=== PATIENT | female | born 1990 | race Hispanic/Latino ===

== ENCOUNTER 2017-10-03 17:21 | Observation (INO) | payer SELFPAY ==
[2017-10-03] MEDS ORDERED: NA CHLORIDE 0.9% 1,000 ML ONE (19:04)
[2017-10-03 19:10] LABS: Absolute Lymphocytes (CBC) 1.2 K/uL (0.7-4.9); Absolute Monocytes 0.8 K/uL (0.1-1.3); Absolute Neutrophil 17.7 K/uL (1.8-8.0); Basophils % 0.2 % (0-1.3); Eosinophils % 0.8 % (0-4.4); Hematocrit 37.4 % (36.0-45.0); Lymphocytes % 6.1 % (15.3-44.8); MCH 28.3 pg (27.0-35.0); MCV 84.9 fL (80-100); RBC Red Blood Cell Count 4.41 M/uL (3.86-4.86)
[2017-10-03 19:16] LABS: Protime INR 1.17
[2017-10-03 19:24] LABS: Bicarbonate 26 mEq/L (21-31); Glucose Level 109 mg/dL (65-120); Potassium 3.7 mEq/L (3.6-5.0); Sodium Level 136 mEq/L (135-145)
[2017-10-03 19:30] LABS: ALT/SGPT 25 IU/L (10-60); AST/SGOT 20 IU/L (10-42); Albumin 4.1 g/dL (3.2-5.5); Alkaline Phosphatase 72 IU/L (42-121); BUN Blood Urea Nitrogen 9 mg/dL (6-20); Bilirubin Direct 0.2 mg/dL (0-0.2); Bilirubin Total 1.5 mg/dL (0.3-1.2); Creatine Phosphokinase 94 IU/L (22-269); Magnesium 1.6 mg/dL (1.8-2.5); Protein, Total 7.5 g/dL (6.0-8.3)
[2017-10-03 19:32] LABS: CKMB Creatine Kinase MB 1.1 ng/ml (0.3-4.0)
[2017-10-03 20:16] LABS: Urine Blood 2+ (NEG); Urine Glucose NEGATIVE (NEG); Urine Protein NEGATIVE (NEG); Urine Specific Gravity 1.025 (1.005-1.030); Urine pH 5.5 (5.0-7.0)
--- NOTE | 2017-10-03 20:41 | RAD REPORT ---
EXAM DESCRIPTION: CT - Chest For Pe Angio - 10/03/2017 8:14 pm CLINICAL HISTORY: Chest pain, left-sided rib pain COMPARISON: None. TECHNIQUE: Dynamically enhanced 3 mm thick images of the chest were obtained during administration o f approximately 150mL Isovue 370 IV contrast. Coronal and oblique reconstruction images were generate d and reviewed. Exam utilizes a protocol to evaluate the pulmonary arterial tree. All CT scans are performed using dose optimization technique as appropriate and may include automated exposure control or mA/KV adjustment according to patient size. FINDINGS: No pulmonary emboli are identified. The aorta as imaged shows no acute or suspicious finding. No pericardial thickening or effusion. No infiltrate or mass in the lung parenchyma. In the No mediastinal or hilar suspicious masses. No chest wall masses or abnormal axillary lymphadenopathy. No fracture or acute bone process identified. Skeletal musculature is unremarkable. IMPRESSION: No pulmonary emboli identified. No other significant or suspicious findings.
[2017-10-03] MEDS ORDERED: KETOROLAC 30 MG/ML INJ ONE (20:57)
[2017-10-03] MEDS ORDERED: Magnesium Sulfate 2gm IVPB 2 G/50 ML BAG IV ONE (20:58)
[2017-10-03] MEDS ORDERED: ONDANSETRON 4 MG/2 ML VIAL ONE (20:58)
[2017-10-03] MEDS ORDERED: MORPHINE 4 MG/ML SYR ONE (21:44)
[2017-10-03] MEDS ORDERED: NA CHLORIDE 0.9% 2,000 ML ONE (21:44)
--- NOTE | 2017-10-03 22:00 | EDPHYS ---
Physician Documentation [facility] Name: Nita Fox Age: 27 yrs Sex: Female : 1990 Arrival Date: 10/03/2017 Time: 17:24 Bed 27 Private MD: ED Physician Elias Tyler HPI: 10/03 18:00 This 27 yrs old Female presents to ER via Ambulatory with complaints of cp Vomiting, Chest Pressure, Back Pain. 18:00 The patient or guardian reports chest pain that is located primarily in the left lower cp left chest. 18:00 The pain radiates to left back. Associated signs and symptoms: Pertinent positives: cp nausea, shortness of breath, episode of hemoptysis, Pertinent negatives: headache, lower extremity pain, lower extremity swelling, palpitations, syncope, vomiting. 18:00 The chest pain is described as a pressure. cp 18:00 Duration: The patient or guardian reports a single episode, that is still ongoing. cp Modifying factors: the symptoms are aggravated by deep breath. TOOL AND DIE REPAIR: 18:15 Currently on rk2 Historical: - Allergies: 17:28 Macrobid; la1 17:28 Sulfa (Sulfonamide Antibiotics); la1 17:28 PENICILLINS; la1 - Home Meds: 22:12 None [Active]; rk2 - PMHx: 17:28 gestational diabetes; la1 - Immunization history:: Adult Immunizations up to date. - Social history:: Smoking status: Patient/guardian denies using tobacco. ROS: 18:15 Constitutional: Negative for body aches, chills, fever, poor PO intake. cp 18:15 Eyes: Negative for injury, pain, redness, and discharge. cp 18:15 ENT: Negative for drainage from ear(s), ear pain, sore throat, difficulty swallowing, difficulty handling secretions. 18:15 Neck: Negative for pain with movement, pain at rest, stiffness, tenderness, bony tenderness. 18:15 Cardiovascular: Positive for chest pain, of the left lower chest, Negative for edema, palpitations. 18:15 Respiratory: Positive for shortness of breath, 1 episode of hemoptysis, Negative for wheezing. 18:15 Abdomen/GI: Positive for nausea, Negative for vomiting, diarrhea, constipation. 18:15 Back: Positive for radiated pain, Negative for injury or acute deformity, decreased range of motion. 18:15 : Negative for urinary symptoms, flank pain. 18:15 MS/extremity: Negative for abrasion, decreased range of motion, paresthesias. 18:15 Skin: Negative for cellulitis, rash. 18:15 Neuro: Negative for altered mental status, headache, syncope, weakness. 18:15 All other systems are negative. Exam: 18:20 Constitutional: The patient appears in no acute distress, alert, awake, cp non-diaphoretic, non-toxic, well developed, well nourished, obese. 18:20 Head/Face: Normocephalic, atraumatic. Eyes: Pupils equal round and reactive to light, cp extra-ocular motions intact. Lids and lashes normal. Conjunctiva and sclera are non-icteric and not injected. Cornea within normal limits. Periorbital areas with no swelling, redness, or edema. ENT: Nares patent. No nasal discharge, no septal abnormalities noted. Tympanic membranes are normal and external auditory canals are clear. Oropharynx with no redness, swelling, or masses, exudates, or evidence of obstruction, uvula midline. Mucous membranes moist. Neck: Trachea midline, no thyromegaly or masses palpated, and no cervical lymphadenopathy. Supple, full range of motion without nuchal rigidity, or vertebral point tenderness. No Meningismus. Chest/axilla: Normal chest wall appearance and motion. Nontender with no deformity. No lesions are appreciated. 18:20 Cardiovascular: Rate: tachycardic, Rhythm: regular, Pulses: Pulses are 2+ in right radial artery and left radial artery. Heart sounds: murmur, not appreciated, rub, not appreciated, gallop, not appreciated, Edema: is not appreciated, JVD: is not appreciated. 18:20 Respiratory: the patient does not display signs of respiratory distress, Respirations: normal, no use of accessory muscles, no retractions, no splinting, no tachypnea, labored breathing, is not present, Breath sounds: decreased breath sounds, are not appreciated, rhonchi, are not appreciated, stridor, is not appreciated, wheezing: is not appreciated. 18:20 Abdomen/GI: Inspection: obese Bowel sounds: active, all quadrants, Palpation: abdomen is soft and non-tender, in all quadrants, rebound tenderness, is not appreciated, voluntary guarding, is not appreciated, involuntary guarding, is not appreciated. 18:20 Back: pain, that is moderate, of the left subscapular area, CVA tenderness, is absent. 18:20 Skin: cellulitis, is not appreciated, no rash present. 18:20 Neuro: Orientation: to person, place \T\ time. Mentation: lucid, able to follow commands, Cerebellar function: is grossly normal, Motor: moves all fours, strength is normal, Sensation: no obvious gross deficits. 18:28 ECG was reviewed by the Attending Physician. Vital Signs: 17:28 BP 132 / 85; Pulse 109; Resp 22; Temp 98.6(TE); Pulse Ox 100% on R/A; Weight 104.33 kg; la1 Height 5 ft. 7 in. (170.18 cm); 18:30 BP 122 / 78; Pulse 96; Resp 18; Pulse Ox 98% on R/A; rk2 19:30 BP 114 / 68; Pulse 92; Resp 18; Pulse Ox 98% on R/A; rk2 20:46 BP 130 / 80; Pulse 93; Resp 17; Pulse Ox 98% on R/A; rk2 21:30 BP 121 / 84; Pulse 102; Resp 17; Pulse Ox 97% on R/A; rk2 22:00 BP 115 / 66; Pulse 95; Resp 17; Pulse Ox 98% on R/A; rk2 17:28 Body Mass Index 36.02 (104.33 kg, 170.18 cm) la1 MDM: 17:34 Patient medically screened. 21:55 Data reviewed: vital signs, nurses notes, lab test result(s), EKG, radiologic studies, cp CT scan, I have discussed the patient's presentation/case with the attending Emergency Department Physician; and as a result, I will admit patient. 21:55 Test interpretation: by ED physician or midlevel provider: ECG. 21:57 Physician consultation: Waqar Choudhury MD was called at 21:55, was contacted at 21:55, regarding admission, to the medical/surgical unit. patient's condition, and will see patient in ED, shortly. 10/03 17:57 Order name: Urine Dipstick--Ancillary (enter results) 10/03 17:57 Order name: Urine --Ancillary (enter results) 10/03 18:17 Order name: Basic Metabolic Panel cp 05/12 18:17 Order name: BNP; Complete Time: 20:48 cp 05/12 18:17 Order name: CBC with Diff; Complete Time: 20:48 cp 05/12 20:48 Interpretation: Normal except: WBC 19.9; JESSICA% 88.9; LYM% 6.1; NEUT A 17.7. cp 05/12 18:17 Order name: Ckmb cp 05/12 18:17 Order name: CPK cp 05/12 18:17 Order name: LFT's; Complete Time: 20:48 cp 05/12 20:48 Interpretation: Normal except: BILIT 1.5. cp 05/12 18:17 Order name: Magnesium; Complete Time: 20:48 cp 05/12 20:49 Interpretation: Abnormal: MG 1.6. cp 05/12 18:17 Order name: PT-INR; Complete Time: 20:48 cp 05/12 20:49 Interpretation: Abnormal: PT 13.8. cp 05/12 18:17 Order name: Ptt, Activated; Complete Time: 20:48 cp 05/12 18:17 Order name: Troponin (emerg Dept Use Only); Complete Time: 20:48 cp 05/12 18:17 Order name: D-Dimer; Complete Time: 20:48 cp 05/12 20:49 Interpretation: Abnormal: D-DIMER 906. cp 05/12 18:17 Order name: Basic Metabolic Panel; Complete Time: 20:48 EDMS 05/12 18:17 Order name: Urine Test (obtain specimen); Complete Time: 18:48 cp 05/12 18:17 Order name: EKG; Complete Time: 18:18 cp 05/12 18:17 Order name: Cardiac monitoring; Complete Time: 18:49 cp 05/12 18:17 Order name: EKG - Nurse/Tech; Complete Time: 18:49 cp 05/12 18:17 Order name: CKMB Creatine Kinase MB; Complete Time: 20:48 EDMS 05/12 18:17 Order name: Creatine Phosphokinase; Complete Time: 20:48 EDMS 05/12 19:31 Order name: CT Chest For PE Angio; Complete Time: 20:48 cp 05/12 21:31 Order name: Urine Microscopic Only cp 05/12 22:27 Order name: Blood Culture Adult (2) cp 05/12 18:17 Order name: IV Saline Lock; Complete Time: 18:49 cp 05/12 18:17 Order name: Labs collected and sent; Complete Time: 18:58 cp 12 18:17 Order name: O2 Per Protocol; Complete Time: 18:49 cp 05/12 18:17 Order name: O2 Sat Monitoring; Complete Time: 18:49 cp 05/12 18:17 Order name: Urine Dipstick-Ancillary (obtain specimen); Complete Time: 18:49 cp EC:28 Rate is 97 beats/min. Rhythm is regular. GA interval is normal. QRS interval is normal. cp QT interval is normal. T waves are Inverted in lead V3. Interpreted by me. Reviewed by me. Administered Medications: 19:06 Drug: NS 0.9% 1000 ml Route: IV; Rate: 1 bolus; Site: left forearm; rk2 21:00 Follow up: Response: No adverse reaction; IV Status: Completed infusion rk2 21:03 Drug: Magnesium Sulfate 2 grams Route: IVPB; Infused Over: 2 hrs; Site: left forearm; rk2 23:09 Follow up: IV Status: Completed infusion rk2 21:03 Drug: TORadol 30 mg Route: IVP; Site: left forearm; rk2 22:15 Follow up: Response: No adverse reaction rk2 21:03 Drug: Zofran 4 mg Route: IVP; Site: left forearm; rk2 22:14 Follow up: Response: No adverse reaction rk2 21:46 Drug: NS 0.9% 1000 ml Route: IV; Rate: 1 bolus; Site: left forearm; rk2 22:20 Follow up: Response: No adverse reaction; IV Status: Completed infusion rk2 21:46 Drug: NS 0.9% 1000 ml Route: IV; Rate: 125 ml/hr; Site: left forearm; rk2 23:08 Follow up: Response: No adverse reaction; IV Status: Infusion continued upon admission rk2 21:53 Drug: morphine 4 mg Route: IVP; Site: left forearm; rk2 22:14 Follow up: Response: No adverse reaction rk2 Disposition: 10/03/17 21:59 Hospitalization ordered by Waqar Choudhury for Observation. Preliminary diagnosis are Chest pain, unspecified, Leukocytosis. - Bed requested for Telemetry/MedSurg (observation). - Status is Observation. rk2 - Condition is Stable. - Problem is new. - Symptoms are unchanged. UTI on Admission? No Addendum: 10/05/2017 09:04 Co-signature as Attending Physician, Elias Tyler MD I agree with the assessment and c shafer plan of care. Signatures: Dispatcher [employer] EDElias Osuna MD MD cha Attema, Lee RN RN la1 Elias Brito PA PA Aislinn Keating, RN RN cg Shelly Colin RN RN rk2 Corrections: (The following items were deleted from the chart) 10/03 22:14 21:59 Hospitalization Ordered by Waqar Choudhury MD for Observation. Preliminary cg diagnosis is Chest pain, unspecified; Leukocytosis. Bed requested for Telemetry/MedSurg (observation). Status is Observation. Condition is Stable. Problem is new. Symptoms are unchanged. UTI on Admission? No. cp 23:14 22:14 10/03/2017 21:59 Hospitalization Ordered by Waqar Choudhury MD for Observation. rk2 Preliminary diagnosis is Chest pain, unspecified; Leukocytosis. Bed requested for Telemetry/MedSurg (observation). Status is Observation. Condition is Stable. Problem is new. Symptoms are unchanged. UTI on Admission? No. cg 10/04 21:55 10/03 18:00 The patient presents to the emergency department with nausea, cp cp
--- NOTE | 2017-10-03 22:00 | ER ---
Nurse's Notes [facility] Name: Nita Fox Age: 27 yrs Sex: Female : 1990 Arrival Date: 10/03/2017 Time: 17:24 Bed 27 Private MD: Diagnosis: Chest pain, unspecified;Leukocytosis Presentation: 10/03 17:27 Presenting complaint: Patient states: I have been having pain under my ribs on the left la1 side since last night, chest pressure since this morning and then I began coughing up blood and I feel SOB. Transition of care: patient was not received from another setting of care. Onset of symptoms was October 03, 2017. Initial Sepsis Screen: Does the patient meet any 2 criteria? No. Patient's initial sepsis screen is negative. Does the patient have a suspected source of infection? No. Patient's initial sepsis screen is negative. Care prior to arrival: None. 17:27 Method Of Arrival: Ambulatory la1 17:27 Acuity: SOREN 3 la1 Triage Assessment: 18:15 General: Appears in no apparent distress. well groomed, well developed, well nourished, rk2 Behavior is calm, cooperative. 18:15 Pain: Complains of pain in Left chest, wraps around to mid back. Neuro: No deficits rk2 noted. Level of Consciousness is alert, obeys commands, Oriented to person, place, time, situation. Cardiovascular: No deficits noted. Rhythm is sinus rhythm. GI: Reports. Derm: Skin is pink, warm \T\ dry. WELD FITTER: 18:15 Currently on rk2 Historical: - Allergies: 17:28 Macrobid; la1 17:28 Sulfa (Sulfonamide Antibiotics); la1 17:28 PENICILLINS; la1 - Home Meds: 22:12 None [Active]; rk2 - PMHx: 17:28 gestational diabetes; la1 - Immunization history:: Adult Immunizations up to date. - Social history:: Smoking status: Patient/guardian denies using tobacco. Screenin:15 Abuse screen: Denies threats or abuse. rk2 18:15 Nutritional screening: No deficits noted. Tuberculosis screening: No symptoms or risk rk2 factors identified. Fall Risk None identified. Assessment: 18:15 GI: Abd is soft. rk2 20:10 Reassessment: Pt. returned from CT. rk2 20:49 Reassessment: Pt. c/o ROSARIO... provider notified. rk2 21:30 Reassessment: Pt. resting in room, appears to be in no obvious distress... iv rk2 meds/fluids infusing. Pt. voiced no needs \T\ this time. Vital Signs: 17:28 BP 132 / 85; Pulse 109; Resp 22; Temp 98.6(TE); Pulse Ox 100% on R/A; Weight 104.33 kg; la1 Height 5 ft. 7 in. (170.18 cm); 18:30 BP 122 / 78; Pulse 96; Resp 18; Pulse Ox 98% on R/A; rk2 19:30 BP 114 / 68; Pulse 92; Resp 18; Pulse Ox 98% on R/A; rk2 20:46 BP 130 / 80; Pulse 93; Resp 17; Pulse Ox 98% on R/A; rk2 21:30 BP 121 / 84; Pulse 102; Resp 17; Pulse Ox 97% on R/A; rk2 22:00 BP 115 / 66; Pulse 95; Resp 17; Pulse Ox 98% on R/A; rk2 17:28 Body Mass Index 36.02 (104.33 kg, 170.18 cm) la1 ED Course: 17:24 Patient arrived in ED. mr 17:28 Triage completed. la1 17:29 Arm band placed on left wrist. la1 17:30 Shelly Colin, JANE is Primary Nurse. rk2 17:34 Elias Brito PA is PHCP. cp 17:34 Elias Tyler MD is Attending Physician. cp 18:15 Patient has correct armband on for positive identification. Placed in gown. Bed in low rk2 position. Side rails up X2. monitoring analyst on. Pulse ox on. 18:59 Basic Metabolic Panel Sent. rk2 19:50 CT Chest For PE Angio Sent. rk2 19:[address] via wheelchair. cw1 20:14 CT completed. Patient moved back from CT. cw1 20:14 CT Chest For PE Angio In Process Unspecified. EDMS 21:58 Waqar Choudhury MD is Hospitalizing Provider. cp 23:09 No provider procedures requiring assistance completed. Patient admitted, IV remains in rk2 place. Administered Medications: 19:06 Drug: NS 0.9% 1000 ml Route: IV; Rate: 1 bolus; Site: left forearm; rk2 21:00 Follow up: Response: No adverse reaction; IV Status: Completed infusion rk2 21:03 Drug: Magnesium Sulfate 2 grams Route: IVPB; Infused Over: 2 hrs; Site: left forearm; rk2 23:09 Follow up: IV Status: Completed infusion rk2 21:03 Drug: TORadol 30 mg Route: IVP; Site: left forearm; rk2 22:15 Follow up: Response: No adverse reaction rk2 21:03 Drug: Zofran 4 mg Route: IVP; Site: left forearm; rk2 22:14 Follow up: Response: No adverse reaction rk2 21:46 Drug: NS 0.9% 1000 ml Route: IV; Rate: 1 bolus; Site: left forearm; rk2 22:20 Follow up: Response: No adverse reaction; IV Status: Completed infusion rk2 21:46 Drug: NS 0.9% 1000 ml Route: IV; Rate: 125 ml/hr; Site: left forearm; rk2 23:08 Follow up: Response: No adverse reaction; IV Status: Infusion continued upon admission rk2 21:53 Drug: morphine 4 mg Route: IVP; Site: left forearm; rk2 22:14 Follow up: Response: No adverse reaction rk2 Outcome: 21:59 Decision to Hospitalize by Provider. cp 23:09 Admitted to Tele rk2 23:09 Condition: good 23:09 Instructed on the need for admit. 23:14 Patient left the ED. rk2 Signatures: Dispatcher [employer] Nita Conner DamiánSangita cw1 Vazquez Hatch RN RN la1 Elias Brito PA PA cp Kidder, Rhonda, RN RN rk2
[2017-10-03 23:18] VITALS: BMI 36.8
[2017-10-03 23:37] LABS: Urine Bacteria <20 /HPF (<20); Urine Culture Reflex Order NOT NEEDED; Urine RBC 20-50 /HPF (NONE SEEN)
[2017-10-04] MEDS: ACETAMINOPHEN 325 MG TABLET PO PRN ×2 (05:17→13:38)
[2017-10-04] MEDS ORDERED: HYDROCORTISONE SUC 100 MG INJ IV ONE (07:16)
[2017-10-04] MEDS ORDERED: CEFTRIAXONE 1 GM/NS 50 ML 1 GM/50 ML BAG IV ONE (07:22)
--- NOTE | 2017-10-04 07:22 | P.HP ---
Certification for Inpatient Patient admitted to: Observation With expected LOS: <2 Midnights Patient will require the following post-hospital care: None Practitioner: I am a practitioner with admitting privileges, knowledge of patient current condition, hospital course, and medical plan of care. Services: Services provided to patient in accordance with Admission requirements found in Title 42 Section 412.3 of the Code of Federal Regulations Patient History Date of Service: 10/03/17 Reason for admission: Pleuritic chest pain History of Present Illness: Patient is a 27-year-old female presents to the hospital having pleuritic chest pain. She has pain on deep inspiration. She has been having shakes and chills for the last couple of days. In the emergency room she was worked up in the ER provider did not feel comfortable with discharging her. Her troponins have been negative so I do not believe with her minimal risk factor that she has cardiac disease at such a young age. With her fevers shakes and chills in her pain on deep inspiration she most likely has a bronchial pneumonia with some pleurisy. Will treat her with IV antibiotics and hydration and reassess by hospitalist provider tomorrow. Possible discharge home in the next 24-48 hr. Allergies nitrofurantoin [From Macrobid] Allergy (Unverified 07/04/16 18:24) Unknown Penicillins Allergy (Unverified 10/03/17 23:17) Unknown Sulfa (Sulfonamide Antibiotics) Allergy (Unverified 02/24/15 11:05) Unknown Unknown IV pain med Allergy (Uncoded 02/24/15 11:05) Unknown Home Medications: NK [No Home Meds] 10/03/17 - Past Medical/Surgical History Diabetic: No -: gestational diabetes -: appy -: x 2 - Family History Mother Medical History: Hypertension, Stroke Father Medical History: Hypertension, Diabetes, Stroke - Social History Smoking Status: Never smoker Alcohol use: Yes CD- Drugs: No Caffeine use: Yes Place of Residence: Home Review of Systems 10-point ROS is otherwise unremarkable Physical Examination - Vital Signs Temperature: 100.8 F Blood Pressure: 115/62 Pulse: 93 Respirations: 18 Pulse Ox (%): 94 - Physical Exam General: Alert, In no apparent distress, Oriented x3 HEENT: Atraumatic, PERRLA, Mucous membr. moist/pink, EOMI, Sclerae nonicteric Neck: Supple, 2+ carotid pulse no bruit, No LAD, Without JVD or thyroid abnormality Respiratory: Diminished, Other (Pain on deep inspiration) Cardiovascular: Regular rate/rhythm, Normal S1 S2 Gastrointestinal: Normal bowel sounds, Soft and benign, Non-distended, No tenderness Musculoskeletal: No clubbing, No swelling, No tenderness Integumentary: No rashes Neurological: Normal gait, Normal speech, Normal strength at 5/5 x4 extr, Normal tone, Sensation intact, Cranial nerves 3-12 intact, Normal affect Lymphatics: No axilla or inguinal lymphadenopathy - Studies Laboratory Data (last 24 hrs) 10/03/17 18:55: PT 13.8 H, INR 1.17, APTT 30.1 10/03/17 18:55: WBC 19.9 H, Hgb 12.5, Hct 37.4, Plt Count 216 10/03/17 18:55: B-Natriuretic Peptide 22 10/03/17 18:55: Sodium 136, Potassium 3.7, BUN 9, Creatinine 0.75, Glucose 109, Magnesium 1.6 L, Total Bilirubin 1.5 H, AST 20, ALT 25, Alkaline Phosphatase 72 Assessment & Plan - Problems (Diagnosis) (1) Pleuritic chest pain Current Visit: Yes Status: Acute (2) Pneumonia Current Visit: Yes Status: Acute (3) Leukocytosis Current Visit: Yes Status: Acute - Plan 1. Continue with IV antibiotics 2. Awaiting sputum and blood culture 3. Repeat chest x-ray 4. CT of the chest did not reveal a pneumonia. Will reassess in 24 hr 5. Continue with IV steroids 6. Continue with nebs as needed 7. O2 per protocol 8. Continue with gentle hydration 9. Repeat labs including CBC and renal function in a.m. 10. GI and DVT prophylaxis Discharge Plan: Home Plan to discharge in: 48 Hours - Advance Directives Does patient have a Living Will: No Does patient have a Durable POA for Healthcare: No - Code Status/Comfort Care Code Status Assessed: Yes Code Status: Full Code Critical Care: No Time Spent Managing PTS Care (In Minutes): 50
[2017-10-04] MEDS ORDERED: CEFTRIAXONE/SWI 1gm 1 GM/10 ML SYR IV SCH (08:00)
[2017-10-04] MEDS: NA CHLORIDE 0.9% 1,000 ML IV SCH ×2 (09:41→17:16)
[2017-10-04] MEDS: ASPIRIN EC 81 MG TAB PO SCH (09:42)
[2017-10-04] MEDS: ENOXAPARIN 40 MG/0.4 ML SQ SCH (09:42)
[2017-10-04] MEDS: METOPROLOL TAR 50 MG TAB PO SCH ×2 (09:42→20:52)
[2017-10-04 13:41] VITALS: O2SAT 96
--- NOTE | 2017-10-04 13:45 | P.PN ---
Subjective Date of Service: 10/04/17 Chief Complaint: Pleuritic chest pain Patient seen and examined at bedside with RN. Chart reviewed. Currently patient has no complaints to offer. Patient did have a fever earlier this morning of 101.2. Patient states that she however feels much better than before. Review of Systems General: As per HPI Physical Examination - Vital Signs Temperature: 98.4 F Blood Pressure: 110/60 Pulse: 75 Respirations: 20 Pulse Ox (%): 96 - Physical Exam General: Alert, In no apparent distress, Oriented x3 HEENT: Atraumatic, PERRLA, EOMI Neck: Supple, JVD not distended Respiratory: Clear to auscultation bilaterally, Normal air movement Cardiovascular: Regular rate/rhythm, Normal S1 S2 Gastrointestinal: Normal bowel sounds, No tenderness Musculoskeletal: No tenderness Integumentary: No rashes Neurological: Normal speech, Normal tone, Normal affect Lymphatics: No axilla or inguinal lymphadenopathy - Studies Laboratory Data (last 24 hrs) 10/03/17 18:55: PT 13.8 H, INR 1.17, APTT 30.1 10/03/17 18:55: WBC 19.9 H, Hgb 12.5, Hct 37.4, Plt Count 216 10/03/17 18:55: B-Natriuretic Peptide 22 10/03/17 18:55: Sodium 136, Potassium 3.7, BUN 9, Creatinine 0.75, Glucose 109, Magnesium 1.6 L, Total Bilirubin 1.5 H, AST 20, ALT 25, Alkaline Phosphatase 72 Medications List Reviewed: Yes Assessment & Plan - Problems (Diagnosis) (1) Fever due to infection Current Visit: Yes Status: Acute Plan: Fever and Leukocytosis. Most likely 2.2 viral infection -IV fluids for now -If needed will add ABX (2) Pleuritic chest pain Current Visit: Yes Status: Acute Plan: Pleuritic chest pain -May get an ECHO if pain not subsided after IV fluids Discharge Plan: Home Plan to discharge in: 48 Hours - Code Status/Comfort Care Code Status Assessed: Yes Critical Care: No
--- NOTE | 2017-10-04 15:24 | EKG ---
Test Date: 2017-10-03 Test Time: 18:20:40 Traffic Controller Cable: DORIS MEASUREMENT RESULTS: Intervals: Rate: 97 ND: 140 QRSD: 90 QT: 344 QTc: 436 Arbuckle: P: 41 ND: 140 QRS: 22 T: 13 INTERPRETIVE STATEMENTS: Normal sinus rhythm Nonspecific T wave abnormality Abnormal ECG Compared to ECG 01/07/2017 20:27:05 T-wave abnormality now present Electronically Signed On 10-04-17 15:23:26 CDT by Zia Kellogg
--- NOTE | 2017-10-04 16:44 | RAD REPORT ---
EXAM DESCRIPTION: US - Liver Only - 10/04/2017 4:38 pm CLINICAL HISTORY: Fever, elevated bilirubin. COMPARISON: None. FINDINGS: The liver demonstrates diffuse fatty infiltration.No focal liver lesion or intrahepatic bi liary dilatation.Common bile duct measures 4 mm.No evidence of portal vein thrombosis. Gallbladder is contracted. IMPRESSION: Fatty liver.
[2017-10-05] MEDS: NA CHLORIDE 0.9% 1,000 ML IV SCH ×2 (04:00→08:39)
--- NOTE | 2017-10-05 07:44 | EKG ---
Test Date: 2017-10-04 Test Time: 12:47:03 Squad Boss: SEKOU MEASUREMENT RESULTS: Intervals: Rate: 68 OH: 144 QRSD: 94 QT: 400 QTc: 425 Walton: P: 32 OH: 144 QRS: 6 T: -3 INTERPRETIVE STATEMENTS: Normal sinus rhythm with sinus arrhythmia Normal ECG Compared to ECG 10/03/2017 18:20:40 T-wave abnormality no longer present Electronically Signed On 10-05-17 07:43:09 CDT by Fahad Reynaga
[2017-10-05] MEDS: ENOXAPARIN 40 MG/0.4 ML SQ SCH (08:36)
[2017-10-05] MEDS: METOPROLOL TAR 50 MG TAB PO SCH (08:37)
[2017-10-05] MEDS: ASPIRIN EC 81 MG TAB PO SCH (08:38)
[2017-10-05 08:40] VITALS: BP 109/65
[2017-10-05 09:05] VITALS: TEMP 98
--- NOTE | 2017-10-05 14:43 | P.SSS ---
Patient History Date of Service: 10/05/17 Primary Care Provider: NOne Reason for admission: Pleuritic chest pain History of Present Illness: See HPI Allergies nitrofurantoin [From Macrobid] Allergy (Verified 10/04/17 09:51) Unknown Penicillins Allergy (Verified 10/04/17 09:51) Unknown Sulfa (Sulfonamide Antibiotics) Allergy (Verified 10/04/17 09:51) Unknown Unknown IV pain med Allergy (Uncoded 02/24/15 11:05) Unknown Home Medications: NK [No Home Meds] 10/03/17 - Past Medical/Surgical History Diabetic: No -: gestational diabetes -: appy -: x 2 - Family History Mother -: Hypertension, Stroke Father -: Hypertension, Diabetes, Stroke - Social History Smoking Status: Never smoker Alcohol use: Yes CD- Drugs: No Caffeine use: Yes Place of Residence: Home Review of Systems General: As per HPI Physical Examination - Vital Signs Temperature: 98.0 F Blood Pressure: 109/65 Pulse: 60 Respirations: 16 Pulse Ox (%): 95 - Physical Exam General: Alert, In no apparent distress, Oriented x3 HEENT: Atraumatic, PERRLA, Mucous membr. moist/pink, EOMI, Sclerae nonicteric Neck: Supple, 2+ carotid pulse no bruit, No LAD, Without JVD or thyroid abnormality Respiratory: Clear to auscultation bilaterally, Normal air movement Cardiovascular: Regular rate/rhythm, Normal S1 S2 Gastrointestinal: Normal bowel sounds, No tenderness Musculoskeletal: No tenderness Integumentary: No rashes Neurological: Normal gait, Normal speech, Normal strength at 5/5 x4 extr, Normal tone, Normal affect Lymphatics: No axilla or inguinal lymphadenopathy - Diagnosis (Problem(s)) (1) Fever due to infection Onset Date: 10/05/17 Status: Resolved (2) Pleuritic chest pain Onset Date: 10/05/17 Status: Resolved Treatment Summary: Overall during the hospital stay patient remained stable Patient was initially admitted to the hospital for fever and chest pressure. Most likely secondary to viral upper respiratory tract infection. Patient was kept on IV antibiotics and IV fluids here in metal. Antibiotics were discontinued with improvement in white count. Patient's culture was negative. Patient most likely had upper respiratory infection secondary to viral illness. Patient day 2 was doing well did not have any fever for 848 hr and thus was discharged home under stable condition. Patient was asked to follow up with a primary care provider and a pharmacy messenger for further care. Patient was also asked to return to the ER if she starts having any shortness of breath or any other associated symptoms. - Disposition Disposition: ROUTINE DISCHARGE Condition: GOOD Diet: Regular Activity: Ad lilo
== END 2017-10-05 12:00 | disposition home or self-care (01) ==
LOC: ER 17:21 → ERHOLD 22:40 → 4TH 22:59
PROVIDERS: ADMIT Hospitalist; ATTEND Hospitalist
DX: R50.9 Fever, unspecified (principal); R07.9 Chest pain, unspecified; Z88.0 Allergy status to penicillin; Z88.2 Allergy status to sulfonamides
CPT/HCPCS: 36415; 71275; 76705; 80048; 80061; 80076; 81003; 81015; 81025; 82550; 82553; 83735; 83880; 84484; 85025; 85379; 85610; 85730; 87040; 93005; 96361; 96365; 96366; 96375; 99285; G0378; J0696; J1650; J1720; J2405; J3475; J7030; Q9967

== ENCOUNTER 2020-04-03 17:34 | Emergency (ER) | payer SELFPAY ==
[2020-04-03 19:28] LABS: Urine Bacteria >50 /HPF (<20); Urine Culture Reflex Order REFLEXED; Urine RBC <5 /HPF (NONE SEEN)
--- NOTE | 2020-04-03 19:58 | RAD REPORT ---
EXAM DESCRIPTION: US - Abdomen Exam Limited - 04/03/2020 7:43 pm CLINICAL HISTORY: Abdominal pain. COMPARISON: None. FINDINGS: Gallbladder is contracted which limits evaluation for gallstones. A gallstone is not seen. Gallbladder wall appears thickened. This could be secondary to pathology or simply be due to the gall bladder being contracted The biliary tree is normal caliber. IMPRESSION: Contracted gallbladder. This would be a normal finding if the patient was not NPO. Chron ic cholecystitis can also result in this appearance.
[2020-04-03 19:59] LABS: Urine Blood 2+ (NEG); Urine Glucose NEGATIVE (NEG); Urine Protein 2+ (NEG); Urine Specific Gravity 1.025 (1.005-1.030)
[2020-04-03 20:01] LABS: Absolute Lymphocytes (CBC) 1.8 K/uL (0.7-4.9); Basophils % 0.5 % (0-1.3); Hematocrit 38.1 % (36.0-45.0); Lymphocytes % 12.7 % (15.3-44.8); MPV 9.5 fL (7.6-11.3); RBC Red Blood Cell Count 4.49 M/uL (3.86-4.86)
[2020-04-03] MEDS ORDERED: NA CHLORIDE 0.9% 1,000 ML ONE (20:10)
[2020-04-03] MEDS ORDERED: HYDROCODONE/APAP 5/325 MG TAB ONE (20:10)
[2020-04-03] MEDS ORDERED: CEFTRIAXONE/SWI 1gm 1 GM/10 ML SYR ONE (20:17)
[2020-04-03] MEDS ORDERED: PROMETHAZINE INJ 25 MG/ML AMP ONE (20:17)
--- NOTE | 2020-04-03 20:44 | EDPHYS ---
Physician Documentation [facility] Name: Nita Fox Age: 29 yrs Sex: Female : 1990 Arrival Date: 04/03/2020 Time: 17:38 Bed 20 Private MD: ED Physician Dexter Pandey HPI: 04/03 19:33 This 29 yrs old Female presents to ER via Ambulatory with complaints of snw Abdominal Pain, Back Pain. 19:33 The patient presents with abdominal pain in the right upper quadrant. Onset: The snw symptoms/episode began/occurred suddenly, 1 day(s) ago. The symptoms radiate to right back. Associated signs and symptoms: Pertinent positives: nausea, anorexia. The symptoms are described as constant, crampy. Severity of pain: At its worst the pain was moderate. The patient has experienced similar episodes in the past. It is unknown whether or not the patient has recently seen a physician. 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 - Social history:: Smoking status: Patient denies any tobacco usage or history of. ROS: 19:31 Constitutional: Negative for fever, chills, and weight loss, Eyes: Negative for injury, snw pain, redness, and discharge, ENT: Negative for injury, pain, and discharge, Neck: Negative for injury, pain, and swelling, Cardiovascular: Negative for chest pain, palpitations, and edema, Respiratory: Negative for shortness of breath, cough, wheezing, and pleuritic chest pain, Abdomen/GI: Positive for abdominal pain, right upper quad and around right back, + nausea, negative for vomiting, diarrhea, and constipation, Back: Negative for injury and pain, : Negative for injury, bleeding, discharge, and swelling, MS/Extremity: Negative for injury and deformity, Skin: Negative for injury, rash, and discoloration, Neuro: Negative for headache, weakness, numbness, tingling, and seizure, Psych: Negative for depression, anxiety, suicide ideation, homicidal ideation, and hallucinations. Exam: 19:31 Constitutional: This is a well developed, well nourished patient who is awake, alert, snw and in no acute distress. Head/Face: Normocephalic, atraumatic. Eyes: Pupils equal round and reactive to light, extra-ocular motions intact. Lids and lashes normal. Conjunctiva and sclera are non-icteric and not injected. Cornea within normal limits. Periorbital areas with no swelling, redness, or edema. ENT: Nares patent. No nasal discharge, no septal abnormalities noted. Tympanic membranes are normal and external auditory canals are clear. Oropharynx with no redness, swelling, or masses, exudates, or evidence of obstruction, uvula midline. Mucous membranes moist. Neck: Trachea midline, no thyromegaly or masses palpated, and no cervical lymphadenopathy. Supple, full range of motion without nuchal rigidity, or vertebral point tenderness. No Meningismus. Chest/axilla: Normal chest wall appearance and motion. Nontender with no deformity. No lesions are appreciated. Cardiovascular: Regular rate and rhythm with a normal S1 and S2. No gallops, murmurs, or rubs. Normal PMI, no JVD. No pulse deficits. Respiratory: Lungs have equal breath sounds bilaterally, clear to auscultation and percussion. No rales, rhonchi or wheezes noted. No increased work of breathing, no retractions or nasal flaring. Back: No spinal tenderness. No costovertebral tenderness. Full range of motion. Skin: Warm, dry with normal turgor. Normal color with no rashes, no lesions, and no evidence of cellulitis. MS/ Extremity: Pulses equal, no cyanosis. Neurovascular intact. Full, normal range of motion. Neuro: Awake and alert, GCS 15, oriented to person, place, time, and situation. Cranial nerves II-XII grossly intact. Motor strength 5/5 in all extremities. Sensory grossly intact. Cerebellar exam normal. Normal gait. Psych: Awake, alert, with orientation to person, place and time. Behavior, mood, and affect are within normal limits. 19:31 Abdomen/GI: Inspection: abdomen appears normal, Bowel sounds: normal, Palpation: mild abdominal tenderness, in the umbilical area, posterior aspect of right lateral abdomen and right upper quadrant. Vital Signs: 17:56 BP 142 / 92; Pulse 89; Resp 16 S; Temp 97.5(TE); Pulse Ox 99% on R/A; Weight 115.21 kg ca1 (R); Height 5 ft. 7 in. (170.18 cm) (R); Pain 9/10; 18:00 Temp 97.5(TE); jp3 19:23 BP 131 / 76; Pulse 83; Resp 18; Pulse Ox 100% on R/A; Pain 9/10; jp3 20:50 BP 135 / 86; Pulse 77; Resp 18; Pulse Ox 100% on R/A; aj1 17:56 Body Mass Index 39.78 (115.21 kg, 170.18 cm) ca1 MDM: 19:22 Patient medically screened. snw 20:49 Data reviewed: vital signs, nurses notes. Data interpreted: Pulse oximetry: on room air snw is 100 %. Interpretation: normal. Counseling: I had a detailed discussion with the patient and/or guardian regarding: the historical points, exam findings, and any diagnostic results supporting the discharge/admit diagnosis, lab results, the need for outpatient follow up, to return to the emergency department if symptoms worsen or persist or if there are any questions or concerns that arise at home. Special discussion: Based on the history and exam findings, there is no indication for further emergent testing or inpatient evaluation. I discussed with the patient/guardian the need to see the general surgeon for further evaluation of the symptoms. I discussed with the patient/guardian the need to see the primary care provider for further evaluation of the symptoms. 04/03 18:10 Order name: Urine Culture snw 04/03 18: Order name: Urine Microscopic Only; Complete Time: 19:30 snw 04/03 19:00 Order name: Urine --Ancillary (enter results); Complete Time: 20:00 tt3 04/03 19:00 Order name: Urine Dipstick--Ancillary (enter results); Complete Time: 20:00 tt3 04/03 19:23 Order name: CBC with Diff; Complete Time: 20:02 snw 04/03 19:23 Order name: Chem 7; Complete Time: 20:59 snw 04/03 18:10 Order name: Urine Test (obtain specimen); Complete Time: 19:00 snw 04/03 18:10 Order name: Urine Dipstick-Ancillary (obtain specimen); Complete Time: 19:00 snw 04/03 18:38 Order name: US Abdomen Limited; Complete Time: 19:59 snw 04/03 18:38 Order name: NPO; Complete Time: 19:18 snw Administered Medications: 20:29 Drug: NS 0.9% 1000 ml Route: IV; Rate: 1 bolus; Site: right antecubital; aj1 20:29 Drug: [place] 5 mg-325 mg 1 tabs Route: PO; aj1 20:29 Drug: Rocephin 1 grams Route: IV; Rate: calculated rate; Site: right antecubital; aj1 20:30 Drug: Phenergan 12.5 mg Route: IVP; Site: right antecubital; aj1 Point of Care Testing: Urine : 19:00 hCG Reading: Negative; Control Reading: Positive; jp3 Disposition: 23:13 Co-signature as Attending Physician, Dexter Pandey MD. rn Disposition: 04/03/20 20:43 Discharged to Home. Impression: Urinary tract infection, site not specified, Colic. - Condition is Stable. - Discharge Instructions: Biliary Colic, Adult, Fat and Cholesterol Restricted Diet, Urinary Tract Infection, Adult, Rehydration, Adult. - Prescriptions for cefpodoxime 200 mg Oral Tablet - take 1 tablet by ORAL route every 12 hours with food; 14 tablet. promethazine 25 mg Oral Tablet - take 1 tablet by ORAL route every 6 hours As needed; 20 tablet. - Work release form, Medication Reconciliation Form, Thank You Letter, Antibiotic Education, Prescription Opioid Use form. - Follow up: Emergency Department; When: As needed; Reason: Worsening of condition. Follow up: Private Physician; When: 2 - 3 days; Reason: Recheck today's complaints, Continuance of care, Re-evaluation by your physician. Follow up: Willi Krueger MD; When: 1 week; Reason: Recheck today's complaints, Continuance of care. Signatures: Dispatcher [employer] EDBell Abraham RN RN aj1 Rocío Giron, SENIOR APPLICATION PROGRAMMER-C SENIOR APPLICATION PROGRAMMER-Csnw Dexter Pandey MD MD rn Acob, JANE Walden RN ca1 Corrections: (The following items were deleted from the chart) 21:06 20:43 04/03/2020 20:43 Discharged to Home. Impression: Urinary tract infection, site ca1 not specified; Colic. Condition is Stable. Forms are Medication Reconciliation Form, Thank You Letter, Antibiotic Education, Prescription Opioid Use. Follow up: Emergency Department; When: As needed; Reason: Worsening of condition. Follow up: Private Physician; When: 2 - 3 days; Reason: Recheck today's complaints, Continuance of care, Re-evaluation by your physician. Follow up: Willi Krueger; When: 1 week; Reason: Recheck today's complaints, Continuance of care. snw
--- NOTE | 2020-04-03 20:44 | ER ---
Nurse's Notes [facility] Name: Nita Fox Age: 29 yrs Sex: Female : 1990 Arrival Date: 04/03/2020 Time: 17:38 Bed 20 Private MD: Diagnosis: Urinary tract infection, site not specified;Colic Presentation: 04/03 17:56 Chief complaint: Patient states: Abdominal pain started today at 1100. Starts in the ca1 middle goes to the R and to the back. Pain with getting up, bending over, walking and moving. Reports nausea. Denies V/D/fever. Coronavirus screen: Client denies travel out of the [place] in the last 14 days. nausea, Client presents with at least one sign or symptom that may indicate coronavirus-19. Standard/surgical mask placed on the client. Provider contacted for isolation considerations. The client reports previous COVID testing was negative. Date of collection: February 2020. Ebola Screen: Patient negative for fever greater than or equal to 101.5 degrees Fahrenheit, and additional compatible Ebola Virus Disease symptoms Patient denies exposure to infectious person. Patient denies travel to an Ebola-affected area in the 21 days before illness onset. No symptoms or risks identified at this time. Initial Sepsis Screen: Does the patient meet any 2 criteria? No. Patient's initial sepsis screen is negative. Does the patient have a suspected source of infection? No. Patient's initial sepsis screen is negative. Risk Assessment: Do you want to hurt yourself or someone else? Patient reports no desire to harm self or others. Onset of symptoms was April 03, 2020 at 11:30. 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 - Social history:: Smoking status: Patient denies any tobacco usage or history of. Screenin:45 Abuse screen: Denies threats or abuse. Denies injuries from another. Nutritional aj1 screening: No deficits noted. Tuberculosis screening: No symptoms or risk factors identified. 21:06 Fall Risk None identified. ca1 Assessment: 19:45 General: Appears in no apparent distress. uncomfortable, Behavior is calm, cooperative, aj1 appropriate for age. Pain: Complains of pain in right upper quadrant Pain radiates to back Pain currently is 9 out of 10 on a pain scale. Quality of pain is described as aching, pressure, Pain began 1 day ago. Neuro: Level of Consciousness is awake, alert, obeys commands, Oriented to person, place, time, situation. Cardiovascular: Patient's skin is warm and dry. Respiratory: Airway is patent Respiratory effort is even, unlabored, Respiratory pattern is regular, symmetrical. GI: Abdomen is non-distended, Bowel sounds present X 4 quads. Abd is soft X 4 quads Abdomen is tender to palpation in right upper quadrant Reports nausea, Patient currently denies constipation, diarrhea, vomiting. : No signs and/or symptoms were reported regarding the genitourinary system. EENT: No signs and/or symptoms were reported regarding the EENT system. Derm: No signs and/or symptoms reported regarding the dermatologic system. Skin is pink, warm \T\ dry. normal. Musculoskeletal: No signs and/or symptoms reported regarding the musculoskeletal system. Circulation, motion, and sensation intact. 20:49 Reassessment: Patient appears in no apparent distress at this time. No changes from aj1 previously documented assessment. Patient and/or family updated on plan of care and expected duration. Pain level reassessed. Patient is alert, oriented x 3, equal unlabored respirations, skin warm/dry/pink. 20:50 Reassessment: Discharge pending completion of IV fluids. aj1 21:05 Reassessment: Patient appears in no apparent distress at this time. Patient is alert, ca1 oriented x 3, equal unlabored respirations, skin warm/dry/pink. Vital Signs: 17:56 BP 142 / 92; Pulse 89; Resp 16 S; Temp 97.5(TE); Pulse Ox 99% on R/A; Weight 115.21 kg ca1 (R); Height 5 ft. 7 in. (170.18 cm) (R); Pain 9/10; 18:00 Temp 97.5(TE); jp3 19:23 BP 131 / 76; Pulse 83; Resp 18; Pulse Ox 100% on R/A; Pain 9/10; jp3 20:50 BP 135 / 86; Pulse 77; Resp 18; Pulse Ox 100% on R/A; aj1 17:56 Body Mass Index 39.78 (115.21 kg, 170.18 cm) ca1 ED Course: 17:38 Patient arrived in ED. mr 17:58 Triage completed. ca1 17:59 Arm band placed on right wrist. ca1 18:15 Urine collected: clean catch specimen, clear, jairo colored. jp3 18:58 Rocío Giron FNP-C [facility]. snw 18:59 Dexter Pandey MD is Attending Physician. snw 19:00 Urine Culture Sent. jp3 19:00 Urine Microscopic Only Sent. jp3 19:19 Bell Loera, RN is Primary Nurse. aj1 19:23 Call light in reach. Side rails up X 1. Warm blanket given. Verbal reassurance given. jp3 Pulse ox on. NIBP on. 19:34 Initial lab(s) drawn, by me, sent to lab. Inserted saline lock: 20 gauge in left jp3 antecubital area, using aseptic technique. Blood collected. 19:34 Patient maintains SpO2 saturation greater than 95% on room air. jp3 19:43 US Abdomen Limited In Process Unspecified. EDMS 19:45 No provider procedures requiring assistance completed. aj1 20:43 Willi Krueger MD is Referral Physician. snw 21:05 IV discontinued, intact, bleeding controlled, No redness/swelling at site. Pressure ca1 dressing applied. Administered Medications: 20:29 Drug: NS 0.9% 1000 ml Route: IV; Rate: 1 bolus; Site: right antecubital; aj1 20:29 Drug: [place] 5 mg-325 mg 1 tabs Route: PO; aj1 20:29 Drug: Rocephin 1 grams Route: IV; Rate: calculated rate; Site: right antecubital; aj1 20:30 Drug: Phenergan 12.5 mg Route: IVP; Site: right antecubital; aj1 Point of Care Testing: Urine : 19:00 hCG Reading: Negative; Control Reading: Positive; jp3 Outcome: 20:43 Discharge ordered by . leena 21:05 Discharged to home ambulatory, with family. ca1 21:05 Condition: stable 21:05 Discharge instructions given to patient, Instructed on discharge instructions, follow up and referral plans. medication usage, Demonstrated understanding of instructions, follow-up care, medications, Prescriptions given X 2. 21:06 Patient left the ED. ca1 Addendum: 04/06/2020 07:26 Addendum: Culture Results: Positive urine culture. No further action required. Bacteria e b sensitive to prescribed antibiotic. Signatures: Dispatcher [employer] EDBell Abraham, RN RN aj1 Rocío Giron, CYTOTECHNOLOGIST/HISTOTECHNOLOGIST-C CYTOTECHNOLOGIST/HISTOTECHNOLOGIST-Csnw Annie Valentin Elizabeth eb Pisarski, Jacob jp3 Iram Villarreal, RN RN ca1
[2020-04-03 20:56] LABS: BUN Blood Urea Nitrogen 11 mg/dL (7-18); Bicarbonate 28 mmol/L (21-32); Glucose Level 116 mg/dL (74-106); Potassium 4.2 mmol/L (3.5-5.1); Sodium Level 141 mmol/L (136-145)
[2020-04-04 02:35] VITALS: TEMP 97.5
[2020-04-04 02:38] VITALS: O2SAT 100
[2020-04-04 02:39] VITALS: BP 135/86
== END 2020-04-03 21:06 | disposition home or self-care (01) ==
LOC: ER 17:34
DX: N39.0 Urinary tract infection, site not specified (principal); E11.9 Type 2 diabetes mellitus without complications; Z88.0 Allergy status to penicillin; Z88.1 Allergy status to other antibiotic agents; Z88.2 Allergy status to sulfonamides
CPT/HCPCS: 36415; 76705; 80048; 81003; 81015; 81025; 85025; 87077; 87086; 87088; 87186; 96374; 96375; 99284; J0696; J2550; J7030

== ENCOUNTER 2020-09-11 19:29 | Emergency (ER) | payer SELFPAY ==
--- OUTSIDE RECORDS SUMMARY | 2020-09-11 19:31 | XMS REPORT | Continuity of Care Document ---
:1990 Author Organization [facility] t Address [address] [place] [address] Care Team Providers Name Role Phone Jose Rafael Sen Attending Clinician Samira LAWRENCE S Attending Clinician Problems This patient has no known problems. Allergies, Adverse Reactions, Alerts This patient has no known allergies or adverse reactions. Medications This patient has no known medications. Procedures This patient has no known procedures. Encounters Start End Encounter Admission Attending Care Care Encounter Source Date/Time Date/Time Type Type Clinicians Facility Department ID 2020-06-05 2020-06-[address] [facility] [id number] 16:50:00 19:31:00 Sanjeev Hightower [id number] [place] [id number] [place] [address] [id number] 2019-12-19 2019-12-[address] [facility] [id number] 21:39:31 03:45:00 Glendy Hightower [id number] [place] [id number] [place] [address] [id number] Results This patient has no known results.
[2020-09-11 23:34] LABS: SARS-COV-2 RT PCR NEGATIVE (NEGATIVE)
--- NOTE | 2020-09-11 23:51 | EDPHYS ---
Physician Documentation [facility] Name: Nita Fox Age: 29 yrs Sex: Female : 1990 Arrival Date: 09/11/2020 Time: 19:31 Bed 2 Private MD: ED Physician Elias Tyler HPI: 09/11 23:48 This 29 yrs old Female presents to ER via Ambulatory with complaints of kb Shortness Of Breath, Congestion. 23:48 The patient has not experienced similar symptoms in the past. The patient has not kb recently seen a physician. 23:49 The patient or guardian reports cough, that is intermittent, described as moderate, kb difficulty breathing, flu symptoms, low-grade fever, myalgias, no appetite. Associated signs and symptoms: Pertinent positives: fever. 23:49 Onset: The symptoms/episode began/occurred 3 day(s) ago. Severity of symptoms: At their kb worst the symptoms were moderate, in the emergency department the symptoms are unchanged. Modifying factors: The symptoms are alleviated by nothing, the symptoms are aggravated by nothing. 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 - Social history:: Smoking status: Patient denies any tobacco usage or history of. ROS: 23:47 Cardiovascular: Negative for chest pain, palpitations, and edema, Abdomen/GI: Negative kb for abdominal pain, nausea, vomiting, diarrhea, and constipation, MS/Extremity: Negative for injury and deformity, Skin: Negative for injury, rash, and discoloration, Neuro: Negative for headache, weakness, numbness, tingling, and seizure. 23:47 Constitutional: Positive for body aches, chills, fatigue, fever, malaise. 23:47 Respiratory: Positive for cough, dyspnea on exertion, shortness of breath. Exam: 23:48 Constitutional: This is a well developed, well nourished patient who is awake, alert, kb and in no acute distress. Head/Face: Normocephalic, atraumatic. Cardiovascular: Regular rate and rhythm with a normal S1 and S2. No gallops, murmurs, or rubs. No pulse deficits. Respiratory: Respirations even and unlabored. No increased work of breathing, no retractions or nasal flaring. Abdomen/GI: Soft, non-tender. No distention Skin: Warm, dry with normal turgor. Normal color. MS/ Extremity: Pulses equal, no cyanosis. Neurovascular intact. Full, normal range of motion. Neuro: Awake and alert, GCS 15, oriented to person, place, time, and situation. Moves all extremities. Normal gait. Vital Signs: 20:17 BP 134 / 88; Pulse 101; Resp 18 S; Temp 98.3(O); Pulse Ox 98% on R/A; Weight 113.4 kg bb (R); Height 5 ft. 7 in. (170.18 cm) (R); Pain 7/10; 09/12 00:11 BP 133 / 94; Pulse 88; Resp 16; Pulse Ox 97% ; jm8 09/11 20:17 Body Mass Index 39.16 (113.40 kg, 170.18 cm) bb MDM: 09/11 21:49 Patient medically screened. [facility] 23:47 Data reviewed: vital signs, nurses notes. Data interpreted: Pulse oximetry: on room air kb is 98 %. Interpretation: normal. Counseling: I had a detailed discussion with the patient and/or guardian regarding: the historical points, exam findings, and any diagnostic results supporting the discharge/admit diagnosis, lab results, radiology results, the need for outpatient follow up, a family practitioner, to return to the emergency department if symptoms worsen or persist or if there are any questions or concerns that arise at home. 09/11 22:24 Order name: Strep mg2 09/11 22:25 Order name: Group A Streptococcus Rapid Sc; Complete Time: 23:44 EDMS 09/11 23:34 Order name: COVID-19/FLU A+B; Complete Time: 23:44 EDMS 09/11 23:40 Order name: Throat Culture EDTN 09/11 21:29 Order name: Chest Single View XRAY kb Administered Medications: 09/12 00:00 Drug: predniSONE 40 mg Route: PO; jm8 00:00 Follow up: Response: No adverse reaction; Medication administered at discharge. jm8 00:00 Drug: AZITHromycin 500 mg Route: PO; jm8 00:00 Follow up: Response: No adverse reaction; Medication administered at discharge. jm8 Disposition: 10:01 Co-signature as Attending Physician, Elias Tyler MD I agree with the assessment and glynn plan of care. Disposition: 09/11/20 23:50 Discharged to Home. Impression: Bronchitis, not specified as acute or chronic. - Condition is Stable. - Discharge Instructions: Acute Bronchitis, [id number], Viral Respiratory Infection, [id number]-[id number]. - Prescriptions for Prednisone 20 mg Oral Tablet - take 1 tablet by ORAL route once daily for 5 days; 5 tablet. Zithromax Z- Catracho 250 mg Oral Tablet - take 1 tablet by ORAL route as directed for 5 days Day 1 - take two (2) tablets one time. Day 2, 3, 4 , 5 take one (1) tablet once daily.; 6 tablet. Albuterol Sulfate 90 mcg/actuation - inhale 1-2 puff by INHALATION route every 4-6 hours; 1 Inhaler. - Medication Reconciliation Form, Thank You Letter, Antibiotic Education, Prescription Opioid Use form. - Follow up: Private Physician; When: 2 - 3 days; Reason: Recheck today's complaints, Continuance of care, Re-evaluation by your physician. Follow up: Emergency Department; When: As needed; Reason: Worsening of condition. Signatures: Dispatcher [employer] [facility] Whit Alex, GUM MAKER-C EMILY-Elias Vergara MD MD cha Ballard, Brenda, RN RN Jaydon Salcido RN RN jm8 Corrections: (The following items were deleted from the chart) 09/11 22:51 22:06 CORONAVIRUS+MR.LAB.BRZ ordered. [facility] EDTN 22:52 22:06 Influenza Screen (A \T\ B)+BA.LAB.BRZ ordered. [facility] 23:50 23:50 09/11/2020 23:50 Discharged to Home. Impression: Acute upper respiratory kb infection, unspecified. Condition is Stable. Forms are Medication Reconciliation Form, Thank You Letter, Antibiotic Education, Prescription Opioid Use. Follow up: Private Physician; When: 2 - 3 days; Reason: Recheck today's complaints, Continuance of care, Re-evaluation by your physician. Follow up: Emergency Department; When: As needed; Reason: Worsening of condition. kb 09/12 00:12 09/11 23:50 09/11/2020 23:50 Discharged to Home. Impression: Bronchitis, not specified jm8 as acute or chronic. Condition is Stable. Forms are Medication Reconciliation Form, Thank You Letter, Antibiotic Education, Prescription Opioid Use. Follow up: Private Physician; When: 2 - 3 days; Reason: Recheck today's complaints, Continuance of care, Re-evaluation by your physician. Follow up: Emergency Department; When: As needed; Reason: Worsening of condition. kb
--- NOTE | 2020-09-11 23:51 | ER ---
Nurse's Notes [facility] Name: Nita Fox Age: 29 yrs Sex: Female : 1990 Arrival Date: 09/11/2020 Time: 19:31 Bed 2 Private MD: Diagnosis: Bronchitis, not specified as acute or chronic Presentation: 09/11 20:17 Chief complaint: Patient states: she has congestion, chest pressure, pain in her back bb and chest with respirations or she talks as well as throat pain and left ear pain. Coronavirus screen: congestion, sore throat, Client presents with at least one sign or symptom that may indicate coronavirus-19. Standard/surgical mask placed on the client. Ebola Screen: No symptoms or risks identified at this time. Initial Sepsis Screen: Does the patient meet any 2 criteria? No. Patient's initial sepsis screen is negative. Does the patient have a suspected source of infection? No. Patient's initial sepsis screen is negative. Risk Assessment: Do you want to hurt yourself or someone else? Patient reports no desire to harm self or others. Onset of symptoms was September 08, 2020. 20:17 Method Of Arrival: Ambulatory bb 20:17 Acuity: SOREN 3 bb Triage Assessment: 20:20 General: Appears in no apparent distress. Behavior is calm, cooperative. Pain: bb Complains of pain in back and chest Pain currently is 7 out of 10 on a pain scale. Neuro: Level of Consciousness is awake, alert, obeys commands, Oriented to person, place, time, situation. Respiratory: Reports shortness of breath cough that is pain with respiration Onset: The symptoms/episode began/occurred 09/08/2020, the patient has mild shortness of breath. 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 - Social history:: Smoking status: Patient denies any tobacco usage or history of. Screenin/21 00:09 Abuse screen: Denies threats or abuse. Denies injuries from another. Nutritional jm8 screening: No deficits noted. Tuberculosis screening: No symptoms or risk factors identified. Fall Risk None identified. Assessment: 00:06 General: Appears in no apparent distress. Behavior is calm, cooperative, appropriate jm8 for age, Reports fever for last Thursday. body aches for 3 days. Pain: Denies pain. Neuro: No deficits noted. Cardiovascular: No deficits noted. Respiratory: Airway is patent Trachea midline Respiratory effort is even, unlabored, Respiratory pattern is regular, Breath sounds are clear Parent/caregiver reports the patient having shortness of breath cough that is dry. GI: No deficits noted. : No deficits noted. EENT: No deficits noted. Derm: No deficits noted. Musculoskeletal: No deficits noted. 00:09 Cardiovascular: Rhythm is regular. jm8 Vital Signs: 09/11 20:17 BP 134 / 88; Pulse 101; Resp 18 S; Temp 98.3(O); Pulse Ox 98% on R/A; Weight 113.4 kg bb (R); Height 5 ft. 7 in. (170.18 cm) (R); Pain 7/10; 09/12 00:11 BP 133 / 94; Pulse 88; Resp 16; Pulse Ox 97% ; jm8 09/11 20:17 Body Mass Index 39.16 (113.40 kg, 170.18 cm) bb ED Course: 09/11 19:31 Patient arrived in ED. cl3 20:19 Triage completed. bb 20:20 Arm band placed on Patient placed in waiting room, Patient notified of wait time. bb 21:29 Whit [facility]-C [facility]. kb 21:29 Elias Tyler MD is Attending Physician. kb 22:00 Patient has correct armband on for positive identification. Bed in low position. jm8 tie bucker on. Pulse ox on. NIBP on. Door closed. Warm blanket given. 22:02 Chest Single View XRAY In Process Unspecified. EDMS 22:09 Candida Church, RN is Primary Nurse. 22:28 No provider procedures requiring assistance completed. COVID swab sent to lab. Flu mg2 and/or RSV swab sent to lab. Strep swab sent to lab. Patient did not have IV access during this emergency room visit. Administered Medications: 09/12 00:00 Drug: predniSONE 40 mg Route: PO; jm8 00:00 Follow up: Response: No adverse reaction; Medication administered at discharge. jm8 00:00 Drug: AZITHromycin 500 mg Route: PO; jm8 00:00 Follow up: Response: No adverse reaction; Medication administered at discharge. jm8 Outcome: 09/11 23:50 Discharge ordered by MD. gibbons 09/12 00:10 Discharged to home ambulatory. jm8 Condition: improved Discharge instructions given to patient. 00:12 Patient left the ED. jm8 Signatures: Dispatcher [employer] EDMS Whit Alex, POLYGRAPH OPERATOR-C POLYGRAPH OPERATOR-CkMel oCllins, RN RN bb Candida Church RN RN Ralf Jean RN RN [facility] Edgar Salcedo 3 Jaydon Rose RN RN jm8
[2020-09-12] MEDS ORDERED: predniSONE 20 MG TAB ONE (00:16)
[2020-09-12 00:17] VITALS: TEMP 98.3
[2020-09-12] MEDS ORDERED: AZITHROMYCIN 250 MG TAB ONE (00:17)
[2020-09-12 00:18] VITALS: BP 133/94; O2SAT 97
--- NOTE | 2020-09-12 08:34 | RAD REPORT ---
EXAM DESCRIPTION: RAD - Chest Single View - 09/11/2020 10:02 pm CLINICAL HISTORY: CHEST PAIN Chest pain. COMPARISON: Chest Single View dated 01/07/2017; Chest Single View dated 04/06/2016 FINDINGS: Portable technique limits examination quality. The lungs are grossly clear. The heart is normal in size. No displaced fractures. IMPRESSION: No acute intrathoracic process suspected.
== END 2020-09-12 00:12 | disposition home or self-care (01) ==
LOC: ER 19:29
DX: J40 Bronchitis, not specified as acute or chronic (principal); Z20.822 Contact with and (suspected) exposure to COVID-19; E11.9 Type 2 diabetes mellitus without complications; Z88.0 Allergy status to penicillin; Z88.1 Allergy status to other antibiotic agents; Z88.2 Allergy status to sulfonamides
CPT/HCPCS: 0240U; 71045; 87070; 87081; 99284; J7512

== ENCOUNTER 2021-04-06 11:38 | Emergency (ER) | payer SELFPAY ==
[2021-04-06 12:15] LABS: Basophils % 0.6 % (0-1.3); Hematocrit 37.4 % (36.0-45.0); Lymphocytes % 25.5 % (15.3-44.8); MPV 8.4 fL (7.6-11.3); RBC Red Blood Cell Count 4.33 M/uL (3.86-4.86)
[2021-04-06 12:44] LABS: BUN Blood Urea Nitrogen 6 mg/dL (7-18); Bicarbonate 23 mmol/L (21-32); Glucose Level 127 mg/dL (74-106); HCG, Quantitative 1696 mIU/mL (1-3); Potassium 3.5 mmol/L (3.5-5.1); Sodium Level 139 mmol/L (136-145)
[2021-04-06 12:49] LABS: Urine Blood 1+ (Negative); Urine Glucose Negative (Negative)
[2021-04-06 12:50] LABS: Urine Protein Negative (Negative); Urine pH 5.5 (5.0-7.0)
--- NOTE | 2021-04-06 14:23 | RAD REPORT ---
EXAM DESCRIPTION: US - Transvaginal OB - 04/06/2021 1:52 pm CLINICAL HISTORY: VAGINAL BLEEDING COMPARISON: None FINDINGS: Normal size uterus is present with no myometrial mass. No blood or fluid in the cul de sac . A small slightly irregular intrauterine gestational sac is identified. There is a faintly visible y olk sac. There is no pole identified. No ovarian or adnexal abnormality. Gestational sac and faint yolk sac measurements correspond to a 5 week 0 day age. No endometrial mass , hematoma. IMPRESSION: Small 5 week intrauterine gestational sac with yolk sac but no pole. No adnexal abnormality.
--- NOTE | 2021-04-06 14:29 | ER ---
Nurse's Notes [facility] Name: Nita Fox Age: 30 yrs Sex: Female : 1990 Arrival Date: 04/06/2021 Time: 11:41 Bed 19 Private MD: Diagnosis: Threatened ;Less than 8 weeks gestation of Presentation: 04/06 11:54 Chief complaint: Patient states: was seen at [facility] last Thursday , was told she was iw , approx 5.5 weeks, LMP was 9-20-21, , today started having pink spotting when she wiped amd has low back pain and abd pain , was diagnosed with UTI last week, put on cephalexin. Coronavirus screen: At this time, the client does not indicate any symptoms associated with coronavirus-19. Ebola Screen: Patient negative for fever greater than or equal to 101.5 degrees Fahrenheit, and additional compatible Ebola Virus Disease symptoms Patient denies exposure to infectious person. Patient denies travel to an Ebola-affected area in the 21 days before illness onset. No symptoms or risks identified at this time. Initial Sepsis Screen: Does the patient meet any 2 criteria? No. Patient's initial sepsis screen is negative. Does the patient have a suspected source of infection? No. Patient's initial sepsis screen is negative. Risk Assessment: Do you want to hurt yourself or someone else? Patient reports no desire to harm self or others. Onset of symptoms was April 06, 2021. 11:54 Method Of Arrival: Ambulatory iw 11:54 Acuity: SOREN 3 iw Triage Assessment: 12:11 General: Appears in no apparent distress. Behavior is calm, cooperative, appropriate ll1 for age. General: Approximately 5 weeks . . Pain: Denies pain. Neuro: No deficits noted. Cardiovascular: No deficits noted. Respiratory: No deficits noted. : Reports cramping, discharge, pain vaginal bleeding that is light flow, spotty. 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 - Social history:: Smoking status: Patient denies any tobacco usage or history of. Screenin:12 Abuse screen: Denies threats or abuse. Nutritional screening: No deficits noted. ll1 Tuberculosis screening: No symptoms or risk factors identified. Fall Risk IV access (20 points). Total Azevedo Fall Scale indicates No Risk (0-24 pts). Assessment: 12:42 Obstetrical Assessment: General assessment: awake and alert, skin warm and dry, ll1 respirations even and unlabored, Patient reports abdominal cramping, back pain. 13:40 Reassessment: No changes from previously documented assessment. Patient and/or family ll1 updated on plan of care and expected duration. Pain level reassessed. Patient is alert, oriented x 3, equal unlabored respirations, skin warm/dry/pink. 14:40 Reassessment: No changes from previously documented assessment. Patient and/or family ll1 updated on plan of care and expected duration. Pain level reassessed. Patient is alert, oriented x 3, equal unlabored respirations, skin warm/dry/pink. 14:54 Reassessment: No changes from previously documented assessment. Patient and/or family ll1 updated on plan of care and expected duration. Pain level reassessed. Patient is alert, oriented x 3, equal unlabored respirations, skin warm/dry/pink. Vital Signs: 11:54 Pulse 85; Resp 16; Temp 98.5(TE); Pulse Ox 99% on R/A; Weight 117.93 kg; Height 5 ft. 7 iw in. (170.18 cm); 12:10 BP 121 / 72; ll1 12:41 BP 133 / 75; Pulse 76; Resp 17; Pulse Ox 100% on R/A; ll1 14:53 BP 127 / 71; Pulse 78; Resp 16; Pulse Ox 100% ; Pain 8/10; ll1 11:54 Body Mass Index 40.72 (117.93 kg, 170.18 cm) iw Vitals: 12:42 Heart Tones n/a 5 weeks . ll1 ED Course: 11:41 Patient arrived in ED. as 11:41 Whit Alex FNP-C is PHCP. kb 11:41 Elias Tyler MD is Attending Physician. kb 11:48 Yulissa Salcedo, RN is Primary Nurse. ll1 11:48 Arm band placed on Patient placed in an exam room, on a stretcher. ll1 11:55 Triage completed. iw 12:10 Inserted saline lock: 22 gauge in left forearm, using aseptic technique. Blood ll1 collected. 12:12 Patient has correct armband on for positive identification. Bed in low position. Call ll1 light in reach. Side rails up X 1. Pulse ox on. NIBP on. 12:42 No provider procedures requiring assistance completed. ll1 13:52 US Transvaginal Ob In Process Unspecified. EDMS 14:54 IV discontinued, intact, bleeding controlled, No redness/swelling at site. Pressure ll1 dressing applied. Administered Medications: No medications were administered Point of Care Testing: Urine : 14:55 hCG Reading: Positive; Control Reading: Positive; ll1 Outcome: 14:29 Discharge ordered by MD. kb 14:55 Discharged to home ambulatory. ll1 14:55 Condition: stable 14:55 Discharge instructions given to patient, Instructed on discharge instructions, follow up and referral plans. Demonstrated understanding of instructions, follow-up care. 14:56 Patient left the ED. ll1 Signatures: Dispatcher [employer] EDPR Whit lAex FNP-C FNP-Carolann Mcrae as Yuliya Reyes, JANE RN iw Yulissa Salcedo, RN RN ll1 Corrections: (The following items were deleted from the chart) 11:56 11:54 Chief complaint: Patient states: was seen at [facility] last Thursday , was told iw she was , approx 5.5 weeks, LMP was 9-20-21, , today started having pink spotting when she wiped amd has low back pain and abd pain iw 11:57 11:54 117.93 kg; Height 5 ft. 7 in.; BMI: 40.7; iw iw 11:59 11:54 Temp 98.5F Temporal; 117.93 kg; Height 5 ft. 7 in.; BMI: 40.7; iw iw
--- NOTE | 2021-04-06 14:29 | EDPHYS ---
Physician Documentation [facility] Name: Nita Fox Age: 30 yrs Sex: Female : 1990 Arrival Date: 04/06/2021 Time: 11:41 Bed 19 Private MD: ED Physician Elias Tyler HPI: 04/06 13:24 This 30 yrs old Female presents to ER via Ambulatory with complaints of kb Vaginal Bleeding, + Preg <12wks, Low Back Pain. 13:24 The patient presents to the emergency department with vaginal bleeding, described as kb spotting. course: care: none, Leakage of Fluid: none appreciated, Ultrasound: the patient has not had an ultrasound. Previous pregnancies: in previous pregnancies patient has had. Associated signs and symptoms: Pertinent positives: vaginal bleeding. The patient has not experienced similar symptoms in the past. The patient has not recently seen a physician. Pt reports she noticed some blood in her panties and some when she wiped today. States she found out she was last week. 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 - Social history:: Smoking status: Patient denies any tobacco usage or history of. ROS: 13:22 Constitutional: Negative for fever, chills, and weight loss. kb 13:22 : Positive for vaginal bleeding. 13:22 All other systems are negative. Exam: 13:23 Constitutional: This is a well developed, well nourished patient who is awake, alert, kb and in no acute distress. Head/Face: Normocephalic, atraumatic. ENT: Moist Mucous membranes Respiratory: Respirations even and unlabored. No increased work of breathing, no retractions or nasal flaring. Abdomen/GI: Soft, non-tender. No distention Skin: Warm, dry with normal turgor. Normal color. MS/ Extremity: Pulses equal, no cyanosis. Neurovascular intact. Full, normal range of motion. Neuro: Awake and alert, GCS 15, oriented to person, place, time, and situation. Moves all extremities. Normal gait. Psych: Awake, alert, with orientation to person, place and time. Behavior, mood, and affect are within normal limits. Vital Signs: 11:54 Pulse 85; Resp 16; Temp 98.5(TE); Pulse Ox 99% on R/A; Weight 117.93 kg; Height 5 ft. 7 iw in. (170.18 cm); 12:10 BP 121 / 72; ll1 12:41 BP 133 / 75; Pulse 76; Resp 17; Pulse Ox 100% on R/A; ll1 14:53 BP 127 / 71; Pulse 78; Resp 16; Pulse Ox 100% ; Pain 8/10; ll1 11:54 Body Mass Index 40.72 (117.93 kg, 170.18 cm) iw MDM: 11:47 Patient medically screened. [facility] 13:15 Data reviewed: vital signs, nurses notes. Data interpreted: Pulse oximetry: on room air kb is 100 %. Interpretation: normal. 14:28 Counseling: I had a detailed discussion with the patient and/or guardian regarding: the kb historical points, exam findings, and any diagnostic results supporting the discharge/admit diagnosis, lab results, radiology results, the need for outpatient follow up, an OB/Gyne specialist, to return to the emergency department if symptoms worsen or persist or if there are any questions or concerns that arise at home. 04/06 11:42 Order name: Abo/rh Typing; Complete Time: 12:19 kb 04/06 11:42 Order name: Basic Metabolic Panel; Complete Time: 12:47 kb 04/06 11:42 Order name: CBC with Diff; Complete Time: 12:17 kb 04/06 11:42 Order name: Quantitative Hcg; Complete Time: 12:47 kb 04/06 12:49 Order name: Urine Dipstick-Ancillary EDMS 04/06 12:51 Order name: Urine --Ancillary (enter results); Complete Time: 13:15 eb 04/06 11:42 Order name: IV Saline Lock; Complete Time: 11:53 kb 04/06 11:42 Order name: Labs collected and sent; Complete Time: 11:53 kb 04/06 11:42 Order name: NPO; Complete Time: 11:53 kb 04/06 11:42 Order name: Urine Dipstick-Ancillary (obtain specimen); Complete Time: 12:41 kb 04/06 11:42 Order name: Urine Test (obtain specimen); Complete Time: 12:41 kb 04/06 12:48 Order name: US Transvaginal Ob; Complete Time: 14:28 kb Administered Medications: No medications were administered Point of Care Testing: Urine : 14:55 hCG Reading: Positive; Control Reading: Positive; ll1 Disposition: 04/07 03:43 Co-signature as Attending Physician, Elias Tyler MD I agree with the assessment and glynn plan of care. Disposition Summary: 04/06/21 14:29 Discharge Ordered Location: Home kb Condition: Stable kb Diagnosis - Threatened kb - Less than 8 weeks gestation of kb Followup: kb - With: Emergency Department - When: As needed - Reason: Worsening of condition Followup: kb - With: Private Physician - When: 2 - 3 days - Reason: Recheck today's complaints, Continuance of care, Re-evaluation by your physician Discharge Instructions: - Discharge Summary Sheet kb - Threatened Miscarriage, [id number] kb - Vaginal Bleeding During , First Trimester, [id number] kb Forms: - Medication Reconciliation Form kb - Thank You Letter kb - Antibiotic Education kb - Prescription Opioid Use kb Signatures: Dispatcher [employer] Whit Trejo, EMILY-Jia DIAZ-Elias Vergara MD MD cha Williams, Irene, Yulissa Long RN, RN RN ll1
[2021-04-06 15:21] VITALS: TEMP 98.5
[2021-04-06 15:23] VITALS: O2SAT 100
[2021-04-06 15:25] VITALS: BP 127/71
--- OUTSIDE RECORDS SUMMARY | 2021-04-06 23:35 | XMS REPORT | Continuity of Care Document ---
:1990 Author Organization [facility] t Address [address] [place] [address] Care Team Providers Name Role Phone Oracio Smith Primary Care Physician Tomy LARA E Attending Clinician MARYELLEN Attending Clinician Unavailable Apollo RICARDO Attending Clinician Maryellen RICARDO Attending Clinician Doctor Unassigned, Name Attending Clinician Unavailable Jose Rafael Sen Attending Clinician Samira LAWRENCE S Attending Clinician MARYELLEN Admitting Clinician Unavailable Maryellen RICARDO Admitting Clinician Payers Payer Name Policy Type Policy Number Effective Date Expiration Date S ource Problems Condition Condition Condition Status Onset Resolution Last Treating Co mments Source Name Details Category Date Date Treatment Clinician Date Dehydratio Dehydratio Disease Active 2020-05 U nivers n n 1-06 ity of 00:00: [place] 00 Medical Branch Morbid Morbid Disease Active 2020-05 Univers obesity obesity -06 [place] of with body with [place] mass index mass index 00 Me dical of of Branch 40.0-49.9 40.0-49.9 Disease Active 2016-0 U nivers care and care and 9-18 ity of examinatio examinatio 00:00: [place] n of Medical lactating lactating Bran ch mother mother Acute Acute Disease Active Univers headache headache 8-24 ity of 00:00: [place] [facility] Elevated Elevated Disease Active Unive rs blood blood 8-24 ity of pressure pressure 00:00: Medical Branch Diet Diet Disease Active Univers controlled controlled 12-23 it y of gestationa gestationa [place] diabetes l diabetes 00 Me dical mellitus mellitus Branch (GDM), (GDM), antepartum antepartum Obesity in Obesity in Disease Active U nivers 5-30 ity of 00:00: [place] [facility] Allergies, Adverse Reactions, Alerts Allergy Allergy Status Severity Reaction(s) Onset Inactive Treating Comm ents Source Name Type Date Date Clinician AMPICILL DRUG Active ITCHING Univers IN INGREDI 6-15 ity of 00:00: [place] [facility] Ampicill Propensi Active Itching Unive rs in ty to 6-15 ity of adverse 00:00: [place] reaction 00 Medical s Branch NITROFUR DRUG Active ITCHING Univers ANTOIN 8-21 ity of MONOHYD/ 00:00: [place] M-CRYST 00 Medical Branch Nitrofur Propensi Active Itching Unive rs antoin ty to 8-21 ity of Monohyd/ adverse 00:00: [place] M-Cryst reaction 00 Medical s Branch SULFA Drug Active ITCHING Univers (SULFONA Class 4-24 ity of MIDE 00:00: [place] ANTIBIOT 00 Medical ICS) Branch Sulfa Propensi Active Itching Pt Univers (Sulfona ty to 4-24 reports ity of mide adverse 00:00: severe [place] Antibiot reaction 00 itching Medic al ics) s and Branch redness to palms with Bactrim Social History Social Habit Start Date Stop Date Quantity Comments Source Exposure to Not sure [facility] SARS-CoV-2 (event) Medica l Branch Alcohol intake 2021-03-30 2021-03-30 0 /d [facility] 00:00:00 00:00:00 Medical Branch Tobacco use and 2012-07-20 2012-07-20 Never used [facility] [place] exposure 00:00:00 00:00:00 Medical Branch Sex [birth year] At [birth year] [facility] [place] 00:00:00 00:00:00 Medical Branch Smoking Status Start Date Stop Date Source Never smoker [facility] Medical Branch Medications Ordered Filled Start Stop Current Ordering Indication Dosage Frequency Signature Comments Components Source Medication Medication Date Date Medication? Clinician (SIG) Name Name 2020-05- Yes [id number] 1{tbl} Take 1 Univers vitamin 06-02 12-10 tablet by ity of w/FA tablet 00:00: [place]:59 [place] 00 :[place] daily for Medical 30 days. Branch 2020-05- Yes [id number] 1{tbl} Take 1 Univers vitamin 06-02 12-10 tablet by ity of w/FA tablet 00:00: 05:59 [place] 00 :00 daily for Medical 30 days. Branch SITagliptin 2020-05- No 50mg 50 mg, Uni vers (JANUVIA) 06-01 Oral, ity of tablet 50 19:15: 21:07 ONCE, 1 [place] mg 00 :00 dose, On Medical Mon Branch 04/01/21 at 1315, Routine metFORMIN 2020-05 Yes 500mg Take 500 Uni vers 500 mg 1-08 mg by ity of tablet 16:44: mouth 2 [place] [address] (two) Medical times Branch daily with meals. metFORMIN 2020-05 Yes 500mg Take 500 Uni vers 500 mg 1-08 mg by ity of tablet 16:44: mouth 2 [place] 41 (two) Medical times Branch daily with meals. Blood-Gluco 2020-05 Yes [id number] Use as Univers se Meter 08 directed ity of (RELION 00:00: [place] ALL-IN-ONE 00 Medical METER) Kit [place] Blood-Gluco 2020-05 Yes [id number] Use as Univers se Meter 08 directed ity of (RELION 00:00: [place] ALL-IN-ONE 00 Medical METER) Kit [place] SITagliptin 2020-05- Yes [id number] 50mg Take 1 Univers 50 mg 06-01 tablet by ity of tablet 00:00: 05:59 mouth [place] 00 :00 daily for Medical 30 doses. Branch SITagliptin 2020-05- Yes [id number] 50mg Take 1 Univers 50 mg 06-01 tablet by ity of tablet 00:00: 05:59 mouth [place] 00 :00 daily for Medical 30 doses. Branch cephALEXin 2020-05- Yes [id number] 500mg Take 1 Univers 500 mg 06-01 capsule by ity of capsule 00:00: 05:59 mouth 4 [place] 00 :00 (four) Medical times [place] daily for 4 days. cephALEXin 2020-05- Yes [id number] 500mg Take 1 Univers 500 mg 06-01 capsule by ity of capsule 00:00: 05:59 mouth 4 [place] 00 :00 (four) Medical times [place] daily for 4 days. cefTRIAXone 2020-05 Yes 1000mg 1,000 mg, Univers (ROCEPHIN) 05-31 IV ity of 1,000 mg in 15:00: [facility], [place] NaCl 0.9% 00 DAILY, Medical (NS) 50 mL First dose [facility] MINI-BAG (after last reorder) on [place] 03/31/21 at 0900, Until Discontinu ed, Administer over 30 Minutes, 50 mL
Reas on for Anti-Infec tive: Documented Infection< br>Documen chris Infection Site: Urine
D uration of Therapy: Other (see Comments) glipiZIDE 2020-05- No 2.5mg 2.5 mg, Uni vers (GLUCOTROL) 05-31 Oral, ity of tablet 2.5 13:30: 18:01 BIDAC, [place] mg 00 :58 First dose Medical on [place] Branch 03/31/21 at 0730, Until Discontinu ed, Routine NaCl 0.9% 2020-05- No 500mL at 999 Univ ers (NS) bolus 05-31 mL/hr, 500 it y of infusion 09:00: 09:42 mL, IV [place] 500 mL 00 :00 Piggyback, Medical ONCE, 1 Branch dose, On 03/31/21 at 0300, STAT magnesium 2020-05 Yes 400mg 400 mg, Univ ers oxide 05-31 Oral, BID, ity of (MAG-OX 07:52: [place] dose [place] 400) tablet 59 on [place] Medica l 400 mg 03/31/21 at Branch 0800, Until Discontinu ed, Routine ferrous 2020-05 Yes 325mg 325 mg, Univer s sulfate 05-31 Oral, BID, ity of tablet 325 01:00: First dose [place] mg 00 on [facility] Medical 03/30/21 at Branch 2000, Until Discontinu ed, Routine Sliding 2020-05 Yes Subcutaneo Univ ers Scale -06 us, TID ity of Insulin - 22:00: MEALS, [place] Lispro 00 First dose Medical (HumaLOG) + on [facility] Branch Fsbg 03/30/21 at Testing 1700, Until Discontinu ed, Routine dextrose 50 2020-05 Yes 25mL 25 mL, Univ ers % in water 05-30 Slow IV ity of (D50W) 20:49: Push, PRN, [place] injection 22 Starting Medica l 25 mL on [facility] Branch 03/30/21 at 1549, Until Discontinu ed, JEWEL, Blood Glucose < or = 70 mg/dL and patient is unable to swallow or has mental status changes. NaCl 0.9% 2020-05 Yes 1000mL at 125 Univ ers (NS) IV 106 mL/hr, IV ity of infusion 18:45: Infusion, [place] 1,000 mL 00 CONTINUOUS Medic al , Starting Branch on 03/30/21 at 1345, Until Discontinu ed, Routine magnesium 2020-05- No 2g 2 g, IV Univ ers sulfate in 05-30 Piggyback, it y of water 2 18:45: 18:29 ONCE NOW, [place] gram/50 mL 00 :00 1 dose, On Med ical (4 %) [facility] Branch infusion 2 03/30/21 at g 1345, Routine acetaminoph 2020-05 Yes 650mg 650 mg, Un efra en 05-30 Oral, ity of (TYLENOL) 17:43: Q6HPRN, [place] tablet 650 11 Starting Medic al mg on [facility] Branch 03/30/21 at 1243, Until Discontinu ed, Routine, Pain (scale 1-3) glucagon 2020-05 Yes 1mg 1 mg, Univers (GLUCAGEN 05-30 Intramuscu ity of DIAGNOSTIC 17:42: [place], PRN, [place] KIT) 20 Starting Medical injection 1 on [facility] Branch mg 03/30/21 at 1242, Until Discontinu ed, JEWEL, Blood Glucose < or = 70 mg/dL and patient is unable to swallow or has mental changes. dextrose 50 2020-05 Yes 25mL 25 mL, Univ ers % in water 05-30 Slow IV ity of (D50W) 17:42: Push, PRN, [place] injection 20 Starting Medica l 25 mL on [facility] Branch 03/30/21 at 1242, Until Discontinu ed, JEWEL, Blood Glucose < or = 70 mg/dL and patient is unable to swallow or has mental status changes. cefTRIAXone 2020-05- No 1000mg 1,000 mg, Univers (ROCEPHIN) 05-30 IV ity of 1,000 mg in 17:15: 16:42 Piggyback, [place] NaCl 0.9% 00 :00 ONCE, 1 Medical (NS) 50 mL dose, On [facility] h MINI-BAG [facility] 03/30/21 at 1215, Administer over 30 Minutes, 50 mL
Reas on for Anti-Infec tive: Documented Infection< br>Documen chris Infection Site: Urine<br&g t;Duration of Therapy: Other (see Comments) acetaminoph 2020-05 No 975mg 975 mg, U nivers en 05-30 Oral, ity of (TYLENOL) 16:30: 15:25 ONCE, 1 [place] tablet 975 00 :00 dose, On Medic al mg [facility] Branch 03/30/21 at 1130, JEWEL diphenhydrA 2020- No 25mg 25 mg, Uni vers MINE 06-06 Slow IV ity of (BENADRYL) 01:00: 00:04 Push, [place] injection 00 :00 ONCE, 1 Medical 25 mg dose, [facility] Branch 06/05/20 at 1900, STAT metoclopram 2020- No 10mg 10 mg, Uni vers win HCl 06-06 Slow IV ity of (REGLAN) 01:00: 00:04 [place], [place] injection 00 :00 ONCE, 1 Medical 10 mg dose, [facility] Branch 06/05/20 at 1900, JEWEL NaCl 0.9% 2020- No 1000mL at 999 Uni vers (NS) bolus 06-06 mL/hr, ity of infusion 00:00: 01:28 1,000 mL, [place] 1,000 mL 00 :00 IV Medical Infusion, Branch ONCE, 1 dose, 06/05/20 at 1800, JEWEL NaCl 0.9% 2019-0 2020- No 1000mL at 999 Uni vers (NS) bolus 12-19 mL/hr, ity of infusion 06:15: 06:00 1,000 mL, [place] 1,000 mL 00 :00 IV Medical Infusion, Branch ONCE, 1 dose, 12/20/19 at 0115, STAT iohexol 2020-0 2020- No 120mL 120 mL, Unive rs (OMNIPAQUE 12-19 Intravenou it y of 350 06:00: 06:00 s, ONCE, 1 [place] BULK-150 00 :00 dose, Tue Medica l mL) 12/20/19 at Branch injection 0100, 120 mL Routine ondansetron 2019-0 2020- No 4mg 4 mg, Slow Univers (ZOFRAN 12-19 IV Push, ity of (PF)) 04:30: 03:46 ONCE, 1 [place] injection 4 00 :00 dose, Mon Med ical mg 12/19/19 at Branch 2330, JEWEL morpHINE 2019-0 2020- No 4mg 4 mg, Slow Un efra injection 4 12-19 IV Push, ity of mg 04:30: 03:46 ONCE, 1 [place] 00 :00 dose, Mon Medical 12/19/19 at Branch 2330, STAT ondansetron 2020-0 Yes [id number] 4mg Take 1 Univers (ZOFRAN) 4 - tablet by ity of mg tablet 00:00: mouth [place] 00 every 8 Medical (eight) Branch hours as needed for Nausea and Vomiting (N/V). esomeprazol 2020-0 Yes [id number] 20mg Take 20 mg Univers e (NEXIUM) 7-28 by mouth ity o f 20 mg 00:00: daily [place] capsule 00 before a Medical meal. Branch traMADol 50 2020-0 Yes [id number] 50mg Take 1 Univ ers mg tablet -28 tablet by ity o f 00:00: mouth [place] 00 every 6 Medical (six) Branch hours as needed for Pain (scale 4-6). Indication s: acute pain ondansetron 2020-0 Yes [id number] 4mg Take 1 Univers (ZOFRAN) 4 7-28 tablet by ity of mg tablet 00:00: mouth [place] 00 every 8 Medical (eight) Branch hours as needed for Nausea and Vomiting (N/V). ondansetron 2020-0 Yes [id number] 4mg Take 1 Univers (ZOFRAN) 4 7-28 tablet by ity of mg tablet 00:00: mouth [place] 00 every 8 Medical (eight) Branch hours as needed for Nausea and Vomiting (N/V). ondansetron 2020-0 Yes [id number] 4mg Take 1 Univers (ZOFRAN) 4 7-28 tablet by ity of mg tablet 00:00: mouth [place] 00 every 8 Medical (eight) Branch hours as needed for Nausea and Vomiting (N/V). esomeprazol 2020-0 Yes [id number] 20mg Take 20 mg Univers e (NEXIUM) 7-28 by mouth ity o f 20 mg 00:00: daily [place] capsule 00 before a Medical meal. Branch traMADol 50 2019-0 Yes [id number] 50mg Take 1 Univ ers mg tablet 7-28 tablet by ity o f 00:00: mouth [place] 00 every 6 Medical (six) Branch hours as needed for Pain (scale 4-6). Indication s: acute pain ondansetron 2020-0 Yes [id number] 4mg Take 1 Univers (ZOFRAN) 4 7-28 tablet by ity of mg tablet 00:00: mouth [place] 00 every 8 Medical (eight) Branch hours as needed for Nausea and Vomiting (N/V). esomeprazol 2020-0 Yes [id number] 20mg Take 20 mg Univers e (NEXIUM) 7-28 by mouth ity o f 20 mg 00:00: daily [place] capsule 00 before a Medical meal. Branch traMADol 50 2020-0 Yes [id number] 50mg Take 1 Univ ers mg tablet 7-28 tablet by ity o f 00:00: mouth [place] 00 every 6 Medical (six) Branch hours as needed for Pain (scale 4-6). Indication s: acute pain esomeprazol 2020-0 2020- No [id number] 20mg Take 20 mg Univers e (NEXIUM) 7-28 -08 by mouth ity of 20 mg 00:00: 00:00 daily [place] capsule 00 :00 before a Medical meal. Branch traMADol 50 2020- No [id number] 50mg Take 1 Uni vers mg tablet 7-28 11-08 tablet by ity of 00:00: 00:00 mouth [place] 00 :00 every 6 Medical (six) Branch hours as needed for Pain (scale 4-6). Indication s: acute pain metoclopram 2017- Yes 10mg Take 1 Univ ers win HCl 10 9-18 tablet by ity of mg tablet 00:00: mouth [place] 00 every 6 Medical (six) Branch hours as needed (headache) . metoclopram 2017-0 Yes 10mg Take 1 Univ ers win HCl 10 9-18 tablet by ity of mg tablet 00:00: mouth [place] 00 every 6 Medical (six) Branch hours as needed (headache) . metoclopram 2016-0 Yes 10mg Take 1 Univ ers win HCl 10 9-18 tablet by ity of mg tablet 00:00: mouth [place] 00 every 6 Medical (six) Branch hours as needed (headache) . metoclopram 10mg Take 1 Uni vers win HCl 10 9-18 11-08 tablet by ity of mg tablet 00:00: 00:00 mouth [place] 00 :00 every 6 Medical (six) Branch hours as needed (headache) . HYDROcodone Yes 1{tbl} Take 1-2 Univers -acetaminop 8-28 tablets by it y of hen 5-325 00:00: mouth [place] mg tablet 00 every 6 Medical (six) Branch hours as needed for Pain (scale 7-10). Do not exceed 3 grams of acetaminop hen in 24 hours. HYDROcodone Yes 1{tbl} Take 1-2 Univers -acetaminop 8-28 tablets by it y of hen 5-325 00:00: mouth [place] mg tablet 00 every 6 Medical (six) Branch hours as needed for Pain (scale 7-10). Do not exceed 3 grams of acetaminop hen in 24 hours. HYDROcodone Yes 1{tbl} Take 1-2 Univers -acetaminop 8-28 tablets by it y of hen 5-325 00:00: mouth [place] mg tablet 00 every 6 Medical (six) Branch hours as needed for Pain (scale 7-10). Do not exceed 3 grams of acetaminop hen in 24 hours. HYDROcodone 2020- No 1{tbl} Take 1-2 Univers -acetaminop 8-28 11-08 tablets by i ty of hen 5-325 00:00: 00:00 mouth [place] mg tablet 00 :00 every 6 Medical (six) Branch hours as needed for Pain (scale 7-10). Do not exceed 3 grams of acetaminop hen in 24 hours. 2017-0 Yes 1{tbl} Take 1 Unive rs vitamin 8-27 tablet by ity of w/FA tablet 00:00: mouth [place] 00 daily. Medical Branch docusate 0 Yes 240mg Take 1 Univer s calcium 240 8-27 capsule by it y of mg capsule 00:00: mouth [place] 00 daily as Medical needed for Branch Constipati on. ferrous 0 Yes 325mg Take 1 Univers sulfate 325 8-27 tablet by ity of mg (65 mg 00:00: mouth 2 [place] iron) 00 (two) Medical tablet times Branch daily. ibuprofen Yes 600mg Take 1 Unive rs 600 mg 8-27 tablet by ity of tablet 00:00: mouth [place] 00 every 6 Medical (six) Branch hours as needed for Pain (scale 1-3) or Pain (scale 4-6) (Pain). Take with food or milk. docusate Yes 240mg Take 1 Univer s calcium 240 8-27 capsule by it y of mg capsule 00:00: mouth once [place] 00 daily as Medical needed for Branch Constipati on. ferrous 0 Yes 325mg Take 1 Univers sulfate 325 8-27 tablet by ity of mg (65 mg 00:00: mouth 2 [place] iron) 00 (two) Medical tablet times Branch daily. [id number] Yes 1{tbl} Take 1 Unive rs vitamin 8-27 tablet by ity of w/FA tablet 00:00: mouth [place] 00 daily. Medical Branch docusate 0 Yes 240mg Take 1 Univer s calcium 240 8-27 capsule by it y of mg capsule 00:00: mouth once [place] 00 daily as Medical needed for Branch Constipati on. ferrous 2017-0 Yes 325mg Take 1 Univers sulfate 325 8-27 tablet by ity of mg (65 mg 00:00: mouth 2 [place] iron) 00 (two) Medical tablet times Branch daily. ibuprofen 2016-0 Yes 600mg Take 1 Unive rs 600 mg 8-27 tablet by ity of tablet 00:00: mouth [place] 00 every 6 Medical (six) Branch hours as needed for Pain (scale 1-3) or Pain (scale 4-6) (Pain). Take with food or milk. docusate Yes 240mg Take 1 Univer s calcium 240 8-27 capsule by it y of mg capsule 00:00: mouth once [place] 00 daily as Medical needed for Branch Constipati on. ferrous Yes 325mg Take 1 Univers sulfate 325 8-27 tablet by ity of mg (65 mg 00:00: mouth 2 [place] iron) 00 (two) Medical tablet times Branch daily. Yes 1{tbl} Take 1 Unive rs vitamin 8-27 tablet by ity of w/FA tablet 00:00: mouth [place] 00 daily. Medical Branch docusate Yes 240mg Take 1 Univer s calcium 240 8-27 capsule by it y of mg capsule 00:00: mouth once [place] 00 daily as Medical needed for Branch Constipati on. ferrous Yes 325mg Take 1 Univers sulfate 325 8-27 tablet by ity of mg (65 mg 00:00: mouth 2 [place] iron) 00 (two) Medical tablet times Branch daily. ibuprofen Yes 600mg Take 1 Unive rs 600 mg 8-27 tablet by ity of tablet 00:00: mouth [place] 00 every 6 Medical (six) Branch hours as needed for Pain (scale 1-3) or Pain (scale 4-6) (Pain). Take with food or milk. 2020- No 1{tbl} Take 1 Univ ers vitamin 8-27 11-08 tablet by ity of w/FA tablet 00:00: 00:00 mouth [place] 00 :00 daily. Medical Branch ibuprofen 2020- No 600mg Take 1 Univ ers 600 mg 8-27 11-08 tablet by ity of tablet 00:00: 00:00 mouth [place] 00 :00 every 6 Medical (six) Branch hours as needed for Pain (scale 1-3) or Pain (scale 4-6) (Pain). Take with food or milk. Blood-Gluco Yes [id number] Use as Univers se Meter 811 directed ity of (FREESTYLE 00:00: [place] SYSTEM KIT) 00 Medical Kit Branch blood sugar 2017-0 Yes [id number] Use as Univers diagnostic 8-11 directed ity o f (FREESTYLE 00:00: [place] TEST) strip 00 Medical Branch lancets 28 2016-0 Yes [id number] Use as U nivers gauge Misc 8-11 directed ity o f 00:00: [place] 00 Medical Branch Blood-Gluco 2017-0 Yes [id number] Use as Univers se Meter 8-11 directed ity of (FREESTYLE 00:00: [place] SYSTEM KIT) 00 Medical Kit Branch blood sugar 2017-0 Yes [id number] Use as Univers diagnostic 8-11 directed ity o f (FREESTYLE 00:00: [place] TEST) strip 00 Medical Branch lancets 28 2016-0 Yes [id number] Use as U nivers gauge Misc 8-11 directed ity o f 00:00: [place] 00 Medical Branch Blood-Gluco 2017-0 Yes [id number] Use as Univers se Meter 8-11 directed ity of (FREESTYLE 00:00: [place] SYSTEM KIT) 00 Medical Kit Branch blood sugar 2017-0 Yes [id number] Use as Univers diagnostic 8-11 directed ity o f (FREESTYLE 00:00: [place] TEST) strip 00 Medical Branch lancets 28 0 Yes [id number] Use as U nivers gauge Misc 8-11 directed ity o f 00:00: [place] 00 Medical Branch Blood-Gluco 2017-0 Yes [id number] Use as Univers se Meter 8-11 directed ity of (FREESTYLE 00:00: [place] SYSTEM KIT) 00 Medical Kit Branch blood sugar 2017-0 Yes [id number] Use as Univers diagnostic 8-11 directed ity o f (FREESTYLE 00:00: [place] TEST) strip 00 Medical Branch lancets 28 2016-0 Yes [id number] Use as U nivers gauge Misc 8-11 directed ity o f 00:00: [place] 00 Medical Branch Blood-Gluco 2017-0 Yes [id number] Use as Univers se Meter 8-11 directed ity of (FREESTYLE 00:00: [place] SYSTEM KIT) 00 Medical Kit Branch blood sugar 2017-0 Yes [id number] Use as Univers diagnostic 8-11 directed ity o f (FREESTYLE 00:00: [place] TEST) strip 00 Medical Branch lancets 28 2016-0 Yes [id number] Use as U nivers gauge Misc 8-11 directed ity o f 00:00: [place] 00 Medical Branch 2017-0 Yes [id number] 1{packe Take 1 Univers vit 6-27 t} Packet by ity of 33-iron-fol 00:00: mouth [place] ic-dha 00 daily. Medical (SELECT-OB Branch + DHA) 29 mg iron-1 mg -250 mg combo pack Yes [id number] 1{packe Take 1 Univers vit 6-27 t} Packet by ity of 33-iron-fol 00:00: mouth [place] ic-dha 00 daily. Medical (SELECT-OB Branch + DHA) 29 mg iron-1 mg -250 mg combo pack Yes [id number] 1{packe Take 1 Univers vit 6-27 t} Packet by ity of 33-iron-fol 00:00: mouth [place] ic-dha 00 daily. Medical (SELECT-OB Branch + DHA) 29 mg iron-1 mg -250 mg combo pack 2020- No [id number] 1{packe Take 1 Univers vit 6-27 11-08 t} Packet by ity of 33-iron-fol 00:00: 00:00 mouth [place] ic-dha 00 :00 daily. Medical (SELECT-OB Branch + DHA) 29 mg iron-1 mg -250 mg combo pack Immunizations Ordered Filled Immunization Date Status Comments Sourc e Immunization Name Name TD 2016-12-22 Completed University of 00:00:00 [facility] TDAP 2016-12-22 Completed University of 00:00:00 [facility] TDAP 2016-12-22 Completed University of 00:00:00 [facility] TDAP 2016-12-22 Completed University of 00:00:00 [facility] TDAP 2016-12-22 Completed University of 00:00:00 [facility] TDAP 2012-08-26 Completed University of 00:00:00 [facility] TDAP 2012-08-26 Completed University of 00:00:00 [facility] TDAP 2012-08-26 Completed University of 00:00:00 [facility] TDAP 2012-08-26 Completed University of 00:00:00 [facility] TDAP 2012-08-26 Completed University of 00:00:00 [facility] Vital Signs Vital Name Observation Time Observation Value Comments Source Systolic blood 2021-04-01 21:39:00 134 mm[Hg] Univer sity of pressure [place] [facility] Diastolic blood 2021-04-01 21:39:00 76 mm[Hg] Unive rsity of pressure [place] [facility] Heart rate 2021-04-01 21:39:00 95 /min [facility] [place] [facility] Body temperature 2021-04-01 21:39:00 37.17 [place] Univ ersity of [place] [facility] Respiratory rate 2021-04-01 21:39:00 18 /min Univ ersity of [place] [facility] Oxygen saturation in 2021-04-01 21:39:00 98 /min University of Arterial blood by [place] Medi thaddeus Pulse oximetry Branch Body weight 2021-03-31 11:47:00 122.471 kg [facility] [place] [facility] BMI 2021-03-31 11:47:00 41.05 kg/m2 [facility] [place] [facility] Body height 2021-03-30 20:53:00 172.7 cm [facility] [place] [facility] Oxygen saturation in 2020-06-06 01:23:00 99 /min University of Arterial blood by [facility] Pulse oximetry Branch Systolic blood 2020-06-06 01:23:00 121 mm[Hg] Univer sity of pressure [place] [facility] Diastolic blood 2020-06-06 01:23:00 81 mm[Hg] Unive rsity of pressure [place] [facility] Heart rate 2020-06-06 01:23:00 75 /min [facility] [place] [facility] Respiratory rate 2020-06-06 01:23:00 13 /min Univ ersity of [place] [facility] Body temperature 2020-06-05 22:49:00 37.17 [place] [facility] [place] [facility] Body height 2020-06-05 22:49:00 170.2 cm [facility] [place] [facility] Body weight 2020-06-05 22:49:00 113.399 kg [facility] [place] [facility] BMI 2020-06-05 22:49:00 39.16 kg/m2 [facility] [place] [facility] Oxygen saturation in 2020-06-06 01:23:00 99 /min University of Arterial blood by [facility] Pulse oximetry Branch Systolic blood 2020-06-06 01:23:00 121 mm[Hg] Univer sity of pressure [place] [facility] Diastolic blood 2020-06-06 01:23:00 81 mm[Hg] Unive rsity of pressure [place] [facility] Heart rate 2020-06-06 01:23:00 75 /min [facility] [place] [facility] Respiratory rate 2020-06-06 01:23:00 13 /min Univ ersity of [place] [facility] Body temperature 2020-06-05 22:49:00 37.17 [place] [facility] [place] [facility] Body height 2020-06-05 22:49:00 170.2 cm [facility] [place] [facility] Body weight 2020-06-05 22:49:00 113.399 kg [facility] [place] [facility] BMI 2020-06-05 22:49:00 39.16 kg/m2 [facility] [place] [facility] Respiratory rate 2019-12-20 08:00:00 18 /min Univ ersity [facility] [place] [facility] Oxygen saturation in 2019-12-20 08:00:00 100 /min University of Arterial blood by [place] Medi thaddeus Pulse oximetry Branch Systolic blood 2019-12-20 07:36:00 157 mm[Hg] Univer sity of pressure [place] [facility] Diastolic blood 2019-12-20 07:36:00 86 mm[Hg] Unive rsity of pressure [place] [facility] Heart rate 2019-12-20 07:36:00 97 /min [facility] Body temperature 2019-12-20 02:48:00 38.11 [place] [facility] Body weight 2019-12-20 02:48:00 121.11 kg [facility] BMI 2019-12-20 02:48:00 41.82 kg/m2 [facility] Respiratory rate 2019-12-20 08:00:00 18 /min [facility] Oxygen saturation in 2019-12-20 08:00:00 100 /min [facility] P[facility] oxim[facility] Systolic blood 2019-12-20 07:36:00 157 mm[Hg] [facility] Diastolic blood 2019-12-20 07:36:00 86 mm[Hg] [facility] Heart rate 2019-12-20 07:36:00 97 /min [facility] Body temperature 2019-12-20 02:48:00 38.11 [place] [facility] Body weight 2019-12-20 02:48:00 121.11 kg [facility] BMI 2019-12-20 02:48:00 41.82 kg/m2 [facility] Procedures Procedure Date / Time Performing Clinician Source Performed POCT GLUCOSE (AUTOMATED) 2021-04-01 17:52:00 Juni Adnerson [facility] POCT GLUCOSE (AUTOMATED) 2021-04-01 13:42:00 Juni [facility] POCT GLUCOSE (AUTOMATED) 2021-03-31 23:16:00 Juni [facility] POCT GLUCOSE (AUTOMATED) 2021-03-31 22:18:00 Juni Anderson [facility] POCT GLUCOSE (AUTOMATED) 2021-03-31 17:48:00 Juni [facility] POCT GLUCOSE (AUTOMATED) 2021-03-31 13:43:00 Juni [facility] PHOSPHORUS 2021-03-31 11:45:00 Maryellen Juni [facility] MAGNESIUM 2021-03-31 11:45:00 Maryellen [facility] BASIC METABOLIC PANEL 2021-03-31 11:45:00 Juni Anderson [facility] (NA, K, CL, CO2, GLUCOSE, Medica l Branch BUN, CREATININE, CA) LIPID PANEL ([id number])(TOTAL 2021-03-31 11:45:00 Celio Montoya [facility] CHOLESTEROL, [facility] TRIGLYCERIDES, HDL) CBC WITH DIFF 2021-03-31 11:45:00 Juni Anderson [facility] POCT GLUCOSE (AUTOMATED) 2021-03-31 02:21:00 Juni Anderson [facility] POCT GLUCOSE (AUTOMATED) 2021-03-30 22:20:00 Juni Anderson [facility] URINE CULTURE 2021-03-30 16:12:00 Jesus Bustillos [facility] CT HEAD WO CONTRAST 2021-03-30 15:39:00 Jesus Bustillos [facility] POCT TEST 2021-03-30 15:11:00 Jesus Bustillos [facility] URINALYSIS 2021-03-30 15:07:00 Jesus Bustillos [facility] MAGNESIUM 2021-03-30 15:05:00 Jesus Bustillos [facility] TROPONIN I 2021-03-30 15:05:00 Jesus Bustillos [facility] COMP. METABOLIC PANEL 2021-03-30 15:05:00 Jesus Bustillos [facility] ([id number]) [facility] TOTAL BETA HCG ASSAY 2021-03-30 15:05:00 Jesus Bustillos [facility] CBC WITH DIFF 2021-03-30 15:05:00 Jesus Bustillos [facility] GLYCOSYLATED HEMOGLOBIN 2021-03-30 15:05:00 Jesus Bustillos [facility] (A1C) [facility] PROTHROMBIN TIME / INR 2021-03-30 15:05:00 Jesus Bustillos [facility] ACTIVATED PARTIAL 2021-03-30 15:05:00 Jesus Bustillos [facility] THRMPLAS [facility] N-TERMINAL PRO-BNP 2021-03-30 15:05:00 Jesus Bustillos [facility] COVID-19 (ID NOW RAPID 2021-03-30 15:05:00 Jesus Bustillos [facility] TESTING) [facility] LAB ONLY COVID 2021-03-30 15:05:00 Jesus Bustillos [facility] INTERPRETATION [facility] HB ECG ROUTINE & RHYTHM 2021-03-30 15:01:14 Jesus Bustillos [facility] STRIP [facility] NOTICE OF PRIVACY 2021-03-30 14:52:58 Doctor Teja, [facility] PRACTICES [place] [facility] [place] CONSENT/REFUSAL FOR 2021-03-30 14:52:37 Doctor Teja, [facility] DIAGNOSIS AND TREATMENT [place] [facility] CT HEAD WO CONTRAST 2020-06-06 00:27:52 Sanjeev Cifuentes [facility] POCT TEST 2020-06-06 00:00:00 Sanjeev Cifuentes [facility] COVID-19 (ID NOW RAPID 2020-06-06 00:00:00 Sanjeev Cifuentes [facility] TESTING) [facility] [place] COMP. METABOLIC PANEL 2020-06-05 23:59:00 Sanjeev Cifuentes [facility] ([id number]) [facility] [place] CBC WITH DIFF 2020-06-05 23:59:00 Sanjeev Cifuentes [facility] URINALYSIS 2020-06-05 23:59:00 Sanjeev Cifuentes [facility] POCT GLUCOSE (AUTOMATED) 2020-06-05 22:53:00 Doctor Teja [facility] [place] [facility] CONSENT/REFUSAL FOR 2020-06-05 22:37:42 Doctor Teja [facility] DIAGNOSIS AND TREATMENT [place] [facility] EKG-12 LEAD 2019-12-20 07:36:16 Glendy Hogan [facility] URINALYSIS 2019-12-20 06:25:00 Reagan Sheikh [facility] TEST, SERUM 2019-12-20 03:47:00 Reagan Sheikh [facility] COVID-19 (ID NOW RAPID 2019-12-20 03:46:00 Glendy Hogan [facility] TESTING) Medical Branch LIPASE 2019-12-20 03:00:00 Reagan Sheikh [facility] COMP. METABOLIC PANEL 2019-12-20 03:00:00 Reagan Sheikh [facility] ([id number]) [facility] [place] CBC WITH DIFF 2019-12-20 03:00:00 Reagan Sheikh [facility] NOTICE OF PRIVACY 2019-12-20 02:35:01 Doctor Teja [facility] PRACTICES [place] [facility] [place] CONSENT/REFUSAL FOR 2019-12-20 02:34:45 Doctor Teja [facility] DIAGNOSIS AND TREATMENT [place] [facility] [place] Encounters Start End Encounter Admission Attending Care Care Encounter Source Date/Time Date/Time Type Type Clinicians Facility Department ID 2021-03-23 Emergency [facility] [id number] Univers 16:53:27 [facility] 2021-03-22 Emergency [facility] [id number] Univers 09:09:31 ity of [facility] 2021-04-02 2021-04-02 Patient Annie Huitron [id number] Univers 00:00:00 00:00:00 Outreach E [place] 350.1.13.10 i ty [place] [id number] [facility] 403 Branch 2021-03-30 2021-04-01 Outpatient X MARYELLEN [facility] [id number] Univers 09:55:00 16:43:00 JUNI ity of [facility] 2021-03-30 2021-04-01 Emergency Jesus Bustillos [facility] 1.2.840. [id number] Univers 09:55:00 16:43:00 Juni Anderson [id number] ity of [place] 4.2.7.2.686 [facility] [id number] [facility] [address]81 [place] 2021-03-30 2021-03-30 Orders Doctor ENRIQUE [id number] [place] [address] 00:00:00 00:00:00 Only Unassigned, NIHARIKA [id number] ity of [place] [facility] 4.2.7.2.686 Benigno [id number] [facility] 009 Branch 2020-06-05 2020-06-05 Emergency [facility] [id number] 16:50:00 19:31:00 Sanjeev B Katja [id number] [place] 4.2.7.2.686 [place] [id number] [facility] 2020-06-05 2020-06-05 Emergency [facility] [id number] Univers 16:50:00 19:31:00 Sanjeev B [place] 350.1.13.10 i ty of [place] 4.2.7.2.686 [facility] [id number] [place] 493924 Branch 2019-12-19 2019-12-20 Emergency [facility] [id number] 21:39:31 03:45:00 Glendy [place] 350.1.13.10 [place] 4.2.7.2.686 [place] [id number] 084 2019-12-19 2019-12-20 Emergency Samira [facility] [id number] Univers 21:39:31 03:45:00 Glendy Hightower 350.1.13.10 i ty of [place] 4.2.7.2.686 [facility] [id number] [facility] 084 Branch Results Test Description Test Time Test Comments Results Result Comments Source POCT GLUCOSE (AUTOMATED) 2021-04-01 17:58:14 Test Item Value Reference Range Interpretation Comme nts POCT GLU (test code = 6313377398) 175 mg/dL 70-110 H Lab Interpretation (test code = 59567-9) Abnormal [facility] GLUCOSE (AUTOMATED)2021-04-01 13:49:38 Test Item Value Reference Range Interpretation Comments POCT GLU (test code = 4690703446) 209 mg/dL 70-110 H Lab Interpretation (test code = Abnormal 78017-0) [facility] GLUCOSE (AUTOMATED)2021-03-31 23:20:21 Test Item Value Reference Range Interpretation Comments POCT GLU (test code = 4652426391) 233 mg/dL 70-110 H Lab Interpretation (test code = Abnormal 45483-4) [facility] GLUCOSE (AUTOMATED)2021-03-31 22:33:33 Test Item Value Reference Range Interpretation Comments POCT GLU (test code = 6902670604) 219 mg/dL 70-110 H Lab Interpretation (test code = Abnormal 62444-9) [facility] GLUCOSE (AUTOMATED)2021-03-31 18:02:26 Test Item Value Reference Range Interpretation Comments POCT GLU (test code = 2096021470) 185 mg/dL 70-110 H Lab Interpretation (test code = Abnormal 03124-1) [facility] GLUCOSE (AUTOMATED)2021-03-31 13:47:03 Test Item Value Reference Range Interpretation Comments POCT GLU (test code = 2551748180) 244 mg/dL 70-110 H Lab Interpretation (test code = Abnormal 03982-4) [id number] 12:43:47 Test Item Value Reference Range Interpretation Comments MAGNESIUM (test code = 5079650178) 1.7 mg/dL 1.7-2.4 Lab Interpretation (test code = Normal 50897-9) [facility] (Total Cholesterol, Triglycerides, HDL) - [id number] 12:43:47 Test Item Value Reference Range Interpretation Comments CHOL (test code = 139 mg/dL 120-200 3560978073) HDL (test code = 39 mg/dL >50 L 4223096385) HDLC RATIO (test code = See_Comment [Au tomated message] 6155917532) The system Cell[employer] generated this result transmit chris reference range : <=4.5. The refe rence range was not u sed to interpret th is result as normal/abnormal . TRIG (test code = 193 mg/dL 30-170 H 5609142673) LDL CHOL (test code = 61 mg/dL See_Comment [Auto mated message] 14936-2) The system [employer] generated this result transmit chris reference range : <=160. The refe rence range was not u sed to interpret th is result as normal/abnormal . VLDL (test code = 39 mg/dL 5-60 2303422843) Lab Interpretation (test Abnormal code = 62433-7) [facility] (NA, K, CL, CO2, GLUCOSE, BUN, CREATININE, CA)2021-03-31 12:43:26 Test Item Value Reference Range Interpretation Comments NA (test code = 132 mmol/L 135-145 L 4130944831) K (test code = 4.0 mmol/L 3.5-5.0 7322509823) CL (test code = 106 mmol/L 98-108 4039738255) CO2 TOTAL (test code = 21 mmol/L 23-31 L 4619844718) AGAP (test code = 2-16 5973972191) BUN (test code = 11 mg/dL 7-23 6062524317) GLUCOSE (test code = 240 mg/dL 70-110 H 0282889343) CREATININE (test code = 0.51 mg/dL 0.50-1.04 1434411076) CALCIUM (test code = 8.1 mg/dL 8.6-10.6 L 2313694636) eGFR (test code = mL/min/1.73m2 4779999831) LUC (test code = LUC) Association of Glomerular Filtration Rate (GFR) and Staging of Kidney Disease* + --+ --+ ------+| GFR (mL/min/1.73 m2) ?| With Kidney Damage ?| ?Without Kidney Damage+ --------+ --------+ +| ?>90 ?| ?Stage one ?| ? Normal ?+ ---+ ---+ -------+| ?60-89 ?| ?Stage two ?| ? Decreased GFR ? + --+ --+ ------+| ?30-59 ?| ?Stage three ?| ? Stage three ? + --+ --+ ------+| ?15-29 ?| ?Stage four ? | ? Stage four ?+ ---+ ---+ -------+| ?<15 (or dialysis) ? ?| ?Stage five ? | ? Stage five ?+ ---+ ---+ -------+ *Each stage assumes the associated GFR level has been in effect for at least three months. ?Stages 1 to 5, with or without kidney disease, indicate chronic kidney disease. Notes: Determination of stages one and two (with eGFR >59mL/min/1.73 m2) requires estimation of kidney damage for at least three months as defined by structural or functional abnormalities of the kidney, manifested by either:Pathological abnormalities or Markers of kidney damage (including abnormalities in the composition of the blood or urine or abnormalities in imaging tests). Lab Interpretation Abnormal (test code = 20174-5) [facility] [id number] 12:43:26 Test Item Value Reference Range Interpretation Comments PHOSPHORUS (test code = 5880126534) 2.9 mg/dL 2.5-5.0 Lab Interpretation (test code = Normal 54968-8) [facility] with Niudlcoefgtj4033-85-26 12:26:41 Test Item Value Reference Range Interpretation Comments WBC (test code = See_Comment [Automated message] 6690-2) The system Celles generated this result transmitted ref erence range: 4.30 - 1 1.10 10*3/?L. The re ference range was not u sed to interpret this result as normal/abnor mal. RBC (test code = See_Comment [Automated message] 789-8) The system Cell[employer] generated this result transmitted ref erence range: 3.93 - 5 .25 10*6/?L. The re ference range was not u sed to interpret this result as normal/abnor mal. HGB (test code = 11.9 g/dL 11.6-15.0 718-7) HCT (test code = 35.7 % 35.7-45.2 4544-3) MCV (test code = 86.0 fL 80.6-95.5 787-2) MCH (test code = 28.7 pg 25.9-32.8 785-6) MCHC (test code = 33.3 g/dL 31.6-35.1 786-4) RDW-SD (test code 40.4 fL 39.0-49.9 = 36326-1) RDW-CV (test code 13.0 % 12.0-15.5 = 788-0) PLT (test code = See_Comment [Automated message] 777-3) The system Cell[employer] generated this result transmitted ref erence range: 166 - 35 8 10*3/?L. The re ference range was not u sed to interpret this result as normal/abnor mal. MPV (test code = 11.2 fL 9.5-12.9 10285-4) NRBC/100 WBC (test See_Comment [Automat ed message] code = 7963410322) The syste m which generated this result transmitted ref erence range: 0.0 - 10 .0 /100 WBCs. The refer ence range was not u sed to interpret this result as normal/abnor mal. NRBC x10^3 (test <0.01 See_Comment [Automated message] code = 9086655681) The syste m which generated this result transmitted ref erence range: 10*3/?L. The reference range was not used to interpr et this result as normal/abnormal . GRAN MAT (NEUT) % 64.2 % (test code = 770-8) IMM GRAN % (test 0.50 % code = 2047535658) LYMPH % (test code 26.4 % = 736-9) MONO % (test code 6.3 % = 5905-5) EOS % (test code = 2.1 % 713-8) BASO % (test code 0.5 % = 706-2) GRAN MAT 4.95 10*3/uL 1.88-7.09 x10^3(ANC) (test code = 6223085921) IMM GRAN x10^3 0.04 10*3/uL 0.00-0.06 (test code = 9305631795) LYMPH x10^3 (test 2.04 10*3/uL 1.32-3.29 code = 731-0) MONO x10^3 (test 0.49 10*3/uL 0.33-0.92 code = 742-7) EOS x10^3 (test 0.16 10*3/uL 0.03-0.39 code = 711-2) BASO x10^3 (test 0.04 10*3/uL 0.01-0.07 code = 704-7) [facility] GLUCOSE (AUTOMATED)2021-03-31 04:15:32 Test Item Value Reference Range Interpretation Comments POCT GLU (test code = 0803649362) 214 mg/dL 70-110 H Lab Interpretation (test code = Abnormal 73967-3) [facility] GLUCOSE (AUTOMATED)2021-03-30 22:57:31 Test Item Value Reference Range Interpretation Comments POCT GLU (test code = 1550133090) 168 mg/dL 70-110 H Lab Interpretation (test code = Abnormal 16180-4) [facility] 16:11:19 Test Item Value Reference Range Interpretation Comments APTT Patient (test See_Comment [Automat ed code = 3173-2) message] The system which generated this result transmitted reference range : 23 - 38 Seconds . The reference range was not used to interpr et this result as normal/abnormal . LUC (test code = LUC) The [facility] patient population mean normal value for aPTT is 30 seconds. Lab Interpretation Normal (test code = 33828-3) [facility] HospitalPROT[facility] / [id number] 16:09:22 Test Item Value Reference Range Interpretation Comments PROTIME PATIENT (test See_Comment [Auto mated message] code = 5964-2) The system wh ich generated this result transmitted ref erence range: 12.0 - 1 4.7 Seconds. The re ference range was not u sed to interpret this result as normal/abnor mal. INR (test code = 6301-6) Nor mal INR <1.1; Warfarin Therap eutic range 2.0 to 3. 0 or 2.5 to 3.5, dep ending upon the indica tions. Lab Interpretation (test Normal code = 97218-2) [facility] BHCG (QUANTITATIVE)2021-03-30 15:50:40 Test Item Value Reference Range Interpretation Comments BETA HCG (test See_Comment [Automated m essage] code = The system [employer] h 5229380125) generated this result transmit chris reference range : Non- fe male and male patien ts: <5 mIU/mL. The reference range was not used to interpret this result as normal/abnormal . LUC (test code Gestational Age ? ? = LUC) ?Range (mIU/mL) 1-10 ?Weeks ?85-85128294-38 Weeks ?27191-21227732-35 Weeks ?6499-00521571-41 Weeks ?7086-664692 Biotin has been reported to cause a negative bias, interpret results relative to patient's use of biotin. [facility] (A1C)2021-03-30 15:50:34 Test Item Value Reference Range Interpretation Comments HGB A1C (test code = 9.7 % 4.0-5.7 H 4548-4) LUC (test code = LUC) Reference RangesNormal: <5.7%Prediabetes: 5.7 - 6.4%Diabetes: > 6.5% Lab Interpretation (test Abnormal code = 96204-9) [facility]OP[facility] [id number] 15:44:00 Test Item Value Reference Interpretation Comments Range TROPONIN I (test 0.006 ng/mL See_Comment [Automated code = 8354372732) message] The system which generated this result transmitted reference range : <=0.034. The reference range was not used to interpret this result as normal/abnormal . LUC (test code = Reference (Normal) LUC) Range (defined by the 99th percentile reference limit): <= 0.034 ng/mL Note: Cardiac troponin begins to rise 3-4 hours after the onset of ischemia. Repeat in 4-6 hours if the sample was drawn within 3-4 hours of the onset of the symptom and found normal. Diagnosis of myocardial injury is made with acute changes in cTn concentrations with at least one serial sample above the 99th percentile upper reference limit (URL), taken together with the patient's clinical presentation. Biotin has been reported to cause a negative bias, interpret results relative to patient's use of biotin. Lab Interpretation Normal (test code = 63484-6) [facility] HospitalN-TERMINAL [id number] 15:40:59 Test Item Value Reference Range Interpretation Comments NT-proBNP (test code 29 pg/mL See_Comment [Autom ated = 6619057296) message] The system which generated this result transmitted reference range : <=125. The reference range was not used to interpret this result as normal/abnormal . LUC (test code = LUC) Biotin has been reported to cause a negative bias, interpret results relative to patient's use of biotin. Lab Interpretation Normal (test code = 02485-5) [facility]ABOLIC PANEL (07937)2021-03-30 15:32:19 Test Item Value Reference Range Interpretation Comments NA (test code = 132 mmol/L 135-145 L 7191576627) K (test code = 3.9 mmol/L 3.5-5.0 6254801780) CL (test code = 98 mmol/L 98-108 9770581413) CO2 TOTAL (test code = 23 mmol/L 23-31 3322343552) AGAP (test code = 2-16 9676248604) BUN (test code = 12 mg/dL 7-23 4973311522) GLUCOSE (test code = 269 mg/dL 70-110 H 8137422431) CREATININE (test code = 0.54 mg/dL 0.50-1.04 2539480604) TOTAL BILI (test code = 0.7 mg/dL 0.1-1.6 4664165167) CALCIUM (test code = 9.3 mg/dL 8.6-10.6 3618632995) T PROTEIN (test code = 7.7 g/dL 6.3-8.2 2351170258) ALBUMIN (test code = 4.2 g/dL 3.5-5.0 6352645232) ALK PHOS (test code = 142 U/L 34-122 H 4886296365) ALTv (test code = 28 U/L 5-35 1742-6) AST(SGOT) (test code = 26 U/L 13-40 1222931772) eGFR (test code = mL/min/1.73m2 4985912809) LUC (test code = LUC) Association of Glomerular Filtration Rate (GFR) and Staging of Kidney Disease* + --+ --+ ------+| GFR (mL/min/1.73 m2) ?| With Kidney Damage ?| ?Without Kidney Damage+ --------+ --------+ +| ?>90 ?| ?Stage one ?| ? Normal ?+ ---+ ---+ -------+| ?60-89 ?| ?Stage two ?| ? Decreased GFR ? + --+ --+ ------+| ?30-59 ?| ?Stage three ?| ? Stage three ? + --+ --+ ------+| ?15-29 ?| ?Stage four ? | ? Stage four ?+ ---+ ---+ -------+| ?<15 (or dialysis) ? ?| ?Stage five ? | ? Stage five ?+ ---+ ---+ -------+ *Each stage assumes the associated GFR level has been in effect for at least three months. ?Stages 1 to 5, with or without kidney disease, indicate chronic kidney disease. Notes: Determination of stages one and two (with eGFR >59mL/min/1.73 m2) requires estimation of kidney damage for at least three months as defined by structural or functional abnormalities of the kidney, manifested by either:Pathological abnormalities or Markers of kidney damage (including abnormalities in the composition of the blood or urine or abnormalities in imaging tests). Lab Interpretation Abnormal (test code = 21835-6) [facility]UM2021-[facility] 15:32:19 Test Item Value Reference Range Interpretation Comments MAGNESIUM (test code = 8942338391) 1.4 mg/dL 1.7-2.4 L Lab Interpretation (test code = Abnormal 40325-6) [facility] WITH [id number] 15:18:18 Test Item Value Reference Range Interpretation Comments WBC (test code = See_Comment [Automated message] 6690-2) The system Celles generated this result transmitted ref erence range: 4.30 - 1 1.10 10*3/?L. The re ference range was not u sed to interpret this result as normal/abnor mal. RBC (test code = See_Comment [Automated message] 789-8) The system Celles generated this result transmitted ref erence range: 3.93 - 5 .25 10*6/?L. The re ference range was not u sed to interpret this result as normal/abnor mal. HGB (test code = 13.8 g/dL 11.6-15.0 718-7) HCT (test code = 41.7 % 35.7-45.2 4544-3) MCV (test code = 86.0 fL 80.6-95.5 787-2) MCH (test code = 28.5 pg 25.9-32.8 785-6) MCHC (test code = 33.1 g/dL 31.6-35.1 786-4) RDW-SD (test code 39.5 fL 39.0-49.9 = 42956-7) RDW-CV (test code 12.9 % 12.0-15.5 = 788-0) PLT (test code = See_Comment [Automated message] 777-3) The system Celles generated this result transmitted ref erence range: 166 - 35 8 10*3/?L. The re ference range was not u sed to interpret this result as normal/abnor mal. MPV (test code = 10.8 fL 9.5-12.9 17158-4) NRBC/100 WBC (test See_Comment [Automat ed message] code = 0535782199) The [employer] which generated this result transmitted ref erence range: 0.0 - 10 .0 /100 WBCs. The refer ence range was not u sed to interpret this result as normal/abnor mal. NRBC x10^3 (test <0.01 See_Comment [Automated message] code = 3802049619) The syste m which generated this result transmitted ref erence range: 10*3/?L. The reference range was not used to interpr et this result as normal/abnormal . GRAN MAT (NEUT) % 66.6 % (test code = 770-8) IMM GRAN % (test 0.50 % code = 4279184274) LYMPH % (test code 25.2 % = 736-9) MONO % (test code 5.3 % = 5905-5) EOS % (test code = 1.9 % 713-8) BASO % (test code 0.5 % = 706-2) GRAN MAT 6.21 10*3/uL 1.88-7.09 x10^3(ANC) (test code = 4058630252) IMM GRAN x10^3 0.05 10*3/uL 0.00-0.06 (test code = 4921392885) LYMPH x10^3 (test 2.36 10*3/uL 1.32-3.29 code = 731-0) MONO x10^3 (test 0.50 10*3/uL 0.33-0.92 code = 742-7) EOS x10^3 (test 0.18 10*3/uL 0.03-0.39 code = 711-2) BASO x10^3 (test 0.05 10*3/uL 0.01-0.07 code = 704-7) [facility]OD[facility] [id number] 15:11:00 Test Item Value Reference Range Interpretation Comments POCT PREG (test code = 1605) positive On board controls acceptable with present C Line (test code = 3574) POCT PREG LOT # (test code = 3575) [id number] POCT PREG TEST DATE (test 05/24/2022 code = 3576) Lab Interpretation (test code = Normal 27261-7) [facility] (ID NOW RAPID TESTING)2020-06-06 00:41:00 Test Item Value Reference Range Interpretation Comments SARS-CoV-2 Rapid ID NOW Not Detected Not Detected (test code = 88075-2) LUC (test code = LUC) ID NOW COVID-19 Assay is an isothermal nucleic acid amplification test intended for the qualitative detection of nucleic acid from SARS-CoV-2 viral RNA in nasopharyngeal (LEAFLET DISTRIBUTOR) specimens. It is used under Emergency Use Authorization (EUA) by FDA. The limit of detection (LOD) of the assay is 125 Genome Equivalents/mL. A positive result is indicative of the presence of SARS-CoV-2 RNA. ?Clinical correlation with patient history and other diagnostic information is necessary to determine patient infection status. A negative (Not Detected) result does not preclude SARS-CoV-2 infection. In patients with clinical symptoms and other tests that are consistent with SARS-CoV-2 infection, negative results should be treated as presumptive negative and a new specimen should be tested with alternative PCR molecular test. Invalid: Please collect a new specimen for repeat patient testing if clinically indicated. Lab Interpretation Normal (test code = 48972-0) [id number] 00:35:38 No acute intracranial abnormality.EXAM: CT HEAD WO CONTRAST HISTORY: Head trauma, headache TECHNIQUE: CT of the head was performed without intravenous contrast.Sagittal and coronal reformats were generated. COMPARISON: None. FINDINGS: The ventricles and sulci are normal in caliber and configuration. Nohydrocephalus, midline shift or pathological extra-axial fluid collectionis present. The basal cisterns are unremarkable. There is no acute intracranial hemorrhage or significant mass effect. Noparenchymal attenuation abnormality. The godfrey-white matter differentiationis preserved. The mastoid air cells and paranasal air sinuses are clear. The calvariumand central skull base are unremarkable. [facility], Radiant Results Inft User - 06/05/2020 6:36 PM CSTEXAM: CT HEAD WO CONTRASTHISTORY: Head trauma, headache TECHNIQUE: CT of the head was performed without intravenous contrast.Sagittal and coronal reformats were generated.COMPARISON: None.FINDINGS: The ventricles and sulci are normal in caliber and configuration. Nohydrocephalus, midline shift or pathological extra- axial fluid collectionis present. The basal cisterns are unremarkable.There is no acute intracranial hemorrhage or significant mass effect. Noparenchymal attenuation abnormality. The godfrey-white matter differentiationis preserved.The mastoid air cells and paranasal air sinuses are clear. The calvariumand central skull base are unremarkable.IMPRESSIONNo acute intracranial abnormality. [facility]. METABOLIC PANEL ([id number])2020-06-06 00:24:00 Test Item Value Reference Range Interpretation Comments NA (test code = 139 mmol/L 135-145 1506540071) K (test code = 3.9 mmol/L 3.5-5 5977583657) CL (test code = 104 mmol/L 98-108 2010404853) CO2 TOTAL (test code = 26 mmol/L 23-31 4325879446) AGAP (test code = 2-16 7818824231) BUN (test code = 12 mg/dL 7-23 5667007580) GLUCOSE (test code = 105 mg/dL 70-110 4227358445) CREATININE (test code = 0.56 mg/dL 0.5-1.04 3186380952) TOTAL BILI (test code = 0.5 mg/dL 0.1-1.8 0654506168) CALCIUM (test code = 8.6 mg/dL 8.6-10.6 3550623879) T PROTEIN (test code = 7.5 g/dL 6.3-8.2 0359358522) ALBUMIN (test code = 4.2 g/dL 3.5-5 4949841552) ALK PHOS (test code = 100 U/L 34-122 6858353497) ALTv (test code = 40 U/L 5-35 H 1742-6) AST(SGOT) (test code = 29 U/L 13-40 7589670540) eGFR Calculation mL/min/1.73m2 (Non-) (test code = 1245519486) eGFR Calculation mL/min/1.73m2 () (test code = 3602720155) LUC (test code = LUC) Association of Glomerular Filtration Rate (GFR) and Staging of Kidney Disease* + --+ --+ ------+| GFR (mL/min/1.73 m2) ?| With Kidney Damage ?| ?Without Kidney Damage+ --------+ --------+ +| ?>90 ?| ?Stage one ?| ? Normal ?+ ---+ ---+ -------+| ?60-89 ?| ?Stage two ?| ? Decreased GFR ? + --+ --+ ------+| ?30-59 ?| ?Stage three ?| ? Stage three ? + --+ --+ ------+| ?15-29 ?| ?Stage four ? | ? Stage four ?+ ---+ ---+ -------+| ?<15 (or dialysis) ? ?| ?Stage five ? | ? Stage five ?+ ---+ ---+ -------+ *Each stage assumes the associated GFR level has been in effect for at least three months. ?Stages 1 to 5, with or without kidney disease, indicate chronic kidney disease. Notes: Determination of stages one and two (with eGFR >59mL/min/1.73 m2) requires estimation of kidney damage for at least three months as defined by structural or functional abnormalities of the kidney, manifested by either:Pathological abnormalities or Markers of kidney damage (including abnormalities in the composition of the blood or urine or abnormalities in imaging tests). Lab Interpretation Abnormal (test code = 68446-1) [facility] Test Item Value Reference Range Interpretation Comments APPEARANCE (test code = Cloudy Clear A 8805549971) COLOR (test code = Yellow Yellow 0458005815) PH (test code = 4.8-8.0 9247552712) SP GRAVITY (test code = 1.003-1.030 0266760045) GLU U QUAL (test code = Normal Normal 8003258734) BLOOD (test code = 2+ Negative A 4273641778) KETONES (test code = Negative Negative 1986952061) PROTEIN (test code = Negative Negative 2887-8) UROBILIN (test code = 2.0 mg/dL Normal A 4484951942) BILIRUBIN (test code = Negative Negative 0281172160) NITRITE (test code = Negative Negative 6138215368) LEUK SHAKILA (test code = Negative Negative 3320248175) RBC/HPF (test code = See_Comment H [Autom ated message] 7686205826) The system [employer] generated this result transmit chris reference range : 0 - 3 HPF. The refe rence range was not u sed to interpret th is result as normal/abnormal . WBC/HPF (test code = See_Comment H [Autom ated message] 0790102153) The system [employer] generated this result transmit chris reference range : 0 - 5 HPF. The refe rence range was not u sed to interpret th is result as normal/abnormal . BACTERIA (test code = Few Negative A 0329504091) MUCOUS (test code = Slight Negative LPF A 5239218783) AMORPHOUS (test code = Few Rare HPF A 4884457950) SQ EPITH (test code = HPF 8306586038) Lab Interpretation (test Abnormal code = 02270-8) [facility] Edsrnlonhtea4263-79-61 00:08:00 Test Item Value Reference Range Interpretation Comments WBC (test code = See_Comment [Automated 6690-2) message] The sy stem which generated this result transmitted reference range : 4.30 - 11.10 10*3/?L. The reference range was not used to interpret this result as normal/abnormal . RBC (test code = See_Comment [Automated 789-8) message] The sy stem which generated this result transmitted reference range : 3.93 - 5.25 10*6/?L. The reference range was not used to interpret this result as normal/abnormal . HGB (test code = 13.1 g/dL 11.6-15 718-7) HCT (test code = 37.3 % 35.7-45.2 4544-3) MCV (test code = 85.0 fL 80.6-95.5 787-2) MCH (test code = 29.8 pg 25.9-32.8 785-6) MCHC (test code = 35.1 g/dL 31.6-35.1 786-4) RDW-SD (test code = 37.6 fL 39-49.9 L 71193-4) RDW-CV (test code = 12.3 % 12-15.5 788-0) PLT (test code = See_Comment [Automated 777-3) message] The sy stem which generated this result transmitted reference range : 166 - 358 10*3/ ?L. The reference r radha was not used to interpret this result as normal/abnormal . MPV (test code = 10.7 fL 9.5-12.9 85294-3) NRBC/100 WBC (test See_Comment [Automat ed code = 1795328870) message] The system which generated this result transmitted reference range : 0.0 - 10.0 /100 WBCs. The refer ence range was not u sed to interpret th is result as normal/abnormal . NRBC x10^3 (test code <0.01 See_Comment [Auto mated = 5345783765) message] The s ystem which generated this result transmitted reference range : 10*3/?L. The reference range was not used to interpret this result as normal/abnormal . GRAN MAT (NEUT) % 64.7 % (test code = 770-8) IMM GRAN % (test code 0.20 % = 4812849893) LYMPH % (test code = 27.2 % 736-9) MONO % (test code = 5.6 % 5905-5) EOS % (test code = 1.9 % 713-8) BASO % (test code = 0.4 % 706-2) GRAN MAT x10^3(ANC) 5.94 10*3/uL 1.88-7.09 (test code = 3101154498) IMM GRAN x10^3 (test <0.03 0-0.06 code = 7046158383) LYMPH x10^3 (test code 2.50 10*3/uL 1.32-3.29 = 731-0) MONO x10^3 (test code 0.51 10*3/uL 0.33-0.92 = 742-7) EOS x10^3 (test code = 0.17 10*3/uL 0.03-0.39 711-2) BASO x10^3 (test code 0.04 10*3/uL 0.01-0.07 = 704-7) Lab Interpretation Abnormal (test code = 40308-6) [facility] Nozl8713-08-11 00:00:00 Test Item Value Reference Range Interpretation Comments POCT PREG (test code = 1605) negative On board controls acceptable with present C Line (test code = 3574) POCT PREG LOT # (test code = 3575) [id number] POCT PREG TEST DATE (test 01/22/2022 code = 3576) Lab Interpretation (test code = Normal 56313-2) [facility] GLUCOSE (AUTOMATED)2020-06-05 22:57:00 Test Item Value Reference Range Interpretation Comments POCT GLU (test code = 5123785777) 105 mg/dL 70-110 Lab Interpretation (test code = Normal 49217-5) [facility] 06:39:00 Test Item Value Reference Range Interpretation Comments APPEARANCE (test code = Clear Clear 6359115753) COLOR (test code = Yellow Yellow 3880822666) PH (test code = 4.8-8.0 9275836842) SP GRAVITY (test code = 1.003-1.030 H 8251836092) GLU U QUAL (test code = Normal Normal 2285532178) BLOOD (test code = 2+ Negative A 1683689172) KETONES (test code = Negative Negative 5429127796) PROTEIN (test code = Negative Negative 2887-8) UROBILIN (test code = Normal Normal 8693766333) BILIRUBIN (test code = Negative Negative 8181310827) NITRITE (test code = Negative Negative 4883364486) LEUK SHAKILA (test code = 75/uL Negative A 5392304808) RBC/HPF (test code = See_Comment [Autom ated message] 7378903290) The system [employer] generated this result transmitted ref erence range: 0 - 3 HP F. The reference range was not used to int erpret this result as normal/abnormal . WBC/HPF (test code = See_Comment H [Autom ated message] 5907371560) The system [employer] generated this result transmitted ref erence range: 0 - 5 HP F. The reference range was not used to int erpret this result as normal/abnormal . BACTERIA (test code = Few Negative A 4920077522) SQ EPITH (test code = HPF 3984019023) Lab Interpretation (test Abnormal code = 93062-4) [facility], [id number] 04:36:00 Test Item Value Reference Range Interpretation Comments PREG SERUM (test code Negative = 1630943364) LUC (test code = LUC) Less than 10 IU/L. ?If low titer or ectopic is suspected, resubmit specimen in 48-72 hours. [facility] (ID NOW RAPID TESTING)2019-12-20 04:33:00 Test Item Value Reference Range Interpretation Comments SARS-CoV-2 Rapid ID NOW Not Detected Not Detected (test code = 80173-1) LUC (test code = LUC) ID NOW COVID-19 Assay is an isothermal nucleic acid amplification test intended for the qualitative detection of nucleic acid from SARS-CoV-2 viral RNA in nasopharyngeal ([employer]) specimens. It is used under Emergency Use Authorization (EUA) by FDA. The limit of detection (LOD) of the assay is 125 Genome Equivalents/mL. A positive result is indicative of the presence of SARS-CoV-2 RNA. ?Clinical correlation with patient history and other diagnostic information is necessary to determine patient infection status. A negative (Not Detected) result does not preclude SARS-CoV-2 infection. In patients with clinical symptoms and other tests that are consistent with SARS-CoV-2 infection, negative results should be treated as presumptive negative and a new specimen should be tested with alternative PCR molecular test. Invalid: Please collect a new specimen for repeat patient testing if clinically indicated. Lab Interpretation Normal (test code = 95853-5) [facility] Metabolic [id number] 04:17:00 Test Item Value Reference Range Interpretation Comments NA (test code = 137 mmol/L 135-145 9031250473) K (test code = 3.8 mmol/L 3.5-5 7404163612) CL (test code = 103 mmol/L 98-108 9021326671) CO2 TOTAL (test code = 25 mmol/L 23-31 5771738575) AGAP (test code = 2-16 5805004250) BUN (test code = 12 mg/dL 7-23 1422843664) GLUCOSE (test code = 175 mg/dL 70-110 H 3403052439) CREATININE (test code = 0.58 mg/dL 0.5-1.04 8818011085) TOTAL BILI (test code = 0.6 mg/dL 0.1-1.5 5581375324) CALCIUM (test code = 9.2 mg/dL 8.6-10.6 7911816857) T PROTEIN (test code = 8.1 g/dL 6.3-8.2 2877040196) ALBUMIN (test code = 4.3 g/dL 3.5-5 6711765381) ALK PHOS (test code = 93 U/L 34-122 7416937506) ALTv (test code = 29 U/L 5-35 1742-6) AST(SGOT) (test code = 29 U/L 13-40 7648916473) eGFR Calculation mL/min/1.73m2 (Non-) (test code = 2491798309) eGFR Calculation mL/min/1.73m2 () (test code = 5884229620) LUC (test code = LUC) Association of Glomerular Filtration Rate (GFR) and Staging of Kidney Disease* + --+ --+ ------+| GFR (mL/min/1.73 m2) ?| With Kidney Damage ?| ?Without Kidney Damage+ --------+ --------+ +| ?>90 ?| ?Stage one ?| ? Normal ?+ ---+ ---+ -------+| ?60-89 ?| ?Stage two ?| ? Decreased GFR ? + --+ --+ ------+| ?30-59 ?| ?Stage three ?| ? Stage three ? + --+ --+ ------+| ?15-29 ?| ?Stage four ? | ? Stage four ?+ ---+ ---+ -------+| ?<15 (or dialysis) ? ?| ?Stage five ? | ? Stage five ?+ ---+ ---+ -------+ *Each stage assumes the associated GFR level has been in effect for at least three months. ?Stages 1 to 5, with or without kidney disease, indicate chronic kidney disease. Notes: Determination of stages one and two (with eGFR >59mL/min/1.73 m2) requires estimation of kidney damage for at least three months as defined by structural or functional abnormalities of the kidney, manifested by either:Pathological abnormalities or Markers of kidney damage (including abnormalities in the composition of the blood or urine or abnormalities in imaging tests). Lab Interpretation Abnormal (test code = 51052-5) [facility]Lip[facility], Iiovf1667-01-05 04:17:00 Test Item Value Reference Range Interpretation Comments LIPASE (test code = 7419373624) 88 U/L 0-220 Lab Interpretation (test code = Normal 35434-6) [facility] with Ofpxktrfrumy7870-80-13 04:03:00 Test Item Value Reference Range Interpretation Comments WBC (test code = See_Comment H [Automated 9490-2) message] The sy stem which generated this result transmitted reference range : 4.30 - 11.10 10*3/?L. The reference range was not used to interpret this result as normal/abnormal . RBC (test code = See_Comment [Automated 789-8) message] The sy stem which generated this result transmitted reference range : 3.93 - 5.25 10*6/?L. The reference range was not used to interpret this result as normal/abnormal . HGB (test code = 12.8 g/dL 11.6-15 718-7) HCT (test code = 38.2 % 35.7-45.2 4544-3) MCV (test code = 86.4 fL 80.6-95.5 787-2) MCH (test code = 29.0 pg 25.9-32.8 785-6) MCHC (test code = 33.5 g/dL 31.6-35.1 786-4) RDW-SD (test code = 39.4 fL 39-49.9 86087-0) RDW-CV (test code = 12.4 % 12-15.5 788-0) PLT (test code = See_Comment [Automated 777-3) message] The sy stem which generated this result transmitted reference range : 166 - 358 10*3/ ?L. The reference r radha was not used to interpret this result as normal/abnormal . MPV (test code = 11.2 fL 9.5-12.9 44951-9) NRBC/100 WBC (test See_Comment [Automat ed code = 0582655709) message] The system which generated this result transmitted reference range : 0.0 - 10.0 /100 WBCs. The refer ence range was not u sed to interpret th is result as normal/abnormal . NRBC x10^3 (test code <0.01 See_Comment [Auto mated = 3111126383) message] The s ystem which generated this result transmitted reference range : 10*3/?L. The reference range was not used to interpret this result as normal/abnormal . GRAN MAT (NEUT) % 75.2 % (test code = 770-8) IMM GRAN % (test code 0.60 % = 2270499724) LYMPH % (test code = 18.2 % 736-9) MONO % (test code = 4.7 % 5905-5) EOS % (test code = 1.0 % 713-8) BASO % (test code = 0.3 % 706-2) GRAN MAT x10^3(ANC) 9.05 10*3/uL 1.88-7.09 H (test code = 6129134699) IMM GRAN x10^3 (test 0.07 10*3/uL 0-0.06 H code = 5771499662) LYMPH x10^3 (test code 2.19 10*3/uL 1.32-3.29 = 731-0) MONO x10^3 (test code 0.57 10*3/uL 0.33-0.92 = 742-7) EOS x10^3 (test code = 0.12 10*3/uL 0.03-0.39 711-2) BASO x10^3 (test code 0.04 10*3/uL 0.01-0.07 = 704-7) Lab Interpretation Abnormal (test code = 82072-4) [facility]"
== END 2021-04-06 14:56 | disposition home or self-care (01) ==
LOC: ER 11:38
DX: O20.0 Threatened abortion (principal); Z3A.01 Less than 8 weeks gestation of pregnancy; Z88.0 Allergy status to penicillin; Z88.2 Allergy status to sulfonamides
CPT/HCPCS: 36415; 76817; 80048; 81003; 81025; 84702; 85025; 86900; 86901; 99284

== ENCOUNTER 2021-04-26 16:45 | Emergency (ER) | payer SELFPAY ==
--- OUTSIDE RECORDS SUMMARY | 2021-04-26 16:50 | XMS REPORT | Continuity of Care Document ---
:1990 Author Organization [facility] t Address Formerly [facility] [address] [place] [address] Care Team Providers Name Role Phone Mando Le Primary Care Physician Doctor Unassigned, Name Attending Clinician Unavailable Attending Clinician Unavailable Singer BARCLAY Attending Clinician Tomy LARA E Attending Clinician MARYELLEN Attending Clinician Unavailable Apollo RICARDO Attending Clinician Maryellen RICARDO Attending Clinician Jose Rafael Sen Attending Clinician Samira LAWRENCE S Attending Clinician Admitting Clinician Unavailable MARYELLEN Admitting Clinician Unavailable Maryellen RICARDO Admitting Clinician Payers Payer Name Policy Type Policy Number Effective Date Expiration Date S ource Problems Condition Condition Condition Status Onset Resolution Last Treating Co mments Source Name Details Category Date Date Treatment Clinician Date Dehydratio Dehydratio Disease Active 2020-05 U mani n n 05-30 ity of 00:00: [place] 00 Medical Branch Morbid Morbid Disease Active 2020-05 Univers obesity obesity 05-30 [place] of with body with body [place] mass index mass index 00 Me dical of of Branch 40.0-49.9 40.0-49.9 Disease Active U nivers care and care and 9-18 ity of examin[place] examin[place] of n of 00 Medical lactating lactating Bran ch mother mother Acute Acute Disease Active Univers headache headache 8-24 ity of 00:00: [place] [facility] Elevated Elevated Disease Active Unive rs blood blood 8-24 ity of pressure pressure 00:00: [place] [facility] Diet Diet Disease Active Univers controlled controlled 12-23 it y of gestationa gestationa [place] diabetes l diabetes 00 Me dical mellitus mellitus Branch (GDM), (GDM), antepartum antepartum Obesity in Obesity in Disease Active U nivers 5-30 ity of 00:00: [place] [facility] Allergies, Adverse Reactions, Alerts Allergy Allergy Status Severity Reaction(s) Onset Inactive Treating Comm ents Source Name Type Date Date Clinician AMPICILL DRUG Active ITCHING Univers IN INGREDI 6-15 ity of 00:00: [place] [facility] Ampicill Propensi Active Itching Unive [...] Quantity Comments Source Exposure to Not sure [facility] SARS-CoV-2 (event) Medica l Branch Alcohol intake 2021-03-30 2021-03-30 0 /d [facility] 00:00:00 00:00:00 Medical Branch Tobacco use and 2012-07-20 2012-07-20 Never used [facility] [place] exposure 00:00:00 00:00:00 Medical Branch Sex [birth year] [facility] 00:00:00 00:00:00 Medical Branch Smoking Status Start Date Stop Date Source Never smoker [facility] Branch Medications Ordered Filled Start Stop Current Ordering Indication Dosage Frequency Signature Comments Components Source Medication Medication Date Date Medication? Clinician (SIG) Name Name metFORMIN 2020-05 Yes 500mg Take 500 Uni vers 500 mg 1-10 mg by ity of tablet 04:43: mouth 2 [place] 01 (two) Medical times Branch daily with meals. metFORMIN 2020-05 Yes 500mg Take 500 Uni vers 500 mg 1-10 mg by ity of tablet 04:43: mouth 2 [place] (two) Medical times Branch daily with meals. 2020-05- Yes [id number] 1{tbl} Take 1 Univers vitamin 1-09 12-10 tablet by ity of w/FA tablet 00:00: 05:59 [place] 00 :[place] daily for Medical 30 days. Branch 2020-05- Yes [id number] 1{tbl} Take 1 Univers vitamin 1-09 12-10 tablet by ity of w/FA tablet 00:00: 05:59 [place] 00 :00 daily for Medical 30 days. Branch 2020-05- Yes [id number] 1{tbl} Take 1 Univers vitamin 1-09 12-10 tablet by ity of w/FA tablet 00:00: 05:59 mouth [place] 00 :00 daily for Medical 30 days. Branch 2020-05- Yes [id number] 1{tbl} Take 1 Univers vitamin 1-09 12-10 tablet by ity of w/FA tablet 00:00: 05:59 mouth [place] 00 :00 daily for Medical 30 days. Branch SITagliptin 2020-05- No 50mg 50 mg, Uni vers (JANUVIA) 06-01 11-08 Oral, ity of tablet 50 19:15: 21:07 ONCE, 1 [place] mg 00 :00 dose, On Medical Mon Branch 04/01/21 at 1315, Routine metFORMIN 2020-05 Yes 500mg Take 500 Uni vers 500 mg 1-08 mg by ity of tablet 16:44: mouth 2 [place] 41 (two) Medical times Branch daily with meals. metFORMIN 2020-05 Yes 500mg Take 500 Uni vers 500 mg 1-08 mg by ity of tablet 16:44: mouth 2 [place] 41 (two) Medical times Branch daily with meals. Blood-Gluco 2020-05 Yes [id number] Use as Univers se Meter 1-08 directed ity of (RELION 00:00: [place] ALL-IN-ONE 00 Medical METER) Kit Branch Blood-Gluco 2020-05 Yes [id number] Use as Univers se Meter 1-08 directed ity of (RELION 00:00: [place] ALL-IN-ONE 00 Medical METER) Kit Branch Blood-Gluco 2020-05 Yes [id number] Use as Univers se Meter 1-08 directed ity of (RELION 00:00: [place] ALL-IN-ONE 00 Medical METER) Kit Branch Blood-Gluco 2020-05 Yes [id number] Use as Univers se Meter 1-08 directed ity of (RELION 00:00: [place] ALL-IN-ONE 00 Medical METER) Kit Branch SITagliptin 2020-05- Yes [id number] 50mg Take 1 Univers 50 mg 06-01 tablet by ity of tablet 00:00: 05:59 mouth [place] 00 :00 daily for Medical 30 doses. Branch SITagliptin 2020-05- Yes [id number] 50mg Take 1 Univers 50 mg 06-01 tablet by ity of tablet 00:00: 05:59 mouth [place] 00 :00 daily for Medical 30 doses. Branch SITagliptin 2020-05- Yes [id number] 50mg Take 1 Univers 50 mg 06-01 tablet by ity of tablet 00:00: 05:59 mouth [place] 00 :00 daily for Medical 30 doses. Branch SITagliptin 2020-05- Yes [id number] 50mg Take 1 Univers 50 mg 06-01 tablet by ity of tablet 00:00: 05:59 mouth [place] 00 :00 daily for Medical 30 doses. Branch cephALEXin 2020-05- Yes [id number] 500mg Take 1 Univers 500 mg 06-01 capsule by ity of capsule 00:00: 05:59 mouth 4 [place] 00 :00 (four) Medical times Branch daily for 4 days. cephALEXin 2020-05- Yes [id number] 500mg Take 1 Univers 500 mg 06-01 capsule by ity of capsule 00:00: 05:59 mouth 4 [place] 00 :00 (four) Medical times [place] daily for 4 days. cefTRIAXone 2020-05 Yes 1000mg 1,000 mg, Univers (ROCEPHIN) 05-31 IV ity of 1,000 mg in 15:00: Piggyback, [place] NaCl 0.9% 00 DAILY, Medical (NS) 50 mL First dose [facility] MINI-BAG (after last reorder) on [place] 03/31/21 at 0900, Until Discontinu ed, Administer over 30 Minutes, 50 mL
Reas on for Anti-Infec tive: Documented Infection< br>Documen chris Infection Site: Urine
D uration of Therapy: Other (see Comments) glipiZIDE 2020-05- No 2.5mg 2.5 mg, Uni vers (GLUCOTROL) 05-31 Oral, ity of tablet 2.5 13:30: 18:01 BIDAC, [place] mg 00 :58 First dose Medical on [facility] 03/31/21 at 0730, Until Discontinu ed, Routine NaCl 0.9% 2020-05- No 500mL at 999 [facility] ers (NS) bolus 05-31 mL/hr, 500 it y of infusion 09:00: 09:42 mL, IV [place] 500 mL 00 :00 Piggyback, Medical ONCE, 1 [place] dose, On [place] 03/31/21 at 0300, STAT magnesium 2020-05 Yes 400mg 400 mg, Univ ers oxide 05-31 Oral, BID, ity of (MAG-OX 07:52: First dose [place] 400[place] tablet 59 on [place] Medica l 400 mg 03/31/21 at Branch 0800, Until Discontinu ed, Routine ferrous 2020-05 Yes 325mg 325 mg, Univer s sulfate 05-31 Oral, BID, ity of tablet 325 01:00: First dose [place] mg 00 on [facility] 03/30/21 at Branch 2000, Until Discontinu ed, Routine Sliding 2020-05 Yes Subcutaneo Univ ers Scale 1-06 us, TID ity of Insulin - 22:00: MEALS, [place] Lispro 00 First dose Medical (HumaLOG) + on [facility] 03/30/21 at Testing 1700, Until Discontinu ed, Routine dextrose 50 2020-05 Yes 25mL 25 mL, Univ ers % in water - Slow IV ity of (D50W) 20:49: Push, PRN, [place] injection 22 Starting Medica l 25 mL on Sat Branch 03/30/21 at 1549, Until Discontinu ed, JEWEL, Blood Glucose < or = 70 mg/dL and patient is unable to swallow or has mental status changes. NaCl 0.9% 2020-05 Yes 1000mL at 125 Univ ers (NS) IV 1-06 mL/hr, IV ity of infusion 18:45: Infusion, [place] 1,000 mL 00 CONTINUOUS Medic al , Starting Branch on 03/30/21 at 1345, Until Discontinu ed, Routine magnesium 2020-05- No 2g 2 g, IV Univ ers sulfate in 05-30 Piggyback, it y of water 2 18:45: 18:29 ONCE NOW, [place] gram/50 mL 00 :00 1 dose, On Med ical (4 %) Sat Branch infusion 2 03/30/21 at g 1345, Routine acetaminoph 2020-05 Yes 650mg 650 mg, Un efra en 05-30 Oral, ity of (TYLENOL) 17:43: Q6HPRN, [place] tablet 650 11 Starting Medic al mg on Sat Branch 03/30/21 at 1243, Until Discontinu ed, Routine, Pain (scale 1-3) glucagon 2020-05 Yes 1mg 1 mg, Univers (GLUCAGEN 05-30 Intramuscu ity of DIAGNOSTIC 17:42: lar, PRN, [place] KIT) 20 Starting Medical injection 1 on Sat Branch mg 03/30/21 at 1242, Until Discontinu ed, JEWEL, Blood Glucose < or = 70 mg/dL and patient is unable to swallow or has mental changes. dextrose 50 2020-05 Yes 25mL 25 mL, Univ ers % in water 05-30 Slow IV ity of (D50W) 17:42: Push, PRN, [place] injection 20 Starting Medica l 25 mL on Sat Branch 03/30/21 at 1242, Until Discontinu ed, JEWEL, Blood Glucose < or = 70 mg/dL and patient is unable to swallow or has mental status changes. cefTRIAXone 2020-05 No 1000mg 1,000 mg, Univers (ROCEPHIN) 05-30 IV ity of 1,000 mg in 17:15: 16:42 Piggyback, [place] NaCl 0.9% 00 :00 ONCE, 1 Medical (NS) 50 mL dose, On Branc h MINI-BAG 03/30/21 at 1215, Administer over 30 Minutes, 50 mL
Reas on for Anti-Infec tive: Documented Infection< br>Documen chris Infection Site: Urine<br&g t;Duration of Therapy: Other (see Comments) acetaminoph 2020-05 No 975mg 975 mg, U nivers en 05-30 Oral, ity of (TYLENOL) 16:30: 15:25 ONCE, 1 [place] tablet 975 00 :00 dose, On Medic al mg Sat Branch 03/30/21 at 1130, JEWEL diphenhydrA No 25mg 25 mg, Uni vers MINE 06-06 Slow IV ity of (BENADRYL) 01:00: 00:04 Push, [place] injection 00 :00 ONCE, 1 Medical 25 mg dose, Tue Branch 06/05/20 at 1900, STAT metoclopram No 10mg 10 mg, Uni vers win HCl 06-06 Slow IV ity of (REGLAN) 01:00: 00:04 Push, [place] injection 00 :00 ONCE, 1 Medical 10 mg dose, Tue Branch 06/05/20 at 1900, JEWEL NaCl 0.9% 2020- No 1000mL at 999 Uni vers (NS) bolus 06-06 mL/hr, ity of infusion 00:00: 01:28 1,000 mL, [place] as 1,000 mL 00 :00 IV Medical Infusion, Branch ONCE, 1 dose, 06/05/20 at 1800, JEWEL NaCl 0.9% 2019- No 1000mL at 999 Uni vers (NS) bolus 7-28 07-28 mL/hr, ity of infusion 06:15: 06:00 1,000 [...] Branch injection 0100, 120 mL Routine ondansetron 2020-0 2020- No 4mg 4 mg, Slow Univers (ZOFRAN 12-19 IV Push, ity of (PF)) 04:30: 03:46 ONCE, 1 [place] injection 4 00 :00 dose, Mon Med ical mg 12/19/19 at Branch 2330, JEWEL morpHINE 2020-0 2020- No 4mg 4 mg, Slow Un efra injection 4 12-19 IV Push, ity of mg 04:30: 03:46 ONCE, 1 [place] 00 :00 dose, Mon Medical 12/19/19 at Branch 2330, STAT ondansetron 2020-0 Yes [id number] 4mg Take 1 Univers (ZOFRAN) 4 7-28 tablet by ity of mg tablet 00:00: mouth [place] 00 every 8 Medical (eight) Branch hours as needed for Nausea and Vomiting (N/V). esomeprazol 2020-0 Yes [id number] 20mg Take 20 mg Univers e (NEXIUM) 7-28 by mouth ity o f 20 mg 00:00: daily [place] capsule 00 before a Medical meal. [place] traMADol 50 2020-0 Yes [id number] 50mg Take 1 Univ ers mg tablet 7-28 tablet by ity o f 00:00: mouth [place] 00 every 6 Medical (six) Branch hours as needed for Pain (scale 4-6). Indication s: acute pain ondansetron 2020-0 Yes [id number] 4mg Take 1 Univers (ZOFRAN) 4 7-28 tablet by ity of mg tablet 00:00: mouth [place] 00 every 8 Medical (eight) Branch hours as needed for Nausea and Vomiting (N/V). ondansetron 2020-0 Yes [id number] 4mg Take 1 Univers (ZOFRAN) 4 7-28 tablet by ity of mg tablet 00:00: mouth [place] 00 every 8 Medical (eight) Branch hours as needed for Nausea and Vomiting (N/V). ondansetron 2020-0 Yes [id number] 4mg Take 1 Univers (ZOFRAN) 4 7-28 tablet by ity of mg tablet 00:00: mouth [place] 00 every 8 Medical (eight) Branch hours as needed for Nausea and Vomiting (N/V). esomeprazol 2020-0 Yes [id number] 20mg Take 20 mg Univers e (NEXIUM) [...] Indication s: acute pain ondansetron 2020-0 Yes [id number] 4mg Take 1 Univers (ZOFRAN) 4 7-28 tablet by ity of mg tablet 00:00: mouth [place] 00 every 8 Medical (eight) Branch hours as needed for Nausea and Vomiting (N/V). ondansetron 2020-0 Yes [id number] 4mg Take 1 Univers (ZOFRAN) 4 7-28 tablet by ity of mg tablet 00:00: mouth [place] 00 every 8 Medical (eight) Branch hours as needed for Nausea and Vomiting (N/V). ondansetron 2020-0 Yes [id number] 4mg Take 1 Univers (ZOFRAN) 4 7-28 tablet by ity of mg tablet 00:00: mouth [place] 00 every 8 Medical (eight) Branch hours as needed for Nausea and Vomiting (N/V). esomeprazol 2020-0 Yes [id number] 20mg Take 20 mg Univers e (NEXIUM) [...] s: acute pain esomeprazol 2020-0 2020- No [id number] 20mg Take 20 mg Univers e (NEXIUM) 7-28 -08 by mouth ity of 20 mg 00:00: 00:00 daily [place] capsule 00 :00 before a Medical meal. Branch traMADol 50 2019-2020- No [id number] 50mg Take 1 Uni vers [...] Branch hours as needed (headache) . metoclopram 2016- Yes 10mg Take 1 Univ ers win HCl 10 9-18 tablet by ity of mg tablet 00:00: mouth [place] 00 every 6 Medical (six) Branch hours as needed (headache) . metoclopram 2020- No 10mg Take 1 Uni vers win HCl [...] of acetaminop hen in 24 hours. HYDROcodone 2016- Yes 1{tbl} Take 1-2 Univers -acetaminop 8-28 tablets by it y of hen 5-325 00:00: mouth [place] mg tablet 00 every 6 Medical (six) Branch hours as needed for Pain (scale 7-10). Do not exceed 3 grams of acetaminop hen in 24 hours. HYDROcodone 2016- Yes 1{tbl} Take 1-2 Univers -acetaminop 8-28 tablets by it y of hen 5-325 00:00: mouth [place] mg tablet 00 every 6 Medical (six) Branch hours as needed for Pain (scale 7-10). Do not exceed 3 grams of acetaminop hen in 24 hours. HYDROcodone 2016-2020- No 1{tbl} Take 1-2 Univers -acetaminop 8-28 -08 tablets by i ty of hen 5-325 00:00: 00:00 mouth [place] mg tablet 00 :00 every 6 Medical (six) Branch hours as needed for Pain (scale 7-10). Do not exceed 3 grams of acetaminop hen in 24 hours. Yes 1{tbl} Take 1 Unive rs vitamin [...] (two) Medical tablet times Branch daily. ibuprofen 2017-0 Yes 600mg Take 1 Unive rs 600 mg 8-27 tablet by ity of tablet 00:00: mouth [place] 00 every 6 Medical (six) Branch hours as needed for Pain (scale 1-3) or Pain (scale 4-6) (Pain). Take with food or milk. docusate 2017-0 Yes 240mg Take 1 Univer s calcium 240 8-27 capsule by it y of mg capsule 00:00: mouth once [place] 00 daily as Medical needed for Branch Constipati on. ferrous 2017-0 Yes 325mg Take 1 Univers sulfate 325 8-27 tablet by ity of mg (65 mg 00:00: mouth 2 [place] iron) 00 (two) Medical tablet times Branch daily. docusate 2017-0 Yes 240mg Take 1 Univer s calcium 240 8-27 capsule by it y of mg capsule 00:00: mouth once [place] 00 daily as Medical needed for Branch Constipati on. ferrous 2017-0 Yes 325mg Take 1 Univers sulfate 325 8-27 tablet by ity of mg (65 mg 00:00: mouth 2 [place] iron) 00 (two) Medical tablet times Branch daily. docusate 2017-0 Yes 240mg Take 1 Univer s calcium 240 8-27 capsule by it y of mg capsule 00:00: mouth once [place] 00 daily as Medical needed for Branch Constipati on. ferrous 2017-0 Yes 325mg Take 1 Univers sulfate 325 8-27 tablet by ity of mg (65 mg 00:00: mouth 2 [place] iron) 00 (two) Medical tablet times Branch daily. 2017-0 Yes 1{tbl} Take 1 Unive rs vitamin 8-27 tablet by ity of w/FA tablet 00:00: mouth [place] 00 daily. Medical Branch docusate 2017-0 Yes 240mg Take 1 Univer s calcium 240 8-27 capsule by it y of mg capsule 00:00: mouth once [place] 00 daily as Medical needed for Branch Constipati on. ferrous 2017-0 Yes 325mg Take 1 Univers sulfate 325 8-27 tablet by ity of mg (65 mg 00:00: mouth 2 [place] iron) 00 (two) Medical tablet times Branch daily. ibuprofen 2017-0 Yes 600mg Take 1 Unive rs 600 mg 8-27 tablet by ity of tablet 00:00: mouth [place] 00 every 6 Medical (six) Branch hours as needed for Pain (scale 1-3) or Pain (scale 4-6) (Pain). Take with food or milk. 2020- No 1{tbl} Take 1 Univ ers vitamin 01-18 tablet by ity of w/FA tablet 00:00: 00:00 mouth [place] 00 :00 daily. Medical Branch ibuprofen 2020- No 600mg Take 1 Univ ers 600 mg 01-18 tablet by ity of tablet 00:00: 00:00 mouth [place] 00 :00 every 6 Medical (six) Branch hours as needed for Pain (scale 1-3) or Pain (scale 4-6) (Pain). Take with food or milk. Blood-Gluco Yes [id number] Use as Univers se Meter 8-11 directed ity of (FREESTYLE 00:00: [place] SYSTEM KIT) 00 Medical Kit Branch blood sugar Yes [id number] Use as Univers diagnostic 8-11 directed ity o f (FREESTYLE 00:00: [place] TEST) strip 00 Medical Branch lancets Yes [id number] Use as U nivers gauge Misc 8-11 directed ity o f 00:00: [place] 00 Medical Branch Blood-Gluco Yes [id number] Use as Univers se Meter 8-11 directed ity of (FREESTYLE 00:00: [place] SYSTEM KIT) 00 Medical [facility] Branch blood sugar Yes [id number] Use as Univers diagnostic 8-11 directed ity o f (FREESTYLE 00:00: [place] TEST) strip 00 Medical Branch lancets 28 Yes [id number] Use as U nivers gauge Misc 8-11 directed ity o f 00:00: [place] 00 Medical Branch Blood-Gluco Yes [id number] Use as Univers se Meter 8-11 directed ity of (FREESTYLE 00:00: [place] SYSTEM KIT) 00 Medical Kit Branch blood sugar Yes [id number] Use as Univers diagnostic 8-11 directed ity o f (FREESTYLE 00:00: [place] TEST) strip 00 Medical Branch lancets 28 Yes [id number] Use as U nivers gauge Misc 8-11 directed ity o f 00:00: [place] 00 Medical Branch Blood-Gluco Yes [id number] Use as Univers se Meter 8-11 directed ity of (FREESTYLE 00:00: [place] SYSTEM KIT) 00 Medical Kit Branch blood sugar 2017- Yes [id number] Use as Univers diagnostic 8-11 directed ity o f (FREESTYLE 00:00: [place] TEST) strip 00 Medical Branch lancets 28 Yes [id number] Use as U nivers gauge Misc 8-11 directed ity o f 00:00: [place] 00 Medical Branch Blood-Gluco 2016- Yes [id number] Use as Univers se Meter 8-11 directed ity of (FREESTYLE 00:00: [place] SYSTEM KIT) 00 Medical Kit Branch blood sugar Yes [id number] Use as Univers diagnostic 8-11 directed ity o f (FREESTYLE 00:00: [place] TEST) strip 00 Medical Branch lancets 28 Yes [id number] Use as U nivers gauge Misc 8-11 directed ity o f 00:00: [place] 00 Medical Branch Blood-Gluco 2016- Yes [id number] Use as Univers se Meter 8-11 directed ity of (FREESTYLE 00:00: [place] SYSTEM KIT) 00 Medical Kit Branch blood sugar Yes [id number] Use as Univers diagnostic 8-11 directed ity o f (FREESTYLE 00:00: [place] TEST) strip 00 Medical Branch lancets 28 Yes [id number] Use as U nivers gauge Misc 8-11 directed ity o f 00:00: [place] 00 Medical Branch Blood-Gluco 2016- Yes [id number] Use as Univers se Meter 8-11 directed ity of (FREESTYLE 00:00: [place] SYSTEM KIT) 00 Medical Kit Branch blood sugar Yes [id number] Use as Univers diagnostic 8-11 directed ity o f (FREESTYLE 00:00: [place] TEST) strip 00 Medical Branch lancets 28 Yes [id number] Use as U nivers gauge Misc 8-11 directed ity o f 00:00: [place] 00 Medical Branch 2016-0 Yes [id number] 1{packe Take 1 Univers vit 6-27 t} Packet by ity of 33-iron-fol 00:00: mouth [place] ic-dha 00 daily. Medical (SELECT-OB Branch + DHA) 29 mg iron-1 mg -250 mg combo pack Yes [id number] 1{packe Take 1 Univers vit 6-27 t} Packet by ity of 33-iron-fol 00:00: mouth [place] ic-dha 00 daily. Medical (SELECT-OB Branch + DHA) 29 mg iron-1 mg -250 mg combo pack Yes [id number] 1{packe Take 1 Univers vit 6-27 t} Packet by ity of 33-iron-fol 00:00: mouth [place] ic-dha 00 daily. Medical (SELECT-OB Branch + DHA) 29 mg iron-1 mg -250 mg combo pack 2020- No [id number] 1{packe Take 1 Univers vit 6-27 11-08 t} Packet by ity of 33-iron-fol 00:00: 00:00 mouth [place] ic-dha 00 :00 daily. Medical (SELECT-OB Branch + DHA) 29 mg iron-1 mg -250 mg combo pack Immunizations Ordered Filled Immunization Date Status Comments [facility] e Immunization Name Name TDAP 2016-12-22 Completed University of 00:00:00 [facility] [place] [facility] TDAP 2016-12-22 Completed University of 00:00:00 [place] [facility] [place] TDAP 2016-12-22 Completed University of 00:00:00 [place] [facility] [place] TDAP 2016-12-22 Completed University of 00:00:00 [place] [facility] TDAP 2016-12-22 Completed University of 00:00:00 [place] [facility] [place] TDAP 2016-12-22 Completed University of 00:00:00 [facility] [place] [facility] TDAP 2016-12-22 Completed University of 00:00:00 [facility] [place] [facility] TDAP 2012-08-26 Completed University of 00:00:00 [place] [facility] TDAP 2012-08-26 Completed University of 00:00:00 [place] [facility] TDAP 2012-08-26 Completed University of 00:00:00 [place] [facility] TDAP 2012-08-26 Completed University of 00:00:00 [place] [facility] TDAP 2012-08-26 Completed University of 00:00:00 [place] [facility] TDAP 2012-08-26 Completed University of 00:00:00 [facility] [place] [facility] TDAP 2012-08-26 Completed University of 00:00:00 [facility] [place] [facility] Vital Signs Vital Name Observation Time Observation Value Comments Source Systolic blood 2021-04-16 19:53:00 145 mm[Hg] Univer sity of pressure [place] [facility] Diastolic blood 2021-04-16 19:53:00 87 mm[Hg] Unive rsity of pressure [place] [facility] Heart rate 2021-04-16 19:53:00 88 /min Universi ty of [place] [facility] Body temperature 2021-04-16 19:53:00 37.17 Haydee Univ ersity of [place] [facility] Respiratory rate 2021-04-16 19:53:00 18 /min Univ ersity of [place] [facility] Body height 2021-04-16 19:53:00 170.2 cm Universi ty of [place] [facility] Body weight 2021-04-16 19:53:00 121.11 kg Universi ty [facility] [place] [facility] BMI 2021-04-16 19:53:00 41.82 kg/m2 Universi ty of [place] [facility] Oxygen saturation in 2021-04-16 19:53:00 97 /min University of Arterial blood by [place] [employer] Pulse oximetry Branch Systolic blood 2021-04-01 21:39:00 134 mm[Hg] Univer sity of pressure [place] [facility] Diastolic blood 2021-04-01 21:39:00 76 mm[Hg] Unive rsity of pressure [place] [facility] Heart rate 2021-04-01 21:39:00 95 /min Universi ty of [place] [facility] Body temperature 2021-04-01 21:39:00 37.17 [place] Univ ersity of [place] [facility] Respiratory rate 2021-04-01 21:39:00 18 /min Univ ersity of [place] [facility] Oxygen saturation in 2021-04-01 21:39:00 98 /min University of Arterial blood by [place] [employer] Pulse oximetry Branch Body weight 2021-03-31 11:47:00 122.471 kg Universi ty [facility] [place] [facility] BMI 2021-03-31 11:47:00 41.05 kg/m2 Univers[facility] [place] [facility] Body height 2021-03-30 20:53:00 172.7 cm Universi ty of [place] [facility] Oxygen saturation in 2020-06-06 01:23:00 99 /min University of Arterial blood by [place] [employer] Pulse oximetry Branch Systolic blood 2020-06-06 01:23:00 121 mm[Hg] Univer sity of pressure [place] [facility] Diastolic blood 2020-06-06 01:23:00 81 mm[Hg] Unive rsity of pressure [place] [facility] Heart rate 2020-06-06 01:23:00 75 /min Universi ty of [place] [facility] Respiratory rate 2020-06-06 01:23:00 13 /min Univ ersity of [place] [facility] Body temperature 2020-06-05 22:49:00 37.17 [place] Univ ersity of [place] [facility] Body height 2020-06-05 22:49:00 170.2 cm Universi ty of [place] [facility] Body weight 2020-06-05 22:49:00 113.399 kg [facility]i ty [facility] [place] [facility] BMI 2020-06-05 22:49:00 39.16 kg/m2 Universi ty [facility] [place] [facility] Oxygen saturation in 2020-06-06 01:23:00 99 /min University of Arterial blood by [place] [employer] Pulse oximetry Branch Systolic blood 2020-06-06 01:23:00 121 mm[Hg] Univer sity of pressure [place] [facility] Diastolic blood 2020-06-06 01:23:00 81 mm[Hg] Unive rsity of pressure [place] [facility] Heart rate 2020-06-06 01:23:00 75 /min Universi ty of [place] [facility] Respiratory rate 2020-06-06 01:23:00 13 /min Univ ersity of [place] [facility] Body temperature 2020-06-05 22:49:00 37.17 [place] Univ ersity of [place] [facility] Body height 2020-06-05 22:49:00 170.2 cm Universi ty [facility] [place] [facility] Body weight 2020-06-05 22:49:00 113.399 kg Universi ty [facility] [place] [facility] BMI 2020-06-05 22:49:00 39.16 kg/m2 Universi ty of [place] [facility] Respiratory rate 2019-12-20 08:00:00 18 /min Univ ersity of [place] [facility] Oxygen saturation in 2019-12-20 08:00:00 100 /min [facility] of Arterial blood by [facility] Pulse oximetry Branch Systolic blood 2019-12-20 07:36:00 157 mm[Hg] Univer sity of pressure [facility] Diastolic blood 2019-12-20 07:36:00 86 mm[Hg] Unive rsity of pressure [facility] Heart rate 2019-12-20 07:36:00 97 /min [facility] Body temperature 2019-12-20 02:48:00 38.11 Haydee [facility] Body weight 2019-12-20 02:48:00 121.11 kg Universi ty [facility] BMI 2019-12-20 02:48:00 41.82 kg/m2 [facility] Respiratory rate 2019-12-20 08:00:00 18 /min [facility] Oxygen saturation in 2019-12-20 08:00:00 100 /min [facility] Arterial blood by [facility] Pulse oximetry Branch Systolic blood 2019-12-20 07:36:00 157 mm[Hg] [facility] Diastolic blood 2019-12-20 07:36:00 86 mm[Hg] [facility] Districte [facility] Heart rate 2019-12-20 07:36:00 97 /min [facility] Body temperature 2019-12-20 02:48:00 38.11 Haydee [facility] Body weight 2019-12-20 02:48:00 121.11 kg [facility] BMI 2019-12-20 02:48:00 41.82 kg/m2 [facility] Procedures Procedure Date / Time Performing Clinician Source Performed AUTHORIZATION FOR RELEASE 2021-04-25 06:01:00 Doctor Unassigned, [facility] [place] [facility] HB ABO GROUPING 2021-04-16 21:17:00 Singer [facility] COMP. METABOLIC PANEL 2021-04-16 21:16:00 Momo Calixto [facility] Districttrae [facility] ([id number]) [facility] TOTAL BETA HCG ASSAY 2021-04-16 21:16:00 Momo [facility] CBC WITH DIFF 2021-04-16 21:16:00 Anderson [facility] URINALYSIS 2021-04-16 21:12:00 Calixto, [facility] US FIRST 2021-04-16 21:04:23 Momo Calixto [facility] TRIMESTER LESS THAN 14 Medical B ranch WEEKS WITH TRANSVAGINAL CONSENT/REFUSAL FOR 2021-04-16 19:43:33 Doctor Unassigned, [facility] DIAGNOSIS AND TREATMENT [place] [facility] POCT GLUCOSE (AUTOMATED) 2021-04-01 17:52:00 Juni Anderson [facility] POCT GLUCOSE (AUTOMATED) 2021-04-01 13:42:00 Juni Anderson [facility] POCT GLUCOSE (AUTOMATED) 2021-03-31 23:16:00 Juni Anderson [facility] POCT GLUCOSE (AUTOMATED) 2021-03-31 22:18:00 Juni Anderson [facility] POCT GLUCOSE (AUTOMATED) 2021-03-31 17:48:00 Juni Anderson Jacquelyn [facility] POCT GLUCOSE (AUTOMATED) 2021-03-31 13:43:00 Juni Anderson [facility] PHOSPHORUS 2021-03-31 11:45:00 Maryellen [facility] MAGNESIUM 2021-03-31 11:45:00 Maryellen [facility] BASIC METABOLIC PANEL 2021-03-31 11:45:00 Juni Anderson [facility] (NA, K, CL, CO2, GLUCOSE, Medica l Branch BUN, CREATININE, CA) LIPID PANEL (00554)(TOTAL 2021-03-31 11:45:00 Celio Montoya [facility] TRIGLYCERID[facility], HDL) CBC WITH DIFF 2021-03-31 11:45:[address] [facility] POCT GLUCOSE (AUTOMATED) 2021-03-31 02:21:00 Juni Anderson [facility] POCT GLUCOSE (AUTOMATED) 2021-03-30 22:20:00 Juni Anderson [facility] URINE CULTURE 2021-03-30 16:12:[address] [facility] CT HEAD WO CONTRAST 2021-03-30 15:39:00 Jesus Bustillos [facility] POCT TEST 2021-03-30 15:11:00 Jesus Bustillos [facility] URINALYSIS 2021-03-30 15:07:[address] [facility] MAGNESIUM 2021-03-30 15:05:[address] [facility] TROPONIN I 2021-03-30 15:05:[address] [facility] COMP. METABOLIC PANEL 2021-03-30 15:05:00 Jesus Bustillos [facility] ([id number]) [place] TOTAL BETA HCG ASSAY 2021-03-30 15:05:00 Jesus [facility] CBC WITH DIFF 2021-03-30 15:05:[address] [facility] GLYCOSYLATED HEMOGLOBIN 2021-03-30 15:05:00 Jesus Bustillos [facility] (A1C) [facility] PROTHROMBIN TIME / INR 2021-03-30 15:05:00 Jesus Bustillos [facility] ACTIVATED PARTIAL 2021-03-30 15:05:00 [facility] JUWAN [facility] N-TERMINAL PRO-BNP 2021-03-30 15:05:00 Jesus Bustillos [facility] COVID-19 (ID NOW RAPID 2021-03-30 15:05:00 Jesus Bustillos [facility] TESTING) Medical Branch LAB ONLY COVID 2021-03-30 15:05:00 Jesus Bustillos [facility] INTERPRETATION [facility] HB ECG ROUTINE & RHYTHM 2021-03-30 15:01:14 Jesus Bustillos [facility] NOTICE OF PRIVACY 2021-03-30 14:52:58 Doctor Unakimmieigned, [facility] PRACTICES [place] [facility] [place] CONSENT/REFUSAL FOR 2021-03-30 14:52:37 Doctor Unabret, [facility] DIAGNOSIS AND TREATMENT [place] [facility] CT HEAD WO CONTRAST 2020-06-06 00:27:52 Sanjeev [facility] POCT TEST 2020-06-06 00:00:00 Sanjeev [facility] COVID-19 (ID NOW RAPID 2020-06-06 00:00:00 Sanjeev Cifuentes [facility] TESTING) Medical Branch COMP. METABOLIC PANEL 2020-06-05 23:59:00 Sanjeev Cifuentes [facility] ([id number]) [place] CBC WITH DIFF 2020-06-05 23:59:00 Sanjeev Cifuentes [facility] URINALYSIS 2020-06-05 23:59:00 Sanjeev Cifuentes [facility] POCT GLUCOSE (AUTOMATED) 2020-06-05 22:53:00 Doctor Lezama [facility] [place] [facility] CONSENT/REFUSAL FOR 2020-06-05 22:37:42 Doctor Teja [facility] DIAGNOSIS AND TREATMENT [place] [facility] EKG-12 LEAD 2019-12-20 07:36:16 Glendy Hogan [place] [facility] URINALYSIS 2019-12-20 06:25:00 Reagan Sheikh [facility] TEST, SERUM 2019-12-20 03:47:00 Reagan Sheikh [facility] COVID-19 (ID NOW RAPID 2019-12-20 03:46:00 Glendy Hogan [facility] TESTING) Medical Branch LIPASE 2019-12-20 03:00:00 Reagan Sheikh [facility] COMP. METABOLIC PANEL 2019-12-20 03:00:00 Reagan Sheikh [facility] ([id number]) [facility] CBC WITH DIFF 2019-12-20 03:00:00 Reagan Sheikh [facility] NOTICE OF PRIVACY 2019-12-20 02:35:01 Doctor Teja [facility] PRACTICES [place] [facility] [place] CONSENT/REFUSAL FOR 2019-12-20 02:34:45 Doctor Lezama [facility] DIAGNOSIS AND TREATMENT [place] [facility] Encounters Start End Encounter Admission Attending Care Care Encounter Source Date/Time Date/Time Type Type Clinicians Facility Department ID 2021-03-23 Emergency [facility] [id number] Univers 16:53:27 [facility] 2021-03-22 Emergency [facility] [id number] Univers 09:09:31 [facility] 2021-04-25 2021-04-25 Orders Doctor NUNEZ [id number] Univers 00:00:00 00:00:00 Only Gloriassigned, NIHARIKA [id number] ity of [place] [facility] 4.2.7.2.686 Benigno as [phone] [facility] 009 Branch 2021-04-16 2021-04-16 Emergency X SINGER [facility] ERT [id number] Univers 13:56:00 16:58:00 MOMO isaiahjericho [facility] 2021-04-16 2021-04-16 Emergency [facility] [id number] Univers 13:56:00 16:58:00 Momo TRAMMELL [id number] i ty of [place] 4.2.7.2.686 [facility] [id number] [facility] 084 Branch 2021-04-02 2021-04-02 Patient Annie Huitron [id number] Univers 00:00:00 00:00:00 Outreach E BARAHONA [id number] [place] [phone] [facility] 403 Branch 2021-03-30 2021-04-01 Outpatient X MARYELLEN [facility] JEAN [id number] Univers 09:55:00 16:43:00 JUNI colonjericho [facility] 2021-03-30 2021-04-01 Emergency Jesus Bustillos [facility] 1.2.840. [id number] Univers 09:55:00 16:43:00 Juni Anderson [id number] ity [facility] 4.2.7.2.686 [facility] [phone] [facility] 081 Branch 2021-03-30 2021-03-30 Orders Doctor NUNEZ [id number] Univers 00:00:00 00:00:00 Only Unassigned, NIHARIKA [id number] ity of [place] [facility] 4.2.7.2.686 Benigno as [id number] [facility] 009 Branch 2020-06-05 2020-06-05 Emergency Vane [facility] [id number] 16:50:00 19:31:00 Sanjeev Trammell [id number] [place] 4.2.7.2.686 Ryan [id number] 2020-06-05 2020-06-05 Emergency [facility] [id number] [facility] 16:50:00 19:31:00 Sanjeev Trammell 350.1.13.10 i ty of [place] 4.2.7.2.686 [facility] [id number] [place] [address] Branch 2019-12-19 2019-12-20 [facility] [id number] 21:39:31 03:45:00 Glendy Trammell [id number] [place] [address] [place] [address] [phone] [facility] 2019-12-19 2019-12-20 [facility] [id number] [facility] 21:39:31 03:45:00 Glendy Trammell 350.1.13.10 i ty of [place] 4.2.7.2.686 [facility] [id number] [address] Results Test Description Test Time Test Comments Results Result Comments Source TOTAL BETA HCG ASSAY 2021-04-16 22:12:50 Test Item Value Reference Range Interpretation Comme nts BETA HCG (test code = See_Comment [Auto mated message] The 5840117280) system which ge nerated this result transmit chris reference range : Non- fe male and male patients: <5 mIU/mL. The reference r radha was not used to interpr et this result as art l/abnormal. LUC (test code = LUC) Gestational Age ?Range (mIU/mL) 1-10 ?Weeks ?48-13686450-01 Weeks ?09017-16659439-51 Weeks ?8279-03483001-62 Weeks ?6397-131445 Biotin has been reported to cause a negative bias, interpret results relative to patient's use of biotin. [facility] Screen - ONCE [id number] 21:58:37 Test Item Value Reference Range Interpretation Comments ABO & RH (test code O Positive Performe d at [facility] = 20) Laboratory [facility] [address] [place], [place] [address]Toll Free: [phone] A No. [id number] IAT (test code = Negative Performed a t [facility] 1185) Laboratory [facility] [address] [place], [place] [address]Toll Free: [phone] A No. [id number] [facility] WITH [id number] 21:41:39 Test Item Value Reference Range Interpretation Comments WBC (test code = See_Comment [Automated message] 4890-2) The system L-3 GCS generated this result transmitted ref erence range: 4.30 - 1 1.10 10*3/?L. The re ference range was not u sed to interpret this result as normal/abnor mal. RBC (test code = See_Comment [Automated message] 009-8) The system L-3 GCS generated this result transmitted ref erence range: 3.93 - 5 .25 10*6/?L. The re ference range was not u sed to interpret this result as normal/abnor mal. HGB (test code = 12.9 g/dL 11.6-15.0 718-7) HCT (test code = 39.0 % 35.7-45.2 4544-3) MCV (test code = 87.6 fL 80.6-95.5 787-2) MCH (test code = 29.0 pg 25.9-32.8 785-6) MCHC (test code = 33.1 g/dL 31.6-35.1 786-4) RDW-SD (test code 43.0 fL 39.0-49.9 = 12699-6) RDW-CV (test code 13.4 % 12.0-15.5 = 788-0) PLT (test code = See_Comment [Automated message] 047-3) The system L-3 GCS generated this result transmitted ref erence range: 166 - 35 8 10*3/?L. The re ference range was not u sed to interpret this result as normal/abnor mal. MPV (test code = 10.7 fL 9.5-12.9 31581-7) NRBC/100 WBC (test See_Comment [Automat ed message] code = 0929579974) The syste m which generated this result transmitted ref erence range: 0.0 - 10 .0 /100 WBCs. The refer ence range was not u sed to interpret this result as normal/abnor mal. NRBC x10^3 (test <0.01 See_Comment [Automated message] code = 0243625158) The syste m which generated this result transmitted ref erence range: 10*3/?L. The reference range was not used to interpr et this result as normal/abnormal . GRAN MAT (NEUT) % 66.7 % (test code = 770-8) IMM GRAN % (test 0.20 % code = 9518697110) LYMPH % (test code 24.9 % = 736-9) MONO % (test code 5.8 % = 5905-5) EOS % (test code = 2.0 % 713-8) BASO % (test code 0.4 % = 706-2) GRAN MAT 5.95 10*3/uL 1.88-7.09 x10^3(ANC) (test code = 7558432274) IMM GRAN x10^3 <0.03 0.00-0.06 (test code = 2765008843) LYMPH x10^3 (test 2.23 10*3/uL 1.32-3.29 code = 731-0) MONO x10^3 (test 0.52 10*3/uL 0.33-0.92 code = 742-7) EOS x10^3 (test 0.18 10*3/uL 0.03-0.39 code = 711-2) BASO x10^3 (test 0.04 10*3/uL 0.01-0.07 code = 704-7) [facility]. METABOLIC PANEL (97264)2021-04-16 21:38:39 Test Item Value Reference Range Interpretation Comments NA (test code = 134 mmol/L 135-145 L 7553097487) K (test code = 3.9 mmol/L 3.5-5.0 7925940310) CL (test code = 101 mmol/L 98-108 4122607532) CO2 TOTAL (test code = 27 mmol/L 23-31 5246033205) AGAP (test code = 2-16 9234910634) BUN (test code = 12 mg/dL 7-23 4144182614) GLUCOSE (test code = 95 mg/dL 70-110 2460533148) CREATININE (test code = 0.54 mg/dL 0.50-1.04 1797092634) TOTAL BILI (test code = 0.6 mg/dL 0.1-1.9 5807569006) CALCIUM (test code = 9.8 mg/dL 8.6-10.6 3355605757) T PROTEIN (test code = 7.5 g/dL 6.3-8.2 6222204410) ALBUMIN (test code = 4.2 g/dL 3.5-5.0 2032938896) ALK PHOS (test code = 98 U/L 34-122 3413373799) ALTv (test code = 46 U/L 5-35 H 1742-6) AST(SGOT) (test code = 48 U/L 13-40 H 2189815816) eGFR (test code = mL/min/1.73m2 2267622052) LUC (test code = LUC) Association of [...] tests). Lab Interpretation Abnormal (test code = 81003-2) [facility] GLUCOSE (AUTOMATED)2021-04-01 17:58:14 Test Item Value Reference Range Interpretation Comments POCT GLU (test code = 2839497327) 175 mg/dL 70-110 H Lab Interpretation (test code = Abnormal 88850-5) [facility] GLUCOSE (AUTOMATED)2021-04-01 13:49:38 Test Item Value Reference Range Interpretation Comments POCT GLU (test code = 1678905624) 209 mg/dL 70-110 H Lab Interpretation (test code = Abnormal 92839-5) [facility] GLUCOSE (AUTOMATED)2021-03-31 23:20:21 Test Item Value Reference Range Interpretation Comments POCT GLU (test code = 4345353788) 233 mg/dL 70-110 H Lab Interpretation (test code = Abnormal 35349-5) [facility] GLUCOSE (AUTOMATED)2021-03-31 22:33:33 Test Item Value Reference Range Interpretation Comments POCT GLU (test code = 0003728416) 219 mg/dL 70-110 H Lab Interpretation (test code = Abnormal 62683-8) [facility] GLUCOSE (AUTOMATED)2021-03-31 18:02:26 Test Item Value Reference Range Interpretation Comments POCT GLU (test code = 7783078967) 185 mg/dL 70-110 H Lab Interpretation (test code = Abnormal 49380-0) [facility] GLUCOSE (AUTOMATED)2021-03-31 13:47:03 Test Item Value Reference Range Interpretation Comments POCT GLU (test code = 7949818994) 244 mg/dL 70-110 H Lab Interpretation (test code = Abnormal 92862-0) [facility] Hospital[facility] [id number] 12:43:47 Test Item Value Reference Range Interpretation Comments MAGNESIUM (test code = 1968788232) 1.7 mg/dL 1.7-2.4 Lab Interpretation (test code = Normal 35804-0) [facility] Hospital[facility]id Panel (Total Cholesterol, Triglycerides, HDL) - [id number] 12:43:47 Test Item Value Reference Range Interpretation Comments CHOL (test code = 139 mg/dL 120-200 9305049890) HDL (test code = 39 mg/dL >50 L 6472972583) HDLC RATIO (test code = See_Comment [Au tomated message] 6947628301) The system L-3 GCS generated this result transmit chris reference range : <=4.5. The refe rence range was not u sed to interpret th is result as normal/abnormal . TRIG (test code = 193 mg/dL 30-170 H 2434658459) LDL CHOL (test code = 61 mg/dL See_Comment [Auto mated message] 42309-2) The system L-3 GCS generated this result transmit chris reference range : <=160. The refe rence range was not u sed to interpret th is result as normal/abnormal . VLDL (test code = 39 mg/dL 5-60 3761673188) Lab Interpretation (test Abnormal code = 28067-2) [facility] Hospital[facility] Metabolic Panel (NA, K, CL, CO2, GLUCOSE, BUN, CREATININE, CA)2021-03-31 12:43:26 Test Item Value Reference Range Interpretation Comments NA (test code = 132 mmol/L 135-145 L 3028618511) K (test code = 4.0 mmol/L 3.5-5.0 3164691499) CL (test code = 106 mmol/L 98-108 2274227772) CO2 TOTAL (test code = 21 mmol/L 23-31 L 2384126730) AGAP (test code = 2-16 5346287739) BUN (test code = 11 mg/dL 7-23 0516300470) GLUCOSE (test code = 240 mg/dL 70-110 H 8517919827) CREATININE (test code = 0.51 mg/dL 0.50-1.04 3240686016) CALCIUM (test code = 8.1 mg/dL 8.6-10.6 L 2465102609) eGFR (test code = mL/min/1.73m2 5484249569) LUC (test code = LUC) Association of [...] tests). Lab Interpretation Abnormal (test code = 45555-2) [facility] HospitalPhosphorus [id number] 12:43:26 Test Item Value Reference Range Interpretation Comments PHOSPHORUS (test code = 5161222126) 2.9 mg/dL 2.5-5.0 Lab Interpretation (test code = Normal 96108-2) [facility] with [id number] 12:26:41 Test Item Value Reference Range Interpretation Comments WBC (test code = See_Comment [Automated message] 6690-2) The system L-3 GCS generated this result transmitted ref erence range: 4.30 - 1 1.10 10*3/?L. The re ference range was not u sed to interpret this result as normal/abnor mal. RBC (test code = See_Comment [Automated message] 310-8) The system L-3 GCS generated this result transmitted ref erence range: [...] RDW-SD (test code 40.4 fL 39.0-49.9 = 71449-1) RDW-CV (test code 13.0 % 12.0-15.5 = 788-0) PLT (test code = See_Comment [Automated message] 777-3) The system L-3 GCS generated this result transmitted ref erence range: 166 - 35 8 10*3/?L. The re ference range was not u sed to interpret this result as normal/abnor mal. MPV (test code = 11.2 fL 9.5-12.9 35821-4) NRBC/100 WBC (test See_Comment [Automat ed message] code = 6398359077) The syste m which generated this result transmitted ref erence range: 0.0 - 10 .0 /100 WBCs. The refer ence range was not u sed to interpret this result as normal/abnor mal. NRBC x10^3 (test <0.01 See_Comment [Automated message] code = 8868197333) The syste m which generated this result transmitted ref erence range: 10*3/?L. The reference range was not used to interpr et this result as normal/abnormal . GRAN MAT (NEUT) % 64.2 % (test code = 770-8) IMM GRAN % (test 0.50 % code = 6004503705) LYMPH % (test code 26.4 % = 736-9) MONO % (test code 6.3 % = 5905-5) EOS % (test code = 2.1 % 713-8) BASO % (test code 0.5 % = 706-2) GRAN MAT 4.95 10*3/uL 1.88-7.09 x10^3(ANC) (test code = 0173992447) IMM GRAN x10^3 0.04 10*3/uL 0.00-0.06 (test code = 1747235229) LYMPH x10^3 (test 2.04 10*3/uL 1.32-3.29 code = 731-0) MONO x10^3 (test 0.49 10*3/uL 0.33-0.92 code = 742-7) EOS x10^3 (test 0.16 10*3/uL 0.03-0.39 code = 711-2) BASO x10^3 (test 0.04 10*3/uL 0.01-0.07 code = 704-7) [facility] GLUCOSE (AUTOMATED)2021-03-31 04:15:32 Test Item Value Reference Range Interpretation Comments POCT GLU (test code = 8574167142) 214 mg/dL 70-110 H Lab Interpretation (test code = Abnormal 03109-0) [facility] GLUCOSE (AUTOMATED)2021-03-30 22:57:31 Test Item Value Reference Range Interpretation Comments POCT GLU (test code = 0409899646) 168 mg/dL 70-110 H Lab Interpretation (test code = Abnormal 75686-9) [facility] HospitalaPTT2021-11-06 16:11:19 Test Item Value Reference Range Interpretation Comments APTT Patient (test See_Comment [Automat ed code = 3173-2) message] The system which generated this result transmitted reference range : 23 - 38 Seconds . The reference range was not used to interpr et this result as normal/abnormal . LUC (test code = LUC) The [facility] patient population mean normal value for aPTT is 30 seconds. Lab Interpretation Normal (test code = 45412-4) [facility] HospitalPROTHROMBIN TIME / [id number] 16:09:22 Test Item Value Reference Range Interpretation [...] tions. Lab Interpretation (test Normal code = 42514-3) [facility] BHCG (QUANTITATIVE)2021-03-30 15:50:40 Test Item Value Reference Range Interpretation Comments BETA HCG (test See_Comment [Automated m essage] code = The system Solartrec h 7635828014) generated this result transmit chris reference range : Non- fe male and male patien ts: <5 mIU/mL. The reference range was not used to interpret this result as normal/abnormal . LUC (test code Gestational Age ? ? = LUC) ?Range (mIU/mL) 1-10 ?Weeks ?60-51930995-93 Weeks ?18411-09556530-11 Weeks ?7715-14132812-24 Weeks ?4507-242416 Biotin has been reported to cause a negative bias, interpret results relative to patient's use of biotin. [facility] HospitalGLYCOSYLATED HEMOGLOBIN (A1C)2021-03-30 15:50:34 Test Item Value Reference Range Interpretation Comments HGB A1C (test code = 9.7 % 4.0-5.7 H 4548-4) LUC (test code = LUC) Reference RangesNormal: <5.7%Prediabetes: 5.7 - 6.4%Diabetes: > 6.5% Lab Interpretation (test Abnormal code = 94746-0) [facility] HospitalTROPONIN [id number] 15:44:00 Test Item Value Reference Interpretation Comments Range TROPONIN I (test 0.006 ng/mL See_Comment [Automated code = 1656520958) message] The system which generated this result [...] biotin. Lab Interpretation Normal (test code = 46732-8) [facility] HospitalN-TERMINAL [id number] 15:40:59 Test Item Value Reference Range Interpretation Comments NT-proBNP (test code 29 pg/mL See_Comment [Autom ated = 0699243311) message] The system which generated this result transmitted reference range : <=125. The reference range was not used to interpret this result as normal/abnormal . LUC (test code = LUC) Biotin has been reported to cause a negative bias, interpret results relative to patient's use of biotin. Lab Interpretation Normal (test code = 55566-1) [facility] Hospital[facility]. METABOLIC PANEL (87575)2021-03-30 15:32:19 Test Item Value Reference Range Interpretation Comments NA (test code = 132 mmol/L 135-145 L 9442575199) K (test code = 3.9 mmol/L 3.5-5.0 6579840931) CL (test code = 98 mmol/L 98-108 3478512464) CO2 TOTAL (test code = 23 mmol/L 23-31 9047462124) AGAP (test code = 2-16 3406007082) BUN (test code = 12 mg/dL 7-23 2793343692) GLUCOSE (test code = 269 mg/dL 70-110 H 1436127450) CREATININE (test code = 0.54 mg/dL 0.50-1.04 4173219905) TOTAL BILI (test code = 0.7 mg/dL 0.1-1.2 5472911479) CALCIUM (test code = 9.3 mg/dL 8.6-10.6 6257695598) T PROTEIN (test code = 7.7 g/dL 6.3-8.2 0098771330) ALBUMIN (test code = 4.2 g/dL 3.5-5.0 9640821576) ALK PHOS (test code = 142 U/L 34-122 H 1302850859) ALTv (test code = 28 U/L 5-35 1742-6) AST(SGOT) (test code = 26 U/L 13-40 0065149640) eGFR (test code = mL/min/1.73m2 2231310963) LUC (test code = LUC) Association of [...] tests). Lab Interpretation Abnormal (test code = 78200-1) [facility] 15:32:19 Test Item Value Reference Range Interpretation Comments MAGNESIUM (test code = 0952266343) 1.4 mg/dL 1.7-2.4 L Lab Interpretation (test code = Abnormal 98724-0) [facility] WITH [id number] 15:18:18 Test Item Value Reference Range Interpretation Comments WBC (test code = See_Comment [Automated message] 6690-2) The system [employer] generated this result transmitted ref erence range: 4.30 - 1 1.10 10*3/?L. The re ference range was not u sed to interpret this result as normal/abnor mal. RBC (test code = See_Comment [Automated message] 789-8) The system [employer] generated this result transmitted ref erence range: [...] RDW-SD (test code 39.5 fL 39.0-49.9 = 31523-1) RDW-CV (test code 12.9 % 12.0-15.5 = 788-0) PLT (test code = See_Comment [Automated message] 777-3) The system [employer] generated this result transmitted ref erence range: 166 - 35 8 10*3/?L. The re ference range was not u sed to interpret this result as normal/abnor mal. MPV (test code = 10.8 fL 9.5-12.9 64890-1) NRBC/100 WBC (test See_Comment [Automat ed message] code = 9342481534) The [employer] which generated this result transmitted ref erence range: 0.0 - 10 .0 /100 WBCs. The refer ence range was not u sed to interpret this result as normal/abnor mal. NRBC x10^3 (test <0.01 See_Comment [Automated message] code = 2112723734) The syste m which generated this result transmitted ref erence range: 10*3/?L. The reference range was not used to interpr et this result as normal/abnormal . GRAN MAT (NEUT) % 66.6 % (test code = 770-8) IMM GRAN % (test 0.50 % code = 0371033702) LYMPH % (test code 25.2 % = 736-9) MONO % (test code 5.3 % = 5905-5) EOS % (test code = 1.9 % 713-8) BASO % (test code 0.5 % = 706-2) GRAN MAT 6.21 10*3/uL 1.88-7.09 x10^3(ANC) (test code = 1987334967) IMM GRAN x10^3 0.05 10*3/uL 0.00-0.06 (test code = 9956646771) LYMPH x10^3 (test 2.36 10*3/uL 1.32-3.29 code = 731-0) MONO x10^3 (test 0.50 10*3/uL 0.33-0.92 code = 742-7) EOS x10^3 (test 0.18 10*3/uL 0.03-0.39 code = 711-2) BASO x10^3 (test 0.05 10*3/uL 0.01-0.07 code = 704-7) [facility] [id number] 15:11:00 Test Item Value Reference Range Interpretation Comments POCT PREG (test code = 1605) positive On board controls acceptable with present C Line (test code = 3574) POCT PREG LOT # (test code = 3575) [id number] POCT PREG TEST DATE (test 05/24/2022 code = 3576) Lab Interpretation (test code = Normal 07498-5) [facility]COVID[facility] (ID NOW RAPID TESTING)2020-06-06 00:41:00 Test Item Value Reference Range Interpretation Comments SARS-CoV-2 Rapid ID NOW Not Detected Not Detected (test code = 03303-4) LUC (test code = LUC) ID NOW COVID-19 Assay is an isothermal nucleic acid amplification test intended for the qualitative detection of nucleic acid from SARS-CoV-2 viral RNA in nasopharyngeal (PEARL HAND) specimens. It is used under Emergency Use [...] indicated. Lab Interpretation Normal (test code = 19344-4) [facility] HospitalCT HEAD WO [id number] 00:35:38 No acute intracranial abnormality.EXAM: CT HEAD [...] skull base are unremarkable.IMPRESSIONNo acute intracranial abnormality. [facility]. METABOLIC PANEL (19464)2020-06-06 00:24:00 Test Item Value Reference Range Interpretation Comments NA (test code = 139 mmol/L 135-145 6006855407) K (test code = 3.9 mmol/L 3.5-5 9328246352) CL (test code = 104 mmol/L 98-108 0608444300) CO2 TOTAL (test code = 26 mmol/L 23-31 1722552654) AGAP (test code = 2-16 3153175506) BUN (test code = 12 mg/dL 7-23 7310123780) GLUCOSE (test code = 105 mg/dL 70-110 7346151756) CREATININE (test code = 0.56 mg/dL 0.5-1.04 7840603143) TOTAL BILI (test code = 0.5 mg/dL 0.1-1.2 7038371982) CALCIUM (test code = 8.6 mg/dL 8.6-10.6 2031935474) T PROTEIN (test code = 7.5 g/dL 6.3-8.2 2187221496) ALBUMIN (test code = 4.2 g/dL 3.5-5 4794606596) ALK PHOS (test code = 100 U/L 34-122 6788799733) ALTv (test code = 40 U/L 5-35 H 1742-6) AST(SGOT) (test code = 29 U/L 13-40 3741578633) eGFR Calculation mL/min/1.73m2 (Non-) (test code = 3186355419) eGFR Calculation mL/min/1.73m2 () (test code = 5434106837) LUC (test code = LUC) Association of [...] tests). Lab Interpretation Abnormal (test code = 82828-2) [facility] HospitalUrinalysis2021-01-13 00:23:00 Test Item Value Reference Range Interpretation Comments APPEARANCE (test code = Cloudy Clear A 4199120120) COLOR (test code = Yellow Yellow 4732125642) PH (test code = 4.8-8.0 0626897966) SP GRAVITY (test code = 1.003-1.030 5601599218) GLU U QUAL (test code = Normal Normal 0766168697) BLOOD (test code = 2+ Negative A 4110480448) KETONES (test code = Negative Negative 3881824575) PROTEIN (test code = Negative Negative 2887-8) UROBILIN (test code = 2.0 mg/dL Normal A 3124679779) BILIRUBIN (test code = Negative Negative 0692377855) NITRITE (test code = Negative Negative 9499069379) LEUK SHAKILA (test code = Negative Negative 7983560126) RBC/HPF (test code = See_Comment H [Autom ated message] 6641189875) The system [employer] generated this result transmit chris reference range : 0 - 3 HPF. The refe rence range was not u sed to interpret th is result as normal/abnormal . WBC/HPF (test code = See_Comment H [Autom ated message] 3292177805) The system [employer] generated this result transmit chris reference range : 0 - 5 HPF. The refe rence range was not u sed to interpret th is result as normal/abnormal . BACTERIA (test code = Few Negative A 1873239611) MUCOUS (test code = Slight Negative LPF A 0527297477) AMORPHOUS (test code = Few Rare HPF A 3281563459) SQ EPITH (test code = HPF 5922804380) Lab Interpretation (test Abnormal code = 25318-5) [facility] with [id number] 00:08:00 Test Item Value Reference Range Interpretation [...] (test code = 37.6 fL 39-49.9 L 24929-7) RDW-CV (test code = 12.3 % 12-15.5 788-0) PLT (test code = See_Comment [Automated 777-3) message] The sy stem which generated this result transmitted reference range : 166 - 358 10*3/ ?L. The reference r radha was not used to interpret this result as normal/abnormal . MPV (test code = 10.7 fL 9.5-12.9 30370-2) NRBC/100 WBC (test See_Comment [Automat ed code = 6692291824) message] The system which generated this result transmitted reference range : 0.0 - 10.0 /100 WBCs. The refer ence range was not u sed to interpret th is result as normal/abnormal . NRBC x10^3 (test code <0.01 See_Comment [Auto mated = 3804024014) message] The s ystem which generated this result transmitted reference range : 10*3/?L. The reference range was not used to interpret this result as normal/abnormal . GRAN MAT (NEUT) % 64.7 % (test code = 770-8) IMM GRAN % (test code 0.20 % = 1411771048) LYMPH % (test code = 27.2 % 736-9) MONO % (test code = 5.6 % 5905-5) EOS % (test code = 1.9 % 713-8) BASO % (test code = 0.4 % 706-2) GRAN MAT x10^3(ANC) 5.94 10*3/uL 1.88-7.09 (test code = 5806341776) IMM GRAN x10^3 (test <0.03 0-0.06 code = 6293503400) LYMPH x10^3 (test code 2.50 10*3/uL 1.32-3.29 = 731-0) MONO x10^3 (test code 0.51 10*3/uL 0.33-0.92 = 742-7) EOS x10^3 (test code = 0.17 10*3/uL 0.03-0.39 711-2) BASO x10^3 (test code 0.04 10*3/uL 0.01-0.07 = 704-7) Lab Interpretation Abnormal (test code = 40851-7) [facility] [id number] 00:00:00 Test Item Value Reference Range Interpretation Comments POCT PREG (test code = 1605) negative On board controls acceptable with present C Line (test code = 3574) POCT PREG LOT # (test code = 3575) [id number] POCT PREG TEST DATE (test 01/22/2022 code = 3576) Lab Interpretation (test code = Normal 96118-3) [facility] GLUCOSE (AUTOMATED)2020-06-05 22:57:00 Test Item Value Reference Range Interpretation Comments POCT GLU (test code = 1585606864) 105 mg/dL 70-110 Lab Interpretation (test code = Normal 23127-4) [facility] HospitalUrinalysis2020-07-28 06:39:00 Test Item Value Reference Range Interpretation Comments APPEARANCE (test code = Clear Clear 9183940012) COLOR (test code = Yellow Yellow 2063085338) PH (test code = 4.8-8.0 0516924500) SP GRAVITY (test code = 1.003-1.030 H 1376654428) GLU U QUAL (test code = Normal Normal 7612145443) BLOOD (test code = 2+ Negative A 5354699375) KETONES (test code = Negative Negative 5235063293) PROTEIN (test code = Negative Negative 2887-8) UROBILIN (test code = Normal Normal 1982090268) BILIRUBIN (test code = Negative Negative 7108468707) NITRITE (test code = Negative Negative 8818202525) LEUK SHAKILA (test code = 75/uL Negative A 3623751131) RBC/HPF (test code = See_Comment [Autom ated message] 9966318276) The system [employer] generated this result transmitted ref erence range: 0 - 3 HP F. The reference range was not used to int erpret this result as normal/abnormal . WBC/HPF (test code = See_Comment H [Autom ated message] 3506866563) The system [employer] generated this result transmitted ref erence range: 0 - 5 HP F. The reference range was not used to int erpret this result as normal/abnormal . BACTERIA (test code = Few Negative A 1571710600) SQ EPITH (test code = HPF 3409000646) Lab Interpretation (test Abnormal code = 18578-0) [facility]Y TEST, [id number] 04:36:00 Test Item Value Reference Range Interpretation Comments PREG SERUM (test code Negative = 1595978877) LUC (test code = LUC) Less than 10 IU/L. ?If low titer or ectopic is suspected, resubmit specimen in 48-72 hours. [facility]COVID[facility] (ID NOW RAPID TESTING)2019-12-20 04:33:00 Test Item Value Reference Range Interpretation Comments SARS-CoV-2 Rapid ID NOW Not Detected Not Detected (test code = 44842-8) LUC (test code = LUC) ID NOW COVID-19 Assay is an isothermal nucleic acid amplification test intended for the qualitative detection of nucleic acid from SARS-CoV-2 viral RNA in nasopharyngeal (PEARL HAND) specimens. It is used under Emergency Use [...] indicated. Lab Interpretation Normal (test code = 40521-6) [facility] HospitalComcox monette Metabolic [id number] 04:17:00 Test Item Value Reference Range Interpretation Comments NA (test code = 137 mmol/L 135-145 0456573744) K (test code = 3.8 mmol/L 3.5-5 0994546283) CL (test code = 103 mmol/L 98-108 6405561871) CO2 TOTAL (test code = 25 mmol/L 23-31 0921499568) AGAP (test code = 2-16 0257906814) BUN (test code = 12 mg/dL 7-23 5157435398) GLUCOSE (test code = 175 mg/dL 70-110 H 0980865035) CREATININE (test code = 0.58 mg/dL 0.5-1.04 7998358758) TOTAL BILI (test code = 0.6 mg/dL 0.1-1.3 0267237341) CALCIUM (test code = 9.2 mg/dL 8.6-10.6 2625377204) T PROTEIN (test code = 8.1 g/dL 6.3-8.2 3655486068) ALBUMIN (test code = 4.3 g/dL 3.5-5 5951405593) ALK PHOS (test code = 93 U/L 34-122 7259676297) ALTv (test code = 29 U/L 5-35 1742-6) AST(SGOT) (test code = 29 U/L 13-40 5045932200) eGFR Calculation mL/min/1.73m2 (Non-) (test code = 2199159470) eGFR Calculation mL/min/1.73m2 () (test code = 9819491999) LUC (test code = LUC) Association of [...] tests). Lab Interpretation Abnormal (test code = 10250-0) [facility] HospitalLipase, [id number] 04:17:00 Test Item Value Reference Range Interpretation Comments LIPASE (test code = 2135311849) 88 U/L 0-220 Lab Interpretation (test code = Normal 65271-8) [facility] HospitalCB with [id number] 04:03:00 Test Item Value Reference Range Interpretation Comments WBC (test code = See_Comment H [Automated 6690-2) message] The sy stem which [...] RDW-SD (test code = 39.4 fL 39-49.9 20216-6) RDW-CV (test code = 12.4 % 12-15.5 788-0) PLT (test code = See_Comment [Automated 777-3) message] The sy stem which generated this result transmitted reference range : 166 - 358 10*3/ ?L. The reference r radha was not used to interpret this result as normal/abnormal . MPV (test code = 11.2 fL 9.5-12.9 68630-4) NRBC/100 WBC (test See_Comment [Automat ed code = 8663586028) message] The system which generated this result transmitted reference range : 0.0 - 10.0 /100 WBCs. The refer ence range was not u sed to interpret th is result as normal/abnormal . NRBC x10^3 (test code <0.01 See_Comment [Auto mated = 0398479174) message] The s ystem which generated this result transmitted reference range : 10*3/?L. The reference range was not used to interpret this result as normal/abnormal . GRAN MAT (NEUT) % 75.2 % (test code = 770-8) IMM GRAN % (test code 0.60 % = 0809081072) LYMPH % (test code = 18.2 % 736-9) MONO % (test code = 4.7 % 5905-5) EOS % (test code = 1.0 % 713-8) BASO % (test code = 0.3 % 706-2) GRAN MAT x10^3(ANC) 9.05 10*3/uL 1.88-7.09 H (test code = 5261995604) IMM GRAN x10^3 (test 0.07 10*3/uL 0-0.06 H code = 3778255148) LYMPH x10^3 (test code 2.19 10*3/uL 1.32-3.29 = 731-0) MONO x10^3 (test code 0.57 10*3/uL 0.33-0.92 = 742-7) EOS x10^3 (test code = 0.12 10*3/uL 0.03-0.39 711-2) BASO x10^3 (test code 0.04 10*3/uL 0.01-0.07 = 704-7) Lab Interpretation Abnormal (test code = 34832-2) [facility]"
[2021-04-26] MEDS ORDERED: ONDANSETRON 4 MG/2 ML VIAL ONE (17:34)
[2021-04-26] MEDS ORDERED: MORPHINE 4 MG/ML SYR ONE ×2 (17:34→18:39)
[2021-04-26] MEDS ORDERED: NA CHLORIDE 0.9% 1,000 ML ONE (17:34)
[2021-04-26 17:45] LABS: Absolute Lymphocytes (CBC) 1.8 K/uL (0.7-4.9); Basophils % 0.6 % (0-1.3); Hematocrit 36.1 % (36.0-45.0); Lymphocytes % 18.9 % (15.3-44.8); MPV 8.5 fL (7.6-11.3); RBC Red Blood Cell Count 4.21 M/uL (3.86-4.86)
[2021-04-26 18:10] LABS: BUN Blood Urea Nitrogen 12 mg/dL (7-18); Bicarbonate 22 mmol/L (21-32); Glucose Level 189 mg/dL (74-106); HCG, Quantitative 8704 mIU/mL (1-3); Potassium 3.7 mmol/L (3.5-5.1); Sodium Level 138 mmol/L (136-145)
--- NOTE | 2021-04-26 18:33 | RAD REPORT ---
EXAM DESCRIPTION: US - Transvaginal OB - 04/26/2021 6:05 pm CLINICAL HISTORY: VAGINAL BLEEDING COMPARISON: Transvaginal OB dated 04/06/2021 FINDINGS: No intrauterine gestational sac or sac remnant identifiable. Small amount of hemorrhagic m aterial is present within the endometrial cavity but no measurable hematoma. Endometrium is up to 10 mm in thickness. No myometrial mass. No blood or fluid in the cul de sac. Neither ovary was identifiable obscured by bowel. No adnexal mass is seen. IMPRESSION: No intrauterine gestational sac or sac remnant seen. Only a minimal amount of hemorrhagi c material remains in the endometrial cavity.
--- NOTE | 2021-04-26 18:36 | ER ---
Nurse's Notes [facility] Name: Nita Fox Age: 30 yrs Sex: Female : 1990 Arrival Date: 04/26/2021 Time: 16:47 Bed Treatment Private MD: Diagnosis: Incomplete spontaneous without complication;Abnormal uterine and vaginal bleeding, unspecified Presentation: 04/26 16:53 Chief complaint: Patient states: Approximately 6 weeks . Heavy vaginal bleeding ll1 for 2 days. G5, P2. Pale, weak. Coronavirus screen: Client denies travel out of the [place] in the last 14 days. At this time, the client does not indicate any symptoms associated with coronavirus-19. Ebola Screen: Patient denies travel to an Ebola-affected area in the 21 days before illness onset. Initial Sepsis Screen: Does the patient meet any 2 criteria? No. Patient's initial sepsis screen is negative. Does the patient have a suspected source of infection? Yes: Acute abdominal pain. Risk Assessment: Do you want to hurt yourself or someone else? Patient reports no desire to harm self or others. 16:53 Method Of Arrival: Ambulatory 1 16:56 Onset of symptoms was April 25, 2021. ll1 16:59 Acuity: SOREN 2 ll1 Triage Assessment: 16:54 General: Appears ill, Behavior is calm, cooperative, appropriate for age. Pain: ll1 Complains of pain in abdomen Pain currently is 10 out of 10 on a pain scale. Quality of pain is described as aching, crampy. GI: Reports lower abdominal pain. : Reports cramping, vaginal bleeding that is heavy flow approximately 6 weeks . 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 Flu vaccine is up to date. - Social history:: Smoking status: Patient denies any tobacco usage or history of. - Family history:: not pertinent. - Hospitalizations: : No recent hospitalization is reported. Screenin:30 Abuse screen: Denies threats or abuse. Nutritional screening: No deficits noted. jg9 Tuberculosis screening: No symptoms or risk factors identified. Fall Risk None identified. Assessment: 17:30 General: Appears distressed, well groomed, Behavior is calm, cooperative. Pain: jg9 Complains of pain in suprapubic area, right lower quadrant and left lower quadrant Pain currently is 10 out of 10 on a pain scale. at worst was 10 out of 10 on a pain scale. level that patient reports is acceptable is 4 out of 10 on a pain scale. Quality of pain is described as crampy, pressure, Pain began 1 day ago. Is continuous, Alleviated by nothing. Aggravated by increased activity. 17:30 : pt states vag bleeding started yesterday but worse today with increased pain. jg9 states that she has had a miscarriage before but this feels worse. 18:20 Reassessment: No changes from previously documented assessment. Patient is alert, jg9 oriented x 3, equal unlabored respirations, skin warm/dry/pink. Pain: Complains of pain in abdomen Pain currently is 9 out of 10 on a pain scale. 18:59 Pain: Complains of pain in abdomen Pain currently is 8 out of 10 on a pain scale. Is jg9 continuous. 19:00 Reassessment: Patient is alert, oriented x 3, equal unlabored respirations, skin jg9 warm/dry/pink. Patient states symptoms have not improved. Pt aware of immanent miscarriage and is aware of follow up care needed if pain continues. Pt states that the pain meds help very little and that it feels the same as before. . Vital Signs: 16:56 BP 156 / 107; Pulse 131; Resp 18; Temp 97.7; Pulse Ox 96% ; Weight 120.66 kg; Height 5 ll1 ft. 8 in. (172.72 cm); Pain 10/10; 17:41 BP 122 / 74; Pulse 82; Resp 20; Pulse Ox 100% on R/A; Pain 10/10; jg9 18:21 BP 132 / 64; Pulse 86; Resp 18; Pulse Ox 100% on R/A; jg9 16:56 Body Mass Index 40.44 (120.66 kg, 172.72 cm) ll1 ED Course: 16:47 Patient arrived in ED. kc5 16:53 Arm band placed on. ll1 16:54 Triage completed. ll1 17:08 Dexter Pandey MD is Attending Physician. rn 17:10 Patient placed in an exam room, on a stretcher. ll1 17:15 Inserted saline lock: 18 gauge in left antecubital area, using aseptic technique. jg9 17:15 Initial lab(s) drawn, by me, sent to lab. jg9 17:20 Call light in reach. Adult w/ patient. jg9 17:41 US Transvaginal Ob Sent. jg9 18:04 US Transvaginal Ob In Process Unspecified. EDMS 18:57 No provider procedures requiring assistance completed. IV discontinued, intact, jg9 bleeding controlled, No redness/swelling at site. Pressure dressing applied. Administered Medications: 17:40 Drug: morphine 4 mg Route: IVP; Site: left antecubital; jg9 18:16 Follow up: Response: Pain is unchanged, physician notified jg9 17:40 Drug: Zofran (Ondansetron) 4 mg Route: IVP; Site: left antecubital; jg9 18:16 Follow up: Response: No adverse reaction jg9 17:41 Drug: NS 0.9% 1000 ml Route: IV; Rate: 1000 ml; Site: left antecubital; jg9 18:16 Follow up: IV Status: Infusion continued jg9 18:43 Drug: morphine 4 mg Route: IVP; Site: left antecubital; jg9 18:58 Follow up: Response: Pain is decreased jg9 Outcome: 18:36 Discharge ordered by . rn 18:57 Discharged to home via wheelchair. jg9 18:57 Condition: stable 18:57 Discharge instructions given to patient, Instructed on discharge instructions, follow up and referral plans. Demonstrated understanding of instructions, follow-up care, medications, Prescriptions given X 1. 19:02 Patient left the ED. jg9 Signatures: Dispatcher [employer] EDMS Dexter Pandey MD MD rn Lewis, Lynsay, RN RN ll1 Diamond Diop kc5 Silvia Flores jg9 Corrections: (The following items were deleted from the chart) 17:00 16:53 Acuity: SOREN 3 ll1 ll1 17:11 16:53 Chief complaint: Patient states: Approximately 6 weeks . Heavy vaginal ll1 bleeding ll1
--- NOTE | 2021-04-26 18:37 | EDPHYS ---
Physician Documentation [facility] Name: Nita Fox Age: 30 yrs Sex: Female : 1990 Arrival Date: 04/26/2021 Time: 16:47 Bed Treatment Private MD: ED Physician Dexter Pandey HPI: 04/26 17:18 This 30 yrs old Female presents to ER via Ambulatory with complaints of rn Vaginal Bleeding. 17:18 The patient presents with vaginal bleeding that is moderate, with no clots. Onset: The rn symptoms/episode began/occurred 2 day(s) ago. Modifying factors: The symptoms are alleviated by nothing. Associated signs and symptoms: Pertinent positives: cramping, vaginal bleeding, Pertinent negatives: fever, vaginal discharge. Severity of symptoms: At their worst the symptoms were moderate, in the emergency department the symptoms are unchanged. The patient has experienced a previous episode. The patient has been recently seen by a physician:. Patient reports vaginal bleeding for a few days. Reports seen here a few weeks ago for possible miscarriage and told ultrasound was okay. Seen again this last Thursday at a private clinic and told hormones still elevated but ultrasound did not show a heartbeat and told likely miscarriage. Now is bleeding heavier but no clots. Reports pain that Tylenol is not helping. Denies feeling lightheaded. Denies trauma. 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 Flu vaccine is up to date. - Social history:: Smoking status: Patient denies any tobacco usage or history of. - Family history:: not pertinent. - Hospitalizations: : No recent hospitalization is reported. ROS: 17:18 Constitutional: Negative for fever, chills, and weight loss, Eyes: Negative for injury, rn pain, redness, and discharge, Neck: Negative for injury, pain, and swelling, Cardiovascular: Negative for chest pain, palpitations, and edema, Respiratory: Negative for shortness of breath, cough, wheezing, and pleuritic chest pain, Abdomen/GI: Negative for nausea, vomiting, diarrhea, and constipation Back: Negative for injury and pain, : + vaginal bleeding MS/Extremity: Negative for injury and deformity, Skin: Negative for injury, rash, and discoloration, Neuro: Negative for headache Exam: 17:18 Constitutional: This is a well developed, well nourished patient who is awake, alert, rn and in no acute distress. Head/Face: Normocephalic, atraumatic. Eyes: Periorbital areas with no swelling, redness, or edema. Cardiovascular: tachycardic, regular Respiratory: No increased work of breathing, no retractions or nasal flaring. Abdomen/GI: soft, mild suprapubic tenderness, no peritoneal signs Skin: Warm, dry MS/ Extremity: Pulses equal, no cyanosis. Neuro: Awake and alert, GCS 15 Vital Signs: 16:56 BP 156 / 107; Pulse 131; Resp 18; Temp 97.7; Pulse Ox 96% ; Weight 120.66 kg; Height 5 ll1 ft. 8 in. (172.72 cm); Pain 10/10; 17:41 BP 122 / 74; Pulse 82; Resp 20; Pulse Ox 100% on R/A; Pain 10/10; jg9 18:21 BP 132 / 64; Pulse 86; Resp 18; Pulse Ox 100% on R/A; jg9 16:56 Body Mass Index 40.44 (120.66 kg, 172.72 cm) ll1 MDM: 17:08 Patient medically screened. rn 18:30 ED course: Patient improved but still states in pain. Normal H\T\H. Improved vital signs rn with heart rate down from 120s to 86 after pain medication. Patient without signs of significant bleeding I believe most of abnormal vital signs including tachycardia was due to pain. Ultrasound shows change from previous ultrasound, no intrauterine identified or gestational sac visualized. There is a small hypoechoic area at the inferior end of the uterus and cervical area most likely in the middle of a miscarriage. Told this past Thursday that there was no cardiac activity. Patient does not recall what beta-hCG was at this last visit. Has increased compared to last visit here but was 3 weeks ago. Will DC home as likely with conservative care and given return precautions. Patient to follow-up with her OB which she already has appointment for repeat hCG and examination as well as ultrasound.. 18:30 Differential diagnosis: Data reviewed: vital signs, nurses notes, lab test result(s), rn radiologic studies, ultrasound, and as a result, I will discharge patient. Counseling: I had a detailed discussion with the patient and/or guardian regarding: the historical points, exam findings, and any diagnostic results supporting the discharge/admit diagnosis, lab results, radiology results, the need for outpatient follow up, to return to the emergency department if symptoms worsen or persist or if there are any questions or concerns that arise at home. Special discussion: I discussed with the patient/guardian in detail that at this point there is no indication for admission to the hospital. It is understood, however, that if the symptoms persist or worsen the patient needs to return immediately for re-evaluation. Based on the history and exam findings, there is no indication for further emergent testing or inpatient evaluation. I discussed with the patient/guardian the need to see the OB Gyne specialist for further evaluation of the symptoms. ED course: Rh+.. 04/26 17:08 Order name: Abo/rh Typing; Complete Time: 18:29 rn 04/26 17:08 Order name: Basic Metabolic Panel; Complete Time: 18:29 rn 04/26 17:08 Order name: CBC with Diff; Complete Time: 18:09 rn 04/26 17:08 Order name: Quantitative Hcg; Complete Time: 18:29 rn 04/26 17:08 Order name: US Transvaginal Ob; Complete Time: 18:36 rn 04/26 17:08 Order name: IV Saline Lock; Complete Time: 17:31 rn 04/26 17:08 Order name: Labs collected and sent; Complete Time: 17:31 rn 04/26 17:08 Order name: NPO rn 04/26 17:08 Order name: Urine Dipstick-Ancillary (obtain specimen) rn 04/26 17:08 Order name: Urine Test (obtain specimen) rn Administered Medications: 17:40 Drug: morphine 4 mg Route: IVP; Site: left antecubital; jg9 18:16 Follow up: Response: Pain is unchanged, physician notified jg9 17:40 Drug: Zofran (Ondansetron) 4 mg Route: IVP; Site: left antecubital; jg9 18:16 Follow up: Response: No adverse reaction jg9 17:41 Drug: NS 0.9% 1000 ml Route: IV; Rate: 1000 ml; Site: left antecubital; jg9 18:16 Follow up: IV Status: Infusion continued jg9 18:43 Drug: morphine 4 mg Route: IVP; Site: left antecubital; jg9 18:58 Follow up: Response: Pain is decreased jg9 Disposition Summary: 04/26/21 18:36 Discharge Ordered Location: Home rn Problem: new rn Symptoms: have improved rn Condition: Stable rn Diagnosis - Incomplete spontaneous without complication rn - Abnormal uterine and vaginal bleeding, unspecified rn Followup: rn - With: Private Physician - When: As needed - Reason: Recheck today's complaints, Re-evaluation by your physician Discharge Instructions: - Discharge Summary Sheet rn - Abnormal Uterine Bleeding rn - Incomplete Miscarriage rn - Miscarriage rn Forms: - Medication Reconciliation Form rn - Thank You Letter rn - Antibiotic stock turner - Prescription Opioid Use rn Prescriptions: - Tylenol-Codeine #3 300 mg-30 mg Oral - take 2 tablet by ORAL route every 6-8 hours As needed; 12 tablet; Refills: 0, rn Product Selection Permitted Signatures: Dispatcher [employer] EDDexter Cabrera MD MD rn Lewis, Lynsay, RN RN ll1 Silvia Flores jg9 Corrections: (The following items were deleted from the chart) 17:37 17:18 Constitutional: This is a well developed, well nourished patient who is awake, rn alert, and in no acute distress. rn
[2021-04-26 19:27] VITALS: TEMP 97.7
[2021-04-26 19:29] VITALS: O2SAT 100
[2021-04-26 19:30] VITALS: BP 132/64
== END 2021-04-26 19:02 | disposition home or self-care (01) ==
LOC: ER 16:45
DX: O03.4 Incomplete spontaneous abortion without complication (principal); E11.9 Type 2 diabetes mellitus without complications; Z88.0 Allergy status to penicillin; Z88.2 Allergy status to sulfonamides; Z91.040 Latex allergy status
CPT/HCPCS: 36415; 76817; 80048; 84702; 85025; 86900; 86901; 96361; 96374; 96375; 99284; J2405; J7030

== ENCOUNTER 2021-11-28 22:17 | Emergency (ER) | payer SELFPAY ==
[2021-11-28 23:12] LABS: Absolute Lymphocytes (CBC) 2.4 K/uL (0.7-4.9); Hematocrit 38.1 % (36.0-45.0); Lymphocytes % 25.2 % (15.3-44.8); MCV 82.4 fL (80-100); RBC Red Blood Cell Count 4.62 M/uL (3.86-4.86)
[2021-11-28 23:24] LABS: Potassium 3.6 mmol/L (3.5-5.1); Troponin High Sensitivity 3.4 pg/mL (<58.9)
[2021-11-29] LABS: Urine Blood Trace-intact (Negative); Urine Glucose 2+ (Negative); Urine Protein Negative (Negative); Urine Specific Gravity >=1.030 (1.005-1.030)
[2021-11-29] MEDS ORDERED: KETOROLAC 30 MG/ML INJ ONE (00:08)
[2021-11-29] MEDS ORDERED: NA CHLORIDE 0.9% 1,000 ML ONE (00:08)
[2021-11-29 00:39] LABS: Urine Bacteria 20-50 /HPF (<20); Urine Mucus 1+ /HPF (NONE SEEN)
[2021-11-29] MEDS ORDERED: FENTANYL CITR 100 MCG/2 ML ONE (01:56)
--- NOTE | 2021-11-29 02:32 | EDPHYS ---
Physician Documentation [facility] Name: Nita Fox Age: 31 yrs Sex: Female : 1990 Arrival Date: 11/28/2021 Time: 22:20 Bed 19 Private MD: ED Physician Elias Tyler HPI: 11/28 22:30 This 31 yrs old Female presents to ER via Ambulatory with complaints of Chest cp Pain, Arm Pain. 22:30 The patient or guardian reports chest pain that is located primarily in the anterior cp aspect of left upper chest. The pain does not radiate. 22:30 The chest pain is described as a pressure. Duration: The patient or guardian reports a cp single episode, that is still ongoing. Severity of pain: in the emergency department the pain is a 8 / 10. Patient reports she was shopping in store with family when she started to have pressure and pain to left upper arm that then radiated and moved to left upper chest. Patient reports pain started about 1900. 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 - Social history:: Smoking status: Patient denies any tobacco usage or history of. Patient/guardian denies using alcohol. ROS: 22:35 Constitutional: Negative for body aches, chills, fever, poor PO intake. cp 22:35 MS/extremity: Positive for pain, of the left upper arm and left shoulder, Negative for cp injury or acute deformity, decreased range of motion, paresthesias. 22:35 Eyes: Negative for injury, pain, redness, and discharge. cp 22:35 ENT: Negative for drainage from ear(s), ear pain, sore throat, difficulty swallowing, difficulty handling secretions. 22:35 Cardiovascular: Positive for chest pain, of the anterior aspect of left upper chest, Negative for edema, palpitations. 22:35 Respiratory: Negative for cough, shortness of breath, wheezing. 22:35 Abdomen/GI: Negative for abdominal pain, nausea, vomiting, and diarrhea. 22:35 Skin: Negative for cellulitis, rash. 22:35 Neuro: Negative for altered mental status, dizziness, headache, numbness, syncope, weakness. 22:35 All other systems are negative. Exam: 22:35 ECG was reviewed by the Attending Physician. cp 22:40 Constitutional: The patient appears in no acute distress, alert, awake, cp non-diaphoretic, non-toxic, well developed, well nourished, obese. 22:40 Head/Face: Normocephalic, atraumatic. cp 22:40 Eyes: Periorbital structures: appear normal, Conjunctiva: normal, no exudate, no injection, Sclera: no appreciated abnormality, Lids and lashes: appear normal, bilaterally. 22:40 ENT: External ear(s): are unremarkable, Nose: is normal, Mouth: Lips: moist, Oral mucosa: pink and intact, moist, Posterior pharynx: Airway: no evidence of obstruction, patent. 22:40 Neck: ROM/movement: is normal, is supple, without pain, no range of motions limitations. 22:40 Chest/axilla: Inspection: normal. 22:40 Cardiovascular: Rate: normal, Rhythm: regular, Heart sounds: murmur, not appreciated, Edema: is not appreciated, JVD: is not appreciated. 22:40 Respiratory: the patient does not display signs of respiratory distress, Respirations: normal, no use of accessory muscles, no retractions, labored breathing, is not present, Breath sounds: are clear throughout, no decreased breath sounds, no stridor, no wheezing. 22:40 Abdomen/GI: Inspection: obese Bowel sounds: active, all quadrants, Palpation: abdomen is soft and non-tender, in all quadrants. 22:40 Back: pain, that is mild, of the left scapular area, ROM is normal. 22:40 Skin: cellulitis, is not appreciated, no rash present. 22:40 Neuro: Orientation: to person, place \T\ time. Mentation: is normal, Motor: moves all fours, strength is normal, Sensation: is normal. Vital Signs: 22:34 BP 162 / 96; Pulse 88; Resp 18; Temp 98.2(TE); Pulse Ox 98% on R/A; Weight 120.66 kg; ld1 Height 5 ft. 7 in. (170.18 cm); Pain 8/10; 23:10 BP 129 / 82; Pulse 77; Resp 17; Pulse Ox 98% on R/A; [facility] 11/29 02:27 BP 138 / 87; Pulse 64; Resp 17; Pulse Ox 99% on R/A; [facility] 11/28 22:34 Body Mass Index 41.66 (120.66 kg, 170.18 cm) ld1 MDM: 11/28 22:29 Patient medically screened. [facility] 11/29 02:32 Data reviewed: vital signs, nurses notes, lab test result(s), EKG, radiologic studies, cp CT scan, plain films. 02:32 Differential diagnosis: acute myocardial infarction, acute pericarditis, anxiety, chest cp wall pain, pleurisy, pneumonia, pneumothorax, pulmonary embolus. Test interpretation: by ED physician or midlevel provider: ECG, plain radiologic studies. Counseling: I had a detailed discussion with the patient and/or guardian regarding: the historical points, exam findings, and any diagnostic results supporting the discharge/admit diagnosis, lab results, the need for outpatient follow up, a family practitioner, to return to the emergency department if symptoms worsen or persist or if there are any questions or concerns that arise at home. Response to treatment: the patient's symptoms have markedly improved after treatment, and as a result, I will discharge patient. Special discussion: Based on the patient's history, exam, and Dx evaluation, there is no indication for emergent intervention or inpatient Tx. It is understood by the patient/guardian that if the Sx's persist or worsen they need to return immediately for re-evaluation. 11/28 22:48 Order name: Basic Metabolic Panel; Complete Time: 23:27 [facility] 11/29 01:13 Interpretation: Normal except: NA 135; GLUC 282. 11/28 22:48 Order name: CBC with Diff; Complete Time: 23:27 [facility] 11/29 02:31 Interpretation: Normal except: MCV 82.4. 11/28 22:48 Order name: Troponin HS; Complete Time: 23:27 [facility] 11/28 23:37 Order name: Urine Microscopic Only; Complete Time: 01:12 11/29 01:12 Interpretation: Normal except: UWBC 5-10; URBC 5-10; UBACT 20-50; SQEPI 5-10. 11/28 23:38 Order name: D-Dimer; Complete Time: 01:12 11/28 23:38 Order name: LAB Add On 11/28 22:48 Order name: XRAY Chest (1 view) [facility] 11/29 00:01 Order name: Urine Dipstick-Ancillary; Complete Time: 01:12 EDMI 11/29 01:13 Interpretation: Normal except: UGLUC 2+; UKET 2+; UBLD Trace-intact. 11/29 00:08 Order name: CT Chest For PE Angio 11/29 00:42 Order name: Urine Culture [facility] 11/29 01:32 Order name: Troponin High Sensitivity; Complete Time: 02:31 11/28 22:27 Order name: EKG; Complete Time: 22:28 11/28 22:27 Order name: EKG - Nurse/Tech; Complete Time: 22:33 11/28 22:48 Order name: Cardiac monitoring; Complete Time: 22:48 [facility] 11/28 22:48 Order name: IV Saline Lock; Complete Time: 22:48 [facility] 11/28 22:48 Order name: Labs collected and sent; Complete Time: 23:08 [facility] 11/28 22:48 Order name: O2 Per Protocol; Complete Time: 22:48 [facility] 11/28 22:48 Order name: O2 Sat Monitoring; Complete Time: 22:48 [facility] 11/28 23:37 Order name: Urine Dipstick-Ancillary (obtain specimen); Complete Time: 00:05 11/28 23:37 Order name: Urine Test (obtain specimen); Complete Time: 00:05 cp EC/07 22:35 Rate is 78 beats/min. Rhythm is regular. WI interval is normal. QRS interval is normal. cp QT interval is normal. T waves are Inverted in leads III, aVR. Interpreted by me. Reviewed by me. Administered Medications: 11/29 00:05 Drug: Ketorolac 15 mg Route: IVP; Site: right antecubital; 5 02:44 Follow up: Response: No adverse reaction [facility] 00:05 Drug: NS 0.9% 1000 ml Route: IV; Rate: 1 bolus; Site: right antecubital; sm5 00:50 Follow up: IV Status: Completed infusion; IV Intake: 1000ml sm5 01:52 Drug: fentaNYL (PF) 25 mcg Route: IVP; Site: right antecubital; sm5 02:44 Follow up: Response: No adverse reaction; Pain is decreased sm5 Disposition Summary: 11/29/21 02:32 Discharge Ordered Location: Home cp Problem: new cp Symptoms: have improved cp Condition: Stable cp Diagnosis - Chest pain, unspecified cp - Pain in left upper arm cp - Diabetes mellitus due to underlying condition with hyperglycemia cp Followup: cp - With: Private Physician - When: 1 - 2 days - Reason: Recheck today's complaints Discharge Instructions: - Discharge Summary Sheet cp - Nonspecific Chest Pain, Adult cp - Musculoskeletal Pain cp - Hyperglycemia cp - Blood Glucose Monitoring, Adult cp - Diabetes Mellitus and Nutrition, Adult cp - Aspirin and Your Heart cp Forms: - Medication Reconciliation Form cp - Thank You Letter cp - Antibiotic Education cp - Prescription Opioid Use cp Prescriptions: - Cyclobenzaprine 10 mg Oral Tablet - take 1 tablet by ORAL route every 8 hours As needed; 20 tablet; Refills: 0, cp Product Selection Permitted - Diclofenac Sodium 75 mg Oral tablet,delayed release (DR/EC) - take 1 tablet by ORAL route 2 times per day; 20 tablet; Refills: 0, Product cp Selection Permitted Signatures: Dispatcher [employer] EDElias Osuna MD MD cha Page, Corey, PA PA cp Jerri Umana RN RN ld1 Yissel Montgomery RN RN sm5 Corrections: (The following items were deleted from the chart) 19:36 11/28 22:30 Patient reports she was shopping in store with family when she started to cp have pressure and pain to left upper arm that then radiated and moved to left upper chest. cp
--- NOTE | 2021-11-29 02:32 | ER ---
Nurse's Notes [facility] Name: Nita Fox Age: 31 yrs Sex: Female : 1990 Arrival Date: 11/28/2021 Time: 22:20 Bed 19 Private MD: Diagnosis: Chest pain, unspecified;Pain in left upper arm;Diabetes mellitus due to underlying condition with hyperglycemia Presentation: 11/28 22:34 Chief complaint: Patient states: I was shopping with my kids earlier and I began to ld1 feel pain in my left upper arm - radiates to my left shoulder and left upper chest. C/O chest pain and nausea. Coronavirus screen: At this time, the client does not indicate any symptoms associated with coronavirus-19. Ebola Screen: No symptoms or risks identified at this time. Initial Sepsis Screen: Does the patient meet any 2 criteria? No. Patient's initial sepsis screen is negative. Does the patient have a suspected source of infection? No. Patient's initial sepsis screen is negative. Risk Assessment: Do you want to hurt yourself or someone else? Patient reports no desire to harm self or others. Onset of symptoms was November 28, 2021. 22:34 Method Of Arrival: Ambulatory ld1 22:34 Acuity: SOREN 3 ld1 Triage Assessment: 22:36 General: Appears in no apparent distress. uncomfortable, Behavior is calm, cooperative, ld1 appropriate for age. Pain: Complains of pain in left arm Pain radiates to left clavicle, anterior aspect of left upper chest and anterior aspect of left shoulder Pain currently is 8 out of 10 on a pain scale. Quality of pain is described as pressure, Pain began 2 hours ago. EENT: No signs and/or symptoms were reported regarding the EENT system. Neuro: Level of Consciousness is awake, alert, obeys commands, Oriented to person, place, time, situation. Cardiovascular: Reports chest pain, Capillary refill < 3 seconds Patient's skin is warm and dry. Respiratory: Airway is patent Respiratory effort is even, unlabored. GI: Abdomen is round non-distended. : No signs and/or symptoms were reported regarding the genitourinary system. Derm: No signs and/or symptoms reported regarding the dermatologic system. Musculoskeletal: No signs and/or symptoms reported regarding the musculoskeletal system. 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 - Social history:: Smoking status: Patient denies any tobacco usage or history of. Patient/guardian denies using alcohol. Screenin:48 Abuse screen: Denies threats or abuse. Denies injuries from another. Nutritional sm5 screening: No deficits noted. Tuberculosis screening: No symptoms or risk factors identified. Fall Risk None identified. Assessment: 22:48 General: Appears in no apparent distress. Behavior is cooperative. Pain: Complains of sm5 pain in chest and left clavicle and left arm. Neuro: Level of Consciousness is awake, alert, obeys commands, Oriented to person, place, time, situation. Cardiovascular: Reports chest pain, Capillary refill < 3 seconds Patient's skin is warm and dry. Rhythm is sinus rhythm. Respiratory: Airway is patent Trachea midline Respiratory effort is even, unlabored. 11/29 01:00 Reassessment: No changes from previously documented assessment. Patient and/or family sm5 updated on plan of care and expected duration. Pain level reassessed. 02:47 Reassessment: Patient and/or family updated on plan of care and expected duration. Pain sm5 level reassessed. Patient states feeling better. Vital Signs: 11/28 22:34 BP 162 / 96; Pulse 88; Resp 18; Temp 98.2(TE); Pulse Ox 98% on R/A; Weight 120.66 kg; ld1 Height 5 ft. 7 in. (170.18 cm); Pain 8/10; 23:10 BP 129 / 82; Pulse 77; Resp 17; Pulse Ox 98% on R/A; sm5 11/29 02:27 BP 138 / 87; Pulse 64; Resp 17; Pulse Ox 99% on R/A; sm5 11/28 22:34 Body Mass Index 41.66 (120.66 kg, 170.18 cm) ld1 ED Course: 11/28 22:20 Patient arrived in ED. mr 22:27 Elias Brito PA is PHCP. cp 22:27 Elias Tyler MD is Attending Physician. cp 22:33 Yissel Montgomery, JANE is Primary Nurse. sm5 22:36 Triage completed. ld1 22:36 Arm band placed on right wrist. ld1 22:48 Inserted saline lock: 20 gauge in right antecubital area, using aseptic technique. sm5 Blood collected. Patient maintains SpO2 saturation greater than 95% on room air. 22:49 Patient has correct armband on for positive identification. Bed in low position. Call sm5 light in reach. Side rails up X2. Client placed on continuous cardiac and pulse oximetry monitoring. NIBP monitoring applied. 23:48 LAB Add On Sent. sm5 23:50 XRAY Chest (1 view) In Process Unspecified. EDMS 07 00:05 Urine Microscopic Only Sent. sm5 00:51 CT Chest For PE Angio In Process Unspecified. EDMS 02:47 No provider procedures requiring assistance completed. IV discontinued, intact, sm5 bleeding controlled, No redness/swelling at site. Pressure dressing applied. Administered Medications: 00:05 Drug: Ketorolac 15 mg Route: IVP; Site: right antecubital; sm5 02:44 Follow up: Response: No adverse reaction sm5 00:05 Drug: NS 0.9% 1000 ml Route: IV; Rate: 1 bolus; Site: right antecubital; sm5 00:50 Follow up: IV Status: Completed infusion; IV Intake: 1000ml sm5 01:52 Drug: fentaNYL (PF) 25 mcg Route: IVP; Site: right antecubital; sm5 02:44 Follow up: Response: No adverse reaction; Pain is decreased sm5 Medication: 11/28 22:49 VIS not applicable for this client. sm5 Intake: 11/29 00:50 IV: 1000ml; Total: 1000ml. sm5 Outcome: 02:32 Discharge ordered by . cp 02:47 Discharged to home ambulatory. sm5 02:47 Condition: stable 02:47 Discharge instructions given to patient, Instructed on discharge instructions, follow up and referral plans. medication usage, Demonstrated understanding of instructions, follow-up care, medications, Prescriptions given X 2. 02:48 Patient left the ED. sm5 Signatures: Dispatcher [employer] EDMS HomeroAnnie Corey, Jerri Guzman cp RN RN ld1 Yissel Montgomery RN RN sm5
[2021-11-29 03:28] VITALS: TEMP 98.2
[2021-11-29 03:32] VITALS: BP 138/87; O2SAT 99
--- NOTE | 2021-11-29 11:18 | RAD REPORT ---
EXAM DESCRIPTION: Chest For Pe Angio 11/29/2021 1:15 AM CDT CLINICAL HISTORY: 31 years, Female, chest pain COMPARISON: 10/03/2017 TECHNIQUE: Multiple transaxial tomograms of the chest were obtained from the lung apices through the lung bases utilizing 2 mm slice thickness at 2 mm interval reconstruction after the administration o f large bolus of IV contrast for complete opacification of the pulmonary arteries. Subsequent 3-D maximum intensity projection images were generated in the coronal and sagittal plane f or review. This exam was performed according to our departmental dose-optimization protocol, which includes auto mated exposure control, adjustment of the mA and/or kV according to patient size and/or use of iterat nay reconstruction technique. FINDINGS: The lungs parenchyma demonstrate to be clear. No masses, nodules and/or consolidations are identified. The trachea mainstem bronchus demonstrate to be normal. There is no significant pericardial or pleura l effusions. The thoracic aorta demonstrate to be within normal limits. There is no evidence for dissection/or ane urysm. The heart is normal in size. No evidence for right ventricular strain. There are no significan t coronary artery calcifications. There is no significant mediastinal and/or hilar lymphadenopathy. The axillary regions demonstrate to be clear. Pulmonary arteries demonstrate to be normal, no intraluminal defect are seen that would suggest pulmo nary embolus. The bone windows demonstrate no significant skeletal lesions. The visualized portions of the upper abdomen demonstrate decreased attenuation of the liver with incr eased size. IMPRESSION: No evidence for pulmonary embolism and/or thoracic aortic dissection. Hepatomegaly with hepatic steatosis. Electronically signed by: Nestor Reeves MD 11/29/2021 1:18 AM CDT Due to temporary technical issues with the PACS/Fluency reporting system, reports are being signed by the in house radiologists without review as a courtesy to insure prompt reporting. The interpreting radiologist is fully responsible for the content of the report.
--- NOTE | 2021-11-29 12:18 | RAD REPORT ---
EXAM DESCRIPTION: Chest Single View CLINICAL HISTORY: 31 years Female, CHEST PAIN TECHNIQUE: 1 view (Single frontal view of the chest) COMPARISON: None. FINDINGS: Patient's body habitus mildly limits this exam. LINES AND TUBES: None. CARDIOVASCULAR STRUCTURES: ormal heart size. No pulmonary venous congestion. LUNGS: No confluent areas of acute consolidation. PLEURA: No layering pleural effusions. No pneumothorax. BONES: No acute osseous abnormality of the thorax. IMPRESSION: 1. Unremarkable portable AP view of chest. Electronically signed by: Nahid Taylor MD 11/29/2021 12:18 AM CDT Due to temporary technical issues with the PACS/Fluency reporting system, reports are being signed by the in house radiologists without review as a courtesy to insure prompt reporting. The interpreting radiologist is fully responsible for the content of the report.
--- NOTE | 2021-12-02 13:58 | EKG ---
Test Date: 2021-11-28 Test Time: 22:33:05 [employer]er [employer]iter: DARYL MEASUREMENT RESULTS: Intervals: Rate: 78 SD: 128 QRSD: 90 QT: 358 QTc: 408 Natalia: P: 32 SD: 128 QRS: 13 T: 13 INTERPRETIVE STATEMENTS: Normal sinus rhythm Cannot rule out Anterior infarct, age undetermined Abnormal ECG Compared to ECG 10/04/2017 12:47:03 Myocardial infarct finding now present Sinus arrhythmia no longer present Electronically Signed On 12-02-21 13:50:53 CDT by Subhash Sandoval
== END 2021-11-29 02:48 | disposition home or self-care (01) ==
LOC: ER 22:17
DX: R07.9 Chest pain, unspecified (principal); M79.622 Pain in left upper arm; E11.65 Type 2 diabetes mellitus with hyperglycemia; Z88.0 Allergy status to penicillin; Z88.1 Allergy status to other antibiotic agents; Z88.2 Allergy status to sulfonamides; Z88.8 Allergy status to other drugs, medicaments and biological substances; Z91.040 Latex allergy status
CPT/HCPCS: 36415; 71045; 71275; 80048; 81003; 81015; 84484; 85025; 85379; 87077; 87086; 87088; 87186; 93005; J3010; J7030; Q9967

== ENCOUNTER 2022-02-03 10:54 | Emergency (ER) | payer SELFPAY ==
--- OUTSIDE RECORDS SUMMARY | 2022-02-03 11:15 | XMS REPORT | Continuity of Care Document ---
:1990 Author Organization [facility] t Address [address] [place] [address] Care Team Providers Name Role Phone CONRAD DENNIS Primary Care Physician Unavailable Doctor Unassigned, [facility] Attending Clinician Unavailable MOMO CALIXTO Attending Clinician Unavailable Momo Calixto DO Attending Clinician Annie Huitron RN Attending Clinician JUNI BOJORQUEZ Attending Clinician Unavailable Jesus Bustillos MD Attending Clinician Juni Bojorquez MD Attending Clinician Sanjeev Sen Attending Clinician Glendy Casillas Attending Clinician MOMO CALIXTO Admitting Clinician Unavailable JUNI BOJORQUEZ Admitting Clinician Unavailable Juni Bojorquez MD Admitting Clinician Payers Payer Name Policy Type Policy Number Effective Date Expiration Date S ource Problems Condition Condition Condition Status Onset Resolution Last Treating Co mments Source Name Details Category Date Date Treatment Clinician Date Dehydratio Dehydratio Disease Active 2020-05 U nivers n n 05-30 ity of 00:00: [place] 00 Medical Branch Morbid Morbid Disease Active 2020-05 Univers obesity obesity 05-30 ity of with body with body 00:00: [facility], [place] mass index mass index 00 Me dical of of Branch 40.0-49.9 40.0-49.9 Disease Active U nivers care and care and 9-18 ity of examinatio examinatio 00:00: Ashu quevedo n of n of 00 Medical lactating lactating Bran ch mother mother Acute Acute Disease Active Univers headache headache 8-24 ity of 00:00: [place] [facility] Elevated Elevated Disease Active Unive rs blood blood 8-24 ity of pressure pressure 00:00: [place] [facility] Diet Diet Disease Active Univers controlled controlled 12-23 it y of gestationa gestationa 00:00: Ashu quevedo l diabetes l diabetes 00 Me dical mellitus mellitus Branch (GDM), (GDM), antepartum antepartum Obesity in Obesity in Disease Active U nivers 5-30 ity of 00:00: [place] [facility] Allergies, Adverse Reactions, Alerts Allergy [...] Medical ICS) Branch Sulfa Propensi Active Itching 2012-0 Pt Univers (Sulfona ty to 4-24 reports ity of mide adverse 00:00: severe [place] Antibiot reaction 00 itching Medic al ics) s and Branch redness to palms with Bactrim Social History Social Habit Start Date Stop Date Quantity Comments Source Exposure to Not sure [facility] SARS-CoV-2 (event) Medica l Branch Alcohol intake 2021-03-30 2021-03-30 0 /d [facility] 00:00:00 00:00:00 Medical Branch Tobacco use and 2012-07-20 2012-07-20 Never used [facility] exposure 00:00:00 00:00:00 Medical Branch Sex [birth year] [facility] 00:00:00 00:00:00 Medical Branch Smoking Status Start Date Stop Date Source Never smoker [facility] Medical Branch Medications Ordered Filled Start Stop Current Ordering Indication Dosage Frequency Signature Comments Components Source Medication Medication Date Date Medication? Clinician (SIG) Name Name metFORMIN 2020-05 Yes 500mg Take 500 Uni vers 500 mg 1-10 mg by ity of tablet 04:43: mouth 2 [place] (two) Medical times Branch daily with meals. metFORMIN 2020-05 Yes 500mg Take 500 Uni vers 500 mg 1-10 mg by ity of tablet 04:43: mouth 2 [place] (two) Medical times Branch daily with meals. 2020-05- No [id number] 1{tbl} Take 1 Univers vitamin 1-09 12-10 tablet by ity of w/FA tablet 00:00[place] 05[place]59 [place] daily for Medical 30 days. Branch 2020-05- No [id number] 1{tbl} Take 1 Univers vitamin 1-09 12-10 tablet by ity of w/FA tablet 00:00: 05:59 [place] :[place] daily for Medical 30 days. Branch 2020-05- No [id number] 1{tbl} Take 1 Univers vitamin 1-09 12-10 tablet by ity of w/FA tablet 00:00: 05:59 [place] 00 :[place] daily for Medical 30 days. Branch 2020-05- No [id number] 1{tbl} Take 1 Univers vitamin 1-09 12-10 tablet by ity of w/FA tablet 00:00: 05:59 [place] 00 :[place] daily for Medical 30 days. Branch SITagliptin 2020-05- No 50mg 50 mg, Uni vers (JANUVIA) 06-0108 Oral, ity of tablet 50 19:15: 21:07 ONCE, 1 [place] mg 00 :00 dose, On Medical Mon Branch 04/01/21 at 1315, Routine metFORMIN 2020-05 Yes 500mg Take 500 Uni vers 500 mg 1-08 mg by ity of tablet 16:44: mouth 2 [place] 41 (two) Medical times Branch daily with meals. metFORMIN 2020-05 Yes 500mg Take 500 Uni vers 500 mg 1-08 mg by ity of tablet 16:44: mouth 2 [place] 41 (two) Medical times Branch daily with meals. Blood-Gluco 2020-05 Yes [id number] Use as Univers se Meter 1-08 directed ity of (RELION 00:00: [place] ALL-IN-ONE 00 Medical METER) Kit Branch Blood-Gluco 2020-05 Yes [id number] Use as Univers se Meter 1-08 directed ity of (RELION 00:00: [place] ALL-IN-ONE 00 Medical METER) Kit Branch Blood-Gluco 2020-05 Yes [id number] Use as Univers se Meter 1-08 directed ity of (RELION 00:00: [place] ALL-IN-ONE 00 Medical METER) Kit Branch Blood-Gluco 2020-05 Yes [id number] Use as Univers se Meter 1-08 directed ity of (RELION 00:00: [place] ALL-IN-ONE 00 Medical METER) Kit Branch SITagliptin 2020-05- No [id number] 50mg Take 1 Univers 50 mg 06-01 tablet by ity of tablet 00:00: 05:59 mouth [place] 00 :00 daily for Medical 30 doses. Branch SITagliptin 2020-05- No [id number] 50mg Take 1 Univers 50 mg 06-01 tablet by ity of tablet 00:00: 05:59 mouth [place] 00 :00 daily for Medical 30 doses. Branch SITagliptin 2020-05- No [id number] 50mg Take 1 Univers 50 mg 06-01 tablet by ity of tablet 00:00: 05:59 mouth [place] 00 :00 daily for Medical 30 doses. Branch SITagliptin 2020-05- No [id number] 50mg Take 1 Univers 50 mg 06-01 tablet by ity of tablet 00:00: 05:59 mouth [place] 00 :00 daily for Medical 30 doses. Branch cephALEXin 2020-05- No [id number] 500mg Take 1 Univers 500 mg 06-01 capsule by ity of capsule 00:00: 05:59 mouth 4 [place] 00 :00 (four) Medical times [place] daily for 4 days. cephALEXin 2020-05- No [id number] 500mg Take 1 Univers 500 mg 06-01 capsule by ity of capsule 00:00: 05:59 mouth 4 [place] 00 :00 (four) [facility] times [place] daily for 4 days. cefTRIAXone 2020-05 Yes 1000mg 1,000 mg, Univers (ROCEPHIN) 05-31 IV ity of 1,000 mg in 15:00: Piggyback, [place] NaCl 0.9% 00 DAILY, Medical (NS) 50 mL [facility] dose [facility] MINI-BAG (after last reorder) on [place] 03/31/21 at 0900, Until Discontinu ed, Administer over 30 Minutes, 50 mL
Reas on for Anti-Infec tive: Documented Infection< br>Documen chris Infection Site: Urine
D uration of Therapy: Other (see Comments) glipiZIDE 2020-05- No 2.5mg 2.5 mg, Uni vers (GLUCOTROL) 05-31 Oral, ity of tablet 2.5 13:30: 18:01 BIDAC, [place] mg 00 :58 First dose Medical on [facility] 03/31/21 at 0730, Until Discontinu ed, Routine NaCl 0.9% 2020-05- No 500mL at 999 Univ ers (NS) bolus 05-31 mL/hr, 500 it y of infusion 09:00: 09:42 mL, IV [place] 500 mL 00 :[facility] ONCE, 1 Branch dose, On [place] 03/31/21 at 0300, STAT magnesium 2020-05 Yes 400mg 400 mg, Univ ers oxide 05-31 Oral, BID, ity of (MAG-OX 07:52: First dose [place] 400[place] tablet 59 on [place] Medica l 400 mg 03/31/21 at Branch 0800, Until Discontinu ed, Routine ferrous 2020-05 Yes 325mg 325 mg, Univer s sulfate 05-31 Oral, BID, ity of tablet 325 01:00: First dose [place] mg 00 on [facility] Medical 03/30/21 at Branch 2000, Until Discontinu ed, Routine Sliding 2020-05 Yes Subcutaneo Univ ers Scale 1-06 us, TID ity of Insulin - 22:00: MEALS, [place] Lispro 00 First dose Medical (HumaLOG) + on Sat Branch Fsbg 03/30/21 at Testing 1700, Until Discontinu ed, Routine dextrose 50 2020-05 Yes 25mL 25 mL, Univ ers % in water -06 Slow IV ity of (D50W) 20:49: Push, [...] 05-30 Oral, ity of (TYLENOL) 17:43: Q6HPRN, [place] tablet 650 11 Starting Medic al mg [...] 25 mL, Univ ers % in water -06 Slow IV ity of (D50W) 17:42: Push, PRN, [place] injection 20 Starting Medica l 25 mL on Sat Branch 03/30/21 at 1242, Until Discontinu ed, JEWEL, Blood Glucose < or = 70 mg/dL and patient is unable to swallow or has mental status changes. cefTRIAXone 2020-05- No 1000mg 1,000 mg, Univers (ROCEPHIN) 05-30 IV ity of 1,000 mg in 17:15: 16:42 Piggyback, [place] NaCl 0.9% 00 :00 ONCE, 1 Medical (NS) 50 mL dose, On Bran h MINI-BAG [facility] 03/30/21 at 1215, Administer over 30 Minutes, 50 mL
Reas on for Anti-Infec tive: Documented Infection< br>Documen chris Infection Site: Urine<br&g t;Duration of Therapy: Other (see Comments) acetaminoph 2020-05- No 975mg 975 mg, U nivers en 05-30 Oral, ity of (TYLENOL) 16:30: 15:25 ONCE, 1 [place] tablet 975 00 :00 dose, On Medic al mg [facility] Branch 03/30/21 at 1130, JEWEL diphenhydrA 2020- No 25mg 25 mg, Uni vers MINE 06-06 Slow IV ity of (BENADRYL) 01:00: 00:04 Push, [place] injection 00 :00 ONCE, 1 Medical 25 mg dose, [facility] Branch 06/05/20 at 1900, STAT metoclopram 2020- No 10mg 10 mg, Uni vers win HCl 06-06 Slow IV ity of (REGLAN) 01:00: 00:04 Push, [place] injection 00 :00 ONCE, 1 Medical 10 mg dose, [facility] Branch 06/05/20 at 1900, JEWEL NaCl 0.9% 2020- No 1000mL at 999 Uni vers (NS) bolus 06-06 mL/hr, ity of infusion 00:00: 01:28 1,000 mL, [place] as 1,000 mL 00 :00 IV Medical Infusion, Branch ONCE, 1 dose, [facility] 06/05/20 at 1800, JEWEL NaCl 0.9% 2019- No 1000mL at 999 Uni vers (NS) bolus 12-19 07-28 mL/hr, ity of infusion 06:15: 06:00 1,000 mL, [place] as 1,000 mL 00 :00 IV Medical Infusion, [place] ONCE, 1 dose, 12/20/19 at 0115, STAT [...] dose, Mon Med ical mg 12/19/19 at [place] 2330, JEWEL morpHINE 2020-0 2020- No 4mg 4 mg, Slow Un efra injection 4 12-19 IV Push, ity of mg 04:30: 03:46 ONCE, 1 [place] 00 :00 dose, Mon Medical 12/19/19 at Branch 2330, STAT ondansetron 2020-0 Yes [id number] 4mg Take 1 Univers (ZOFRAN) 4 7-28 tablet by ity of mg tablet 00:00: mouth [place] 00 every 8 Medical (eight) Branch hours as needed for Nausea and Vomiting (N/V). esomeprazol 2020-0 Yes [id number] 20mg Take 20 mg Univers e (NEXIUM) 7-28 by mouth ity o f 20 mg 00:00: daily [place] capsule 00 before a Medical meal. [place] traMADol 50 2020-0 Yes [id number] 50mg Take 1 Univ ers mg tablet 7-28 tablet by ity o f 00:00: mouth [place] 00 every 6 Medical (six) Branch hours as needed for Pain (scale 4-6). Indication s: acute pain ondansetron 2020-0 Yes [id number] 4mg Take 1 Univers (ZOFRAN) 4 7-28 tablet by ity of mg tablet 00:00: mouth [place] 00 every 8 Medical (eight) Branch hours as needed for Nausea and Vomiting (N/V). ondansetron 2020-0 Yes [id number] 4mg Take 1 Univers (ZOFRAN) 4 7-28 tablet by ity of mg tablet 00:00: mouth [place] 00 every 8 Medical (eight) Branch hours as needed for Nausea and Vomiting (N/V). ondansetron 2020-0 Yes [id number] 4mg Take 1 Univers (ZOFRAN) 4 7-28 tablet by ity of mg tablet 00:00: mouth [place] 00 every 8 Medical (eight) Branch hours as needed for Nausea and Vomiting (N/V). esomeprazol 2020-0 Yes [id number] 20mg Take 20 mg Univers e (NEXIUM) [...] Indication s: acute pain ondansetron 2020-0 Yes [id number] 4mg Take 1 Univers (ZOFRAN) 4 7-28 tablet by ity of mg tablet 00:00: mouth [place] 00 every 8 Medical (eight) Branch hours as needed for Nausea and Vomiting (N/V). ondansetron 2020-0 Yes [id number] 4mg Take 1 Univers (ZOFRAN) 4 7-28 tablet by ity of mg tablet 00:00: mouth [place] 00 every 8 Medical (eight) Branch hours as needed for Nausea and Vomiting (N/V). ondansetron 2020-0 Yes [id number] 4mg Take 1 Univers (ZOFRAN) 4 7-28 tablet by ity of mg tablet 00:00: mouth [place] 00 every 8 Medical (eight) Branch hours as needed for Nausea and Vomiting (N/V). esomeprazol 2020-0 Yes [id number] 20mg Take 20 mg Univers e (NEXIUM) [...] s: acute pain esomeprazol 2020-0 2020- No [id number] 20mg Take 20 mg Univers e (NEXIUM) 12-19 by mouth ity of 20 mg 00:00: 00:00 daily [place] capsule 00 :00 before a Medical meal. Branch traMADol 50 2020- No [id number] 50mg Take 1 Uni vers mg tablet 12-19 tablet by ity of 00:00: 00:00 mouth [place] 00 :00 every 6 Medical (six) Branch hours as needed for Pain (scale 4-6). Indication s: acute pain metoclopram 2017-0 Yes 10mg Take 1 Univ [...] 1 Uni vers win HCl 10 9-18 - tablet by ity of mg tablet 00:00: 00:00 mouth [place] 00 :00 every 6 Medical (six) Branch hours as needed (headache) . HYDROcodone 2016- Yes 1{tbl} Take 1-2 Univers -acetaminop 8-28 tablets by it y of hen 5-325 00:00: mouth [place] mg tablet 00 every 6 Medical (six) Branch hours as needed for Pain (scale 7-10). Do not exceed 3 grams of acetaminop hen in 24 hours. HYDROcodone 2017- Yes 1{tbl} Take 1-2 Univers -acetaminop 8-28 [...] 600mg Take 1 Unive rs 600 mg 8- tablet by ity of tablet 00:00: mouth [place] 00 every 6 Medical (six) Branch hours as needed for Pain (scale 1-3) or Pain (scale 4-6) (Pain). Take with food or milk. No 1{tbl} Take 1 Univ ers vitamin 01-1808 tablet by ity of w/FA tablet 00:00: 00:00 mouth [place] 00 :00 daily. Medical Branch ibuprofen 2020- No 600mg Take 1 Univ ers 600 mg 01-18 tablet by ity of tablet 00:00: 00:00 mouth [place] 00 :00 every 6 Medical (six) Branch hours as needed for Pain (scale 1-3) or Pain (scale 4-6) (Pain). Take with food or milk. Blood-Gluco Yes [id number] Use as Univers se Meter 8-11 directed ity of (FREESTYLE 00:00: [place] SYSTEM KIT) 00 [facility] blood sugar Yes [id number] Use as Univers diagnostic 8-11 directed ity o f (FREESTYLE 00:00: [place] TEST) strip 00 Medical Branch lancets Yes [id number] Use as U nivers gauge Misc 8-11 directed ity o f 00:00: [place] 00 [facility] Branch Blood-Gluco Yes [id number] Use as Univers se Meter 8-11 directed ity of (FREESTYLE 00:00: [place] SYSTEM KIT) 00 [facility] blood sugar Yes [id number] Use as Univers diagnostic 8-11 directed ity o f (FREESTYLE 00:00: [place] TEST) strip 00 Medical Branch lancets Yes [id number] Use as U nivers gauge Misc 8-11 directed ity o f 00:00: [place] 00 [facility] Branch Blood-Gluco Yes [id number] Use as Univers se Meter 8-11 directed ity of (FREESTYLE 00:00: [place] SYSTEM KIT) 00 [facility] blood sugar Yes [id number] Use as Univers diagnostic 8-11 directed ity o f (FREESTYLE 00:00: [place] TEST) strip 00 Medical Branch lancets Yes [id number] Use as U nivers gauge Misc 8-11 directed ity o f 00:00: [place] 00 Medical Branch Blood-Gluco 2017- Yes [id number] Use as Univers se Meter 8-11 directed ity of (FREESTYLE 00:00: [place] SYSTEM KIT) 00 Medical Kit Branch blood sugar 2016- Yes [id number] Use as Univers diagnostic 8-11 directed ity o f (FREESTYLE 00:00: [place] TEST) strip 00 Medical Branch lancets 28 Yes [id number] Use as U nivers gauge Misc 8-11 directed ity o f 00:00: [place] 00 Medical Branch Blood-Gluco 2016- Yes [id number] Use as Univers se Meter 8-11 directed ity of (FREESTYLE 00:00: [place] SYSTEM KIT) 00 Medical Kit Branch blood sugar Yes [id number] Use as Univers diagnostic 8-11 directed ity o f (FREESTYLE 00:00: [place] TEST) strip 00 Medical Branch lancets 28 Yes [id number] Use as U nivers gauge Misc 8-11 directed ity o f 00:00: [place] 00 Medical Branch Blood-Gluco 2016- Yes [id number] Use as Univers se Meter 8-11 directed ity of (FREESTYLE 00:00: [place] SYSTEM KIT) 00 Medical Kit Branch blood sugar Yes [id number] Use as Univers diagnostic 8-11 directed ity o f (FREESTYLE 00:00: [place] TEST) strip 00 Medical Branch lancets 28 Yes [id number] Use as U nivers gauge Misc 8-11 directed ity o f 00:00: [place] 00 Medical Branch Blood-Gluco 2016- Yes [id number] Use as Univers se Meter 8-11 directed ity of (FREESTYLE 00:00: [place] SYSTEM KIT) 00 Medical Kit Branch blood sugar 2016- Yes [id number] Use as Univers diagnostic 8-11 directed ity o f (FREESTYLE 00:00: [place] TEST) strip 00 Medical Branch lancets 28 Yes [id number] Use as U nivers gauge Misc 8-11 directed ity o f 00:00: [place] 00 Medical Branch 2017-0 Yes [id number] 1{packe Take 1 Univers vit 6-27 t} Packet by ity of 33-iron-fol 00:00: mouth [place] ic-dha 00 daily. Medical (SELECT-OB Branch + DHA) 29 mg iron-1 mg -250 mg combo pack Yes [id number] 1{packe Take 1 Univers vit 6-27 t} Packet by ity of 33-iron-fol 00:00: mouth [place] ic-dha 00 daily. Medical (SELECT-OB Branch + DHA) 29 mg iron-1 mg -250 mg combo pack Yes [id number] 1{packe Take 1 Univers vit 6-27 t} Packet by ity of 33-iron-fol 00:00: mouth [place] ic-dha 00 daily. Medical (SELECT-OB Branch + DHA) 29 mg iron-1 mg -250 mg combo pack 2020- No [id number] 1{packe Take 1 Univers vit 6-27 11-08 t} Packet by ity of 33-iron-fol 00:00: 00:00 [place] ic-dha 00 :00 daily. Medical (SELECT-OB Branch + DHA) 29 mg iron-1 mg -250 mg combo pack Immunizations Ordered Filled Immunization Date Status Comments [facility] e Immunization Name Name TDAP 2016-12-22 Completed University of 00:00:00 [facility] TDAP 2016-12-22 Completed University of 00:00:00 [facility] TDAP 2016-12-22 Completed University of 00:00: [facility] TDAP 2016-12-22 Completed University of 00:00: [facility] TDAP 2016-12-22 Completed University of 00:00: [facility] TDAP 2016-12-22 Completed University of 00:00:00 [facility] TDAP 2016-12-22 Completed University of 00:00:00 [facility] TDAP 2012-08-26 Completed University of 00:00:00 [facility] TDAP 2012-08-26 Completed University of 00:00:00 [place] [facility] [place] TDAP 2012-08-26 Completed University of 00:00:00 [place] [facility] [place] TDAP 2012-08-26 Completed University of 00:00:00 [place] [facility] [place] TDAP 2012-08-26 Completed University of 00:00:00 [facility] TDAP 2012-08-26 Completed University of 00:00:00 [facility] TDAP 2012-08-26 Completed University of 00:00:00 [facility] Vital Signs Vital Name Observation Time Observation Value Comments Source Systolic blood 2021-04-16 19:53:00 145 mm[Hg] Univer sity of pressure [place] [facility] Diastolic blood 2021-04-16 19:53:00 87 mm[Hg] Unive rsity of pressure [place] [facility] Heart rate 2021-04-16 19:53:00 88 /min Universi ty of [place] [facility] Body temperature 2021-04-16 19:53:00 37.17 Haydee Univ ersity of [place] [facility] Respiratory rate 2021-04-16 19:53:00 18 /min Univ ersity of [place] [facility] Body height 2021-04-16 19:53:00 170.2 cm Universi ty of [place] [facility] Body weight 2021-04-16 19:53:00 121.11 kg Universi ty of [place] [facility] BMI 2021-04-16 19:53:00 41.82 kg/m2 Universi ty of [place] [facility] Oxygen saturation in 2021-04-16 19:53:00 97 /min University of Arterial blood by [facility] thaddeus Pulse oximetry Branch Systolic blood 2021-04-01 21:39:00 134 mm[Hg] Univer sity of pressure [place] [facility] Diastolic blood 2021-04-01 21:39:00 76 mm[Hg] Unive rsity of pressure [place] [facility] Heart rate 2021-04-01 21:39:00 95 /min Universi ty of [place] [facility] Body temperature 2021-04-01 21:39:00 37.17 Haydee Univ ersity of [place] [facility] Respiratory rate 2021-04-01 21:39:00 18 /min Univ ersity of [place] [facility] Oxygen saturation in 2021-04-01 21:39:00 98 /min University of Arterial blood by [facility] thaddeus Pulse oximetry Branch Body weight 2021-03-31 11:47:00 122.471 kg Universi ty of [place] [facility] BMI 2021-03-31 11:47:00 41.05 kg/m2 Universi ty of [place] [facility] Body height 2021-03-30 20:53:00 172.7 cm Universi ty of [place] [facility] Oxygen saturation in 2020-06-06 01:23:00 99 /min University of Arterial blood by [facility] thaddeus Pulse oximetry Branch Systolic blood 2020-06-06 01:23:00 121 mm[Hg] Univer sity of pressure [place] [facility] Diastolic blood 2020-06-06 01:23:00 81 mm[Hg] Unive rsity of pressure [place] [facility] Heart rate 2020-06-06 01:23:00 75 /min Universi ty of [place] [facility] Respiratory rate 2020-06-06 01:23:00 13 /min Univ ersity of [place] [facility] Body temperature 2020-06-05 22:49:00 37.17 Hay[place] Univ ersity of [place] [facility] Body height 2020-06-05 22:49:00 170.2 cm Universi ty of [place] [facility] Body weight 2020-06-05 22:49:00 113.399 kg Universi ty of [place] [facility] BMI 2020-06-05 22:49:00 39.16 kg/m2 Universi ty of [place] [facility] Oxygen saturation in 2020-06-06 01:23:00 99 /min University of Arterial blood by [facility] Pulse oximetry Branch Systolic blood 2020-06-06 01:23:00 121 mm[Hg] Univer sity of pressure [place] [facility] Diastolic blood 2020-06-06 01:23:00 81 mm[Hg] Unive rsity of pressure [place] [facility] Heart rate 2020-06-06 01:23:00 75 /min Universi ty of [place] [facility] Respiratory rate 2020-06-06 01:23:00 13 /min Univ ersity of [place] [facility] Body temperature 2020-06-05 22:49:00 37.17 [place] Univ ersity of [place] [facility] Body height 2020-06-05 22:49:00 170.2 cm Universi ty of [place] [facility] Body weight 2020-06-05 22:49:00 113.399 kg Universi ty of [place] [facility] BMI 2020-06-05 22:49:00 39.16 kg/m2 Universi ty of [place] [facility] Respiratory rate 2019-12-20 08:00:00 18 /min Univ ersity of [place] [facility] Oxygen saturation in 2019-12-20 08:00:00 100 /min University of Arterial blood by [place] [employer] [place] thaddeus Pulse oximetry Branch Systolic blood 2019-12-20 07:36:00 157 mm[Hg] Univer sity of pressure [place] [facility] Diastolic blood 2019-12-20 07:36:00 86 mm[Hg] Unive rsity of pressure [facility] Heart rate 2019-12-20 07:36:00 97 /min Universi ty of [facility] Body temperature 2019-12-20 02:48:00 38.11 [place] [facility] Body weight 2019-12-20 02:48:00 121.[address] [facility] BMI 2019-12-20 02:48:00 41.82 kg/m2 Universi ty [facility] Respiratory rate 2019-12-20 08:00:00 18 /min Univ [facility] [place] [facility] Oxygen saturation in 2019-12-20 08:00:00 100 /min [facility] Arterial blood by [facility] Pulse oximetry Branch Systolic blood 2019-12-20 07:36:00 157 mm[Hg] Univer sity of [facility] Diastolic blood 2019-12-20 07:36:00 86 mm[Hg] [facility] Heart rate 2019-12-20 07:36:00 97 /min Universi ty [facility] Body temperature 2019-12-20 02:48:00 38.11 Hay[place] [facility] Body weight 2019-12-20 02:48:00 121.11 kg Universi ty [facility] BMI 2019-12-20 02:48:00 41.82 kg/m2 Universi [facility] Procedures Procedure Date / Time Performing Clinician Source Performed AUTHORIZATION FOR RELEASE 2021-04-25 06:01:00 Doctor Unassigned, [facility] Branch HB ABO GROUPING 2021-04-16 21:17:00 Momo Calixto [facility] COMP. METABOLIC PANEL 2021-04-16 21:16:00 [id number] TOTAL BETA HCG ASSAY 2021-04-16 21:16:00 Momo Calixto [facility] CBC WITH DIFF 2021-04-16 21:16:00 Momo Calixto [facility] URINALYSIS 2021-04-16 21:12:00 Momo Calixto [facility] [place] US FIRST 2021-04-16 21:04:23 Momo Calixto [facility] TRIMESTER LESS THAN 14 Medical B ranch WEEKS WITH TRANSVAGINAL CONSENT/REFUSAL FOR 2021-04-16 19:43:33 Doctor Unassigned, [facility] DIAGNOSIS AND TREATMENT [facility] POCT GLUCOSE (AUTOMATED) 2021-04-01 17:52:00 Juni Bojorquez [facility] POCT GLUCOSE (AUTOMATED) 2021-04-01 13:42:00 Juni Bojorquez [facility] POCT GLUCOSE (AUTOMATED) 2021-03-31 23:16:00 Juni Bojorquez [facility] POCT GLUCOSE (AUTOMATED) 2021-03-31 22:18:00 Juni Bojorquez [facility] POCT GLUCOSE (AUTOMATED) 2021-03-31 17:48:00 Juni Bojorquez [facility] POCT GLUCOSE (AUTOMATED) 2021-03-31 13:43:00 Juni Bojorquez [facility] PHOSPHORUS 2021-03-31 11:45:00 Juni Bojorquez [facility] MAGNESIUM 2021-03-31 11:45:00 Maryellen [facility] BASIC METABOLIC PANEL 2021-03-31 11:45:00 Juni Bojorquez [facility] (NA, K, CL, CO2, GLUCOSE, Medica l Branch BUN, CREATININE, CA) LIPID PANEL ([id number])(TOTAL 2021-03-31 11:45:00 Celio Montoya [facility] CHOLESTEROL, [facility] TRIGLYCERIDES, HDL) CBC WITH DIFF 2021-03-31 11:45:00 Juni Bojorquez [facility] POCT GLUCOSE (AUTOMATED) 2021-03-31 02:21:00 Juni Bojorquez [facility] POCT GLUCOSE (AUTOMATED) 2021-03-30 22:20:00 Juni Bojorquez [facility] URINE CULTURE 2021-03-30 16:12:00 Jesus Bustillos [facility] CT HEAD WO CONTRAST 2021-03-30 15:39:00 Jesus Bustillos [facility] POCT TEST 2021-03-30 15:11:00 Jesus Bustillos [facility] URINALYSIS 2021-03-30 15:07:00 Jesus Bustillos [facility] MAGNESIUM 2021-03-30 15:05:00 Jesus Bustillos [facility] TROPONIN I 2021-03-30 15:05:00 Jesus Bustillos [facility] COMP. METABOLIC PANEL 2021-03-30 15:05:00 Jesus Bustillos [facility] ([id number]) [facility] TOTAL BETA HCG ASSAY 2021-03-30 15:05:00 Jesus Bustillos [facility] CBC WITH DIFF 2021-03-30 15:05:00 Jesus Bustillos [facility] GLYCOSYLATED HEMOGLOBIN 2021-03-30 15:05:00 Jesus Bustillos [facility] (A1C) [facility] PROTHROMBIN TIME / INR 2021-03-30 15:05:00 Jessu Bustillos [facility] ACTIVATED PARTIAL 2021-03-30 15:05:00 [facility] JUWAN [facility] N-TERMINAL PRO-BNP 2021-03-30 15:05:00 Jesus Bustillos [facility] COVID-19 (ID NOW RAPID 2021-03-30 15:05:00 Jesus Bustillos [facility] TESTING) Medical Branch LAB ONLY COVID 2021-03-30 15:05:[address] [facility] INTERPRETATION [facility] HB ECG ROUTINE & RHYTHM 2021-03-30 15:01:14 Jesus Bustillos [facility] NOTICE OF PRIVACY 2021-03-30 14:52:58 Doctor Unasssabine, [facility] PRACTICES [facility] [place] CONSENT/REFUSAL FOR 2021-03-30 14:52:37 Doctor Unassigned, [facility] DIAGNOSIS AND TREATMENT [facility] [place] CT HEAD WO CONTRAST 2020-06-06 00:27:52 Sanjeev Cifuentes [facility] POCT TEST 2020-06-06 00:00:00 Sanjeev Cifuentes [facility] COVID-19 (ID NOW RAPID 2020-06-06 00:00:00 Sanjeev Cifuentes [facility] TESTING) [facility] COMP. METABOLIC PANEL 2020-06-05 23:59:00 Sanjeev Cifuentes [facility] ([id number]) [facility] Branch CBC WITH DIFF 2020-06-05 23:59:00 Sanjeev Cifuentes [facility] URINALYSIS 2020-06-05 23:59:00 Sanjeev Cifuentes [facility] POCT GLUCOSE (AUTOMATED) 2020-06-05 22:53:00 Doctor Teja, [facility] CONSENT/REFUSAL FOR 2020-06-05 22:37:42 Doctor Teja [facility] DIAGNOSIS AND TREATMENT [facility] EKG-12 LEAD 2019-12-20 07:36:16 Glendy Hogan [facility] URINALYSIS 2019-12-20 06:25:00 Reagan Sheikh [facility] TEST, SERUM 2019-12-20 03:47:00 Reagan [facility] COVID-19 (ID NOW RAPID 2019-12-20 03:46:00 Glendy Hogan [facility] TESTING) Medical Branch LIPASE 2019-12-20 03:00:00 Reagan Sheikh [facility] COMP. METABOLIC PANEL 2019-12-20 03:00:00 Reagan Sheikh [facility] ([id number]) [facility] CBC WITH DIFF 2019-12-20 03:00:00 Reagan Sheikh [facility] NOTICE OF PRIVACY 2019-12-20 02:35:01 Doctor Teja [facility] PRACTICES [facility] CONSENT/REFUSAL FOR 2019-12-20 02:34:45 Doctor Teja [facility] DIAGNOSIS AND TREATMENT [facility] Encounters Start End Encounter Admission Attending Care Care Encounter Source Date/Time Date/Time Type Type Clinicians Facility Department ID 2021-03-23 Emergency [facility] [id number] Univers 16:53:27 [facility] 2021-03-22 Emergency [facility] [id number] Univers 09:09:31 [facility] 2021-04-25 2021-04-25 Orders Doctor NUNEZ [id number] Univers 00:00:00 00:00:00 Only Unassigned, NIHARIKA 350.1.13.10 ity of [facility] 4.2.7.2.686 Benigno as [phone] [facility] [address] [place] 2021-04-16 2021-04-16 Emergency X [facility] ERT [id number] Univers 13:56:00 16:58:00 MOMO isaiahjericho [facility] 2021-04-16 2021-04-16 Emergency [facility] [id number] Univers 13:56:00 16:58:00 Momo TRAMMELL 350.1.13.10 i ty of [facility] 4.2.7.2.686 [facility] [id number] [facility] [address] [place] 2021-04-02 2021-04-02 Patient Annie Huitron [id number] Univers 00:00:00 00:00:00 Outreach E [place] 350.1.13.10 i [place] [id number] [facility] 403 Branch 2021-03-30 2021-04-01 Outpatient X MARYELLEN [facility] JEAN [id number] Univers 09:55:00 16:43:00 JUNI kong [facility] 2021-03-30 2021-04-01 Emergency Jesus Bustillos [facility] 1.2.840. 114 [id number] Univers 09:55:00 16:43:00 Juni Bojorquez 350.1.13.10 ity of [facility] 4.2.7.2.686 [facility] [id number] [facility] [address] [place] 2021-03-30 2021-03-30 Orders Doctor NUNEZ 1.2.840.114 [id number] Univers 00:00:00 00:00:00 Only Unassigned, NIHARIKA 350.1.13.10 ity of [facility] 4.2.7.2.686 Benigno as [id number] [facility] [address] [place] 2020-06-05 2020-06-05 [facility] 1.2.840.114 [id number] 16:50:00 19:31:00 Sanjeev [place] 350.1.13.10 [place] [address] [place] [address] [id number] 2020-06-05 2020-06-05 [facility] 1.2.840.114 [id number] [facility] 16:50:00 19:31:00 Sanjeev [place] 350.1.13.10 i ty of [place] 4.2.7.2.686 [facility] [id number] [place] [address] Branch 2019-12-19 2019-12-20 [facility] [id number] 21:39:31 03:45:00 Glendy S [place] 350.1.13.10 [place] [address] [place] [address] [id number] [facility] 2019-12-19 2019-12-20 [facility] [id number] [place] [address] 21:39:31 03:45:00 Glendy [place] 350.1.13.10 i ty of [place] 4.2.7.[address] [place] [address] [id number] [place] [address] Branch Results Test Description Test Time Test Comments Results Result Comments Source TOTAL BETA HCG ASSAY 2021-04-16 22:12:50 Test Item Value Reference Range Interpretation Comme nts BETA HCG (test code = See_Comment [Auto mated message] The [id number]) system which ge nerated this result transmit chris reference range : Non- fe male and male patients: <5 mIU/mL. The reference r radha was not used to interpr et this result as art l/abnormal. LUC (test code = LUC) Gestational Age ?Range (mIU/mL) 1-10 ?Weeks ?13-68383805-20 Weeks ?19707-58618005-88 Weeks ?9155-25819156-57 Weeks ?1531-598913 Biotin has been reported to cause a negative bias, interpret results relative to patient's use of biotin. [facility] - ONCE [id number] 21:58:37 Test Item Value Reference Range Interpretation Comments ABO & RH (test code O Positive Performe d at [facility] = 20) Laboratory Serv [facility] [address] [place], [place] [address]Toll Free: [phone] A No. [id number] IAT (test code = Negative Performed a t [facility] 1185) Laboratory Serv [facility] [address] [place], [place] [address]Toll Free: [phone] A No. [id number] [facility] WITH [id number] 21:41:39 Test Item Value Reference Range Interpretation Comments WBC (test code = See_Comment [Automated message] 7625-2) The system [employer] generated this result transmitted ref erence range: 4.30 - 1 1.10 10*3/?L. The re ference range was not u sed to interpret this result as normal/abnor mal. RBC (test code = See_Comment [Automated message] 339-8) The system [employer] generated this result transmitted ref erence range: [...] RDW-SD (test code 43.0 fL 39.0-49.9 = 97408-5) RDW-CV (test code 13.4 % 12.0-15.5 = 788-0) PLT (test code = See_Comment [Automated message] 977-3) The system [employer] h generated this result transmitted ref erence range: 166 - 35 8 10*3/?L. The re ference range was not u sed to interpret this result as normal/abnor mal. MPV (test code = 10.7 fL 9.5-12.9 75358-9) NRBC/100 WBC (test See_Comment [Automat ed message] code = 2116151603) The syste m which generated this result transmitted ref erence range: 0.0 - 10 .0 /100 WBCs. The refer ence range was not u sed to interpret this result as normal/abnor mal. NRBC x10^3 (test <0.01 See_Comment [Automated message] code = 6414920012) The syste m which generated this result transmitted ref erence range: 10*3/?L. The reference range was not used to interpr et this result as normal/abnormal . GRAN MAT (NEUT) % 66.7 % (test code = 770-8) IMM GRAN % (test 0.20 % code = 6208321445) LYMPH % (test code 24.9 % = 736-9) MONO % (test code 5.8 % = 5905-5) EOS % (test code = 2.0 % 713-8) BASO % (test code 0.4 % = 706-2) GRAN MAT 5.95 10*3/uL 1.88-7.09 x10^3(ANC) (test code = 2907871542) IMM GRAN x10^3 <0.03 0.00-0.06 (test code = 0327494526) LYMPH x10^3 (test 2.23 10*3/uL 1.32-3.29 code = 731-0) MONO x10^3 (test 0.52 10*3/uL 0.33-0.92 code = 742-7) EOS x10^3 (test 0.18 10*3/uL 0.03-0.39 code = 711-2) BASO x10^3 (test 0.04 10*3/uL 0.01-0.07 code = 704-7) [facility]. METABOLIC PANEL (12414)2021-04-16 21:38:39 Test Item Value Reference Range Interpretation Comments NA (test code = 134 mmol/L 135-145 L 7944441431) K (test code = 3.9 mmol/L 3.5-5.0 0135173213) CL (test code = 101 mmol/L 98-108 6210471984) CO2 TOTAL (test code = 27 mmol/L 23-31 3768666841) AGAP (test code = 2-16 6605561871) BUN (test code = 12 mg/dL 7-23 1516762225) GLUCOSE (test code = 95 mg/dL 70-110 5690999407) CREATININE (test code = 0.54 mg/dL 0.50-1.04 1100849402) TOTAL BILI (test code = 0.6 mg/dL 0.1-1.3 0571060907) CALCIUM (test code = 9.8 mg/dL 8.6-10.6 1441442985) T PROTEIN (test code = 7.5 g/dL 6.3-8.2 1013916161) ALBUMIN (test code = 4.2 g/dL 3.5-5.0 8597369427) ALK PHOS (test code = 98 U/L 34-122 4677479017) ALTv (test code = 46 U/L 5-35 H 1742-6) AST(SGOT) (test code = 48 U/L 13-40 H 5791660214) eGFR (test code = mL/min/1.73m2 7030116972) LUC (test code = LUC) Association of [...] tests). Lab Interpretation Abnormal (test code = 80768-2) [facility] GLUCOSE (AUTOMATED)2021-04-01 17:58:14 Test Item Value Reference Range Interpretation Comments POCT GLU (test code = 7063625985) 175 mg/dL 70-110 H Lab Interpretation (test code = Abnormal 92578-5) [facility] GLUCOSE (AUTOMATED)2021-04-01 13:49:38 Test Item Value Reference Range Interpretation Comments POCT GLU (test code = 8140347664) 209 mg/dL 70-110 H Lab Interpretation (test code = Abnormal 57202-3) [facility] GLUCOSE (AUTOMATED)2021-03-31 23:20:21 Test Item Value Reference Range Interpretation Comments POCT GLU (test code = 1314564152) 233 mg/dL 70-110 H Lab Interpretation (test code = Abnormal 62939-6) [facility] GLUCOSE (AUTOMATED)2021-03-31 22:33:33 Test Item Value Reference Range Interpretation Comments POCT GLU (test code = 8344958555) 219 mg/dL 70-110 H Lab Interpretation (test code = Abnormal 94345-4) [facility] GLUCOSE (AUTOMATED)2021-03-31 18:02:26 Test Item Value Reference Range Interpretation Comments POCT GLU (test code = 1199203472) 185 mg/dL 70-110 H Lab Interpretation (test code = Abnormal 96032-7) [facility] GLUCOSE (AUTOMATED)2021-03-31 13:47:03 Test Item Value Reference Range Interpretation Comments POCT GLU (test code = 4813193408) 244 mg/dL 70-110 H Lab Interpretation (test code = Abnormal 27615-9) [facility] CenterMagnesium [id number] 12:43:47 Test Item Value Reference Range Interpretation Comments MAGNESIUM (test code = 6518274826) 1.7 mg/dL 1.7-2.4 Lab Interpretation (test code = Normal 46038-8) [facility] CenterLipid Panel (Total Cholesterol, Triglycerides, HDL) - [id number] 12:43:47 Test Item Value Reference Range Interpretation Comments CHOL (test code = 139 mg/dL 120-200 3571273216) HDL (test code = 39 mg/dL >50 L 9674976003) HDLC RATIO (test code = See_Comment [Au tomated message] 8174706132) The system [employer] generated this result transmit chris reference range : <=4.5. The refe rence range was not u sed to interpret th is result as normal/abnormal . TRIG (test code = 193 mg/dL 30-170 H 9686974466) LDL CHOL (test code = 61 mg/dL See_Comment [Auto mated message] 02677-1) The system [employer] generated this result transmit chris reference range : <=160. The refe rence range was not u sed to interpret th is result as normal/abnormal . VLDL (test code = 39 mg/dL 5-60 9223373260) Lab Interpretation (test Abnormal code = 89110-9) [place] [facility] Metabolic Panel (NA, K, CL, CO2, GLUCOSE, BUN, CREATININE, CA)2021-03-31 12:43:26 Test Item Value Reference Range Interpretation Comments NA (test code = 132 mmol/L 135-145 L 3037043873) K (test code = 4.0 mmol/L 3.5-5.0 5013186674) CL (test code = 106 mmol/L 98-108 7065006875) CO2 TOTAL (test code = 21 mmol/L 23-31 L 0747773421) AGAP (test code = 2-16 2585332248) BUN (test code = 11 mg/dL 7-23 7205122505) GLUCOSE (test code = 240 mg/dL 70-110 H 1489332133) CREATININE (test code = 0.51 mg/dL 0.50-1.04 5379071381) CALCIUM (test code = 8.1 mg/dL 8.6-10.6 L 1724058629) eGFR (test code = mL/min/1.73m2 5115760251) LUC (test code = LUC) Association of [...] tests). Lab Interpretation Abnormal (test code = 33783-0) [facility] CenterPhosphorus [id number] 12:43:26 Test Item Value Reference Range Interpretation Comments PHOSPHORUS (test code = 9499619326) 2.9 mg/dL 2.5-5.0 Lab Interpretation (test code = Normal 76975-1) [place] [facility] CenterCB with [id number] 12:26:41 Test Item Value Reference Range Interpretation Comments WBC (test code = See_Comment [Automated message] 6690-2) The system [employer] generated this result transmitted ref erence range: 4.30 - 1 1.10 10*3/?L. The re ference range was not u sed to interpret this result as normal/abnor mal. RBC (test code = See_Comment [Automated message] 789-8) The system [employer] generated this result transmitted ref erence range: [...] RDW-SD (test code 40.4 fL 39.0-49.9 = 55531-6) RDW-CV (test code 13.0 % 12.0-15.5 = 788-0) PLT (test code = See_Comment [Automated message] 777-3) The system [employer] generated this result transmitted ref erence range: 166 - 35 8 10*3/?L. The re ference range was not u sed to interpret this result as normal/abnor mal. MPV (test code = 11.2 fL 9.5-12.9 13140-2) NRBC/100 WBC (test See_Comment [Automat ed message] code = 5771845871) The [employer] which generated this result transmitted ref erence range: 0.0 - 10 .0 /100 WBCs. The refer ence range was not u sed to interpret this result as normal/abnor mal. NRBC x10^3 (test <0.01 See_Comment [Automated message] code = 2285774394) The [employer] which generated this result transmitted ref erence range: 10*3/?L. The reference range was not used to interpr et this result as normal/abnormal . GRAN MAT (NEUT) % 64.2 % (test code = 770-8) IMM GRAN % (test 0.50 % code = 0131567708) LYMPH % (test code 26.4 % = 736-9) MONO % (test code 6.3 % = 5905-5) EOS % (test code = 2.1 % 713-8) BASO % (test code 0.5 % = 706-2) GRAN MAT 4.95 10*3/uL 1.88-7.09 x10^3(ANC) (test code = 9084901347) IMM GRAN x10^3 0.04 10*3/uL 0.00-0.06 (test code = 3627540570) LYMPH x10^3 (test 2.04 10*3/uL 1.32-3.29 code = 731-0) MONO x10^3 (test 0.49 10*3/uL 0.33-0.92 code = 742-7) EOS x10^3 (test 0.16 10*3/uL 0.03-0.39 code = 711-2) BASO x10^3 (test 0.04 10*3/uL 0.01-0.07 code = 704-7) [facility] GLUCOSE (AUTOMATED)2021-03-31 04:15:32 Test Item Value Reference Range Interpretation Comments POCT GLU (test code = 5958500247) 214 mg/dL 70-110 H Lab Interpretation (test code = Abnormal 12779-5) [facility] GLUCOSE (AUTOMATED)2021-03-30 22:57:31 Test Item Value Reference Range Interpretation Comments POCT GLU (test code = 1563469458) 168 mg/dL 70-110 H Lab Interpretation (test code = Abnormal 22696-0) [place] [facility]21-[facility] 16:11:19 Test Item Value Reference Range Interpretation Comments APTT Patient (test See_Comment [Automat ed code = 3173-2) message] The system which generated this result transmitted reference range : 23 - 38 Seconds . The reference range was not used to interpr et this result as normal/abnormal . LUC (test code = LUC) The [facility] patient population mean normal value for aPTT is 30 seconds. Lab Interpretation Normal (test code = 98791-2) [place] [facility] CenterPROTHROMBIN TIME / [id number] 16:09:22 Test Item Value Reference Range Interpretation Comments PROTIME PATIENT (test See_Comment [Auto mated message] code = 5964-2) The system [facility] generated this result transmitted ref erence range: 12.0 - 1 4.7 Seconds. The re ference range was not u sed to interpret this result as normal/abnor mal. INR (test code = 6301-6) Nor mal INR <1.1; Warfarin Therap eutic range 2.0 to 3. 0 or 2.5 to 3.5, dep ending upon the indica tions. Lab Interpretation (test Normal code = 07807-9) [facility] BHCG (QUANTITATIVE)2021-03-30 15:50:40 Test Item Value Reference Range Interpretation Comments BETA HCG (test See_Comment [Automated m essage] code = The system [facility] h 0503404427) generated this result transmit chris reference range : Non- fe male and male patien ts: <5 mIU/mL. The reference range was not used to interpret this result as normal/abnormal . LUC (test code Gestational Age ? ? = LUC) ?Range (mIU/mL) 1-10 ?Weeks ?75-24870862-29 Weeks ?87553-45300750-14 Weeks ?3456-13958586-42 Weeks ?1531-468644 Biotin has been reported to cause a negative bias, interpret results relative to patient's use of biotin. [facility] CenterGLYCOSYLATED HEMOGLOBIN (A1C)2021-03-30 15:50:34 Test Item Value Reference Range Interpretation Comments HGB A1C (test code = 9.7 % 4.0-5.7 H 4548-4) LUC (test code = LUC) Reference RangesNormal: <5.7%Prediabetes: 5.7 - 6.4%Diabetes: > 6.5% Lab Interpretation (test Abnormal code = 50838-7) [place] [facility] CenterTROPONIN [id number] 15:44:00 Test Item Value Reference Interpretation Comments Range TROPONIN I (test 0.006 ng/mL See_Comment [Automated code = 6880676794) message] The system which generated this result [...] biotin. Lab Interpretation Normal (test code = 60120-3) [facility] CenterN-TERMINAL [id number] 15:40:59 Test Item Value Reference Range Interpretation Comments NT-proBNP (test code 29 pg/mL See_Comment [Autom ated = 0701253375) message] The system which generated this result transmitted reference range : <=125. The reference range was not used to interpret this result as normal/abnormal . LUC (test code = LUC) Biotin has been reported to cause a negative bias, interpret results relative to patient's use of biotin. Lab Interpretation Normal (test code = 57021-7) [facility] CenterCOMP. METABOLIC PANEL (73768)2021-03-30 15:32:19 Test Item Value Reference Range Interpretation Comments NA (test code = 132 mmol/L 135-145 L 8989851713) K (test code = 3.9 mmol/L 3.5-5.0 0757855128) CL (test code = 98 mmol/L 98-108 0678966186) CO2 TOTAL (test code = 23 mmol/L 23-31 3646952345) AGAP (test code = 2-16 1326548772) BUN (test code = 12 mg/dL 7-23 8950559356) GLUCOSE (test code = 269 mg/dL 70-110 H 6478864317) CREATININE (test code = 0.54 mg/dL 0.50-1.04 1522688133) TOTAL BILI (test code = 0.7 mg/dL 0.1-1.0 9603190063) CALCIUM (test code = 9.3 mg/dL 8.6-10.6 7738177611) T PROTEIN (test code = 7.7 g/dL 6.3-8.2 9994491087) ALBUMIN (test code = 4.2 g/dL 3.5-5.0 7809429339) ALK PHOS (test code = 142 U/L 34-122 H 5680276852) ALTv (test code = 28 U/L 5-35 1742-6) AST(SGOT) (test code = 26 U/L 13-40 5570430577) eGFR (test code = mL/min/1.73m2 3418054090) LUC (test code = LUC) Association of [...] tests). Lab Interpretation Abnormal (test code = 21503-0) [facility]19 Test Item Value Reference Range Interpretation Comments MAGNESIUM (test code = 9368181886) 1.4 mg/dL 1.7-2.4 L Lab Interpretation (test code = Abnormal 75828-3) [facility] WITH [id number] 15:18:18 Test Item Value Reference Range Interpretation Comments WBC (test code = See_Comment [Automated message] 6690-2) The system [employer] generated this result transmitted ref erence range: 4.30 - 1 1.10 10*3/?L. The re ference range was not u sed to interpret this result as normal/abnor mal. RBC (test code = See_Comment [Automated message] 509-8) The system [employer] generated this result transmitted ref erence range: [...] RDW-SD (test code 39.5 fL 39.0-49.9 = 52120-2) RDW-CV (test code 12.9 % 12.0-15.5 = 788-0) PLT (test code = See_Comment [Automated message] 777-3) The system [employer] generated this result transmitted ref erence range: 166 - 35 8 10*3/?L. The re ference range was not u sed to interpret this result as normal/abnor mal. MPV (test code = 10.8 fL 9.5-12.9 97393-0) NRBC/100 WBC (test See_Comment [Automat ed message] code = 9682101148) The [employer] which generated this result transmitted ref erence range: 0.0 - 10 .0 /100 WBCs. The refer ence range was not u sed to interpret this result as normal/abnor mal. NRBC x10^3 (test <0.01 See_Comment [Automated message] code = 2752564185) The syste m which generated this result transmitted ref erence range: 10*3/?L. The reference range was not used to interpr et this result as normal/abnormal . GRAN MAT (NEUT) % 66.6 % (test code = 770-8) IMM GRAN % (test 0.50 % code = 3464199105) LYMPH % (test code 25.2 % = 736-9) MONO % (test code 5.3 % = 5905-5) EOS % (test code = 1.9 % 713-8) BASO % (test code 0.5 % = 706-2) GRAN MAT 6.21 10*3/uL 1.88-7.09 x10^3(ANC) (test code = 1535969776) IMM GRAN x10^3 0.05 10*3/uL 0.00-0.06 (test code = 1452123181) LYMPH x10^3 (test 2.36 10*3/uL 1.32-3.29 code = 731-0) MONO x10^3 (test 0.50 10*3/uL 0.33-0.92 code = 742-7) EOS x10^3 (test 0.18 10*3/uL 0.03-0.39 code = 711-2) BASO x10^3 (test 0.05 10*3/uL 0.01-0.07 code = 704-7) [facility] CenterPO[facility] [id number] 15:11:00 Test Item Value Reference Range Interpretation Comments POCT PREG (test code = 1605) positive On board controls acceptable with present C Line (test code = 3574) POCT PREG LOT # (test code = 3575) [id number] POCT PREG TEST DATE (test 05/24/2022 code = 3576) Lab Interpretation (test code = Normal 43197-0) [facility] CenterCOVID-19 (ID NOW RAPID TESTING)2020-06-06 00:41:00 Test Item Value Reference Range Interpretation Comments SARS-CoV-2 Rapid ID NOW Not Detected Not Detected (test code = 84570-7) LUC (test code = LUC) ID NOW COVID-19 Assay is an isothermal nucleic acid amplification test intended for the qualitative detection of nucleic acid from SARS-CoV-2 viral RNA in nasopharyngeal (STONE ROUGHER) specimens. It is used under Emergency Use [...] indicated. Lab Interpretation Normal (test code = 57937-3) [facility] [id number] 00:35:38 No acute intracranial abnormality.EXAM: CT HEAD WO CONTRAST HISTORY: Head trauma, headache TECHNIQUE: CT of the head was performed without intravenous contrast.Sagittal and coronal reformats were generated. COMPARISON: None. FINDINGS: The ventricles and sulci are normal in caliber and configuration. N ohydrocephalus, midline shift or pathological extra-axial fluid collectionis [...] no acute intracranial hemorrhage or significant mass effect.Noparenchymal attenuation abnormality. The godfrey-white matter differentiationis preserved.The mastoidair cells and paranasal air sinuses are clear. The calvariumand central skull base are unremarkable.IMPRESSIONNo acute intracranial abnormality. [facility] ([id number])2020-06-06 00:24:00 Test Item Value Reference Range Interpretation Comments NA (test code = 139 mmol/L 135-145 9335091750) K (test code = 3.9 mmol/L 3.5-5 1828725366) CL (test code = 104 mmol/L 98-108 7041331931) CO2 TOTAL (test code = 26 mmol/L 23-31 6325645790) AGAP (test code = 2-16 3461301361) BUN (test code = 12 mg/dL 7-23 3528907498) GLUCOSE (test code = 105 mg/dL 70-110 0353622384) CREATININE (test code = 0.56 mg/dL 0.5-1.04 7849766775) TOTAL BILI (test code = 0.5 mg/dL 0.1-1.2 5321407684) CALCIUM (test code = 8.6 mg/dL 8.6-10.6 2121681115) T PROTEIN (test code = 7.5 g/dL 6.3-8.2 5241696126) ALBUMIN (test code = 4.2 g/dL 3.5-5 3444081042) ALK PHOS (test code = 100 U/L 34-122 2320095324) ALTv (test code = 40 U/L 5-35 H 1742-6) AST(SGOT) (test code = 29 U/L 13-40 3693881056) eGFR Calculation mL/min/1.73m2 (Non-) (test code = 1752245842) eGFR Calculation mL/min/1.73m2 () (test code = 6956143177) LUC (test code = LUC) Association of [...] tests). Lab Interpretation Abnormal (test code = 98926-6) [facility]inalysis[facility]21[facility] 00:23:00 Test Item Value Reference Range Interpretation Comments APPEARANCE (test code = Cloudy Clear A 7331170627) COLOR (test code = Yellow Yellow 9007957910) PH (test code = 4.8-8.0 5603436155) SP GRAVITY (test code = 1.003-1.030 1745662650) GLU U QUAL (test code = Normal Normal 4086870045) BLOOD (test code = 2+ Negative A 0559148774) KETONES (test code = Negative Negative 8205260786) PROTEIN (test code = Negative Negative 2887-8) UROBILIN (test code = 2.0 mg/dL Normal A 2460950640) BILIRUBIN (test code = Negative Negative 6340120545) NITRITE (test code = Negative Negative 5960497105) LEUK SHAKILA (test code = Negative Negative 5314525838) RBC/HPF (test code = See_Comment H [Autom ated message] 2904496398) The system [employer] generated this result transmit chris reference range : 0 - 3 HPF. The refe rence range was not u sed to interpret th is result as normal/abnormal . WBC/HPF (test code = See_Comment H [Autom ated message] 8230610582) The system [employer] generated this result transmit chris reference range : 0 - 5 HPF. The refe rence range was not u sed to interpret th is result as normal/abnormal . BACTERIA (test code = Few Negative A 1140683361) MUCOUS (test code = Slight Negative LPF A 1556264314) AMORPHOUS (test code = Few Rare HPF A 2576286175) SQ EPITH (test code = HPF 4210716568) Lab Interpretation (test Abnormal code = 65721-4) [facility] with [id number] 00:08:00 Test Item Value Reference Range Interpretation Comments WBC (test code = See_Comment [Automated 0490-2) message] The sy stem which generated this [...] (test code = 37.6 fL 39-49.9 L 18274-3) RDW-CV (test code = 12.3 % 12-15.5 788-0) PLT (test code = See_Comment [Automated 777-3) message] The sy stem which generated this result transmitted reference range : 166 - 358 10*3/ ?L. The reference r radha was not used to interpret this result as normal/abnormal . MPV (test code = 10.7 fL 9.5-12.9 60832-9) NRBC/100 WBC (test See_Comment [Automat ed code = 7909749236) message] The system which generated this result transmitted reference range : 0.0 - 10.0 /100 WBCs. The refer ence range was not u sed to interpret th is result as normal/abnormal . NRBC x10^3 (test code <0.01 See_Comment [Auto mated = 5240925100) message] The s ystem which generated this result transmitted reference range : 10*3/?L. The reference range was not used to interpret this result as normal/abnormal . GRAN MAT (NEUT) % 64.7 % (test code = 770-8) IMM GRAN % (test code 0.20 % = 0622134458) LYMPH % (test code = 27.2 % 736-9) MONO % (test code = 5.6 % 5905-5) EOS % (test code = 1.9 % 713-8) BASO % (test code = 0.4 % 706-2) GRAN MAT x10^3(ANC) 5.94 10*3/uL 1.88-7.09 (test code = 1292913415) IMM GRAN x10^3 (test <0.03 0-0.06 code = 6161767377) LYMPH x10^3 (test code 2.50 10*3/uL 1.32-3.29 = 731-0) MONO x10^3 (test code 0.51 10*3/uL 0.33-0.92 = 742-7) EOS x10^3 (test code = 0.17 10*3/uL 0.03-0.39 711-2) BASO x10^3 (test code 0.04 10*3/uL 0.01-0.07 = 704-7) Lab Interpretation Abnormal (test code = 25015-6) [facility] [id number] 00:00:00 Test Item Value Reference Range Interpretation Comments POCT PREG (test code = 1605) negative On board controls acceptable with present C Line (test code = 3574) POCT PREG LOT # (test code = 3575) [id number] POCT PREG TEST DATE (test 01/22/2022 code = 3576) Lab Interpretation (test code = Normal 89711-4) [facility] GLUCOSE (AUTOMATED)2020-06-05 22:57:00 Test Item Value Reference Range Interpretation Comments POCT GLU (test code = 5099063541) 105 mg/dL 70-110 Lab Interpretation (test code = Normal 47201-7) [facility]inalysis2020-[facility] 06:39:00 Test Item Value Reference Range Interpretation Comments APPEARANCE (test code = Clear Clear 4948940426) COLOR (test code = Yellow Yellow 5768431042) PH (test code = 4.8-8.0 7520520103) SP GRAVITY (test code = 1.003-1.030 H 2099652888) GLU U QUAL (test code = Normal Normal 6177115381) BLOOD (test code = 2+ Negative A 9524480157) KETONES (test code = Negative Negative 5280498399) PROTEIN (test code = Negative Negative 2887-8) UROBILIN (test code = Normal Normal 0708270603) BILIRUBIN (test code = Negative Negative 8606285768) NITRITE (test code = Negative Negative 1779835357) LEUK SHAKILA (test code = 75/uL Negative A 4015868453) RBC/HPF (test code = See_Comment [Autom ated message] 6200307318) The system [employer] generated this result transmitted ref erence range: 0 - 3 HP F. The reference range was not used to int erpret this result as normal/abnormal . WBC/HPF (test code = See_Comment H [Autom ated message] 6659896068) The system [employer] generated this result transmitted ref erence range: 0 - 5 HP F. The reference range was not used to int erpret this result as normal/abnormal . BACTERIA (test code = Few Negative A 5435514046) SQ EPITH (test code = HPF 8082832471) Lab Interpretation (test Abnormal code = 64846-0) [facility]PREG[facility] TEST, [id number] 04:36:00 Test Item Value Reference Range Interpretation Comments PREG SERUM (test code Negative = 4833236127) LUC (test code = LUC) Less than 10 IU/L. ?If low titer or ectopic is suspected, resubmit specimen in 48-72 hours. [facility] CenterCOVID-19 (ID NOW RAPID TESTING)2019-12-20 04:33:00 Test Item Value Reference Range Interpretation Comments SARS-CoV-2 Rapid ID NOW Not Detected Not Detected (test code = 23699-0) LUC (test code = LUC) ID NOW COVID-19 Assay is an isothermal nucleic acid amplification test intended for the qualitative detection of nucleic acid from SARS-CoV-2 viral RNA in nasopharyngeal (STONE ROUGHER) specimens. It is used under Emergency Use [...] indicated. Lab Interpretation Normal (test code = 89207-2) [facility] CenterComplete Metabolic [id number] 04:17:00 Test Item Value Reference Range Interpretation Comments NA (test code = 137 mmol/L 135-145 5378598351) K (test code = 3.8 mmol/L 3.5-5 0632853628) CL (test code = 103 mmol/L 98-108 8522937927) CO2 TOTAL (test code = 25 mmol/L 23-31 7717036898) AGAP (test code = 2-16 9608375404) BUN (test code = 12 mg/dL 7-23 3624083994) GLUCOSE (test code = 175 mg/dL 70-110 H 8431178315) CREATININE (test code = 0.58 mg/dL 0.5-1.04 7926223920) TOTAL BILI (test code = 0.6 mg/dL 0.1-1.4 5144320077) CALCIUM (test code = 9.2 mg/dL 8.6-10.6 3811260184) T PROTEIN (test code = 8.1 g/dL 6.3-8.2 4678268626) ALBUMIN (test code = 4.3 g/dL 3.5-5 8714630669) ALK PHOS (test code = 93 U/L 34-122 0075135239) ALTv (test code = 29 U/L 5-35 1742-6) AST(SGOT) (test code = 29 U/L 13-40 7851219516) eGFR Calculation mL/min/1.73m2 (Non-) (test code = 8749903160) eGFR Calculation mL/min/1.73m2 () (test code = 8429672361) LUC (test code = LUC) Association of [...] tests). Lab Interpretation Abnormal (test code = 97844-5) [facility] CenterLipase, [id number] 04:17:00 Test Item Value Reference Range Interpretation Comments LIPASE (test code = 2573243934) 88 U/L 0-220 Lab Interpretation (test code = Normal 67582-5) [facility] CenterCB with [id number] 04:03:00 Test Item Value Reference Range Interpretation [...] RDW-SD (test code = 39.4 fL 39-49.9 20009-8) RDW-CV (test code = 12.4 % 12-15.5 788-0) PLT (test code = See_Comment [Automated 777-3) message] The sy stem which generated this result transmitted reference range : 166 - 358 10*3/ ?L. The reference r radha was not used to interpret this result as normal/abnormal . MPV (test code = 11.2 fL 9.5-12.9 35477-4) NRBC/100 WBC (test See_Comment [Automat ed code = 5372111174) message] The system which generated this result transmitted reference range : 0.0 - 10.0 /100 WBCs. The refer ence range was not u sed to interpret th is result as normal/abnormal . NRBC x10^3 (test code <0.01 See_Comment [Auto mated = 2049682265) message] The s ystem which generated this result transmitted reference range : 10*3/?L. The reference range was not used to interpret this result as normal/abnormal . GRAN MAT (NEUT) % 75.2 % (test code = 770-8) IMM GRAN % (test code 0.60 % = 7692199399) LYMPH % (test code = 18.2 % 736-9) MONO % (test code = 4.7 % 5905-5) EOS % (test code = 1.0 % 713-8) BASO % (test code = 0.3 % 706-2) GRAN MAT x10^3(ANC) 9.05 10*3/uL 1.88-7.09 H (test code = 7770446857) IMM GRAN x10^3 (test 0.07 10*3/uL 0-0.06 H code = 7642750244) LYMPH x10^3 (test code 2.19 10*3/uL 1.32-3.29 = 731-0) MONO x10^3 (test code 0.57 10*3/uL 0.33-0.92 = 742-7) EOS x10^3 (test code = 0.12 10*3/uL 0.03-0.39 711-2) BASO x10^3 (test code 0.04 10*3/uL 0.01-0.07 = 704-7) Lab Interpretation Abnormal (test code = 23328-7) [facility]"
[2022-02-03 11:46] LABS: Absolute Lymphocytes (CBC) 1.8 K/uL (0.7-4.9); Lymphocytes % 19.2 % (15.3-44.8); MCV 82.8 fL (80-100); MPV 9.2 fL (7.6-11.3); RBC Red Blood Cell Count 4.59 M/uL (3.86-4.86)
[2022-02-03 11:59] LABS: Potassium 4.1 mmol/L (3.5-5.1)
[2022-02-03] MEDS ORDERED: INSULIN -REGULAR HUMAN 50 UNIT/0.5 ML ML ONE (12:33)
[2022-02-03] MEDS ORDERED: NA CHLORIDE 0.9% 1,000 ML ONE (12:33)
--- NOTE | 2022-02-03 13:19 | RAD REPORT ---
EXAM DESCRIPTION: Michael Single View02/03/2022 1:12 pm CLINICAL HISTORY: cough COMPARISON: November 2021 FINDINGS: The lungs appear clear of acute infiltrate. The heart is normal size IMPRESSION: No acute abnormalities displayed
--- NOTE | 2022-02-03 14:14 | ER ---
Nurse's Notes [facility] Name: Nita Fox Age: 31 yrs Sex: Female : 1990 Arrival Date: 02/03/2022 Time: 11:01 Bed 12 Private MD: Diagnosis: Acute pharyngitis, unspecified;Hyperglycemia, unspecified Presentation: 02/03 11:12 Chief complaint: Patient states: sore throat, chest pain, back pain, and cough that aa5 began 2 weeks ago. Onset of symptoms was January 2022. 11:12 Method Of Arrival: Ambulatory aa5 11:12 Coronavirus screen: cough unrelated to allergies, sore throat. Ebola Screen: Patient aa5 denies travel to an Ebola-affected area in the 21 days before illness onset. Initial Sepsis Screen: Does the patient meet any 2 criteria? No. Patient's initial sepsis screen is negative. Does the patient have a suspected source of infection? Yes:. Risk Assessment: Do you want to hurt yourself or someone else? Patient reports no desire to harm self or others. 11:12 Acuity: SOREN 3 aa5 Triage Assessment: 12:30 Respiratory: Airway is patent Respiratory effort is even, unlabored, Respiratory em6 pattern is regular, symmetrical, Breath sounds are clear bilaterally. Onset: The symptoms/episode began/occurred 01/21/22. 12:30 General: Appears in no apparent distress. comfortable. em6 12:53 Respiratory: the patient has mild shortness of breath. 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 - Social history:: Smoking status: Patient denies any tobacco usage or history of. Screenin:32 Abuse screen: Denies threats or abuse. Nutritional screening: No deficits noted. em6 Tuberculosis screening: No symptoms or risk factors identified. Fall Risk IV access (20 points). Total Azevedo Fall Scale indicates No Risk (0-24 pts). Assessment: 12:30 General: Appears in no apparent distress. comfortable, Behavior is calm, cooperative, em6 appropriate for age. Pain: Complains of pain in back of neck Pain currently is 4 out of 10 on a pain scale. Quality of pain is described as crampy. Neuro: Celeste Agitation-Sedation Scale (RASS): 0 - Alert and Calm Level of Consciousness is awake, alert, obeys commands, Oriented to person, place, time, situation. Cardiovascular: Heart tones present Capillary refill < 3 seconds Patient's skin is warm and dry. Respiratory: Reports cough that is non-productive, pain with cough Airway is patent Respiratory effort is even, unlabored, Respiratory pattern is regular, symmetrical, Breath sounds are clear bilaterally. GI: No signs and/or symptoms were reported involving the gastrointestinal system. : No signs and/or symptoms were reported regarding the genitourinary system. EENT: Derm: No signs and/or symptoms reported regarding the dermatologic system. Musculoskeletal: No signs and/or symptoms reported regarding the musculoskeletal system. 13:30 Reassessment: Patient appears in no apparent distress at this time. Patient and/or em6 family updated on plan of care and expected duration. Pain level reassessed. Patient is alert, oriented x 3, equal unlabored respirations, skin warm/dry/pink. 14:30 Reassessment: Patient appears in no apparent distress at this time. Patient and/or em6 family updated on plan of care and expected duration. Pain level reassessed. Patient is alert, oriented x 3, equal unlabored respirations, skin warm/dry/pink. Vital Signs: 11:12 BP 145 / 100; Pulse 94; Resp 18 S; Temp 98.4(TE); Pulse Ox 98% on R/A; Weight 117.93 kg aa5 (R); Height 5 ft. 7 in. (170.18 cm) (R); 14:10 BP 150 / 92; Pulse 75; Resp 18; Pulse Ox 99% ; em6 11:12 Body Mass Index 40.72 (117.93 kg, 170.18 cm) aa5 ED Course: 11:01 Patient arrived in ED. rg4 11:06 Nicholas Green PA is PHCP. [facility] 11:06 Elias Tyler MD is Attending Physician. jmm 11:12 Arm band placed on. aa5 11:13 Triage completed. aa5 12:32 Patient has correct armband on for positive identification. em6 13:14 Chest Single View XRAY In Process Unspecified. EDMS 14:34 No provider procedures requiring assistance completed. IV discontinued, intact, em6 bleeding controlled, No redness/swelling at site. Pressure dressing applied. Administered Medications: 12:29 Drug: Insulin Regular Human 10 units {Co-Signature: oumar (Gold Webster RN).} Route: em6 IVP; Site: right antecubital; 13:20 Follow up: Response: No adverse reaction em6 12:30 Drug: NS 0.9% 1000 ml Route: IV; Rate: 1 bolus; Site: right antecubital; em6 14:24 Follow up: Response: No adverse reaction; IV Status: Completed infusion; IV Intake: em6 1000ml Medication: 12:32 VIS not applicable for this client. em6 Point of Care Testing: Blood Glucose: 11:22 Blood Glucose: 389 mg/dL; aa5 Ranges: Intake: 14:24 IV: 1000ml; Total: 1000ml. em6 Outcome: 14:14 Discharge ordered by MD. [facility] 14:35 Discharged to home ambulatory. em6 14:35 Condition: stable 14:35 Discharge instructions given to patient, Instructed on discharge instructions, follow up and referral plans. medication usage, Demonstrated understanding of instructions, follow-up care, medications, Prescriptions given X 3. 14:35 Patient left the ED. em6 Signatures: Dispatcher [employer] EDMS Nicholas Green PA PA [facility] Joann Gupta, RN RN aa5 Viki Fleming4 Rita Price RN RN em6 Gold Webster RN jd3 Corrections: (The following items were deleted from the chart) 11:15 11:12 Acuity: SOREN 4 aa5 aa5 11:17 11:12 Pulse 94bpm; Resp 18bpm; Spontaneous; Pulse Ox 98% RA; Temp 98.4F Temporal; aa5 117.93 kg Reported; Height 5 ft. 7 in. Reported; BMI: 40.7; aa5 12:53 12:30 Respiratory: Reports cough that is non-productive, pain with cough Airway is em6 patent Respiratory effort is even, unlabored, Respiratory pattern is regular, symmetrical, em6 12:53 12:49 Respiratory: em6 em6
--- NOTE | 2022-02-03 14:14 | EDPHYS ---
Physician Documentation [facility] Name: Nita Fox Age: 31 yrs Sex: Female : 1990 Arrival Date: 02/03/2022 Time: 11:01 Bed 12 Private MD: DMITRIY Physician Elias Tyler HPI: 02/03 11:22 The patient or guardian reports cough. Onset: The symptoms/episode began/occurred [facility] gradually, 2 week(s) ago. 14:11 This is a 31-year-old female with history of diabetes mellitus that presents emerged [facility] part with complaints of cough congestion, sore throat beginning approximately 2 weeks ago. Patient is complains of increased cough and shortness of breath throughout. Also states generalized fatigue. Patient states she has been taking metformin. Patient is unsure of her current BGL. Denies vomiting.. 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 - Social history:: Smoking status: Patient denies any tobacco usage or history of. ROS: 14:11 Constitutional: Positive for body aches, chills, fatigue. [facility] 14:11 ENT: Positive for sinus congestion, sore throat. 14:11 Respiratory: Positive for cough. 14:11 All other systems are negative. Exam: 14:11 Head/Face: atraumatic. Eyes: EOMI, no conjunctival erythema appreciated [facility] 14:11 Neck: Trachea midline, Supple Chest/axilla: Normal chest wall appearance and motion. Cardiovascular: Regular rate and rhythm. No edema appreciated Respiratory: Normal respirations, no respiratory distress appreciated Abdomen/GI: Non distended Back: Normal ROM Skin: General appearance color normal MS/ Extremity: Moves all extremities, no obvious deformities appreciated, no edema noted to the lower extremities Neuro: Awake and alert Psych: Behavior is normal, Mood is normal, Patient is cooperative and pleasant 14:11 Constitutional: The patient appears alert, awake, uncomfortable. 14:11 ENT: Mild pharyngeal erythema, no uvular shift, no peritonsillar mass appreciated. Vital Signs: 11:12 BP 145 / 100; Pulse 94; Resp 18 S; Temp 98.4(TE); Pulse Ox 98% on R/A; Weight 117.93 kg aa5 (R); Height 5 ft. 7 in. (170.18 cm) (R); 14:10 BP 150 / 92; Pulse 75; Resp 18; Pulse Ox 99% ; em6 11:12 Body Mass Index 40.72 (117.93 kg, 170.18 cm) aa5 MDM: 11:37 Patient medically screened. [facility] 14:12 Data reviewed: vital signs, nurses notes. Counseling: I had a detailed discussion with neelima the patient and/or guardian regarding: the historical points, exam findings, and any diagnostic results supporting the discharge/admit diagnosis, lab results, radiology results, the need for outpatient follow up, to return to the emergency department if symptoms worsen or persist or if there are any questions or concerns that arise at home. ED course: Patient is alert nontoxic in appearance in the ED. No signs of respiratory distress. Patient vies follow-up PCP otherwise given strict return precautions. BGL elevated but I do not currently suspect DKA.. 02/03 11:19 Order name: Flu; Complete Time: 12:16 [facility] 02/03 11:19 Order name: Strep; Complete Time: 12:16 [facility] 02/03 11:19 Order name: SARS-COV-2 RT PCR (Document "Date of Onset" if Symptomatic); Complete Time: aa 13:10 02/03 11:24 Order name: CBC with Diff; Complete Time: 11:48 [facility] 02/03 11:24 Order name: BMP; Complete Time: 12:01 [facility] 02/03 11:34 Order name: Glucose, Ancillary Testing; Complete Time: 11:37 [facility] 02/03 11:20 Order name: FSBS; Complete Time: 11:22 [facility] 02/03 11:21 Order name: Chest Single View XRAY; Complete Time: 13:24 [facility] 02/03 11:24 Order name: Saline Lock; Complete Time: 12:30 [facility] 02/03 12:12 Order name: Throat Culture EDMS 02/03 13:47 Order name: FSBS; Complete Time: 14:24 em6 02/03 14:12 Order name: Glucose, Ancillary Testing; Complete Time: 14:17 EDMS Administered Medications: 12:29 Drug: Insulin Regular Human 10 units {Co-Signature: jd3 (Gold Webster RN).} Route: em6 IVP; Site: right antecubital; 13:20 Follow up: Response: No adverse reaction em6 12:30 Drug: NS 0.9% 1000 ml Route: IV; Rate: 1 bolus; Site: right antecubital; em6 14:24 Follow up: Response: No adverse reaction; IV Status: Completed infusion; IV Intake: em6 1000ml Point of Care Testing: Blood Glucose: 11:22 Blood Glucose: 389 mg/dL; aa5 Ranges: Critical Glucose Levels:Adult <50 mg/dl or >400 mg/dl <40 mg/dl or >180 mg/dl Disposition Summary: 02/03/22 14:14 Discharge Ordered Location: Home [facility] Condition: Stable [facility] Diagnosis - Acute pharyngitis, unspecified jm - Hyperglycemia, unspecified jmm Followup: jmm - With: Private Physician - When: 2 - 3 days - Reason: Recheck today's complaints, Continuance of care, Re-evaluation by your physician Discharge Instructions: - Discharge Summary Sheet [facility] - Hyperglycemia jm - Pharyngitis [facility] Forms: - Medication Reconciliation Form [facility] - Thank You Letter [facility] - Antibiotic Education [facility] - Prescription Opioid Use [facility] Prescriptions: - Metformin 1,000 mg Oral Tablet - take 1 tablet by ORAL route every 12 hours with morning and evening meals; 60 jmm tablet; Refills: 0, Product Selection Permitted - albuterol sulfate 90 mcg/actuation Inhalation HFA aerosol inhaler - inhale 2 puff by INHALATION route every 4 hours; 1 Pump; Refills: 0, Product [facility] Selection Permitted - Zithromax Z-Catracho 250 mg Oral Tablet - take 1 tablet by ORAL route as directed for 5 days Day 1 - take two (2) tablets [facility] one time. Day 2, 3, 4 , 5 take one (1) tablet once daily.; 6 tablet; Refills: 0, Product Selection Permitted Signatures: Dispatcher [facility] EDMS Mickail, Nicholas, PA PA jmm Gupta, Joann, RN RN aa5 Rita Price RN RN em6 Gold Webster RN jd3
[2022-02-03 14:58] VITALS: TEMP 98.4
[2022-02-03 15:01] VITALS: BP 150/92; O2SAT 99
== END 2022-02-03 14:35 | disposition home or self-care (01) ==
LOC: ER 10:54
DX: J02.9 Acute pharyngitis, unspecified (principal); E11.65 Type 2 diabetes mellitus with hyperglycemia; Z20.822 Contact with and (suspected) exposure to COVID-19; Z88.0 Allergy status to penicillin; Z88.2 Allergy status to sulfonamides; Z91.040 Latex allergy status; Z91.048 Other nonmedicinal substance allergy status
CPT/HCPCS: 36415; 71045; 80048; 82947; 85025; 87070; 87081; 87804; 96361; 96374; 99283; J1815; J7030; U0003

== ENCOUNTER 2022-05-28 10:13 | Emergency (ER) | payer SELFPAY ==
--- OUTSIDE RECORDS SUMMARY | 2022-05-28 10:19 | XMS REPORT | Continuity of Care Document ---
:1990 Author Organization [facility] t Address [address] [place] [address] Care Team Providers Name Role Phone CONRAD DENNIS Primary Care Physician Unavailable Doctor Unassigned, [place] Attending Clinician Unavailable MOMO CALIXTO Attending Clinician [...] it[facility] Me dical of of Branch 40.0-49.9 40.0-49.9 Disease Active U nivers care and care and 9-18 ity of examinatio examinatio 00:00: Ashu quevedo n of n of 00 Medical lactating lactating Bran ch mother mother Acute Acute Disease Active Univers headache headache 8-24 ity of 00:00: [place] [facility] Elevated Elevated Disease Active Unive rs blood blood 8-24 ity of pressure pressure 00:00: [place] [facility] Diet Diet Disease Active Univers controlled controlled 12-23 it y of gestationa gestationa 00:00: Ashu quevedo l diabetes l diabetes 00 Me dical mellitus mellitus Branch (GDM), (GDM), antepartum antepartum Obesity in Obesity in Disease Active U nivers 5-30 ity of 00:00: [place] [facility] Allergies, Adverse Reactions, Alerts Allergy [...] Quantity Comments Source Exposure to Not sure [facility] SARS-CoV-2 (event) Medica l Branch Alcohol intake 2021-03-30 2021-03-30 0 /d [facility] 00:00:00 00:00:00 Medical Branch Tobacco use and 2012-07-20 2012-07-20 Never used [facility] exposure 00:00:00 00:00:00 Medical Branch Sex [birth year] [facility] 00:00:00 00:00:00 Medical Branch Smoking Status Start Date Stop Date Source Never smoker [facility] Medical Branch Medications Ordered Filled Start Stop Current Ordering Indication Dosage Frequency Signature Comments Components Source Medication Medication Date Date Medication? Clinician (SIG) Name Name metFORMIN 2020-05 Yes 500mg Take 500 Uni vers 500 mg 1-10 mg by ity of tablet 04:43: mouth 2 [place] (two) Medical times Branch daily with meals. metFORMIN 2020-05 Yes 500mg Take 500 Uni vers 500 mg 1-10 mg by ity of tablet 04:43: mouth 2 [place] (two) Medical times Branch daily with meals. 2020-05- No [id number] 1{tbl} Take 1 Univers vitamin 1-09 12-10 tablet by ity of w/FA tablet 00:00[place] 05[place] daily for Medical 30 days. Branch 2020-05- No [id number] 1{tbl} Take 1 Univers vitamin 1-09 12-10 tablet by ity of w/FA tablet 00:00: 05[place] :[place] daily for Medical 30 days. Branch 2020-05- No [id number] 1{tbl} Take 1 Univers vitamin 1-09 12-10 tablet by ity of w/FA tablet 00:00: 05:59 [place] 00 :00 daily for Medical 30 days. Branch 2020-05- No [id number] 1{tbl} Take 1 Univers vitamin 1-09 12-10 [...] Branch daily with meals. Blood-Gluco 2020-05 Yes [id number] Use as Univers se Meter 1-08 directed ity of (RELION 00:00: [place] ALL-IN-ONE 00 Medical METER) Kit Branch Blood-Gluco 2020-05 Yes [id number] Use as Univers se Meter 1-08 directed ity of (RELION 00:00: [place] ALL-IN-ONE 00 Medical METER) Kit Branch Blood-Gluco 2020-05 Yes [id number] Use as Univers se Meter 1-08 directed ity of (RELION 00:00: [place] ALL-IN-ONE 00 Medical METER) Kit Branch Blood-Gluco 2020-05 Yes [id number] Use as Univers se Meter 1-08 directed ity of (RELION 00:00: [place] ALL-IN-ONE 00 Medical METER) Kit Branch SITagliptin 2020-05- No [id number] 50mg Take 1 Univers 50 mg 06-01 tablet by ity of tablet 00:00: 05:59 mouth [place] 00 :00 daily for Medical 30 doses. Branch SITagliptin 2020-05- No [id number] 50mg Take 1 Univers 50 mg 06-01 tablet by ity of tablet 00:00: 05:59 mouth [place] 00 :00 daily for Medical 30 doses. Branch SITagliptin 2020-05- No [id number] 50mg Take 1 Univers 50 mg 06-01 tablet by ity of tablet 00:00: 05:59 mouth [place] 00 :00 daily for Medical 30 doses. Branch SITagliptin 2020-05- No [id number] 50mg Take 1 Univers 50 mg 06-01 tablet by ity of tablet 00:00: 05:59 mouth [place] 00 :00 daily for Medical 30 doses. Branch cephALEXin 2020-05- No [id number] 500mg Take 1 Univers 500 mg 06-01 capsule by ity of capsule 00:00: 05:59 mouth 4 [place] 00 :00 (four) Medical times [place] daily for 4 days. cephALEXin 2020-05- No [id number] 500mg Take 1 Univers 500 mg 06-01 capsule by ity of capsule 00:00: 05:59 mouth 4 [place] 00 :00 (four) [facility] times [place] daily for 4 days. cefTRIAXone 2020-05 Yes 1000mg 1,000 mg, Univers (ROCEPHIN) 05-31 IV ity of 1,000 mg in 15:00: [place], [place] NaCl 0.9% 00 DAILY, Medical (NS) 50 mL First dose [facility] MINI-BAG (after last reorder) on [place] 03/31/21 at 0900, Until Discontinu ed, Administer over 30 Minutes, 50 mL
Reas on for Anti-Infec tive: Documented Infection< br>Documen chris Infection Site: Urine
D uration of Therapy: Other (see Comments) glipiZIDE 2020-05- No 2.5mg 2.5 mg, Uni vers (GLUCOTROL) 05-31 Oral, ity of tablet 2.5 13:30: 18:01 [place]AC, [place] mg 00 :58 First dose Medical [facility] 03/31/21 at 0730, Until Discontinu ed, Routine NaCl 0.9% 2020-05- No 500mL at 999 Univ ers (NS) bolus 05-31 mL/hr, 500 it y of infusion 09:00: 09:42 mL, IV [place] 500 mL 00 :[facility] ONCE, 1 Branch dose, On [place] 03/31/21 at 0300, STAT magnesium 2020-05 Yes 400mg 400 mg, Univ ers oxide 05-31 Oral, BID, ity of (MAG-OX 07:52: First dose [place] 400) tablet 59 on [place] Medica l 400 mg 03/31/21 at Branch 0800, Until Discontinu ed, Routine ferrous 2020-05 Yes 325mg 325 mg, Univer s sulfate 05-31 Oral, BID, ity of tablet 325 01:00: First dose [place] mg 00 on [facility] Medical 03/30/21 at Branch 2000, Until Discontinu [...] of 1,000 mg in 17:15: 16:42 [place], [place] NaCl 0.9% 00 :00 ONCE, 1 Medical (NS) 50 mL dose, On Bran h MINI-BAG [facility] 03/30/21 at 1215, Administer over 30 Minutes, 50 mL
Reas on for Anti-Infec tive: Documented Infection< br>Documen chris Infection Site: Urine<br&g t;Duration of Therapy: Other (see Comments) acetaminoph 2020-05- No 975mg 975 mg, U nivers en 05-30 Oral, ity of (TYLENOL) 16:30: 15:25 ONCE, 1 [place] tablet 975 00 :00 dose, On Medic al mg [facility] Branch 03/30/21 at 1130, JEWEL diphenhydrA 2020- No 25mg 25 mg, Uni vers MINE 06-06 Slow IV ity of (BENADRYL) 01:00: 00:04 Push, [place] injection 00 :00 ONCE, 1 Medical 25 mg dose, [facility] Branch 06/05/20 at 1900, STAT metoclopram 2020- No 10mg 10 mg, Uni vers win HCl 06-06 Slow IV ity of (REGLAN) 01:00: 00:04 Push, [place] injection 00 :00 ONCE, 1 Medical 10 mg dose, [facility] Branch 06/05/20 at 1900, JEWEL NaCl 0.9% 2020- No 1000mL at 999 Uni vers (NS) bolus 06-06 mL/hr, ity of infusion 00:00: 01:28 1,000 mL, [place] as 1,000 mL 00 :00 IV Medical Infusion, Branch ONCE, 1 dose, [facility] 06/05/20 at 1800, JEWEL NaCl 0.9% 2019- No 1000mL at 999 Uni vers (NS) bolus 12-19 07-28 mL/hr, ity of infusion 06:15: 06:00 1,000 mL, [place] as 1,000 mL 00 :00 IV Medical Infusion, [place] ONCE, 1 dose, 12/20/19 at 0115, STAT [...] dose, Mon Med ical mg 12/19/19 at [place] 2330, JEWEL morpHINE 2020-0 2020- No 4mg 4 mg, Slow Un efra injection 4 12-19 IV Push, ity of mg 04:30: 03:46 ONCE, 1 [place] 00 :00 dose, Mon Medical 12/19/19 at Branch 2330, STAT ondansetron 2020-0 Yes [id number] 4mg Take 1 Univers (ZOFRAN) 4 7-28 tablet by ity of mg tablet 00:00: mouth [place] 00 every 8 Medical (eight) Branch hours as needed for Nausea and Vomiting (N/V). esomeprazol 2020-0 Yes [id number] 20mg Take 20 mg Univers e (NEXIUM) 7-28 by mouth ity o f 20 mg 00:00: daily [place] capsule 00 before a Medical meal. [place] traMADol 50 2020-0 Yes [id number] 50mg Take 1 Univ ers mg tablet 7-28 tablet by ity o f 00:00: mouth [place] 00 every 6 Medical (six) Branch hours as needed for Pain (scale 4-6). Indication s: acute pain ondansetron 2020-0 Yes [id number] 4mg Take 1 Univers (ZOFRAN) 4 7-28 tablet by ity of mg tablet 00:00: mouth [place] 00 every 8 Medical (eight) Branch hours as needed for Nausea and Vomiting (N/V). ondansetron 2020-0 Yes [id number] 4mg Take 1 Univers (ZOFRAN) 4 7-28 tablet by ity of mg tablet 00:00: mouth [place] 00 every 8 Medical (eight) Branch hours as needed for Nausea and Vomiting (N/V). ondansetron 2020-0 Yes [id number] 4mg Take 1 Univers (ZOFRAN) 4 7-28 tablet by ity of mg tablet 00:00: mouth [place] 00 every 8 Medical (eight) Branch hours as needed for Nausea and Vomiting (N/V). esomeprazol 2020-0 Yes [id number] 20mg Take 20 mg Univers e (NEXIUM) [...] Indication s: acute pain ondansetron 2020-0 Yes [id number] 4mg Take 1 Univers (ZOFRAN) 4 7-28 tablet by ity of mg tablet 00:00: mouth [place] 00 every 8 Medical (eight) Branch hours as needed for Nausea and Vomiting (N/V). ondansetron 2020-0 Yes [id number] 4mg Take 1 Univers (ZOFRAN) 4 7-28 tablet by ity of mg tablet 00:00: mouth [place] 00 every 8 Medical (eight) Branch hours as needed for Nausea and Vomiting (N/V). ondansetron 2020-0 Yes [id number] 4mg Take 1 Univers (ZOFRAN) 4 7-28 tablet by ity of mg tablet 00:00: mouth [place] 00 every 8 Medical (eight) Branch hours as needed for Nausea and Vomiting (N/V). esomeprazol 2020-0 Yes [id number] 20mg Take 20 mg Univers e (NEXIUM) [...] s: acute pain esomeprazol 2020-0 2020- No [id number] 20mg Take 20 mg Univers e (NEXIUM) [...] Take with food or milk. Blood-Gluco Yes [id number] Use as Univers se Meter 8-11 directed ity of (FREESTYLE 00:00: [place] SYSTEM KIT) 00 [facility] blood sugar Yes [id number] Use as Univers diagnostic 8-11 directed ity o f (FREESTYLE 00:00: [place] TEST) strip 00 Medical Branch lancets Yes [id number] Use as U nivers gauge Misc 8-11 directed ity o f 00:00: [place] 00 [facility] Branch Blood-Gluco Yes [id number] Use as Univers se Meter 8-11 directed ity of (FREESTYLE 00:00: [place] SYSTEM KIT) 00 [facility] blood sugar Yes [id number] Use as Univers diagnostic 8-11 directed ity o f (FREESTYLE 00:00: [place] TEST) strip 00 Medical Branch lancets Yes [id number] Use as U nivers gauge Misc 8-11 directed ity o f 00:00: [place] 00 [facility] Branch Blood-Gluco Yes [id number] Use as Univers se Meter 8-11 directed ity of (FREESTYLE 00:00: [place] SYSTEM KIT) 00 [facility] blood sugar Yes [id number] Use as Univers diagnostic 8-11 directed ity o f (FREESTYLE 00:00: [place] TEST) strip 00 Medical Branch lancets Yes [id number] Use as U nivers gauge Misc 8-11 directed ity o f 00:00: [place] 00 Medical Branch Blood-Gluco 2017- Yes [id number] Use as Univers se Meter 8-11 directed ity of (FREESTYLE 00:00: [place] SYSTEM KIT) 00 Medical Kit Branch blood sugar 2016- Yes [id number] Use as Univers diagnostic 8-11 directed ity o f (FREESTYLE 00:00: [place] TEST) strip 00 Medical Branch lancets 28 Yes [id number] Use as U nivers gauge Misc 8-11 directed ity o f 00:00: [place] 00 Medical Branch Blood-Gluco 2016- Yes [id number] Use as Univers se Meter 8-11 directed ity of (FREESTYLE 00:00: [place] SYSTEM KIT) 00 Medical Kit Branch blood sugar Yes [id number] Use as Univers diagnostic 8-11 directed ity o f (FREESTYLE 00:00: [place] TEST) strip 00 Medical Branch lancets 28 Yes [id number] Use as U nivers gauge Misc 8-11 directed ity o f 00:00: [place] 00 Medical Branch Blood-Gluco 2016- Yes [id number] Use as Univers se Meter 8-11 directed ity of (FREESTYLE 00:00: [place] SYSTEM KIT) 00 Medical Kit Branch blood sugar Yes [id number] Use as Univers diagnostic 8-11 directed ity o f (FREESTYLE 00:00: [place] TEST) strip 00 Medical Branch lancets 28 Yes [id number] Use as U nivers gauge Misc 8-11 directed ity o f 00:00: [place] 00 Medical Branch Blood-Gluco 2016- Yes [id number] Use as Univers se Meter 8-11 directed ity of (FREESTYLE 00:00: [place] SYSTEM KIT) 00 Medical Kit Branch blood sugar 2016- Yes [id number] Use as Univers diagnostic 8-11 directed ity o f (FREESTYLE 00:00: [place] TEST) strip 00 Medical Branch lancets 28 Yes [id number] Use as U nivers gauge Misc 8-11 directed ity o f 00:00: [place] 00 Medical Branch 2017-0 Yes [id number] 1{packe Take 1 Univers vit 6-27 t} Packet by ity of 33-iron-fol 00:00: mouth [place] ic-dha 00 daily. Medical (SELECT-OB Branch + DHA) 29 mg iron-1 mg -250 mg combo pack Yes [id number] 1{packe Take 1 Univers vit 6-27 t} Packet by ity of 33-iron-fol 00:00: mouth [place] ic-dha 00 daily. Medical (SELECT-OB Branch + DHA) 29 mg iron-1 mg -250 mg combo pack Yes [id number] 1{packe Take 1 Univers vit 6-27 t} Packet by ity of 33-iron-fol 00:00: mouth [place] ic-dha 00 daily. Medical (SELECT-OB Branch + DHA) 29 mg iron-1 mg -250 mg combo pack 2020- No [id number] 1{packe Take 1 Univers vit 6-27 11-08 t} Packet by ity of 33-iron-fol 00:00: 00:00 [place] ic-dha 00 :00 daily. Medical (SELECT-OB Branch + DHA) 29 mg iron-1 mg -250 mg combo pack Immunizations Ordered Filled Immunization Date Status Comments [facility] e Immunization Name Name TDAP 2016-12-22 Completed University of 00:00:00 [facility] [place] [facility] TDAP 2016-12-22 Completed University of 00:00:00 [facility] [place] [facility] TDAP 2016-12-22 Completed University of 00:00: [facility] [place] [facility] TDAP 2016-12-22 Completed University of 00:00: [facility] [place] [facility] TDAP 2016-12-22 Completed University of 00:00: [facility] [place] [facility] TDAP 2016-12-22 Completed University of 00:00:00 [facility] [place] [facility] TDAP 2016-12-22 Completed University of 00:00:00 [facility] [place] [facility] TDAP 2012-08-26 Completed University of 00:00:00 [facility] [place] [facility] TDAP 2012-08-26 Completed University of 00:00:00 [place] [facility] [place] TDAP 2012-08-26 Completed University of 00:00:00 [place] [facility] [place] TDAP 2012-08-26 Completed University of 00:00:00 [place] [facility] [place] TDAP 2012-08-26 Completed University of 00:00:00 [facility] [place] [facility] TDAP 2012-08-26 Completed University of 00:00:00 [facility] [place] [facility] TDAP 2012-08-26 Completed University of 00:00:00 [facility] [place] [facility] Vital Signs Vital Name Observation Time Observation Value Comments Source Systolic blood 2021-04-16 19:53:00 145 mm[Hg] Univer sity of pressure [place] [facility] Diastolic blood 2021-04-16 19:53:00 87 mm[Hg] Unive rsity of pressure [place] [facility] Heart rate 2021-04-16 19:53:00 88 /min Universi ty of [place] [facility] Body temperature 2021-04-16 19:53:00 37.17 [place] Univ ersity of [place] [facility] Respiratory rate 2021-04-16 19:53:00 18 /min Univ ersity of [place] [facility] Body height 2021-04-16 19:53:00 170.2 cm Universi ty of [place] [facility] Body weight 2021-04-16 19:53:00 121.11 kg Universi ty of [place] [facility] BMI 2021-04-16 19:53:00 41.82 kg/m2 Universi ty of [place] [facility] Oxygen saturation in 2021-04-16 19:53:00 97 /min University of Arterial blood by [facility] thaddeus Pulse oximetry Branch Systolic blood 2021-04-01 21:39:00 134 mm[Hg] Univer sity of pressure [place] [facility] Diastolic blood 2021-04-01 21:39:00 76 mm[Hg] Unive rsity of pressure [place] [facility] Heart rate 2021-04-01 21:39:00 95 /min Universi ty of [place] [facility] Body temperature 2021-04-01 21:39:00 37.17 [place] Univ ersity of [place] [facility] Respiratory rate 2021-04-01 21:39:00 18 /min Univ ersity of [place] [facility] Oxygen saturation in 2021-04-01 21:39:00 98 /min University of Arterial blood by [facility] thaddeus Pulse oximetry Branch Body weight 2021-03-31 11:47:00 122.471 kg Universi ty of [place] [facility] BMI 2021-03-31 11:47:00 41.05 kg/m2 Universi ty of [place] [facility] Body height 2021-03-30 20:53:00 172.7 cm Universi ty of [place] [facility] Oxygen saturation in 2020-06-06 01:23:00 99 /min University of Arterial blood by [facility] thaddeus Pulse oximetry Branch Systolic blood 2020-06-06 01:23:00 121 mm[Hg] Univer sity of pressure [place] [facility] Diastolic blood 2020-06-06 01:23:00 81 mm[Hg] Unive rsity of pressure [place] [facility] Heart rate 2020-06-06 01:23:00 75 /min Universi ty of [place] [facility] Respiratory rate 2020-06-06 01:23:00 13 /min Univ ersity of [place] [facility] Body temperature 2020-06-05 22:49:00 37.17 [place] Univ ersity of [place] [facility] Body height 2020-06-05 22:49:00 170.2 cm Universi ty of [place] [facility] Body weight 2020-06-05 22:49:00 113.399 kg Universi ty of [place] [facility] BMI 2020-06-05 22:49:00 39.16 kg/m2 Universi ty of [place] [facility] Oxygen saturation in 2020-06-06 01:23:00 99 /min University of Arterial blood by [facility] Pulse oximetry Branch Systolic blood 2020-06-06 01:23:00 121 mm[Hg] Univer sity of pressure [place] [facility] Diastolic blood 2020-06-06 01:23:00 81 mm[Hg] Unive rsity of pressure [place] [facility] Heart rate 2020-06-06 01:23:00 75 /min Universi ty of [place] [facility] Respiratory rate 2020-06-06 01:23:00 13 /min Univ ersity of [place] [facility] Body temperature 2020-06-05 22:49:00 37.17 [place] Univ ersity of [place] [facility] Body height 2020-06-05 22:49:00 170.2 cm Universi ty of [place] [facility] Body weight 2020-06-05 22:49:00 113.399 kg Universi ty of [place] [facility] BMI 2020-06-05 22:49:00 39.16 kg/m2 Universi ty of [place] [facility] Respiratory rate 2019-12-20 08:00:00 18 /min Univ ersity of [place] [facility] Oxygen saturation in 2019-12-20 08:00:00 100 /min University of Arterial blood by [place] thaddeus Pulse oximetry Branch Systolic blood 2019-12-20 07:36:00 157 mm[Hg] Univer sity of pressure [place] [facility] Diastolic blood 2019-12-20 07:36:00 86 mm[Hg] Unive rsity of pressure [facility] [place] [facility] Heart rate 2019-12-20 07:36:00 97 /min Universi ty of [facility] [place] [facility] Body temperature 2019-12-20 02:48:00 38.11 [place] [facility] [place] [facility] Body weight 2019-12-20 02:48:00 121.11 kg Universi ty of [facility] [place] [facility] BMI 2019-12-20 02:48:00 41.82 kg/m2 Universi ty [facility] Respiratory rate 2019-12-20 08:00:00 18 /min Univ [facility] Oxygen saturation in 2019-12-20 08:00:00 100 /min [facility] Arterial blood by [facility] Pulse oximetry Branch Systolic blood 2019-12-20 07:36:00 157 mm[Hg] Univer sity of [facility] Diastolic blood 2019-12-20 07:36:00 86 mm[Hg] [facility] Heart rate 2019-12-20 07:36:00 97 /min Universi ty [facility] Body temperature 2019-12-20 02:48:00 38.11 Haydee [facility] Body weight 2019-12-20 02:48:00 121.11 kg Universi ty [facility] BMI 2019-12-20 02:48:00 41.82 kg/m2 Universi [facility] Procedures Procedure Date / Time Performing Clinician Source Performed AUTHORIZATION FOR RELEASE 2021-04-25 06:01:00 Doctor Unassigned, [facility] [place] [facility] Branch HB ABO GROUPING 2021-04-16 21:17:00 Momo Calixto [facility] COMP. METABOLIC PANEL 2021-04-16 21:16:00 [facility] ([id number]) [facility] TOTAL BETA HCG ASSAY 2021-04-16 21:16:00 Momo Calixto [facility] CBC WITH DIFF 2021-04-16 21:16:00 Momo Calixto [facility] URINALYSIS 2021-04-16 21:12:00 Momo Calixto [facility] US FIRST 2021-04-16 21:04:23 Momo Calixto [facility] TRIMESTER LESS THAN 14 Medical B ranch WEEKS WITH TRANSVAGINAL CONSENT/REFUSAL FOR 2021-04-16 19:43:33 Doctor Unassigned, [facility] DIAGNOSIS AND TREATMENT [place] [facility] POCT GLUCOSE (AUTOMATED) 2021-04-01 17:52:00 Juni Bojorquez [facility] POCT GLUCOSE (AUTOMATED) 2021-04-01 13:42:00 Juni Bojorquez [facility] POCT GLUCOSE (AUTOMATED) 2021-03-31 23:16:00 Juni Bojorquez [facility] POCT GLUCOSE (AUTOMATED) 2021-03-31 22:18:00 Juni Bojorquez [facility] POCT GLUCOSE (AUTOMATED) 2021-03-31 17:48:00 Juni Bojorquez [facility] POCT GLUCOSE (AUTOMATED) 2021-03-31 13:43:00 Juni Bojorquez [facility] PHOSPHORUS 2021-03-31 11:45:00 Juni Bojorquez [facility] MAGNESIUM 2021-03-31 11:45:00 Justin [facility] BASIC METABOLIC PANEL 2021-03-31 11:45:00 Juni Bojorquez [facility] (NA, K, CL, CO2, GLUCOSE, Medica l Branch BUN, CREATININE, CA) LIPID PANEL ([id number])(TOTAL 2021-03-31 11:45:00 Cleio Montoya [facility] CHOLESTEROL, [facility] TRIGLYCERIDES, HDL) CBC WITH DIFF 2021-03-31 11:45:00 Juni Bojorquez [facility] POCT GLUCOSE (AUTOMATED) 2021-03-31 02:21:00 Juni Bojorquez [facility] POCT GLUCOSE (AUTOMATED) 2021-03-30 22:20:00 Juni Bojorquez [facility] URINE CULTURE 2021-03-30 16:12:00 Jesus Bustillos [facility] CT HEAD WO CONTRAST 2021-03-30 15:39:00 Jesus Bustillos [facility] POCT TEST 2021-03-30 15:11:00 Jesus Bustillos [facility] URINALYSIS 2021-03-30 15:07:00 Jesus Bustillos [facility] MAGNESIUM 2021-03-30 15:05:00 Jesus Bustillos [facility] TROPONIN I 2021-03-30 15:05:00 Jesus Bustillos [facility] COMP. METABOLIC PANEL 2021-03-30 15:05:00 Jesus Bustillos [facility] ([id number]) [facility] TOTAL BETA HCG ASSAY 2021-03-30 15:05:00 Jesus Bustillos [facility] CBC WITH DIFF 2021-03-30 15:05:00 Jesus Bustillos [facility] GLYCOSYLATED HEMOGLOBIN 2021-03-30 15:05:00 Jesus Bustillos [facility] (A1C) [facility] PROTHROMBIN TIME / INR 2021-03-30 15:05:00 Jesus Bustillos [facility] ACTIVATED PARTIAL 2021-03-30 15:05:00 [facility] N-TERMINAL PRO-BNP 2021-03-30 15:05:00 Jesus Bustillos [facility] COVID-19 (ID NOW RAPID 2021-03-30 15:05:00 Jesus Bustillos [facility] TESTING) Medical Branch LAB ONLY COVID 2021-03-30 15:05:00 Jesus Bustillos [facility] INTERPRETATION [facility] HB ECG ROUTINE & RHYTHM 2021-03-30 15:01:[address] [facility] Branch NOTICE OF PRIVACY 2021-03-30 14:52:58 Doctor Unasssabine, [facility] PRACTICES [place] [facility] [place] CONSENT/REFUSAL FOR 2021-03-30 14:52:37 Doctor Unassigned, [facility] DIAGNOSIS AND TREATMENT [place] [facility] [place] CT HEAD WO CONTRAST 2020-06-06 00:27:52 Sanjeev Cifuentes [facility] POCT TEST 2020-06-06 00:00:00 Sanjeev Cifuentes [facility] COVID-19 (ID NOW RAPID 2020-06-06 00:00:00 Sanjeev Cifuentes [facility] TESTING) [facility] COMP. METABOLIC PANEL 2020-06-05 23:59:00 Sanjeev Cifuentes [facility] ([id number]) [facility] Branch CBC WITH DIFF 2020-06-05 23:59:00 Sanjeev Cifuentes [facility] URINALYSIS 2020-06-05 23:59:00 Sanjeev Cifuentes [facility] POCT GLUCOSE (AUTOMATED) 2020-06-05 22:53:00 Doctor Teja, [facility] [place] [facility] CONSENT/REFUSAL FOR 2020-06-05 22:37:42 Doctor Teja [facility] DIAGNOSIS AND TREATMENT [place] [facility] EKG-12 LEAD 2019-12-20 07:36:16 Glendy Hogan [facility] [facility] 2019-12-20 06:25:00 Reagan Sheikh [facility] TEST, SERUM 2019-12-20 03:47:00 Reagan Sheikh [facility] COVID-19 (ID NOW RAPID 2019-12-20 03:46:00 Glendy Hogan [facility] TESTING) Medical Branch LIPASE 2019-12-20 03:00:00 Reagan Sheikh [facility] COMP. METABOLIC PANEL 2019-12-20 03:00:00 Reagan Sheikh [facility] ([id number]) [facility] CBC WITH DIFF 2019-12-20 03:00:00 Reagan Sheikh [facility] NOTICE OF PRIVACY 2019-12-20 02:35:01 Doctor Teja [facility] PRACTICES [facility] CONSENT/REFUSAL FOR 2019-12-20 02:34:45 Doctor Teja [facility] DIAGNOSIS AND TREATMENT [facility] Encounters Start End Encounter Admission Attending Care Care Encounter Source Date/Time Date/Time Type Type Clinicians Facility Department ID 2021-03-23 Emergency [facility] [id number] Univers 16:53:27 [facility] 2021-03-22 Emergency [facility] [id number] Univers 09:09:31 [facility] 2022-05-09 2022-05-09 Outpatient [facility] [id number] Luis 09:35:30 09:35:30 [address] [place] 2022-05-02 2022-05-02 Outpatient [facility] [id number] Luis 09:50:44 09:50:44 [address] [place] 2022-05-01 2022-05-01 Outpatient [facility] [id number] 022 Luis 08:49:53 08:49:53 120[address] [place] 2022-04-30 2022-04-30 Outpatient [facility] [id number] Luis 13:28:36 13:28:36 [address] [place] 2021-04-25 2021-04-25 Orders Doctor ENRIQUE 1.2.840.114 [id number] Univers 00:00:00 00:00:00 Only Unassigned, NIHARIKA 350.1.13.10 ity of [place] [facility] 4.2.7.2.686 Benigno as [phone] [facility] [address] 2021-04-16 2021-04-16 Emergency X SINGER [facility] [[email or web address]] ERT [id number] Univers 13:56:00 16:58:00 MOMO isaiahjericho [facility] 2021-04-16 2021-04-16 Emergency [facility] [[email or web address]] [id number] Univers 13:56:00 16:58:00 Momo TRAMMELL 350.1.13.10 i [place] [id number] [facility] [address] 2021-04-02 2021-04-02 Patient Annie Huitron 1.2.840.114 [id number] Univers 00:00:00 00:00:00 Outreach E [place] 350.1.13.10 [place] [id number] [facility] [address] 2021-03-30 2021-04-01 Outpatient Rochelle BOJORQUEZ [facility] [[email or web address]] JEAN [id number] Univers 09:55:00 16:43:00 JUNI kong [facility] 2021-03-30 2021-04-01 Emergency Jesus Bustillos [facility] [[email or web address]] 1.2.840. 114 [id number] Univers 09:55:00 16:43:00 Juni Bojorquez VALERI 350.1.13.10 [facility]y [facility] 4.2.7.2.686 [facility] [phone] [facility] [address] 2021-03-30 2021-03-30 Orders Doctor ENRIQUE 1.2.840.114 [id number] Univers 00:00:00 00:00:00 Only Unassigned, NIHARIKA 350.1.13.10 ity of [place] [facility] 4.2.7.2.686 [facility] [id number] [facility] [address] 2020-06-05 2020-06-05 Emergency [place], [facility] [[email or web address]] 1.2.840.114 [id number] 16:50:00 19:31:00 Sanjeev B [place] 350.1.13.10 [place] 4.2.7.2.686 [place] [id number] [facility] 2020-06-05 2020-06-05 Emergency [place], [facility] [[email or web address]] 1.2.840.114 [id number] [facility] 16:50:00 19:31:00 Sanjeev B [place] 350.1.13.10 i ty of [place] 4.2.7.2.686 [facility] [id number] [address] 2019-12-19 2019-12-20 [facility] [id number] 21:39:31 03:45:00 Glendy S [place] 350.1.13.10 [place] 4.2.7.2.686 [place] [id number] [facility] 2019-12-19 2019-12-20 [facility] [id number] [facility] 21:39:31 03:45:00 Glendy S [place] 350.1.13.10 i ty of [place] 4.[address].7[address] [place] [id number] Results Test Description Test Time Test Comments Results Result Comments Source TOTAL BETA HCG ASSAY 2021-04-16 22:12:50 Test Item Value Reference Range Interpretation Comme nts BETA HCG (test code = See_Comment [Auto mated message] The [id number]) system which ge nerated this result transmit chris reference range : Non- fe male and male patients: <5 mIU/mL. The reference r radha was not used to interpr et this result as art l/abnormal. LUC (test code = LUC) Gestational Age ?Range (mIU/mL) 1-10 ?Weeks ?33-04469153-60 Weeks ?80082-47541266-99 Weeks ?0267-70974433-49 Weeks ?2292-052874 Biotin has been reported to cause a negative bias, interpret results relative to patient's use of biotin. [facility] - ONCE [id number] 21:58:37 Test Item Value Reference Range Interpretation Comments ABO & RH (test code O Positive Performe d at [facility] [[email or web address]] = 20) Laboratory Serv [facility] Blood Bank1 [address] [place] [address] Free: [phone] A No. [id number] IAT (test code = Negative Performed a t [facility] [[email or web address]] 1185) Laboratory [facility] Blood Bank1 [address] [place] [address] Free: [phone] A No. [id number] [facility] WITH [id number] 21:41:39 Test Item Value Reference Range Interpretation Comments WBC (test code = See_Comment [Automated message] 3090-2) The system [employer] generated this result transmitted ref erence range: 4.30 - 1 1.10 10*3/?L. The re ference range was not u sed to interpret this result as normal/abnor mal. RBC (test code = See_Comment [Automated message] 569-8) The system [employer] generated this result transmitted ref erence range: 3.93 - 5 .25 10*6/?L. The re ference range was not u sed to interpret this result as normal/abnor mal. HGB (test code = 12.9 g/dL 11.6-15.0 968-7) HCT (test code = 39.0 % 35.7-45.2 4544-3) MCV (test code = 87.6 fL 80.6-95.5 787-2) MCH (test code = 29.0 pg 25.9-32.8 785-6) MCHC (test code = 33.1 g/dL 31.6-35.1 786-4) RDW-SD (test code 43.0 fL 39.0-49.9 = 76178-9) RDW-CV (test code 13.4 % 12.0-15.5 = 788-0) PLT (test code = See_Comment [Automated message] 777-3) The system whic h generated this result transmitted ref erence range: 166 - 35 8 10*3/?L. The re ference range was not u sed to interpret this result as normal/abnor mal. MPV (test code = 10.7 fL 9.5-12.9 75858-8) NRBC/100 WBC (test See_Comment [Automat ed message] code = 8326274450) The syste m which generated this result transmitted ref erence range: 0.0 - 10 .0 /100 WBCs. The refer ence range was not u sed to interpret this result as normal/abnor mal. NRBC x10^3 (test <0.01 See_Comment [Automated message] code = 3383726399) The syste m which generated this result transmitted ref erence range: 10*3/?L. The reference range was not used to interpr et this result as normal/abnormal . GRAN MAT (NEUT) % 66.7 % (test code = 770-8) IMM GRAN % (test 0.20 % code = 6303323583) LYMPH % (test code 24.9 % = 736-9) MONO % (test code 5.8 % = 5905-5) EOS % (test code = 2.0 % 713-8) BASO % (test code 0.4 % = 706-2) GRAN MAT 5.95 10*3/uL 1.88-7.09 x10^3(ANC) (test code = 6612370165) IMM GRAN x10^3 <0.03 0.00-0.06 (test code = 9119702067) LYMPH x10^3 (test 2.23 10*3/uL 1.32-3.29 code = 731-0) MONO x10^3 (test 0.52 10*3/uL 0.33-0.92 code = 742-7) EOS x10^3 (test 0.18 10*3/uL 0.03-0.39 code = 711-2) BASO x10^3 (test 0.04 10*3/uL 0.01-0.07 code = 704-7) [facility] (99358)2021-04-16 21:38:39 Test Item Value Reference Range Interpretation Comments NA (test code = 134 mmol/L 135-145 L 6738437516) K (test code = 3.9 mmol/L 3.5-5.0 3724953392) CL (test code = 101 mmol/L 98-108 5613971432) CO2 TOTAL (test code = 27 mmol/L 23-31 4225597866) AGAP (test code = 2-16 0219581438) BUN (test code = 12 mg/dL 7-23 3061166105) GLUCOSE (test code = 95 mg/dL 70-110 1980216700) CREATININE (test code = 0.54 mg/dL 0.50-1.04 8079135940) TOTAL BILI (test code = 0.6 mg/dL 0.1-1.9 9946865133) CALCIUM (test code = 9.8 mg/dL 8.6-10.6 6381392920) T PROTEIN (test code = 7.5 g/dL 6.3-8.2 5547496240) ALBUMIN (test code = 4.2 g/dL 3.5-5.0 9340836989) ALK PHOS (test code = 98 U/L 34-122 3541425291) ALTv (test code = 46 U/L 5-35 H 1742-6) AST(SGOT) (test code = 48 U/L 13-40 H 2089482624) eGFR (test code = mL/min/1.73m2 7158513704) LUC (test code = LUC) Association of [...] tests). Lab Interpretation Abnormal (test code = 28646-6) [facility] GLUCOSE (AUTOMATED)2021-04-01 17:58:14 Test Item Value Reference Range Interpretation Comments POCT GLU (test code = 4005366827) 175 mg/dL 70-110 H Lab Interpretation (test code = Abnormal 46065-3) [facility] GLUCOSE (AUTOMATED)2021-04-01 13:49:38 Test Item Value Reference Range Interpretation Comments POCT GLU (test code = 0686691953) 209 mg/dL 70-110 H Lab Interpretation (test code = Abnormal 37748-9) [facility] GLUCOSE (AUTOMATED)2021-03-31 23:20:21 Test Item Value Reference Range Interpretation Comments POCT GLU (test code = 8235568021) 233 mg/dL 70-110 H Lab Interpretation (test code = Abnormal 39140-5) [facility] GLUCOSE (AUTOMATED)2021-03-31 22:33:33 Test Item Value Reference Range Interpretation Comments POCT GLU (test code = 8602992633) 219 mg/dL 70-110 H Lab Interpretation (test code = Abnormal 97331-1) [facility] GLUCOSE (AUTOMATED)2021-03-31 18:02:26 Test Item Value Reference Range Interpretation Comments POCT GLU (test code = 0497825236) 185 mg/dL 70-110 H Lab Interpretation (test code = Abnormal 98773-4) [facility] GLUCOSE (AUTOMATED)2021-03-31 13:47:03 Test Item Value Reference Range Interpretation Comments POCT GLU (test code = 3324313142) 244 mg/dL 70-110 H Lab Interpretation (test code = Abnormal 14008-8) [id number] 12:43:47 Test Item Value Reference Range Interpretation Comments MAGNESIUM (test code = 3587520697) 1.7 mg/dL 1.7-2.4 Lab Interpretation (test code = Normal 44644-1) [facility] (Total Cholesterol, Triglycerides, HDL) - [id number] 12:43:47 Test Item Value Reference Range Interpretation Comments CHOL (test code = 139 mg/dL 120-200 4062005347) HDL (test code = 39 mg/dL >50 L 6403164549) HDLC RATIO (test code = See_Comment [Au tomated message] 3607067212) The system [employer] generated this result transmit chris reference range : <=4.5. The refe rence range was not u sed to interpret th is result as normal/abnormal . TRIG (test code = 193 mg/dL 30-170 H 5160399808) LDL CHOL (test code = 61 mg/dL See_Comment [Auto mated message] 63135-0) The system [employer] generated this result transmit chris reference range : <=160. The refe rence range was not u sed to interpret th is result as normal/abnormal . VLDL (test code = 39 mg/dL 5-60 6033462745) Lab Interpretation (test Abnormal code = 41655-1) [facility] Metabolic Panel (NA, K, CL, CO2, GLUCOSE, BUN, CREATININE, CA)2021-03-31 12:43:26 Test Item Value Reference Range Interpretation Comments NA (test code = 132 mmol/L 135-145 L 1058924579) K (test code = 4.0 mmol/L 3.5-5.0 1714207291) CL (test code = 106 mmol/L 98-108 7195316494) CO2 TOTAL (test code = 21 mmol/L 23-31 L 6119380973) AGAP (test code = 2-16 8085342163) BUN (test code = 11 mg/dL 7-23 5936446619) GLUCOSE (test code = 240 mg/dL 70-110 H 2694151808) CREATININE (test code = 0.51 mg/dL 0.50-1.04 9790747692) CALCIUM (test code = 8.1 mg/dL 8.6-10.6 L 5540129317) eGFR (test code = mL/min/1.73m2 7837152095) LUC (test code = LUC) Association of [...] tests). Lab Interpretation Abnormal (test code = 54999-6) [facility] [id number] 12:43:26 Test Item Value Reference Range Interpretation Comments PHOSPHORUS (test code = 0465357818) 2.9 mg/dL 2.5-5.0 Lab Interpretation (test code = Normal 56331-3) [facility] with [id number] 12:26:41 Test Item Value Reference Range Interpretation Comments WBC (test code = See_Comment [Automated message] 6690-2) The system [employer] generated this result transmitted ref erence range: 4.30 - 1 1.10 10*3/?L. The re ference range was not u sed to interpret this result as normal/abnor mal. RBC (test code = See_Comment [Automated message] 789-8) The system [employer] generated this result transmitted ref erence range: [...] RDW-SD (test code 40.4 fL 39.0-49.9 = 11296-8) RDW-CV (test code 13.0 % 12.0-15.5 = 788-0) PLT (test code = See_Comment [Automated message] 777-3) The system [employer] generated this result transmitted ref erence range: 166 - 35 8 10*3/?L. The re ference range was not u sed to interpret this result as normal/abnor mal. MPV (test code = 11.2 fL 9.5-12.9 06796-4) NRBC/100 WBC (test See_Comment [Automat ed message] code = 5162630979) The syste m which generated this result transmitted ref erence range: 0.0 - 10 .0 /100 WBCs. The refer ence range was not u sed to interpret this result as normal/abnor mal. NRBC x10^3 (test <0.01 See_Comment [Automated message] code = 0967106620) The syste m which generated this result transmitted ref erence range: 10*3/?L. The reference range was not used to interpr et this result as normal/abnormal . GRAN MAT (NEUT) % 64.2 % (test code = 770-8) IMM GRAN % (test 0.50 % code = 3793234069) LYMPH % (test code 26.4 % = 736-9) MONO % (test code 6.3 % = 5905-5) EOS % (test code = 2.1 % 713-8) BASO % (test code 0.5 % = 706-2) GRAN MAT 4.95 10*3/uL 1.88-7.09 x10^3(ANC) (test code = 2167038752) IMM GRAN x10^3 0.04 10*3/uL 0.00-0.06 (test code = 6571588563) LYMPH x10^3 (test 2.04 10*3/uL 1.32-3.29 code = 731-0) MONO x10^3 (test 0.49 10*3/uL 0.33-0.92 code = 742-7) EOS x10^3 (test 0.16 10*3/uL 0.03-0.39 code = 711-2) BASO x10^3 (test 0.04 10*3/uL 0.01-0.07 code = 704-7) [facility] GLUCOSE (AUTOMATED)2021-03-31 04:15:32 Test Item Value Reference Range Interpretation Comments POCT GLU (test code = 1588996675) 214 mg/dL 70-110 H Lab Interpretation (test code = Abnormal 28639-2) [facility] GLUCOSE (AUTOMATED)2021-03-30 22:57:31 Test Item Value Reference Range Interpretation Comments POCT GLU (test code = 0818796966) 168 mg/dL 70-110 H Lab Interpretation (test code = Abnormal 56885-2) [facility]21[facility] 16:11:19 Test Item Value Reference Range Interpretation Comments APTT Patient (test See_Comment [Automat ed code = 3173-2) message] The system which generated this result transmitted reference range : 23 - 38 Seconds . The reference range was not used to interpr et this result as normal/abnormal . LUC (test code = LUC) The [facility] [[email or web address]] patient population mean normal value for aPTT is 30 seconds. Lab Interpretation Normal (test code = 36034-7) [facility]andPROTHROMBIN TIME / [id number] 16:09:22 Test Item Value Reference Range Interpretation [...] tions. Lab Interpretation (test Normal code = 86344-9) [facility] BHCG (QUANTITATIVE)2021-03-30 15:50:40 Test Item Value Reference Range Interpretation Comments BETA HCG (test See_Comment [Automated m essage] code = The system [employer] h 7537850762) generated this result transmit chris reference range : Non- fe male and male patien ts: <5 mIU/mL. The reference range was not used to interpret this result as normal/abnormal . LUC (test code Gestational Age ? ? = LUC) ?Range (mIU/mL) 1-10 ?Weeks ?22-15290504-96 Weeks ?91085-01108499-81 Weeks ?3807-58979807-30 Weeks ?3820-357338 Biotin has been reported to cause a negative bias, interpret results relative to patient's use of biotin. [facility]and[facility]YCOSYLATED HEMOGLOBIN (A1C)2021-03-30 15:50:34 Test Item Value Reference Range Interpretation Comments HGB A1C (test code = 9.7 % 4.0-5.7 H 4548-4) LUC (test code = LUC) Reference RangesNormal: <5.7%Prediabetes: 5.7 - 6.4%Diabetes: > 6.5% Lab Interpretation (test Abnormal code = 91905-8) [facility]andTROPONIN [id number] 15:44:00 Test Item Value Reference Interpretation Comments Range TROPONIN I (test 0.006 ng/mL See_Comment [Automated code = 2686152600) message] The system which generated this result [...] biotin. Lab Interpretation Normal (test code = 98931-0) [facility]and[facility]-TERMINAL [id number] 15:40:59 Test Item Value Reference Range Interpretation Comments NT-proBNP (test code 29 pg/mL See_Comment [Autom ated = 2908583797) message] The system which generated this result transmitted reference range : <=125. The reference range was not used to interpret this result as normal/abnormal . LUC (test code = LUC) Biotin has been reported to cause a negative bias, interpret results relative to patient's use of biotin. Lab Interpretation Normal (test code = 73448-5) [facility]OL[facility] PAN[facility] (85499)2021-03-30 15:32:19 Test Item Value Reference Range Interpretation Comments NA (test code = 132 mmol/L 135-145 L 9730125252) K (test code = 3.9 mmol/L 3.5-5.0 9713549141) CL (test code = 98 mmol/L 98-108 7820455009) CO2 TOTAL (test code = 23 mmol/L 23-31 7336811252) AGAP (test code = 2-16 2581301421) BUN (test code = 12 mg/dL 7-23 4129826237) GLUCOSE (test code = 269 mg/dL 70-110 H 0690034608) CREATININE (test code = 0.54 mg/dL 0.50-1.04 0355308372) TOTAL BILI (test code = 0.7 mg/dL 0.1-1.0 2813232280) CALCIUM (test code = 9.3 mg/dL 8.6-10.6 1887392478) T PROTEIN (test code = 7.7 g/dL 6.3-8.2 5593859282) ALBUMIN (test code = 4.2 g/dL 3.5-5.0 9628995803) ALK PHOS (test code = 142 U/L 34-122 H 3191335070) ALTv (test code = 28 U/L 5-35 2-6) AST(SGOT) (test code = 26 U/L 13-40 2780987955) eGFR (test code = mL/min/1.73m2 4145170070) LUC (test code = LUC) Association of [...] tests). Lab Interpretation Abnormal (test code = 19761-7) [facility]2021-[facility]-06 15:32:19 Test Item Value Reference Range Interpretation Comments MAGNESIUM (test code = 5714555301) 1.4 mg/dL 1.7-2.4 L Lab Interpretation (test code = Abnormal 63059-3) [facility] WITH [id number] 15:18:18 Test Item Value Reference Range Interpretation Comments WBC (test code = See_Comment [Automated message] 7990-2) The system [employer] generated this result transmitted ref erence range: 4.30 - 1 1.10 10*3/?L. The re ference range was not u sed to interpret this result as normal/abnor mal. RBC (test code = See_Comment [Automated message] 269-8) The system [employer] generated this result transmitted ref erence range: [...] RDW-SD (test code 39.5 fL 39.0-49.9 = 25659-9) RDW-CV (test code 12.9 % 12.0-15.5 = 788-0) PLT (test code = See_Comment [Automated message] 777-3) The system whic h generated this result transmitted ref erence range: 166 - 35 8 10*3/?L. The re ference range was not u sed to interpret this result as normal/abnor mal. MPV (test code = 10.8 fL 9.5-12.9 71946-9) NRBC/100 WBC (test See_Comment [Automat ed message] code = 9684340008) The syste m which generated this result transmitted ref erence range: 0.0 - 10 .0 /100 WBCs. The refer ence range was not u sed to interpret this result as normal/abnor mal. NRBC x10^3 (test <0.01 See_Comment [Automated message] code = 6111239746) The syste m which generated this result transmitted ref erence range: 10*3/?L. The reference range was not used to interpr et this result as normal/abnormal . GRAN MAT (NEUT) % 66.6 % (test code = 770-8) IMM GRAN % (test 0.50 % code = 5149419944) LYMPH % (test code 25.2 % = 736-9) MONO % (test code 5.3 % = 5905-5) EOS % (test code = 1.9 % 713-8) BASO % (test code 0.5 % = 706-2) GRAN MAT 6.21 10*3/uL 1.88-7.09 x10^3(ANC) (test code = 0468110317) IMM GRAN x10^3 0.05 10*3/uL 0.00-0.06 (test code = 1269264170) LYMPH x10^3 (test 2.36 10*3/uL 1.32-3.29 code = 731-0) MONO x10^3 (test 0.50 10*3/uL 0.33-0.92 code = 742-7) EOS x10^3 (test 0.18 10*3/uL 0.03-0.39 code = 711-2) BASO x10^3 (test 0.05 10*3/uL 0.01-0.07 code = 704-7) [facility] [id number] 15:11:00 Test Item Value Reference Range Interpretation Comments POCT PREG (test code = 1605) positive On board controls acceptable with present C Line (test code = 3574) POCT PREG LOT # (test code = 3575) [id number] POCT PREG TEST DATE (test 05/24/2022 code = 3576) Lab Interpretation (test code = Normal 76384-4) [facility] (ID NOW RAPID TESTING)2020-06-06 00:41:00 Test Item Value Reference Range Interpretation Comments SARS-CoV-2 Rapid ID NOW Not Detected Not Detected (test code = 16755-5) LUC (test code = LUC) ID NOW COVID-19 Assay is an isothermal nucleic acid amplification test intended for the qualitative detection of nucleic acid from SARS-CoV-2 viral RNA in nasopharyngeal ([employer]) specimens. It is used under Emergency Use [...] indicated. Lab Interpretation Normal (test code = 75600-5) [facility]andCT HEAD WO [id number] 00:35:38 No acute intracranial abnormality.EXAM: CT HEAD [...] base are unremarkable. [facility], Radiant Results Inft - 06/05/2020 6:36 PM CSTEXAM: CT HEAD [...] are unremarkable.IMPRESSIONNo acute intracranial abnormality. [facility]. METABOLIC PANEL (85560)2020-06-06 00:24:00 Test Item Value Reference Range Interpretation Comments NA (test code = 139 mmol/L 135-145 9372618258) K (test code = 3.9 mmol/L 3.5-5 8137570771) CL (test code = 104 mmol/L 98-108 4070192008) CO2 TOTAL (test code = 26 mmol/L 23-31 4498720225) AGAP (test code = 2-16 2030616690) BUN (test code = 12 mg/dL 7-23 6366681763) GLUCOSE (test code = 105 mg/dL 70-110 4117803659) CREATININE (test code = 0.56 mg/dL 0.5-1.04 8930812212) TOTAL BILI (test code = 0.5 mg/dL 0.1-1.4 9075343847) CALCIUM (test code = 8.6 mg/dL 8.6-10.6 5472182831) T PROTEIN (test code = 7.5 g/dL 6.3-8.2 7086930576) ALBUMIN (test code = 4.2 g/dL 3.5-5 7139185459) ALK PHOS (test code = 100 U/L 34-122 9435572568) ALTv (test code = 40 U/L 5-35 H 1742-6) AST(SGOT) (test code = 29 U/L 13-40 2953459505) eGFR Calculation mL/min/1.73m2 (Non-) (test code = 9163856751) eGFR Calculation mL/min/1.73m2 () (test code = 5694364576) LUC (test code = LUC) Association of [...] tests). Lab Interpretation Abnormal (test code = 66463-6) [facility]andUrinalysis2021-01-13 00:23:00 Test Item Value Reference Range Interpretation Comments APPEARANCE (test code = Cloudy Clear A 0133320015) COLOR (test code = Yellow Yellow 7964606135) PH (test code = 4.8-8.0 2612495668) SP GRAVITY (test code = 1.003-1.030 2193055335) GLU U QUAL (test code = Normal Normal 2131371478) BLOOD (test code = 2+ Negative A 3545644200) KETONES (test code = Negative Negative 9836974462) PROTEIN (test code = Negative Negative 2887-8) UROBILIN (test code = 2.0 mg/dL Normal A 0470781929) BILIRUBIN (test code = Negative Negative 9021137388) NITRITE (test code = Negative Negative 6942835011) LEUK SHAKILA (test code = Negative Negative 3057871722) RBC/HPF (test code = See_Comment H [Autom ated message] [id number]) The system [employer] generated this result transmit chris reference range : 0 - 3 HPF. The refe rence range was not u sed to interpret th is result as normal/abnormal . WBC/HPF (test code = See_Comment H [Autom ated message] [id number]) The system [employer] generated this result transmit chris reference range : 0 - 5 HPF. The refe rence range was not u sed to interpret th is result as normal/abnormal . BACTERIA (test code = Few Negative A [id number]) MUCOUS (test code = Slight Negative LPF A [id number]) AMORPHOUS (test code = Few Rare HPF A 7876506240) SQ EPITH (test code = HPF [id number]) Lab Interpretation (test Abnormal code = 96141-3) [facility] with [id number] 00:08:00 Test Item Value Reference Range Interpretation [...] (test code = 37.6 fL 39-49.9 L 27816-2) RDW-CV (test code = 12.3 % 12-15.5 788-0) PLT (test code = See_Comment [Automated 777-3) message] The sy stem which generated this result transmitted reference range : 166 - 358 10*3/ ?L. The reference r radha was not used to interpret this result as normal/abnormal . MPV (test code = 10.7 fL 9.5-12.9 88480-7) NRBC/100 WBC (test See_Comment [Automat ed code = 0718167405) message] The system which generated this result transmitted reference range : 0.0 - 10.0 /100 WBCs. The refer ence range was not u sed to interpret th is result as normal/abnormal . NRBC x10^3 (test code <0.01 See_Comment [Auto mated = 3255116815) message] The s ystem which generated this result transmitted reference range : 10*3/?L. The reference range was not used to interpret this result as normal/abnormal . GRAN MAT (NEUT) % 64.7 % (test code = 770-8) IMM GRAN % (test code 0.20 % = 1788273275) LYMPH % (test code = 27.2 % 736-9) MONO % (test code = 5.6 % 5905-5) EOS % (test code = 1.9 % 713-8) BASO % (test code = 0.4 % 706-2) GRAN MAT x10^3(ANC) 5.94 10*3/uL 1.88-7.09 (test code = 5259962824) IMM GRAN x10^3 (test <0.03 0-0.06 code = 2597016115) LYMPH x10^3 (test code 2.50 10*3/uL 1.32-3.29 = 731-0) MONO x10^3 (test code 0.51 10*3/uL 0.33-0.92 = 742-7) EOS x10^3 (test code = 0.17 10*3/uL 0.03-0.39 711-2) BASO x10^3 (test code 0.04 10*3/uL 0.01-0.07 = 704-7) Lab Interpretation Abnormal (test code = 85889-7) [facility] [id number] 00:00:00 Test Item Value Reference Range Interpretation Comments POCT PREG (test code = 1605) negative On board controls acceptable with present C Line (test code = 3574) POCT PREG LOT # (test code = 3575) [id number] POCT PREG TEST DATE (test 01/22/2022 code = 3576) Lab Interpretation (test code = Normal 88414-0) [facility] GLUCOSE (AUTOMATED)2020-06-05 22:57:00 Test Item Value Reference Range Interpretation Comments POCT GLU (test code = 9604180592) 105 mg/dL 70-110 Lab Interpretation (test code = Normal 20817-4) [facility] Test Item Value Reference Range Interpretation Comments APPEARANCE (test code = Clear Clear 1906887750) COLOR (test code = Yellow Yellow 1099824271) PH (test code = 4.8-8.0 1960478225) SP GRAVITY (test code = 1.003-1.030 H 7003323184) GLU U QUAL (test code = Normal Normal 6444163174) BLOOD (test code = 2+ Negative A 3395922989) KETONES (test code = Negative Negative 4049811946) PROTEIN (test code = Negative Negative 2887-8) UROBILIN (test code = Normal Normal 8215101610) BILIRUBIN (test code = Negative Negative 4171247142) NITRITE (test code = Negative Negative 0501547202) LEUK SHAKILA (test code = 75/uL Negative A 3584593290) RBC/HPF (test code = See_Comment [Autom ated message] 4743728776) The system [employer] generated this result transmitted ref erence range: 0 - 3 HP F. The reference range was not used to int erpret this result as normal/abnormal . WBC/HPF (test code = See_Comment H [Autom ated message] 5875321488) The system [employer] generated this result transmitted ref erence range: 0 - 5 HP F. The reference range was not used to int erpret this result as normal/abnormal . BACTERIA (test code = Few Negative A 6599265355) SQ EPITH (test code = HPF 9449719325) Lab Interpretation (test Abnormal code = 25463-5) [facility], [id number] 04:36:00 Test Item Value Reference Range Interpretation Comments PREG SERUM (test code Negative = 1475015147) LUC (test code = LUC) Less than 10 IU/L. ?If low titer or ectopic is suspected, resubmit specimen in 48-72 hours. [facility] (ID NOW RAPID TESTING)2019-12-20 04:33:00 Test Item Value Reference Range Interpretation Comments SARS-CoV-2 Rapid ID NOW Not Detected Not Detected (test code = 49953-0) LUC (test code = LUC) ID NOW COVID-19 Assay is an isothermal nucleic acid amplification test intended for the qualitative detection of nucleic acid from SARS-CoV-2 viral RNA in nasopharyngeal ([employer]) specimens. It is used under Emergency Use [...] indicated. Lab Interpretation Normal (test code = 02700-3) [facility] Metabolic [id number] 04:17:00 Test Item Value Reference Range Interpretation Comments NA (test code = 137 mmol/L 135-145 4372463237) K (test code = 3.8 mmol/L 3.5-5 8019785186) CL (test code = 103 mmol/L 98-108 6448328302) CO2 TOTAL (test code = 25 mmol/L 23-31 5823101281) AGAP (test code = 2-16 0129421285) BUN (test code = 12 mg/dL 7-23 4508177216) GLUCOSE (test code = 175 mg/dL 70-110 H 1167982186) CREATININE (test code = 0.58 mg/dL 0.5-1.04 9235187596) TOTAL BILI (test code = 0.6 mg/dL 0.1-1.6 8610111037) CALCIUM (test code = 9.2 mg/dL 8.6-10.6 1389172553) T PROTEIN (test code = 8.1 g/dL 6.3-8.2 3983654102) ALBUMIN (test code = 4.3 g/dL 3.5-5 8275158361) ALK PHOS (test code = 93 U/L 34-122 1178205097) ALTv (test code = 29 U/L 5-35 1742-6) AST(SGOT) (test code = 29 U/L 13-40 9109126948) eGFR Calculation mL/min/1.73m2 (Non-) (test code = 2524629830) eGFR Calculation mL/min/1.73m2 () (test code = 5390141557) LUC (test code = LUC) Association of [...] tests). Lab Interpretation Abnormal (test code = 24111-7) [facility]and[facility], [id number] 04:17:00 Test Item Value Reference Range Interpretation Comments LIPASE (test code = 2833706474) 88 U/L 0-220 Lab Interpretation (test code = Normal 39697-4) [facility]andCB with [id number] 04:03:00 Test Item Value Reference Range Interpretation Comments WBC (test code = See_Comment H [Automated 3090-2) message] The sy stem which generated this [...] RDW-SD (test code = 39.4 fL 39-49.9 91106-7) RDW-CV (test code = 12.4 % 12-15.5 788-0) PLT (test code = See_Comment [Automated 777-3) message] The sy stem which generated this result transmitted reference range : 166 - 358 10*3/ ?L. The reference r radha was not used to interpret this result as normal/abnormal . MPV (test code = 11.2 fL 9.5-12.9 65882-0) NRBC/100 WBC (test See_Comment [Automat ed code = 5088569515) message] The system which generated this result transmitted reference range : 0.0 - 10.0 /100 WBCs. The refer ence range was not u sed to interpret th is result as normal/abnormal . NRBC x10^3 (test code <0.01 See_Comment [Auto mated = 8737721048) message] The s ystem which generated this result transmitted reference range : 10*3/?L. The reference range was not used to interpret this result as normal/abnormal . GRAN MAT (NEUT) % 75.2 % (test code = 770-8) IMM GRAN % (test code 0.60 % = 0026069230) LYMPH % (test code = 18.2 % 736-9) MONO % (test code = 4.7 % 5905-5) EOS % (test code = 1.0 % 713-8) BASO % (test code = 0.3 % 706-2) GRAN MAT x10^3(ANC) 9.05 10*3/uL 1.88-7.09 H (test code = 8847669542) IMM GRAN x10^3 (test 0.07 10*3/uL 0-0.06 H code = 4443385959) LYMPH x10^3 (test code 2.19 10*3/uL 1.32-3.29 = 731-0) MONO x10^3 (test code 0.57 10*3/uL 0.33-0.92 = 742-7) EOS x10^3 (test code = 0.12 10*3/uL 0.03-0.39 711-2) BASO x10^3 (test code 0.04 10*3/uL 0.01-0.07 = 704-7) Lab Interpretation Abnormal (test code = 25242-6) [facility]"
[2022-05-28] MEDS ORDERED: IBUPROFEN 400 MG TAB ONE (10:57)
[2022-05-28 11:49] LABS: SARS-COV-2 RT PCR NEGATIVE (NEGATIVE)
--- NOTE | 2022-05-28 12:06 | RAD REPORT ---
EXAM DESCRIPTION: RAD - Chest Single View - 05/28/2022 11:07 am CLINICAL HISTORY: cough, fever COMPARISON: Portable 02/03/2022 TECHNIQUE: AP portable chest image was obtained 05/28/2022 11:07 am. FINDINGS: Lungs are clear. Interstitial markings are prominent but appear to be baseline. Heart and vasculature are normal. No measurable pleural effusion and no pneumothorax. No acute bony abnormality seen. No acute aortic findings suspected. IMPRESSION: No acute cardiopulmonary process. Prominent interstitial lung pattern matches prior imaging.
--- NOTE | 2022-05-28 12:18 | ER ---
Nurse's Notes [facility] Name: Nita Fox Age: 31 yrs Sex: Female : 1990 Arrival Date: 05/28/2022 Time: 10:16 Bed 12 Private MD: Diagnosis: Cough Presentation: 05/28 10:41 Chief complaint: Patient states: cough and congestion x 5-6 days ago. Pt states aa5 "Nothing over the counter helps". Coronavirus screen: congestion, cough unrelated to allergies. Ebola Screen: Patient denies travel to an Ebola-affected area in the 21 days before illness onset. Initial Sepsis Screen: Does the patient meet any 2 criteria? No. Patient's initial sepsis screen is negative. Does the patient have a suspected source of infection? No. Patient's initial sepsis screen is negative. Risk Assessment: Do you want to hurt yourself or someone else? Patient reports no desire to harm self or others. Onset of symptoms was April 2022. 10:41 Method Of Arrival: Ambulatory aa5 10:41 Acuity: SOREN 4 aa5 Historical: - Allergies: 10:42 Ampicillin; aa5 10:42 Latex, Natural Rubber; aa5 10:42 Macrobid; aa5 10:42 PENICILLINS; aa5 10:42 Sulfa (Sulfonamide Antibiotics); aa5 - Home Meds: 10:42 metformin 1,000 mg Oral tab 2 times per day [Active]; glipizide 10 mg Oral tab 1 tab 2 aa5 times per day [Active]; atorvastatin 20 mg oral tab 1 tab once daily [Active]; - PMHx: 10:42 Diabetes - NIDDM; aa5 - PSHx: 10:42 Appendectomy; section; aa5 - Immunization history:: Adult Immunizations unknown. - Social history:: Smoking status: Patient denies any tobacco usage or history of. Screenin:45 [facility] ED Fall Risk Assessment (Adult) History of falling in the last 3 months, aa5 including since admission No falls in past 3 months (0 pts) Confusion or Disorientation No (0 pts) Intoxicated or Sedated No (0 pts) Impaired Gait No (0 pts) Mobility Assist Device Used No (0 pt) Altered Elimination No (0 pt) Score/Fall Risk Level 0 - 2 = Low Risk Maintained a safe environment. Abuse screen: Denies threats or abuse. Nutritional screening: No deficits noted. Tuberculosis screening: No symptoms or risk factors identified. Assessment: 10:45 General: Appears uncomfortable, Behavior is calm, cooperative. Pain: Complains of pain aa5 in chest with cough. Neuro: Level of Consciousness is awake, alert, obeys commands, Oriented to person, place, time, situation. Cardiovascular: Heart tones S1 S2 present Capillary refill < 3 seconds is brisk in bilateral fingers Rhythm is regular. Respiratory: Reports cough Airway is patent Respiratory effort is even, unlabored, Respiratory pattern is regular, symmetrical, Breath sounds are clear bilaterally. GI: No signs and/or symptoms were reported involving the gastrointestinal system. : No signs and/or symptoms were reported regarding the genitourinary system. EENT: Reports nasal congestion. Derm: Skin is pink, warm \\T\\ dry. Musculoskeletal: Range of motion: intact in all extremities. 11:45 Reassessment: Patient is alert, oriented x 3, equal unlabored respirations, skin aa5 warm/dry/pink. 12:43 Reassessment: Patient is alert, oriented x 3, equal unlabored respirations, skin aa5 warm/dry/pink. Vital Signs: 10:41 BP 140 / 92; Pulse 92; Resp 18 S; Temp 97.9(TE); Pulse Ox 99% on R/A; aa5 ED Course: 10:16 Patient arrived in ED. mr 10:17 Nicholas Green PA is PHCP. jmm 10:17 Elias Tyler MD is Attending Physician. jmm 10:42 Triage completed. aa5 10:42 Arm band placed on. aa5 10:42 Patient has correct armband on for positive identification. Bed in low position. aa5 10:53 Joann Gupta, RN is Primary Nurse. aa5 10:53 COVID-19/FLU A+B Sent. bc6 10:53 Strep Sent. bc6 10:53 COVID swab sent to lab. Strep swab sent to lab. bc6 11:09 Chest Single View XRAY In Process Unspecified. EDMS 12:43 No provider procedures requiring assistance completed. Patient did not have IV access aa5 during this emergency room visit. Administered Medications: 10:59 Drug: Ibuprofen 800 mg Route: PO; aa5 11:45 Follow up: Response: No adverse reaction aa5 Medication: 12:43 VIS not applicable for this client. aa5 Outcome: 12:17 Discharge ordered by . neelima 12:43 Discharged to home ambulatory. aa5 12:43 Condition: stable 12:43 Discharge instructions given to patient, Instructed on discharge instructions, follow up and referral plans. medication usage, Demonstrated understanding of instructions, follow-up care, medications, Prescriptions given X 2. 12:46 Patient left the ED. aa5 Signatures: Dispatcher [employer] EDMS Nicholas Green PA PA jmm Rivera, Mary mr Gupta, Joann, RN RN aa5 Kalee Salas 6 Corrections: (The following items were deleted from the chart) 11:05 11:00 Group A Streptococcus Rapid Sc+BA.LAB.BRZ drawn and sent. bc6 bc6 11:05 11:00 COVID-19/FLU A+B+MOL.LAB.BRZ drawn and sent. 6 6 11:05 11:00 Group A Streptococcus Rapid Sc+BA.LAB.BRZ drawn and sent. bc6 bc6 11:05 11:00 COVID-19/FLU A+B+MOL.LAB.BRZ drawn and sent. bc6 bc6
--- NOTE | 2022-05-28 12:18 | EDPHYS ---
Physician Documentation [facility] Name: Nita Fox Age: 31 yrs Sex: Female : 1990 Arrival Date: 05/28/2022 Time: 10:16 Bed 12 Private MD: DMITRIY Physician Elias Tyler HPI: 05/28 10:43 This 31 yrs old Female presents to ER via Ambulatory with complaints of Cough, jmm Congestion. 10:43 The patient or guardian reports cough. Onset: The symptoms/episode began/occurred jmm gradually, 5 day(s) ago. Modifying factors: The symptoms are alleviated by nothing, the symptoms are aggravated by nothing. Associated signs and symptoms: Pertinent positives: fever. Is a 31-year-old female with history of diabetes mellitus the presents emerged part with complaints of cough and congestion, sore throat beginning approximately 5 to 6 days ago. Symptoms are not alleviated with valy-tcn-ncaffmy medications. Denies vomiting, chest pain, shortness of breath.. Historical: - Allergies: 10:42 Ampicillin; aa5 10:42 Latex, Natural Rubber; aa5 10:42 Macrobid; aa5 10:42 PENICILLINS; aa5 10:42 Sulfa (Sulfonamide Antibiotics); aa5 - Home Meds: 10:42 metformin 1,000 mg Oral tab 2 times per day [Active]; glipizide 10 mg Oral tab 1 tab 2 aa5 times per day [Active]; atorvastatin 20 mg oral tab 1 tab once daily [Active]; - PMHx: 10:42 Diabetes - NIDDM; aa5 - PSHx: 10:42 Appendectomy; section; aa5 - Immunization history:: Adult Immunizations unknown. - Social history:: Smoking status: Patient denies any tobacco usage or history of. ROS: 10:43 Constitutional: Positive for body aches, chills. jmm 10:43 ENT: Positive for sore throat. 10:43 Respiratory: Positive for cough. 10:43 All other systems are negative. Exam: 10:43 Constitutional: This is a well developed, well nourished patient who is awake, alert, jmm and in no acute distress. Head/Face: atraumatic. Eyes: EOMI, no conjunctival erythema appreciated 10:43 Neck: Trachea midline, Supple Chest/axilla: Normal chest wall appearance and motion. Cardiovascular: Regular rate and rhythm. No edema appreciated Respiratory: Normal respirations, no respiratory distress appreciated Abdomen/GI: Non distended Back: Normal ROM Skin: General appearance color normal MS/ Extremity: Moves all extremities, no obvious deformities appreciated, no edema noted to the lower extremities Neuro: Awake and alert Psych: Behavior is normal, Mood is normal, Patient is cooperative and pleasant 10:43 ENT: Posterior pharynx: erythema, that is moderate. Vital Signs: 10:41 BP 140 / 92; Pulse 92; Resp 18 S; Temp 97.9(TE); Pulse Ox 99% on R/A; aa5 MDM: 10:43 Patient medically screened. [facility] 12:15 Data reviewed: vital signs, nurses notes. Counseling: I had a detailed discussion with neelima the patient and/or guardian regarding: the historical points, exam findings, and any diagnostic results supporting the discharge/admit diagnosis, lab results, radiology results, the need for outpatient follow up, to return to the emergency department if symptoms worsen or persist or if there are any questions or concerns that arise at home. ED course: Patient is alert nontoxic in appearance NAD. No signs respiratory distress. Chest x-ray clear. Labs unremarkable. Patient vies follow with PCP and otherwise given strict return precautions. Patient understood and agrees plan of care.. 05/28 10:42 Order name: COVID-19/FLU A+B; Complete Time: 12:09 [facility] 05/28 10:42 Order name: Strep; Complete Time: 11:18 [facility] 05/28 10:52 Order name: Chest Single View XRAY; Complete Time: 12:09 [facility] 05/28 11:20 Order name: Throat Culture EDMS Administered Medications: 10:59 Drug: Ibuprofen 800 mg Route: PO; aa5 11:45 Follow up: Response: No adverse reaction aa5 Disposition Summary: 05/28/22 12:17 Discharge Ordered Location: Home [facility] Condition: Stable [facility] Diagnosis - Cough [facility] Followup: [facility] - With: Private Physician - When: 2 - 3 days - Reason: Recheck today's complaints, Continuance of care, Re-evaluation by your physician Discharge Instructions: - Discharge Summary Sheet [facility] - Cough, Adult bette Forms: - Medication Reconciliation Form [facility] - Thank You Letter neelima - Antibiotic Education bette - Prescription Opioid Use [facility] Prescriptions: - promethazine-DM - take 10 milliliter by ORAL route every 4-6 hours As needed; 200 milliliter; jmm Refills: 0, Product Selection Permitted - Zithromax Z-Catracho 250 mg Oral Tablet - take 1 tablet by ORAL route as directed for 5 days Day 1 - take two (2) tablets jmm one time. Day 2, 3, 4 , 5 take one (1) tablet once daily.; 6 tablet; Refills: 0, Product Selection Permitted Signatures: Dispatcher [employer] EDElias Osuna MD MD cha Mickail, Joel, PA PA Joann Valentine, RN RN aa5
[2022-05-28 12:50] VITALS: BP 140/92; TEMP 97.9; O2SAT 99
== END 2022-05-28 12:46 | disposition home or self-care (01) ==
LOC: ER 10:13
DX: R05.9 Cough, unspecified (principal); Z20.822 Contact with and (suspected) exposure to COVID-19
CPT/HCPCS: 0240U; 71045; 87070; 87081; 99284

== ENCOUNTER 2024-06-05 10:39 | Emergency (ER) | payer SELFPAY ==
[2011-12-30 11:36] VITALS: BP 102/57
--- OUTSIDE RECORDS SUMMARY | 2024-06-05 10:50 | XMS REPORT | Continuity of Care Document ---
Author Name Unknown Address [address] [facility] [address] [place] [address] [facility] thconnect Address [address] [facility] [address] [place] [address] Care Team Providers Care Bisque Brusher Name Role Phone Robert Rosen Primary Care Physician [phone] Nurse, Martínez Davidson [facility] Attending Clini quoc Unavailable Mel Barbosa CNM Attending Clinician [phone] MEL BARBOSA Attending Clinician Unavaila ble Sal Ulloa Attending Clinician + SAL NEWTON Attending Clinician Unavail able Doctor Unassigned, [place] Attending Clinician U CONCEPCION Aranda Attending Clinician CONCEPCION Zuluaga Attending Clinician Francisco Story Nurse Attending Clinician LEXUS Robertson Attending Clinician Unavailable Corey RICARDO, Lary Attending Clinician [phone] Lexus Ruiz MD Attending Clinician [phone] Henny Hurley MD Attending Clinician [phone] Mindy RICARDO, Hamzah Attending Clinician + TIAGO GUERRA Attending Clinician Unav ailable Ultrasound, [facility] Attending Clinician Unavailrasta Scott MD, Nash Attending Clinician + 1, [facility] Ultrasound Attending Clinician Unavailable MELIDA REYNOSO Attending Clinician Unav ailable CHAD ZHU Attending Clinician Unavailable 2, [facility] Us Room Attending Clinician Unavailab le Risk, [facility] Provider/High Attending Clinicia n Unavailable Joi Angeles Attending Clinician [phone] ELIAS PAIGE Attending Clinician Unavailable ELIAS PAIGE Attending Clinician Unavailable Tomeka Diop MD Attending Clinician [phone], [facility] Room Attending Clinician Unavailrasta Reynoso MD, Melida Alarcon Attending Clinician + JOI NORIEGA Attending Clinician Unavailable Risk, [facility]/High Attending Clinician Unav ailable Leigh Gagnon MD Attending Clinician [phone] LEIGH GAGNON Attending Clinician Unavailable Glendy Casillas S Attending Clinician [phone] Risk, [facility] Physician/High Attending Clinici an Unavailable JAYDON BERMUDEZ Attending Clinician Unavailable Mary Cox Attending Clinician UnavailJaydon Wallis MD Attending Clinician [phone] SEAMUS BUSTILLOS Attending Clinician Unavailable Seamus Bustillos MD Attending Clinician [phone] GABBI HARDIN Attending Clinician Unavailabl e Lab, [facility] Attending Clinician Unavailable BHAVIN LOZANO Attending Clinician Unavailable Bhavin Lozano DO Attending Clinician [phone] Annie Huitron RN Attending Clinician [phone] TRACI ANDERSON Attending Clinician Unavailable Traci Anderson MD Attending Clinician [phone] Vane KOVACSP, Sanjeev B Attending Clinician [phone] CONCEPCION RICHMOND Admitting Clinician LEXUS Cárdenas Admitting Clinician Unavailable Lexus Ruiz MD Admitting Clinician ELIAS PAIGE Admitting Clinician Unavailable LEIGH GAGNON Admitting Clinician Unavailable Leigh Gagnon MD Admitting Clinician BHAVIN LOZANO Admitting Clinician Unavailable TRACI ANDERSON Admitting Clinician Unavailable Traci Anderson MD Admitting Clinician Payers Payer Name Policy Type Policy Number Effective Date Expirati on Date Source [employer] L[employer] FPL [id number] 2022 00:00:00 [employer]I 0-100% [id number] 2023 00:00:00 MEDICAID [place] PENDING PENDING 1998 00:00:00 1998 00:00:00 [facility] [id number] EMERGENCY MEDICAID [id number] 2015 00:00:00 2015 00:00:00 Problems Condition Name Condition Details Condition Category Status Onset Date Resolution Date Last Treatment Date Treating Clinician Comments Source Diabetes mellitus treated with oral medication Diabetes mellitus treated with oral medication Disease Active -05 00:00: 00 [facility] History of bilateral tubal ligation History of bilateral tubal ligation Disease Active 05-28 00:00: 00 [facility] Need for HPV vaccinatio n Need for HPV vaccinatio n Disease Active 05-28 00:00: 00 [facility] History of depression History of depression Disease Active 01-01 00:00: 00 [facility] Depression affecting in third trimester, antepartum Depression affecting in third trimester, antepartum Disease Active 01-01 00:00: 00 [facility] Diabetes mellitus complicati ng , antepartum Diabetes mellitus complicati ng , antepartum Disease Active 10-08 00:00: 00 [facility] Acute headache Acute headache Disease Active 01-15 00:00: 00 [facility] Obesity in Obesity in Disease Active 10-21 00:00: 00 [facility] Obesity, morbid Obesity, morbid Disease Active 2017-0 5-30 00:00: 00 [facility] Gestationa l hypertensi on, third trimester Gestationa l hypertensi on, third trimester Disease Resolve d 9-01 00:00: 00 2023-05-29 00:00:00 2023-05-29 08:27:07 [facility] Diabetes mellitus complicati ng , antepartum Diabetes mellitus complicati ng , antepartum Disease Resolve d 0 5-17 00:00: 00 2023-05-29 00:00:00 2023-05-29 08:27:23 [facility] Preeclamps ia in period Preeclamps ia in period Disease Resolve d 2022-05 0-16 00:00: 00 2023-05-28 00:00:00 2023-05-28 15:14:16 [facility] Status post tubal ligation Status post tubal ligation Disease Resolve d 0 8-18 00:00: 00 2023-05-28 00:00:00 2023-05-28 15:14:12 [facility] Chest pain, unspecifie d type Chest pain, unspecifie d type Disease Resolve d 2022-05 0-06 00:00: 00 2023-03-25 00:00:00 2023-03-25 07:51:06 [facility] Heartburn during in third trimester Heartburn during in third trimester Disease Resolve d 2022-05 0-03 00:00: 00 2023-03-25 00:00:00 2023-03-25 07:51:05 [facility] Urinary tract infection in mother during third trimester of Urinary tract infection in mother during third trimester of Disease Resolve d 0 9-29 00:00: 00 2023-03-25 00:00:00 2023-03-25 07:50:57 [facility] Pain of round ligament affecting , antepartum Pain of round ligament affecting , antepartum Disease Resolve d 0 5-17 00:00: 00 2023-03-25 00:00:00 2023-03-25 07:50:56 [facility] Previous delivery affecting , antepartum Previous delivery affecting , antepartum Disease Resolve d 530 00:00: 2023-03-25 00:00:00 2023-03-25 07:51:14 Overview: Formattin g of this note might be different from the original. LTCS per OP report [facility] History of pre-eclamp cathie in prior , currently History of pre-eclamp cathie in prior , currently Disease Resolve d 01-12 00:00: 2023-03-25 00:00:00 2023-03-25 07:51:11 [facility] History of delivery, currently History of delivery, currently Disease Resolve d 01-12 00:00: 2023-03-25 00:00:00 2023-03-25 07:51:12 Overview: Formattin g of this note might be different from the original. x2 due to severe Pre-E [facility] GBS (group B streptococ cus) UTI complicati ng GBS (group B streptococ cus) UTI complicati ng Disease Resolve d 4-21 00:00: 00 2023-03-25 00:00:00 2023-03-25 07:50:59 [facility] Leg cramps in Leg cramps in Disease Resolve d 01-01 00:00: 00 2023-02-24 00:00:00 2023-02-24 19:16:28 [facility] headache in third trimester headache in third trimester Disease Resolve d 8-24 00:00: 00 2023-02-24 00:00:00 2023-02-24 19:16:22 [facility] 29 weeks gestation of 29 weeks gestation of Disease Resolve d 8-21 00:00: 00 2023-01-21 00:00:00 2023-01-21 12:29:42 [facility] Dehydratio n Dehydratio n Disease Resolve d 2020-05 1-06 00:00: 00 2022-10-08 00:00:00 2022-10-08 08:48:24 [facility] Morbid obesity with body mass index of 40.0-49.9 Morbid obesity with body mass index of 40.0-49.9 Disease Resolve d 2020-05 1-06 00:00: 00 2022-10-08 00:00:00 2022-10-08 08:48:40 [facility] care and examinatio n of lactating mother care and examinatio n of lactating mother Disease Resolve d 02-09 00:00: 00 2022-10-08 00:00:00 2022-10-08 08:48:22 [facility] Elevated blood pressure Elevated blood pressure Disease Resolve d 01-15 00:00: 00 2022-10-08 00:00:00 2022-10-08 08:48:39 [facility] Diet controlled gestationa l diabetes mellitus (GDM), antepartum Diet controlled gestationa l diabetes mellitus (GDM), antepartum Disease Resolve d 12-23 00:00: 00 2022-10-08 00:00:00 2022-10-08 08:48:37 [facility] 33 weeks gestation of 33 weeks gestation of Disease Resolve d 01-15 00:00: 00 2017-02-09 00:00:00 2017-02-09 13:20:29 [facility] Threatened premature labor in third trimester Threatened premature labor in third trimester Disease Resolve d 01-15 00:00: 00 2017-02-09 00:00:00 2017-02-09 13:19:50 [facility] Chest pain Chest pain Disease Resolve d 01-08 00:00: 00 2017-02-09 00:00:00 2017-02-09 13:20:53 [facility] Desires (vaginal after ) trial Desires (vaginal after ) trial Disease Resolve d 7-31 00:00: 00 2017-02-09 00:00:00 2017-02-09 13:20:07 [facility] Need for Tdap vaccinatio n Need for Tdap vaccinatio n Disease Resolve d 12-22 00:00: 00 2017-02-09 00:00:00 2017-02-09 13:20:10 [facility] Supervisio n of high risk , antepartum , second trimester Supervisio n of high risk , antepartum , second trimester Disease Resolve d 10-21 00:00: 00 2017-02-09 00:00:00 2017-02-09 13:20:15 [facility] Multiparit y Multiparit y Disease Resolve d 10-21 00:00: 00 2017-02-09 00:00:00 2017-02-09 13:20:17 [facility] Acute bilateral low back pain with bilateral sciatica Acute bilateral low back pain with bilateral sciatica Disease Resolve d 10-21 00:00: 00 2017-02-09 00:00:00 2017-02-09 13:20:40 [facility] Late care Late care Disease Resolve d 10-21 00:00: 00 2017-02-09 00:00:00 2017-02-09 13:20:03 [facility] Shortness of breath Shortness of breath Disease Resolve d 01-08 00:00: 00 2017-01-09 00:00:00 2017-01-09 08:44:44 [facility] Abnormal glucose tolerance test (GTT) Abnormal glucose tolerance test (GTT) Disease Resolve d 10-22 00:00: 00 2017-01-09 00:00:00 2017-01-09 08:44:42 [facility] Missed menses Missed menses Disease Resolve d 10-21 00:00: 00 2017-01-09 00:00:00 2017-01-09 08:44:47 [facility] General counseling for prescripti on of oral contracept carlo General counseling for prescripti on of oral contracept carlo Disease Resolve d 12-24 00:00: 00 2016-10-21 00:00:00 2016-10-21 10:35:42 [facility] Obese Obese Disease Resolve d 12-24 00:00: 00 2016-10-21 00:00:00 2016-10-21 10:35:45 [facility] History of gestationa l diabetes in prior , currently History of gestationa l diabetes in prior , currently Disease Resolve d 01-12 00:00: 00 2015-12-25 00:00:00 2015-12-25 09:43:48 [facility] Multiparit y Multiparit y Disease Resolve d 01-12 00:00: 00 2015-12-25 00:00:00 2015-12-25 09:44:26 [facility] Supervisio n of other high-risk Supervisio n of other high-risk Disease Resolve d 01-12 00:00: 00 2015-12-25 00:00:00 2021-12-08 00:37:18 [facility] Cramping affecting , antepartum Cramping affecting , antepartum Disease Resolve d 01-12 00:00: 00 2015-12-25 00:00:00 2015-12-25 09:43:39 [facility] Previous delivery affecting , antepartum Previous delivery affecting , antepartum Disease Resolve d 01-12 00:00: 00 2015-12-25 00:00:00 2015-12-25 09:44:35 [facility] History of premature rupture of membranes in previous , currently History of premature rupture of membranes in previous , currently Disease Resolve d 01-12 00:00: 00 2015-12-25 00:00:00 2015-12-25 09:44:09 [facility] Urinary tract infection, site not specified Urinary tract infection, site not specified Disease Resolve d 01-12 00:00: 00 2015-12-25 00:00:00 2015-12-25 09:44:55 [facility] Vaginal bleeding Vaginal bleeding Disease Resolve d 01-12 00:00: 00 2015-12-25 00:00:00 2015-12-25 09:45:04 [facility] Abnormal maternal glucose tolerance, antepartum Abnormal maternal glucose tolerance, antepartum Disease Resolve d 01-10 00:00: 00 2015-12-25 00:00:00 2021-12-08 00:37:17 [facility] Urinary tract infection, site not specified Urinary tract infection, site not specified Disease Resolve d 8 00:00: 00 2015-01-12 00:00:00 2021-12-08 00:37:18 [facility] S/P S/P Disease Resolve d 10-28 00:00: 00 2015-01-12 00:00:00 2021-12-08 00:24:55 [facility] Disruption of wound, Disruption of wound, Disease Resolve d 10-28 00:00: 00 2015-01-12 00:00:00 2015-01-12 08:57:16 [facility] GDM (gestation al diabetes mellitus) GDM (gestation al diabetes mellitus) Disease Resolve d 10-28 00:00: 00 2015-01-12 00:00:00 2021-12-08 00:24:55 [facility] care and examinatio n of lactating mother care and examinatio n of lactating mother Disease Resolve d 10-28 00:00: 00 2015-01-09 00:00:00 2015-01-09 09:16:35 [facility] Muscle strain of chest wall Muscle strain of chest wall Disease Resolve d 10-28 00:00: 00 2015-01-09 00:00:00 2015-01-09 09:16:39 [facility] delivery delivered delivery delivered Disease Resolve d 15 00:00: 00 2012-10-28 00:00:00 2021-12-08 00:24:32 [facility] Cholestasi s of Cholestasi s of Disease Resolve d 02 00:00: 00 2012-10-28 00:00:00 2012-10-28 14:16:40 [facility] Supervisio n of high-risk Supervisio n of high-risk Disease Resolve d 2-26 00:00: 00 2012-10-28 00:00:00 2012-10-28 14:16:22 [facility] Severe pre-eclamp cathie, antepartum Severe pre-eclamp cathie, antepartum Disease Resolve d 5-13 00:00: 00 2012-10-08 00:00:00 [facility] A2DM A2DM Disease Resolve d 04 00:00: 00 2012-10-08 00:00:00 [facility] BV and Yeast infection BV and Yeast infection Disease Resolve d 09-12 00:00: 00 2012-09-12 00:00:00 [facility] contractio ns contractio ns Disease Resolve d 09-12 00:00: 00 2012-09-12 00:00:00 [facility] Vaginitis Vaginitis Disease Resolve d 08-17 00:00: 00 2012-08-18 00:00:00 2012-08-18 08:26:43 [facility] UTI (lower urinary tract infection) UTI (lower urinary tract infection) Disease Resolve d 08-17 00:00: 00 2012-08-18 00:00:00 2012-08-18 08:26:26 [facility] Allergies, Adverse Reactions, Alerts Allergy Name Allergy Type Status Severity Reaction(s) Onset Date Inactive Date Treating Clinician Comments Source LATEX DRUG INGREDI Active Med ITCHING 10-08 00:00: 00 [facility] Latex Propensi ty to adverse reaction s Active Itching 10-08 00:00: 00 Hives, swollen eyes, itchy throat. [facility] Ampicill in - Oral Propensi ty to adverse reaction to drug Active 2021-05 2-14 00:00: 00 Luis Daniels microbid (Not Checked) Propensi ty to adverse reaction to drug Active 2020-05 1-11 00:00: 00 Luis Daniels AMPICILL IN DRUG INGREDI Active ITCHING 11-06 00:00: 00 [facility] Ampicill in Propensi ty to adverse reaction s Active Itching 2016-0 6-15 00:00: 00 [facility] NITROFUR ANTOIN MONOHYD/ M-CRYST DRUG Active ITCHING 0 01-12 00:00: 00 [facility] Nitrofur antoin Monohyd/ M-Cryst Propensi ty to adverse reaction s Active Itching 0 01-12 00:00: 00 [facility] MORPHINE DRUG INGREDI Active Anxiety 0 09-18 00:00: 00 [facility] Morphine Propensi ty to adverse reaction s Active Anxiety 09-18 00:00: 00 [facility] SULFA (SULFONA MIDE ANTIBIOT ICS) Drug Class Active ITCHING 09-15 00:00: 00 [facility] Sulfa (Sulfona mide Antibiot ics) Propensi ty to adverse reaction s Active Itching 09-15 00:00: 00 Pt reports severe itching and redness to palms with Bactrim [facility] Sulfa (Sulfona mide Antibiot ics) Propensi ty to adverse reaction s Active Itching 09-15 00:00: 00 Pt reports severe itching and redness to palms with Bactrim [facility] Social History Social Habit Start Date Stop Date Quantity Comments Source ASSERTION 2022-07-06 00:00:00 [facility] Gender identity [facility] Alcoholic beverage intake 2023-05-28 00:00:00 2023-05-28 00:00:00 Ex-drinker (finding) [facility] Alcohol intake 2023-05-28 00:00:00 2023-05-28 00:00:00 Ex-drinker (finding) [facility] Tobacco use and exposure 2023-01-12 00:00:00 2023-01-12 00:00:00 Smokeless tobacco non-user [facility] Exposure to SARS-CoV-2 (event) 2022-10-07 00:00:00 2022-10-17 22:19:00 Yes [facility] Alcohol Comment 2022-10-08 00:00:00 2022-10-08 00:00:00 socially [facility] History of Social function 2022-10-08 00:00:00 2022-10-08 00:00:00 [facility] Sex assigned at 1990 00:00:00 1990 00:00:00 [facility] Smoking Status Start Date Stop Date Source Never smoked tobacco [facility] Medications Ordered Medication Name Filled Medication Name Start Date Stop Date Current Medication? Ordering Clinician Indication Dosage Frequency Signature (SIG) Comments Components Source Jardiance 10 mg tablet 2023-05 00:00: 00 Yes 1mg Luis Magalie Jeremiah clotrimazol e 1 % vaginal cream 2023-05 00:00: 00 Yes 1% Luis Magalie Jeremiah fluconazole 150 mg tablet 2023-05 00:00: 00 Yes 1mg Luis Daniels Bromfed DM 2 mg-30 mg-10 mg/5 mL oral syrup 2023-05 00:00: 00 Yes 10mg/5 mL Luis Magalie Jeremiah Levemir U-100 Insulin 100 unit/mL subcutaneou s solution 01-04 00:00: 00 Yes unit/mL Luis Magalie Jeremiah metformin ER 1,000 mg tablet,exte nded release 24hr (osmotic) 01-04 00:00: 00 Yes 1mg Luis Mejias Jeremiah Levemir FlexPen 100 unit/mL (3 mL) solution subcutaneou s insulin pen 01-04 00:00: 00 Yes (3 mL) Luis Magalie Jeremiah metformin HCl (METFORMIN ORAL) 05-28 15:05: 16 Yes Take by mouth. [facility] fluconazole (DIFLUCAN) 150 mg tablet 05-28 00:00: 00 05-29 05:59 :00 No [id number] 150mg Take 1 tablet by mouth once now for 1 dose. [facility] TAKE TWO (2) TABLET(S) BY MOUTH EVERY TWELVE HOURS FOR 5 DAYS. 2022-05 00:00: 00 Yes 4 Luis Daniels TAKE 10 ML(S) BY MOUTH EVERY 6 HOURS NEEDED. 2022-05 00:00: 00 Yes Luis Daniels INSTILL FOUR (4) DROPS INTO AFFECTED EAR 3 TIMES A DAY. 2022-05 00:00: 00 Yes Luis Daniels USE ONE (1) VIAL VIA NEBULIZER EVERY 8 HOURS NEEDED. 2022-05 00:00: 00 Yes Luis Daniels TAKE ONE (1) TABLET BY MOUTH EVERY 12 HOURS FOR 7 DAYS. 2022-05 00:00: 00 Yes Luis Daniels cyclobenzap rine (FLEXERIL) tablet 10 mg 2022-05 12:30: 00 03-11 12:31 :00 No 10mg 10 mg, Oral, ONCE NOW, 1 dose, On Thu03/11/23 at 0730, Routine [facility] ibuprofen (IBU) tablet 600 mg 2022-05 00:34: 17 Yes 600mg 600 mg, Oral, Q6HPRN, Starting on Thu03/10/23 at 1934, Until Discontinu ed, Routine, Pain (scale 4-6) [facility] NIFEdipine ER 30 mg tablet 2022-05 00:00: 00 05-28 00:00 :00 No [id number] 30mg Take 1 tablet by mouth in the morning. [facility] metoclopram win HCl 10 mg tablet 2022-05 00:00: 00 05-28 00:00 :00 No [id number] 10mg Take 1 tablet by mouth every 6 (six) hours as needed (headache) . [facility] diphenhydrA MINE (BENADRYL) tablet 25 mg 2022-05 23:10: 23 03-12 04:59 :00 No 25mg 25 mg, Oral, Q4HPRN, 4 doses, Starting on Thu03/10/23 at 1810, Until Thu03/11/23 at 2359, Routine, Sleep [facility] metoclopram win HCl (REGLAN) tablet 10 mg 2022-05 23:00: 00 03-12 12:29 :00 No 10mg 10 mg, Oral, AC, 4 doses, First dose on Thu03/10/23 at 1815, Last dose on Thu03/11/23 at 1630, JEWEL [facility] NIFEdipine ER tablet 30 mg 2022-05 14:00: 00 Yes 30mg 30 mg, Oral, DAILY, First dose on Thu03/10/23 at 0900, Until Discontinu ed, Routine [facility] metFORMIN (GLUCOPHAGE ) tablet 1,000 mg 2022-05 13:00: 00 Yes 1000mg 1,000 mg, Oral, BID MEALS, First dose on Thu03/10/23 at 0800, Until Discontinu ed, Routine [facility] NaCl 0.45% (1/2NS) IV infusion 1,000 mL 2022-05 01:00: 00 Yes 1000mL at 75 mL/hr, 1,000 mL, IV Infusion, CONTINUOUS , Starting on Thu03/09/23 at 2000, Until Discontinu ed, Routine [facility] magnesium sulfate in water for injection 20 gram/500 mL (4 %) IV infusion 2022-05 01:00: 00 Yes 2g/h 2 g/hr (50 mL/hr), IV Infusion, CONTINUOUS , Starting on Thu03/09/23 at 2000, Until Discontinu ed, JEWEL [facility] diphenhydrA MINE (BENADRYL) injection 25 mg 2022-05 00:25: 28 Yes 25mg 25 mg, Slow IV Push, Q6HPRN, Starting on Thu03/09/23 at 1925, Until Discontinu ed, Routine, Itching [facility] ondansetron (ZOFRAN (PF)) injection 4 mg 2022-05 00:25: 28 Yes 4mg 4 mg, Slow IV Push, Q8HPRN, Starting on Thu03/09/23 at 1925, Until Discontinu ed, Routine, Nausea and Vomiting (N/V) [facility] simethicone (GAS RELIEF (SIMETHICON E)) chewable tablet 80 mg 2022-05 00:25: 28 Yes 80mg 80 mg, Oral, PC+HSPRN, Starting on Thu03/09/23 at 1925, Until Discontinu ed, Routine, Gas [facility] docusate (COLACE) capsule 200 mg 2022-05 00:25: 28 Yes 200mg 200 mg, Oral, QHSPRN, Starting on Thu03/09/23 at 1925, Until Discontinu ed, Routine, Constipati on [facility] magnesium hydroxide (MILK OF MAGNESIA) 400 mg/5 mL suspension 30 mL 2022-05 00:25: 28 Yes 30mL 30 mL, Oral, QDAILYPRN, Starting on Thu03/09/23 at 1925, Until Discontinu ed, Routine, Constipati on [facility] NIFEdipine (ADALAT) capsule 10 mg 2022-05 23:25: 00 03-09 23:35 :00 No 10mg 10 mg, Oral, ONCE, 1 dose, On Thu03/09/23 at 1830, JEWEL [facility] HYDROcodone -acetaminop hen (NORCO 5) 5-325 mg tablet 1 tablet 2022-05 23:07: 15 03-11 00:47 :59 No 1{tbl} 1 tablet, Oral, Q6HPRN, Starting on Thu03/09/23 at 1807, Until Thu03/10/23 at 1947, Routine, Pain (scale 4-6) [facility] insulin NPH (HUMULIN N) injection 28 Units 2022-05 14:00: 00 Yes 28U 28 Units, Subcutaneo us, QAM, First dose on Thu03/03/23 at 0900, Until Discontinu ed, Routine [facility] insulin regular human (HUMULIN R) injection 15 Units 2022-05 14:00: 00 Yes 15U 15 Units, Subcutaneo us, QAM, First dose on Thu03/03/23 at 0900, Until Discontinu ed, Routine
Indicatio n for insulin: Hyperglyce dann [facility] ibuprofen (IBU) tablet 600 mg 2022-05 0 23:00: 00 Yes 600mg 600 mg, Oral, Q6H, First dose (after last modificati on) on Thu03/02/23 at 1800, Until Discontinu ed, Routine [facility] insulin NPH (HUMULIN N) injection 15 Units 2022-05 22:00: 00 Yes 15U 15 Units, Subcutaneo us, QPM, First dose on Thu03/02/23 at 1700, Until Discontinu ed, Routine [facility] insulin regular human (HUMULIN R) injection 14 Units 2022-05 22:00: 00 Yes 14U 14 Units, Subcutaneo us, QPM, First dose on Thu03/02/23 at 1700, Until Discontinu ed, Routine
Indicatio n for insulin: Hyperglyce dann [facility] metFORMIN (GLUCOPHAGE ) tablet 500 mg 2022-05 22:00: 00 Yes 500mg 500 mg, Oral, BID MEALS, First dose (after last modificati on) on Thu03/02/23 at 1700, Until Discontinu ed, Routine [facility] benzocaine- menthoL (CEPACOL SORE THROAT (VINNY-MEN)) lozenge 1 Lozenge 2022-05 11:15: 00 03-02 10:48 :00 No 1{lozen ge} 1 Lozenge, Oral, ONCE, 1 dose, On Thu03/02/23 at 0615, Routine [facility] acetaminoph en (TYLENOL) 325 mg tablet 2022-05 00:00: 00 03-02 04:59 :00 No [id number] 650mg Take 2 tablets by mouth every 6 (six) hours as needed for Pain (scale 1-3) or Pain (scale 4-6). [facility] [id number] fum-folic () 27 mg iron- 1 mg folic tablet 2022-05 00:00: 00 05-28 00:00 :00 No [id number] 1{tbl} Take 1 tablet by mouth in the morning. [facility] docusate 100 mg capsule 2022-05 00:00: 00 05-28 00:00 :00 No [id number] 200mg Take 2 capsules by mouth once daily as needed for Constipati on. [facility] ferrous sulfate 325 mg (65 mg iron) tablet 2022-05 00:00: 00 05-28 00:00 :00 No [id number] 325mg Take 1 tablet by mouth in the morning. [facility] ibuprofen 600 mg tablet 2022-05 00:00: 00 05-28 00:00 :00 No [id number] 600mg Take 1 tablet by mouth every 6 (six) hours. [facility] metFORMIN 500 mg tablet 2022-05 00:00: 00 05-02 05:59 :00 No [id number] 1000mg Take 2 tablets by mouth in the morning and 2 tablets in the evening. Take with meals. Do all this for 60 days. [facility] polyethylen e glycol 3350 17 gram/dose powder 2022-05 00:00: 00 04-02 05:59 :00 No [id number] 17g Take 17 g by mouth in the morning for 30 days. [facility] HYDROcodone -acetaminop hen 5-325 mg tablet 2022-05 00:00: 00 03-11 00:00 :00 No [id number] 1{tbl} Take 1 tablet by mouth every 6 (six) hours as needed (Pain scale above 4) for up to 7 days. Do not exceed 3 grams of acetaminop hen in 24 hours. Indication s: acute pain [facility] metFORMIN 500 mg tablet 2022-05 00:00: 00 03-11 00:00 :00 No [id number] 500mg Take 1 tablet by mouth in the morning and 1 tablet in the evening. Take with meals. [facility] insulin regular human 100 unit/mL injection 2022-05 0 00:00: 00 03-11 00:00 :00 No [id number] inject 14 Units under the skin every evening AND 15 Units every morning. [facility] insulin NPH 100 unit/mL injection 2022-05 0 00:00: 00 03-11 00:00 :00 No [id number] inject 28 Units under the skin every morning AND 15 Units every evening. [facility] metFORMIN (GLUCOPHAGE ) tablet 1,000 mg 2022-05 22:00: 00 03-02 17:38 :51 No 1000mg 1,000 mg, Oral, BID MEALS, First dose (after last modificati on) on 02/28/23 at 1700, Until Discontinu ed, Routine [facility] pantoprazol e (PROTONIX) EC tablet 40 mg 2022-05 14:00: 00 Yes 40mg 40 mg, Oral, DAILY, First dose on 02/28/23 at 0900, Until Discontinu ed, Routine [facility] simethicone (GAS RELIEF (SIMETHICON E)) chewable tablet 160 mg 2022-05 14:00: 00 Yes 160mg 160 mg, Oral, PC+HS, First dose on 02/28/23 at 0900, Until Discontinu ed, Routine [facility] docusate (COLACE) capsule 200 mg 2022-05 14:00: 00 Yes 200mg 200 mg, Oral, DAILY, First dose on 02/28/23 at 0900, Until Discontinu ed, Routine [facility] magnesium hydroxide (MILK OF MAGNESIA) 400 mg/5 mL suspension 30 mL 2022-05 14:00: 00 Yes 30mL 30 mL, Oral, DAILY, First dose on 02/28/23 at 0900, Until Discontinu ed, Routine [facility] D5W-LR IV infusion 1,000 mL 2022-05 09:15: 00 Yes 1000mL at 75 mL/hr, IV Infusion, CONTINUOUS , Starting on 02/28/23 at 0415, Until Discontinu ed, Routine [facility] rho(D) immune globulin (RHOGAM) syringe 300 mcg 2022-05 07:43: 01 Yes 300ug 300 mcg, Intramuscu lar, ONCE, For 1 dose, Conditiona l, Routine [facility] ondansetron (ZOFRAN (PF)) injection 4 mg 2022-05 07:42: 58 Yes 4mg 4 mg, Slow IV Push, Q8HPRN, Starting on 10/7/23 at 0242, Until Discontinu ed, Routine, Nausea and Vomiting (N/V) [facility] bisacodyL (DULCOLAX) suppository 10 mg 2022-05 0 07:42: 58 Yes 10mg 10 mg, Rectal, QDAILYPRN, Starting on 02/28/23 at 0242, Until Discontinu ed, Routine, Constipati on [facility] ibuprofen (IBU) tablet 600 mg 2022-05 007 07:42: 58 03-02 17:53 :35 No 600mg 600 mg, Oral, Q6HPRN, Starting on 02/28/23 at 0242, Until 03/02/23 at 1253, Routine, Pain (scale 1-3) [facility] diphenhydrA MINE (BENADRYL) injection 25 mg 2022-05 0 07:42: 58 02-28 17:48 :06 No 25mg 25 mg, Slow IV Push, Q6HPRN, Starting on 02/28/23 at 0242, Until 02/28/23 at 1248, Routine, Itching [facility] HYDROcodone -acetaminop hen (NORCO 5) 5-325 mg tablet 2 tablet 2022-05 0 06:21: 37 Yes 2{tbl} 2 tablet, Oral, Q6HPRN, Starting on 02/28/23 at 0121, Until Discontinu ed, Routine, Pain (scale 7-10), Alternate with Ibuprofen [facility] HYDROcodone -acetaminop hen (NORCO 5) 5-325 mg tablet 1 tablet 2022-05 007 06:21: 37 Yes 1{tbl} 1 tablet, Oral, Q6HPRN, Starting on 02/28/23 at 0121, Until Discontinu ed, Routine, Pain (scale 4-6), Alternate with Ibuprofen [facility] midazolam (VERSED) injection 2022-05 007 05:20: 00 02-28 05:44 :21 No IV Push, ONCE INTRA PROCEDURE, Starting on 02/28/23 at 0020, Until 02/28/23 at 0044, Routine, Intra-op [facility] FENTanyl PF (SUBLIMAZE (PF)) injection 2022-05 007 05:20: 00 02-28 05:44 :21 No Intravenou s, ONCE INTRA PROCEDURE, Starting on 02/28/23 at 0020, Until 02/28/23 at 0044, Routine, Intra-op [facility] diphenhydrA MINE (BENADRYL) injection 2022-05 007 04:55: 00 02-28 05:44 :21 No Slow IV Push, ONCE INTRA PROCEDURE, Starting on Thu02/27/23 at 2355, Until 02/28/23 at 0044, Routine, Intra-op [facility] ondansetron (ZOFRAN (PF)) injection 2022-05 007 04:44: 00 02-28 05:44 :21 No Slow IV Push, ONCE INTRA PROCEDURE, Starting on Thu02/27/23 at 2344, Until 02/28/23 at 0044, Routine, Intra-op [facility] oxytocin (PITOCIN) 30 units in NS 500 mL IV infusion 2022-05 007 04:40: 00 02-28 05:44 :21 No IV Infusion, CONTINUOUS PRN, Starting on Thu02/27/23 at 2340, Until 02/28/23 at 0044, Routine, Intra-op [facility] phenylephri ne (VAZCULEP) injection 2022-05 007 04:01: 00 02-28 05:44 :21 No Intravenou s, CONTINUOUS PRN, Starting on Thu02/27/23 at 2301, Until 02/28/23 at 0044, Routine, Intra-op [facility] bupivacaine (preserv free) (MARCAINE (PF)) 0.75 % (7.5 mg/mL) injection 2022-05 007 03:57: 00 02-28 05:44 :21 No Intratheca l, ONCE INTRA PROCEDURE, Starting on Thu02/27/23 at 2257, Until 02/28/23 at 0044, Routine, Intra-op [facility] FENTanyl PF (SUBLIMAZE (PF)) injection 2022-05 007 03:57: 00 02-28 05:44 :21 No Intratheca l, ONCE INTRA PROCEDURE, Starting on Thu02/27/23 at 2257, Until 02/28/23 at 0044, Routine, Intra-op [facility] morpHINE PF (DURAMORPH- PF) injection 2022-05 0 03:57: 00 02-28 05:44 :21 No Intratheca l, ONCE INTRA PROCEDURE, Starting on Thu02/27/23 at 2257, Until 02/28/23 at 0044, Routine, Intra-op [facility] lactated ringers IV infusion 2022-05 03:27: 00 02-28 05:44 :21 No Intravenou s, CONTINUOUS PRN, Starting on Thu02/27/23 at 2227, Until 02/28/23 at 0044, Routine, Intra-op [facility] lactated ringers IV infusion 1,000 mL 2022-05 02:30: 00 Yes 1000mL at 125 mL/hr, 1,000 mL, IV Infusion, CONTINUOUS , Starting on Thu02/27/23 at 2130, Until Discontinu ed, Routine [facility] sodium citrate-cit peter acid (BICITRA) 500-334 mg/5 mL solution 30 mL 2022-05 0 02:21: 34 02-28 03:13 :00 No 30mL 30 mL, Oral, PRE-PROCED URE ONCE, 1 dose, Starting on Thu02/27/23 at 2121, Until Thu02/27/23 at 2213, Routine, Surgery/Pr ocedure [facility] proCHLORper azine (COMPAZINE) tablet 10 mg 2022-05 007 01:45: 00 02-28 00:48 :00 No 10mg 10 mg, Oral, ONCE, 1 dose, On Thu02/27/23 at 2045, Routine [facility] diphenhydrA MINE (BENADRYL) tablet 25 mg 2022-05 007 00:15: 00 02-27 23:40 :00 No 25mg 25 mg, Oral, ONCE, 1 dose, On Thu02/27/23 at 1915, Routine [facility] metoclopram win HCl (REGLAN) tablet 10 mg 2022-05 0-07 00:15: 00 02-27 23:40 :00 No 10mg 10 mg, Oral, ONCE, 1 dose, On Thu02/27/23 at 1915, Routine [facility] cyclobenzap rine (FLEXERIL) tablet 10 mg 2022-05 006 23:30: 00 02-27 22:39 :00 No 10mg 10 mg, Oral, ONCE, 1 dose, On Thu02/27/23 at 1830, Routine [facility] alum-mag hydroxide-s imeth (MAG-AL PLUS) 200-200-20 mg/5 mL suspension 30 mL 2022-05 0 23:30: 00 02-27 22:38 :00 No 30mL 30 mL, Oral, ONCE, 1 dose, On Thu02/27/23 at 1830, Routine [facility] caffeine tablet 200 mg 2022-05 0 23:30: 00 02-27 22:40 :00 No 200mg 200 mg, Oral, ONCE, 1 dose, On Thu02/27/23 at 1830, Routine [facility] acetaminoph en (TYLENOL) tablet 1,000 mg 2022-05 006 23:00: 00 02-27 22:14 :00 No 1000mg 1,000 mg, Oral, ONCE, 1 dose, On Thu02/27/23 at 1800, Routine [facility] TAKE ONE (1) TABLET BY MOUTH IN THE MORNING AND 1 TABLET IN THE EVENING. 2022-05 00:00: 00 Yes 20 Luis Daniels famotidine (PEPCID) 20 mg tablet 2022-05 0 00:00: 00 03-02 00:00 :00 No [id number] 20mg Take 1 tablet by mouth in the morning and 1 tablet in the evening. [facility] insulin NPH 100 unit/mL injection 2022-05 0- 00:00: 00 03-02 00:00 :00 No [id number] Inject 68 units under the skin every morning and 46 units under the skin every night [facility] insulin regular human 100 unit/mL injection 2022-05 00:00: 00 03-02 00:00 :00 No [id number] Inject 38 units under the skin daily with breakfast. Inject 40 units under the skin daily with dinner [facility] cephALEXin (KEFLEX) 500 mg capsule 02-20 00:00: 00 03-02 00:00 :00 No [id number] 500mg Take 1 capsule by mouth 4 (four) times daily for 10 days. [facility] lactated ringers IV infusion 1,000 mL 01-31 03:45: 00 Yes 1000mL at 125 mL/hr, 1,000 mL, IV Infusion, CONTINUOUS , Starting on Thu01/30/23 at 2245, Until Discontinu ed, Routine [facility] maalox:diph enhydrAMINE :lidocaine 2 % viscous 1:1:1 ([facility]) oral suspension 15 mL 01-31 03:45: 00 01-31 03:41 :00 No 15mL 15 mL, Oral, ONCE, 1 dose, On Thu01/30/23 at 2245, Routine [facility] acetaminoph en (TYLENOL) tablet 1,000 mg 01-31 03:30: 00 01-31 03:13 :00 No 1000mg 1,000 mg, Oral, ONCE, 1 dose, On Thu01/30/23 at 2230, Routine [facility] lactated ringers IV infusion 500 mL 01-31 03:30: 00 01-31 03:15 :19 No 500mL at 999 mL/hr, 500 mL, Intravenou s, ONCE, 1 dose, On Thu01/30/23 at 2230, Routine [facility] famotidine (PEPCID AC) tablet 20 mg 01-31 03:15: 00 Yes 20mg 20 mg, Oral, BID, First dose on Thu01/30/23 at 2215, Until Discontinu ed, Routine [facility] TAKE ONE TABLET BY MOUTH IN THE MORNING, ONE TABLET AT NOON, AND ONE TABLET IN THE EVENING FOR 6 DOSES 01-30 00:00: 00 Yes Luisjayant Daniels cyclobenzap rine 10 mg tablet 01-30 00:00: 00 02-02 04:59 :00 No [id number] 10mg Take 1 tablet by mouth in the morning and 1 tablet at noon and 1 tablet in the evening. Do all this for 6 doses. [facility] INJECT 30 UNITS UNDER THE SKIN ONCE A DAY WITH BREAKFAST AND INJECT 28 UNITS WITH DINNER. 01-27 00:00: 00 Yes Luis Daniels INJECT 58 UNITS UNDER THE SKIN EVERY MORNING AND 30 UNITS EVERY NIGHT. 01-27 00:00: 00 Yes Luis Daniels insulin regular human 100 unit/mL injection 01-27 00:00: 00 02-24 00:00 :00 No [id number] 30U inject 30 Units under the skin daily with breakfast. Inject 28 units under the skin daily with dinner [facility] insulin NPH 100 unit/mL injection 01-27 00:00: 00 02-24 00:00 :00 No [id number] 58U inject 58 Units under the skin every morning. Inject 30 units under the skin every night [facility] insulin NPH 100 unit/mL injection 01-16 00:00: 00 01-27 00:00 :00 No [id number] 52U inject 52 Units under the skin every morning for 90 days. [facility] insulin regular human 100 unit/mL injection 01-16 00:00: 00 01-27 00:00 :00 No [id number] 26U inject 26 Units under the skin daily with breakfast for 90 days. [facility] TAKE 2 TABLETS BY MOUTH TWICE DAILY IN THE MORNING AND IN THE EVENING - TAKE WITH MEALS - DO ALL THIS FOR 90 DAYS 01-15 00:00: 00 Yes Luis Daniels Blood-Gluco se Meter (GLUCOCARD SHINE METER[place] [facility] 01-15 00:00: 00 03-02 00:00 :00 No [id number] Use as directed [facility] lancets (TECHLITE LANCETS) 28 gauge Misc 01-15 00:00: 00 03-02 00:00 :00 No [id number] Check blood glucose fasting and 2 hours Postprandi al [facility] blood sugar diagnostic (GLUCOCARD SHINE TEST STRIPS) strip 01-15 00:00: 00 03-02 00:00 :00 No [id number] Fasting and 2 hours postprandi al [facility] metFORMIN 500 mg tablet 01-15 00:00: 00 03-02 00:00 :00 No [id number] 1000mg Take 2 tablets by mouth in the morning and 2 tablets in the evening. Take with meals. Do all this for 90 days. [facility] insulin NPH 100 unit/mL injection 01-15 00:00: 00 02-24 00:00 :00 No [id number] 22U inject 22 Units under the skin at bedtime for 90 days. [facility] insulin regular human 100 unit/mL injection 01-15 00:00: 00 02-24 00:00 :00 No [id number] 22U inject 22 Units under the skin with evening meal for 90 days. [facility] insulin regular human (HUMULIN R) injection 22 Units 01-13 23:00: 00 Yes 22U 22 Units, Subcutaneo us, DINNER, First dose on Thu01/13/23 at 1800, Until Discontinu ed, Routine
Indicatio n for insulin: Hyperglyce dann [facility] caffeine tablet 100 mg 01-13 21:12: 53 Yes 100mg 100 mg, Oral, Q6HPRN, Starting on Thu01/13/23 at 1612, Until Discontinu ed, Routine, Pain (scale 4-6) [facility] acetaminoph en (TYLENOL) tablet 650 mg 01-13 21:12: 23 Yes 650mg 650 mg, Oral, Q6HPRN, Starting on Thu01/13/23 at 1612, Until Discontinu ed, Routine, Pain (scale 4-6) [facility] metFORMIN (GLUCOPHAGE ) tablet 500 mg 01-13 18:45: 00 Yes 500mg 500 mg, Oral, BID MEALS, First dose on Thu01/13/23 at 1345, Until Discontinu ed, [facility]-caff (ESGIC) 50-325-40 mg tablet 1 tablet 01-13 14:34: 29 Yes 1{tbl} 1 tablet, Oral, Q6HPRN, Starting on Thu01/13/23 at 0934, Until Discontinu ed, Routine, Pain (scale 1-3) [facility] insulin NPH (HUMULIN N) injection 52 Units 01-13 14:00: 00 Yes 52U 52 Units, Subcutaneo us, QAM, First dose on Thu01/13/23 at 0900, Until Discontinu ed, Routine [facility] insulin regular human (HUMULIN R) injection 26 Units 01-13 13:00: 00 Yes 26U 26 Units, Subcutaneo us, QAM WITH BREAKFAST, First dose on Thu01/13/23 at 0800, Until Discontinu ed, Routine
Indicatio n for insulin: Hyperglyce dann [facility] Sliding Scale Insulin-Reg ular 01-13 12:30: 00 Yes Subcutaneo us, AC, First dose on Thu01/13/23 at 0730, Until Discontinu ed, Routine [facility] insulin NPH (HUMULIN N) injection 22 Units 01-13 02:00: 00 Yes 22U 22 Units, Subcutaneo us, QHS, First dose on Thu01/12/23 at 2100, Until Discontinu ed, Routine [facility] metoclopram win HCl (REGLAN) tablet 10 mg 01-13 01:45: 00 01-13 01:35 :00 No 10mg 10 mg, Oral, ONCE, 1 dose, On Thu01/12/23 at 2045, Routine [facility] diphenhydrA MINE (BENADRYL) capsule 50 mg 01-13 01:45: 00 01-13 01:35 :00 No 50mg 50 mg, Oral, ONCE, 1 dose, On Thu01/12/23 at 2045, Routine [facility] dextrose 10% (D10W) bolus infusion 250 mL 01-13 00:49: 22 Yes 250mL 250 mL, IV Infusion, PRN - SEE INSTRUCTIO NS, Administer over 60 Minutes, Other, If blood glucose is < or = 70 mg/dL and patient is unable to swallow or has mental status changes, Starting on Thu01/12/23 at 1949
If blood glucose is < or = 70 mg/dL and patient is unable to swallow or has mental status changes (Give glucagon order if patient needs fluid restrictio n): IF IV access available: Dextrose 10%. 1. 125 mL (? bag) of D10W IV infusion - equivalent to 12.5 g dextrose 2. Blood glucose - draw blood glucose 15 minutes after D10W Administra tion. 3. If blood glucose is < 80 mg/dL, repeat.
[facility] glucagon (GLUCAGEN DIAGNOSTIC KIT) injection 1 mg 01-13 00:49: 19 Yes 1mg 1 mg, Intramuscu lar, PRN, Starting on Thu01/12/23 at 1949, Until Discontinu ed, JEWEL, Blood Glucose < or = 70 mg/dL and patient is NPO, unable to swallow or has mental changes. [facility] alum-mag hydroxide-s imeth (MAALOX PLUS / MAG-AL PLUS) 200-200-20 mg/5 mL suspension 30 mL 01-13 00:40: 44 Yes 30mL 30 mL, Oral, Q6HPRN, Starting on Thu01/12/23 at 1940, Until Discontinu ed, Routine, Indigestio n [facility] docusate (COLACE) capsule 200 mg 01-13 00:40: 44 Yes 200mg 200 mg, Oral, QHSPRN, Starting on Thu01/12/23 at 1940, Until Discontinu ed, Routine, Constipati on [facility] magnesium hydroxide (MILK OF MAGNESIA) 400 mg/5 mL suspension 30 mL 01-13 00:40: 44 Yes 30mL 30 mL, Oral, QDAILYPRN, Starting on Thu01/12/23 at 1940, Until Discontinu ed, Routine, Constipati on [facility] lactated ringers IV infusion 1,000 mL 01-12 23:30: 00 01-12 23:07 :00 No 1000mL at 999 mL/hr, 1,000 mL, Intravenou s, ONCE, 1 dose, On Thu01/12/23 at 1830, Routine [facility] acetaminoph en (TYLENOL) tablet 1,000 mg 01-12 23:00: 00 01-12 22:27 :00 No 1000mg 1,000 mg, Oral, ONCE, 1 dose, On Thu01/12/23 at 1800, Routine [facility] metFORMIN 500 mg tablet 01-09 19:01: 05 01-09 00:00 :00 No 1000mg Take 2 tablets by mouth in the morning and 2 tablets in the evening. Take with meals. [facility] Insulin Detemir (LEVEMIR FLEXPEN) 100 unit/mL (3 mL) injection 01-09 19:00: 53 01-09 00:00 :00 No [id number] 8U inject 8 Units under the skin in the morning and 8 Units in the evening. Morning and evening [facility] FLUCONAZOLE 150MG 01-03 00:00: 00 Yes 150 Luis Daniels fluconazole (DIFLUCAN) 150 mg tablet 01-03 00:00: 00 01-04 04:59 :00 No [id number] 150mg Take 1 tablet by mouth once now for 1 dose. [facility] Blood Pressure Kit Med & Lrg Kit 01-01 00:00: 00 01-15 00:00 :00 No [id number] 9100 Take blood pressure twice a day [facility] HUMULIN N 100U/ML VIA 12-29 00:00: 00 Yes Luis Daniels HUMULIN R U-100 INJ 12-26 00:00: 00 Yes Luis Daniels SERTRALINE 25MG 12-25 00:00: 00 Yes Luis Daniels INJECT 48 UNITS UNDER THE SKIN ONCE A DAY WITH BREAKFASST AND 18 UNITS ONCE A DAY BEFORE EVENING MEAL. 12-25 00:00: 00 Yes Luis Daniels INJECT 24 UNITS UNDER THE SKIN DAILY WITH BREAKFAST AND 18 UNITS BEFORE EVENING MEAL FOR 90 DAYS 12-25 00:00: 00 Yes Luis Daniels Insulin Syringe-Nee dle U-100 1 mL 31 gauge x 5/16 Syrg 12-25 00:00: 00 03-02 00:00 :00 No [id number] Use as directed [facility] SERTraline 25 mg tablet 12-25 00:00: 00 01-15 00:00 :00 No [id number] 25mg Take 1 tablet by mouth in the morning for 90 days. [facility] insulin NPH (HUMULIN N NPH U-100 INSULIN) 100 unit/mL injection 12-25 00:00: 00 01-15 00:00 :00 No [id number] inject 48 Units under the skin daily with breakfast AND 18 Units before evening meal. Do all this for 90 days. [facility] insulin regular human (HUMULIN R REGULAR U-100 INSULN) 100 unit/mL injection 12-25 00:00: 00 01-15 00:00 :00 No [id number] inject 24 Units under the skin daily with breakfast AND 18 Units before evening meal. Do all this for 90 days. [facility] diphenhydrA MINE 25 mg capsule 11-20 00:00: 00 01-15 00:00 :00 No [id number] 25mg Take 1 capsule by mouth every 6 (six) hours as needed for Allergies or Itching. [facility] sulfamethox azole-trime thoprim (BACTRIM DS) 800-160 mg per tablet 11-20 00:00: 00 11-26 04:59 :00 No [id number] 1{tbl} Take 1 tablet by mouth in the morning and 1 tablet in the evening. Do all this for 5 days. [facility] METRONIDAZO L 500MG 11-18 00:00: 00 Yes Luis Daniels metroNIDAZO LE (FLAGYL) tablet 500 mg 11-17 23:00: 00 11-17 23:05 :00 No 500mg 500 mg, Oral, ONCE NOW, 1 dose, On Thu11/17/22 at 1815, Routine
Reason for Anti-Infec tive: Documented Infection< br>Documen chris Infection Site: Pelvic
Duration of Therapy: Other (see Comments) [facility] metFORMIN 500 mg tablet 11-17 18:26: 56 Yes 1000mg Take 2 tablets by mouth in the morning and 2 tablets in the evening. Take with meals. [facility] Insulin Detemir (LEVEMIR FLEXPEN) 100 unit/mL (3 mL) injection 11-17 18:26: 56 Yes [id number] 8U inject 8 Units under the skin in the morning and 8 Units in the evening. Morning and evening [facility] metroNIDAZO LE (FLAGYL) 500 mg tablet 11-17 00:00: 00 01-09 00:00 :00 No [id number] 500mg Take 1 tablet by mouth every 12 (twelve) hours. [facility] INJECT 8 UNITS SUBCUTANEOU SLY TWICE DAILY 11-06 00:00: 00 08-02 00:00 :00 No 100 Luis Daniels METFORMIN 500MG 11-05 00:00: 00 Yes Luis Daniels metFORMIN 500 mg tablet 11-05 00:00: 00 01-09 00:00 :00 No [id number] 1000mg Take 2 tablets by mouth in the morning and 2 tablets in the evening. Take with meals. Do all this for 90 days. [facility] NaCl 0.9% (NS) bolus infusion 1,000 mL 10-18 04:45: 00 10-18 05:20 :00 No 1000mL at 999 mL/hr, 1,000 mL, IV Infusion, ONCE, 1 dose, On Thu10/17/22 at 2345, STAT [facility] clindamycin in 5 % dextrose (CLEOCIN) 600 mg/50 mL IV piggyback RTU 600 mg 10-18 04:00: 00 10-18 04:30 :00 No 600mg 600 mg, IV Piggyback, ONCE, 1 dose, On Thu10/17/22 at 2300, Administer over 30 Minutes, 50 mL
Reas on for Anti-Infec tive: Documented Infection< br>Documen chris Infection Site: HEENT<br&g t;Duration of Therapy: Other (see Comments)< br>Restric chris use approved by: ED PROVIDER [facility] acetaminoph en (TYLENOL) tablet 975 mg 10-18 04:00: 00 10-18 03:06 :00 No 975mg 975 mg, Oral, ONCE, 1 dose, On Thu10/17/22 at 2300, JEWEL [facility] NaCl 0.9% (NS) bolus infusion 1,000 mL 10-18 03:45: 00 10-18 04:13 :00 No 1000mL at 999 mL/hr, 1,000 mL, IV Infusion, ONCE, 1 dose, On Thu10/17/22 at 2245, JEWEL [facility] CLINDAMYCIN 300MG 10-18 00:00: 00 Yes Luis Daniels clindamycin 300 mg capsule 10-17 00:00: 00 10-28 04:59 :00 No [id number] 300mg Take 1 capsule by mouth 4 (four) times daily for 10 days. [facility] metFORMIN 500 mg tablet 10-08 08:34: 55 Yes 1000mg Take 2 tablets by mouth in the morning and 2 tablets in the evening. Take with meals. [facility] Insulin Detemir (LEVEMIR FLEXPEN) 100 unit/mL (3 mL) injection 10-08 08:34: 55 Yes [id number] 8U inject 8 Units under the skin in the morning and 8 Units in the evening. Morning and evening [facility] vit 33-iron-fol ic-dha (SELECT-OB + DHA) 29 mg iron-1 mg -250 mg combo pack 10-08 00:00: 00 Yes [id number] 1{packe t} Take 1 Packet by mouth in the morning. [facility] aspirin 81 mg EC tablet 10-08 00:00: 00 03-02 00:00 :00 No [id number] 9100 81mg Take 1 tablet by mouth in the morning. [facility] vit 33-iron-fol ic-dha (SELECT-OB + DHA) 29 mg iron-1 mg -250 mg combo pack 10-08 00:00: 00 01-15 00:00 :00 No [id number] 1{packe t} Take 1 Packet by mouth in the morning. [facility] TAKE 1 TABLET DAILY. - 00:00: 00 Yes 10 Luisjayant Daniels TAKE 1 CAPSULE TWICE A DAY X5 DAYS - 00:00: 00 Yes 150 Luis Magalie Daniels TAKE 1 CAPSULE TWICE DAILY. 4-05 00:00: 00 08-02 00:00 :00 No 500 Luis Magalie Jeremiah APPLY 2-3 TIMES DAILY TO AFFECTED AREA(S). 4-04 00:00: 00 08-02 00:00 :00 No 5 Luis Magalie Daniels TAKE 1 TABLET TWICE DAILY UNTIL FINISHED. -29 00:00: 00 08-02 00:00 :00 No 500 Luis Daniels 8 UNITS SUBCUTANEOU SLY TWICE DAILY - 00:00: 00 08-02 00:00 :00 No 100 Luis Magalie Jeremiah TAKE 1 TABLET TWICE DAILY. 3-08 00:00: 00 08-02 00:00 :00 No 1000 Luis Magalie Jeremiah 1 CAPSULE TWICE A DAY 1-23 00:00: 00 08-02 00:00 :00 No 300 Luis Magalie Jeremiah TAKE 10 MLS BY MOUTH EVERY FOUR TO SIX HOURS NEEDED. 1-04 00:00: 00 08-02 00:00 :00 No Luis F Jeremiah TAKE 2 TABLETS BY MOUTH ON DAY 1, THEN 1 TABLET DAILY ON DAYS 2 TO 5. 1-04 00:00: 00 08-02 00:00 :00 No Luis F Jeremiah TAKE 1 TABLET EVERY 12 HOURS DAILY. 2021-05 2-14 00:00: 00 08-02 00:00 :00 No Luis F Jeremiah TAKE 1 TAB Q12H X 5 DAYS 2021-05 2- 00:00: 00 08-02 00:00 :00 No Luis F Jeremiah APPLY SPARINGLY TO THE AFFECTED AREA(S) TWICE DAILY. 2021-05 2 00:00: 00 08-02 00:00 :00 No Luis F Jeremiah Dose Unknown 2021-05 2 00:00: 00 08-02 00:00 :00 No Luis F Jeremiah Dose Unknown 2021-05 2 00:00: 00 08-02 00:00 :00 No Luis F Jeremiah INHALE 2 PUFFS BY MOUTH EVERY 4 HOURS 2021-05 2 00:00: 00 08-02 00:00 :00 No Luis F Jeremiah Dose Unknown 2021-05 2 00:00: 00 08-02 00:00 :00 No Luis F Jeremiah Dose Unknown 2021-05 2 00:00: 00 08-02 00:00 :00 No Luis F Jeremiah Dose Unknown 2021-05 2 00:00: 00 08-02 00:00 :00 No Luis F Jeremiah Dose Unknown 2021-05 2 00:00: 00 08-02 00:00 :00 No Luis F Jeremiah Dose Unknown 2021-05 2 00:00: 00 08-02 00:00 :00 No Luis F Jeremiah TAKE 1 TABLET BY MOUTH TWICE DAILY 2021-05 2 00:00: 00 08-02 00:00 :00 No 10unit Luis F Jeremiah TAKE 1 TABLET DAILY. 2021-05 2- 00:00: 00 08-02 00:00 :00 No 20 Luis F Jeremiah TAKE 1 TABLET TWICE DAILY. 2021-05 00:00: 00 08-02 00:00 :00 No 1000uni t Luis F Jeremiah Dose Unknown 2021-05 00:00: 00 08-02 00:00 :00 No Luis F Jeremiah Dose Unknown 2021-05 00:00: 00 08-02 00:00 :00 No Luis F Jeremiah Dose Unknown 0 09-20 00:00: 00 Yes Luis F Jeremiah Dose Unknown 0 09-18 00:00: 00 Yes Luis F Jeremiah Dose Unknown 0 09-18 00:00: 00 Yes Luis F Jeremiah Dose Unknown 0 09-18 00:00: 00 Yes Luis F Jeremiah Dose Unknown 0 09-18 00:00: 00 Yes Luis F Jeremiah Dose Unknown 0 09-18 00:00: 00 Yes Luis F Jeremiah Dose Unknown 0 09-18 00:00: 00 Yes Luis F Jeremiah Dose Unknown 0 09-18 00:00: 00 Yes Luis F Jeremiah Dose Unknown 0 09-18 00:00: 00 Yes Luis F Jeremiah Dose Unknown 2020-05 00:00: 00 Yes Luis F Jeremiah Dose Unknown 2020-05 00:00: 00 Yes Luis F Jeremiah Dose Unknown 2020-05 00:00: 00 Yes Luis F Jeremiah Dose Unknown 2020-05 00:00: 00 Yes Luis F Jeremiah Dose Unknown 2020-05 00:00: 00 Yes Luis Daniels metFORMIN 500 mg tablet 2020-05 04:43: 01 Yes 500mg Take 500 mg by mouth 2 (two) times daily with meals. [facility] vitamin w/FA tablet 2020-05 00:00: 00 05-03 05:59 :00 No [id number] 1{tbl} Take 1 tablet by mouth daily for 30 days. [facility] SITagliptin (JANUVIA) tablet 50 mg 2020-05 19:15: 00 04-01 21:07 :00 No 50mg 50 mg, Oral, ONCE, 1 dose, On 04/01/21 at 1315, Routine [facility] metFORMIN 500 mg tablet 2020-05 16:44: 41 Yes 500mg Take 500 mg by mouth 2 (two) times daily with meals. [facility] Blood-Gluco se Meter (RELION ALL-IN-ONE METER) Kit 2020-05 00:00: 00 10-08 00:00 :00 No [id number] Use as directed [facility] SITagliptin 50 mg tablet 2020-05 00:00: 00 05-02 05:59 :00 No [id number] 50mg Take 1 tablet by mouth daily for 30 doses. [facility] cephALEXin 500 mg capsule 2020-05 00:00: 00 04-06 05:59 :00 No [id number] 500mg Take 1 capsule by mouth 4 (four) times daily for 4 days. [facility] cefTRIAXone (ROCEPHIN) 1,000 mg in NaCl 0.9% (NS) 50 mL MINI-BAG 2020-05 15:00: 00 Yes 1000mg 1,000 mg, IV Piggyback, DAILY, First dose (after last reorder) on Thu03/31/21 at 0900, Until Discontinu ed, Administer over 30 Minutes, 50 mL
Reas on for Anti-Infec tive: Documented Infection& lt;br>Docu mented Infection Site: Urine
D uration of Therapy: Other (see Comments) [facility] glipiZIDE (GLUCOTROL) tablet 2.5 mg 2020-05 13:30: 00 04-01 18:01 :58 No 2.5mg 2.5 mg, Oral, BIDAC, First dose on Thu03/31/21 at 0730, Until Discontinu ed, Routine [facility] NaCl 0.9% (NS) bolus infusion 500 mL 2020-05 09:00: 00 03-31 09:42 :00 No 500mL at 999 mL/hr, 500 mL, IV Piggyback, ONCE, 1 dose, On Thu21 at 0300, STAT [facility] magnesium oxide (MAG-OX 400) tablet 400 mg 2020-05 07:52: 59 Yes 400mg 400 mg, Oral, BID, First dose on 03/31/21 at 0800, Until Discontinu ed, Routine [facility] ferrous sulfate tablet 325 mg 2020-05 01:00: 00 Yes 325mg 325 mg, Oral, BID, First dose on 03/30/21 at 2000, Until Discontinu ed, Routine [facility] Sliding Scale Insulin - Lispro (HumaLOG) + Fsbg Testing 2020-05 22:00: 00 Yes Subcutaneo us, TID MEALS, First dose on 03/30/21 at 1700, Until Discontinu ed, Routine [facility] dextrose 50 % in water (D50W) injection 25 mL 2020-05 20:49: 22 Yes 25mL 25 mL, Slow IV Push, PRN, Starting on 03/30/21 at 1549, Until Discontinu ed, JEWEL, Blood Glucose < or = 70 mg/dL and patient is unable to swallow or has mental status changes. [facility] NaCl 0.9% (NS) IV infusion 1,000 mL 2020-05 18:45: 00 Yes 1000mL at 125 mL/hr, IV Infusion, CONTINUOUS , Starting on 03/30/21 at 1345, Until Discontinu ed, Routine [facility] magnesium sulfate in water 2 gram/50 mL (4 %) infusion 2 g 2020-05 18:45: 00 03-30 18:29 :00 No 2g 2 g, IV Piggyback, ONCE NOW, 1 dose, On 03/30/21 at 1345, Routine [facility] acetaminoph en (TYLENOL) tablet 650 mg 2020-05 17:43: 11 Yes 650mg 650 mg, Oral, Q6HPRN, Starting on 03/30/21 at 1243, Until Discontinu ed, Routine, Pain (scale 1-3) [facility] glucagon (GLUCAGEN DIAGNOSTIC KIT) injection 1 mg 2020-05 17:42: 20 Yes 1mg 1 mg, Intramuscu lar, PRN, Starting on 03/30/21 at 1242, Until Discontinu ed, JEWEL, Blood Glucose < or = 70 mg/dL and patient is unable to swallow or has mental changes. [facility] dextrose 50 % in water (D50W) injection 25 mL 2020-05 17:42: 20 Yes 25mL 25 mL, Slow IV Push, PRN, Starting on 03/30/21 at 1242, Until Discontinu ed, JEWEL, Blood Glucose < or = 70 mg/dL and patient is unable to swallow or has mental status changes. [facility] cefTRIAXone (ROCEPHIN) 1,000 mg in NaCl 0.9% (NS) 50 mL MINI-BAG 2020-05 17:15: 00 03-30 16:42 :00 No 1000mg 1,000 mg, IV Piggyback, ONCE, 1 dose, On 03/30/21 at 1215, Administer over 30 Minutes, 50 mL
Reas on for Anti-Infec tive: Documented Infection< br>Documen chris Infection Site: Urine
D uration of Therapy: Other (see Comments) [facility] acetaminoph en (TYLENOL) tablet 975 mg 2020-05 16:30: 00 03-30 15:25 :00 No 975mg 975 mg, Oral, ONCE, 1 dose, On 03/30/21 at 1130, JEWEL [facility] diphenhydrA MINE (BENADRYL) injection 25 mg 06-06 01:00: 00 06-06 00:04 :00 No 25mg 25 mg, Slow IV Push, ONCE, 1 dose, 06/05/20 at 1900, STAT [facility] metoclopram win HCl (REGLAN) injection 10 mg 06-06 01:00: 00 06-06 00:04 :00 No 10mg 10 mg, Slow IV Push, ONCE, 1 dose, 06/05/20 at 1900, JEWEL [facility] NaCl 0.9% (NS) bolus infusion 1,000 mL 06-06 00:00: 00 06-06 01:28 :00 No 1000mL at 999 mL/hr, 1,000 mL, IV Infusion, ONCE, 1 dose, [facility]05[facility]20 [facility] bolus [facility] 1,000 mL 12-19 06:15: 00 12-19 06:00 :00 No 1000mL at 999 mL/hr, 1,000 mL, IV Infusion, ONCE, 1 dose, 12/20/19 at 0115, STAT [facility] iohexol (OMNIPAQUE 350 BULK-150 mL) injection 120 mL 12-19 06:00: 00 12-19 06:00 :00 No 120mL 120 mL, Intravenou s, ONCE, 1 dose, 12/20/19 at 0100, Routine [facility] ondansetron (ZOFRAN (PF)) injection 4 mg 12-19 04:30: 00 12-19 03:46 :00 No 4mg 4 mg, Slow IV Push, ONCE, 1 dose, 12/19/19 at 2330, [facility] morpHINE injection 4 mg 12-19 04:30: 00 12-19 03:46 :00 No 4mg 4 mg, Slow IV Push, ONCE, 1 dose, 12/19/19 at 2330, STAT [facility] esomeprazol e (NEXIUM) 20 mg capsule 12-19 00:00: 00 Yes [id number] 20mg Take 20 mg by mouth daily before a meal. [facility] traMADol 50 mg tablet 12-19 00:00: 00 Yes [id number] 50mg Take 1 tablet by mouth every 6 (six) hours as needed for Pain (scale 4-6). Indication s: acute pain [facility] ondansetron (ZOFRAN) 4 mg tablet 12-19 00:00: 00 10-08 00:00 :00 No [id number] 4mg Take 1 tablet by mouth every 8 (eight) hours as needed for Nausea and Vomiting (N/V). [facility] metoclopram win HCl 10 mg tablet 02-09 00:00: 00 Yes 10mg Take 1 tablet by mouth every 6 (six) hours as needed (headache) . [facility] HYDROcodone -acetaminop hen 5-325 mg tablet 01-19 00:00: 00 Yes 1{tbl} Take 1-2 tablets by mouth every 6 (six) hours as needed for Pain (scale 7-10). Do not exceed 3 grams of acetaminop hen in 24 hours. [facility] vitamin w/FA tablet 01-18 00:00: 00 Yes 1{tbl} Take 1 tablet by mouth daily. [facility] ibuprofen 600 mg tablet 01-18 00:00: 00 Yes 600mg Take 1 tablet by mouth every 6 (six) hours as needed for Pain (scale 1-3) or Pain (scale 4-6) (Pain). Take with food or milk. [facility] docusate calcium 240 mg capsule 01-18 00:00: 00 10-08 00:00 :00 No 240mg Take 1 capsule by mouth once daily as needed for Constipati on. [facility] ferrous sulfate 325 mg (65 mg iron) tablet 01-18 00:00: 00 10-08 00:00 :00 No 325mg Take 1 tablet by mouth 2 (two) times daily. [facility] Blood-Gluco se Meter (FREESTYLE SYSTEM KIT) Kit 01-02 00:00: 00 Yes [id number] Use as directed [facility] lancets 28 gauge Misc 01-02 00:00: 00 Yes [id number] Use as directed [facility] Blood-Gluco se Meter (FREESTYLE SYSTEM KIT) Kit 01-02 00:00: 00 10-08 00:00 :00 No [id number] Use as directed [facility] blood sugar diagnostic (FREESTYLE TEST) strip 01-02 00:00: 00 10-08 00:00 :00 No [id number] Use as directed [facility] lancets 28 gauge Misc 2017-0 8-11 00:00: 00 10-08 00:00 :00 No [id number] Use as directed [facility] vit 33-iron-fol ic-dha (SELECT-OB + DHA) 29 mg iron-1 mg -250 mg combo pack 11-18 00:00: 00 Yes [id number] 1{packe t} Take 1 Packet by mouth daily. [facility] Immunizations Ordered Immunization Name Filled Immunization Name Date Status Comments Source TDAP 2023-01-08 00:00:00 Completed [facility] TDAP 2023-01-08 00:00:00 Completed [facility] TDAP 2023-01-08 00:00:00 Completed [facility] TDAP 2023-01-08 00:00:00 Completed [facility] TDAP 2023-01-08 00:00:00 Completed [facility] TDAP 2023-01-08 00:00:00 Completed [facility] TDAP 2023-01-08 00:00:00 Completed [facility] TDAP 2023-01-08 00:00:00 Completed [facility] TDAP 2023-01-08 00:00:00 Completed [facility] TDAP 2023-01-08 00:00:00 Completed [facility] TDAP 2023-01-08 00:00:00 Completed [facility] TDAP 2023-01-08 00:00:00 Completed [facility] TDAP 2023-01-08 00:00:00 Completed [facility] TDAP 2023-01-08 00:00:00 Completed [facility] TDAP 2023-01-08 00:00:00 Completed [facility] TDAP 2023-01-08 00:00:00 Completed [facility] TDAP 2023-01-08 00:00:00 Completed [facility] Influenza, seasonal, inj Influenza, seasonal, inj 2021-04-12 00:00:00 Completed Luis Daniels TDAP 2016-12-22 00:00:00 Completed [facility] TDAP 2016-12-22 00:00:00 Completed [facility] TDAP 2016-12-22 00:00:00 Completed [facility] TDAP 2016-12-22 00:00:00 Completed [facility] TDAP 2016-12-22 00:00:00 Completed [facility] TDAP 2016-12-22 00:00:00 Completed [facility] TDAP 2016-12-22 00:00:00 Completed [facility] TDAP 2016-12-22 00:00:00 Completed [facility] TDAP 2016-12-22 00:00:00 Completed [facility] TDAP 2016-12-22 00:00:00 Completed [facility] TDAP 2016-12-22 00:00:00 Completed [facility] TDAP 2016-12-22 00:00:00 Completed [facility] TDAP 2016-12-22 00:00:00 Completed [facility] TDAP 2016-12-22 00:00:00 Completed [facility] TDAP 2016-12-22 00:00:00 Completed [facility] TDAP 2016-12-22 00:00:00 Completed [facility] TDAP 2016-12-22 00:00:00 Completed [facility] TDAP 2016-12-22 00:00:00 Completed [facility] TDAP 2016-12-22 00:00:00 Completed [facility] TDAP 2016-12-22 00:00:00 Completed [facility] TDAP 2016-12-22 00:00:00 Completed [facility] TDAP 2016-12-22 00:00:00 Completed [facility] TDAP 2016-12-22 00:00:00 Completed [facility] TDAP 2016-12-22 00:00:00 Completed [facility] TDAP 2016-12-22 00:00:00 Completed [facility] TDAP 2016-12-22 00:00:00 Completed [facility] TDAP 2016-12-22 00:00:00 Completed [facility] TDAP 2016-12-22 00:00:00 Completed [facility] TDAP 2016-12-22 00:00:00 Completed [facility] TDAP 2016-12-22 00:00:00 Completed [facility] TDAP 2016-12-22 00:00:00 Completed [facility] TDAP 2016-12-22 00:00:00 Completed [facility] TDAP 2016-12-22 00:00:00 Completed [facility] TDAP 2016-12-22 00:00:00 Completed [facility] TDAP 2016-12-22 00:00:00 Completed [facility] TDAP 2016-12-22 00:00:00 Completed [facility] TDAP 2016-12-22 00:00:00 Completed [facility] TDAP 2016-12-22 00:00:00 Completed [facility] TDAP 2016-12-22 00:00:00 Completed [facility] TDAP 2016-12-22 00:00:00 Completed [facility] TDAP 2016-12-22 00:00:00 Completed [facility] TDAP 2016-12-22 00:00:00 Completed [facility] TDAP 2016-12-22 00:00:00 Completed [facility] TDAP 2012-08-26 00:00:00 Completed [facility] TDAP 2012-08-26 00:00:00 Completed [facility] TDAP 2012-08-26 00:00:00 Completed [facility] TDAP 2012-08-26 00:00:00 Completed [facility] TDAP 2012-08-26 00:00:00 Completed [facility] TDAP 2012-08-26 00:00:00 Completed [facility] TDAP 2012-08-26 00:00:00 Completed [facility] TDAP 2012-08-26 00:00:00 Completed [facility] TDAP 2012-08-26 00:00:00 Completed [facility] TDAP 2012-08-26 00:00:00 Completed [facility] TDAP 2012-08-26 00:00:00 Completed [facility] TDAP 2012-08-26 00:00:00 Completed [facility] TDAP 2012-08-26 00:00:00 Completed [facility] TDAP 2012-08-26 00:00:00 Completed [facility] TDAP 2012-08-26 00:00:00 Completed [facility] TDAP 2012-08-26 00:00:00 Completed [facility] TDAP 2012-08-26 00:00:00 Completed [facility] TDAP 2012-08-26 00:00:00 Completed [facility] TDAP 2012-08-26 00:00:00 Completed [facility] TDAP 2012-08-26 00:00:00 Completed [facility] TDAP 2012-08-26 00:00:00 Completed [facility] TDAP 2012-08-26 00:00:00 Completed [facility] TDAP 2012-08-26 00:00:00 Completed [facility] TDAP 2012-08-26 00:00:00 Completed [facility] TDAP 2012-08-26 00:00:00 Completed [facility] TDAP 2012-08-26 00:00:00 Completed [facility] TDAP 2012-08-26 00:00:00 Completed [facility] TDAP 2012-08-26 00:00:00 Completed [facility] TDAP 2012-08-26 00:00:00 Completed [facility] TDAP 2012-08-26 00:00:00 Completed [facility] TDAP 2012-08-26 00:00:00 Completed [facility] TDAP 2012-08-26 00:00:00 Completed [facility] TDAP 2012-08-26 00:00:00 Completed [facility] TDAP 2012-08-26 00:00:00 Completed [facility] TDAP 2012-08-26 00:00:00 Completed [facility] TDAP 2012-08-26 00:00:00 Completed [facility] TDAP 2012-08-26 00:00:00 Completed [facility] TDAP 2012-08-26 00:00:00 Completed [facility] TDAP 2012-08-26 00:00:00 Completed [facility] TDAP 2012-08-26 00:00:00 Completed [facility] TDAP 2012-08-26 00:00:00 Completed [facility] TDAP 2012-08-26 00:00:00 Completed [facility] TDAP 2012-08-26 00:00:00 Completed [facility] TDAP Unknown Completed [facility] TDAP Unknown Completed [facility] TDAP Unknown Completed [facility] TDAP Unknown Completed [facility] TDAP Unknown Completed [facility] TDAP Unknown Completed [facility] TDAP Unknown Completed [facility] Influenza Virus Vaccine Quad IM, Preserv and ABX Free 6 MO-64 YRS (FLUCELVAX) Unknown Completed [facility] TDAP Unknown Completed [facility] Influenza Virus Vaccine Quad IM, Preserv and ABX Free 6 MO-64 YRS (FLUCELVAX) Unknown Completed [facility] TDAP Unknown Completed [facility] Influenza Virus Vaccine Quad IM, Preserv and ABX Free 6 MO-64 YRS (FLUCELVAX) Unknown Completed [facility] TDAP Unknown Completed [facility] Influenza Virus Vaccine Quad IM, Preserv and ABX Free 6 MO-64 YRS (FLUCELVAX) Unknown Completed [facility] TDAP Unknown Completed [facility] Influenza Virus Vaccine Quad IM, Preserv and ABX Free 6 MO-64 YRS (FLUCELVAX) Unknown Completed [facility] TDAP Unknown Completed [facility] Influenza Virus Vaccine Quad IM, Preserv and ABX Free 6 MO-64 YRS (FLUCELVAX) Unknown Completed [facility] TDAP Unknown Completed [facility] TDAP Unknown Completed [facility] Influenza Virus Vaccine Quad IM, Preserv and ABX Free 6 MO-64 YRS (FLUCELVAX) Unknown Completed [facility] TDAP Unknown Completed [facility] Influenza Virus Vaccine Quad IM, Preserv and ABX Free 6 MO-64 YRS (FLUCELVAX) Unknown Completed [facility] TDAP Unknown Completed [facility] Influenza Virus Vaccine Quad IM, Preserv and ABX Free 6 MO-64 YRS (FLUCELVAX) Unknown Completed [facility] TDAP Unknown Completed [facility] Influenza Virus Vaccine Quad IM, Preserv and ABX Free 6 MO-64 YRS (FLUCELVAX) Unknown Completed [facility] TDAP Unknown Completed [facility] Influenza Virus Vaccine Quad IM, Preserv and ABX Free 6 MO-64 YRS (FLUCELVAX) Unknown Completed [facility] TDAP Unknown Completed [facility] Influenza Virus Vaccine Quad IM, Preserv and ABX Free 6 MO-64 YRS (FLUCELVAX) Unknown Completed [facility] TDAP Unknown Completed [facility] Influenza Virus Vaccine Quad IM, Preserv and ABX Free 6 MO-64 YRS (FLUCELVAX) Unknown Completed [facility] TDAP Unknown Completed [facility] Influenza Virus Vaccine Quad IM, Preserv and ABX Free 6 MO-64 YRS (FLUCELVAX) Unknown Completed [facility] TDAP Unknown Completed [facility] Influenza Virus Vaccine Quad IM, Preserv and ABX Free 6 MO-64 YRS (FLUCELVAX) Unknown Completed [facility] TDAP Unknown Completed [facility] Influenza Virus Vaccine Quad IM, Preserv and ABX Free 6 MO-64 YRS (FLUCELVAX) Unknown Completed [facility] TDAP Unknown Completed [facility] Influenza Virus Vaccine Quad IM, Preserv and ABX Free 6 MO-64 YRS (FLUCELVAX) Unknown Completed [facility] TDAP Unknown Completed [facility] Influenza Virus Vaccine Quad IM, Preserv and ABX Free 6 MO-64 YRS (FLUCELVAX) Unknown Completed [facility] HPV9 Unknown Completed [facility] Influenza Virus Vaccine Quad IM, Preserv and ABX Free 6 MO-64 YRS (FLUCELVAX) Unknown Completed [facility] HPV9 Unknown Completed [facility] TDAP Unknown Completed [facility] TDAP Unknown Completed [facility] Influenza Virus Vaccine Quad IM, Preserv and ABX Free 6 MO-64 YRS (FLUCELVAX) Unknown Completed [facility] HPV9 Unknown Completed [facility] TDAP Unknown Completed [facility] Influenza Virus Vaccine Quad IM, Preserv and ABX Free 6 MO-64 YRS (FLUCELVAX) Unknown Completed [facility] HPV9 Unknown Completed [facility] Vital Signs Vital Name Observation Time Observation Value Comments S ource Body temperature 2023-12-10 15:11:00 36.33 Haydee [facility] Body temperature 2023-07-02 15:48:00 36.56 Haydee [facility] Systolic blood pressure 2023-05-28 21:00:00 139 mm[Hg] [facility] Diastolic blood pressure 2023-05-28 21:00:00 84 mm[Hg] [facility] Heart rate 2023-05-28 21:00:00 87 /min [facility] Body temperature 2023-05-28 20:57:00 36.5 Haydee [facility] Respiratory rate 2023-05-28 20:57:00 18 /min [facility] Body height 2023-05-28 20:57:00 170.2 cm [facility] Body weight 2023-05-28 20:57:00 116.319 kg [facility] BMI 2023-05-28 20:57:00 40.16 kg/m2 [facility] Systolic blood pressure 2023-03-24 15:08:00 132 mm[Hg] [facility] Diastolic blood pressure 2023-03-24 15:08:00 86 mm[Hg] [facility] Heart rate 2023-03-24 15:08:00 77 /min [facility] Body temperature 2023-03-24 15:08:00 36.67 Haydee [facility] Respiratory rate 2023-03-24 15:08:00 18 /min [facility] Body height 2023-03-24 15:08:00 170.2 cm [facility] Body weight 2023-03-24 15:08:00 117.198 kg [facility] [place] BMI 2023-03-24 15:08:00 40.47 kg/m2 [facility] [place] Systolic blood pressure 2023-03-16 19:00:00 130 mm[Hg] [facility] Diastolic blood pressure 2023-03-16 19:00:00 75 mm[Hg] [facility] Heart rate 2023-03-16 18:53:00 83 /min [facility] Body temperature 2023-03-16 18:53:00 35.56 Hay[place] [facility] Respiratory rate 2023-03-16 18:53:00 18 /min [facility] Body height 2023-03-16 18:53:00 170.2 cm [facility] [place] Body weight 2023-03-16 18:53:00 115.486 kg [facility] [place] BMI 2023-03-16 18:53:00 39.88 kg/m2 [facility] [place] Heart rate 2023-03-11 12:45:00 64 /min [facility] Oxygen saturation in Arterial blood by Pulse oximetry 2023-03-11 12:45:00 96 /min [facility] Systolic blood pressure 2023-03-11 12:32:00 125 mm[Hg] [facility] Diastolic blood pressure 2023-03-11 12:32:00 68 mm[Hg] [facility] Body temperature 2023-03-11 12:32:00 36.83 Haydee [facility] Respiratory rate 2023-03-11 12:32:00 18 /min [facility] Body weight 2023-03-10 01:00:00 121.11 kg [facility] BMI 2023-03-10 01:00:00 41.82 kg/m2 [facility] Body height 2023-03-09 21:25:00 170.2 cm [facility] Systolic blood pressure 2023-03-05 13:16:00 134 mm[Hg] [facility] Diastolic blood pressure 2023-03-05 13:16:00 90 mm[Hg] [facility] Heart rate 2023-03-05 13:08:00 87 /min [facility] Body temperature 2023-03-05 13:08:00 36.39 Haydee [facility] Respiratory rate 2023-03-05 13:08:00 20 /min [facility] Body height 2023-03-05 13:08:00 170.2 cm [facility] [place] Body weight 2023-03-05 13:08:00 121.224 kg [facility] [place] BMI 2023-03-05 13:08:00 41.86 kg/m2 [facility] [place] Systolic blood pressure 2023-03-02 12:11:00 136 mm[Hg] [facility] Diastolic blood pressure 2023-03-02 12:11:00 87 mm[Hg] [facility] Heart rate 2023-03-02 12:11:00 89 /min [facility] 2023-03-02 12:11:00 36.5 Haydee [facility] Respiratory rate 2023-03-02 12:11:00 18 /min [facility] Oxygen saturation in Arterial blood by Pulse oximetry 2023-03-02 12:11:00 95 /min [facility] Body height 2023-02-28 00:00:00 170.2 cm [facility] [place] Body weight 2023-02-28 00:00:00 127 kg [facility] BMI 2023-02-28 00:00:00 43.84 kg/m2 [facility] [place] Systolic blood pressure 2023-02-28 03:00:00 145 mm[Hg] [facility] Diastolic blood pressure 2023-02-28 03:00:00 86 mm[Hg] [facility] Heart rate 2023-02-28 03:00:00 87 /min [facility] saturation in Arterial blood by Pulse oximetry 2023-02-28 03:00:00 99 /min [facility] Body temperature 2023-02-28 00:00:00 36.17 Haydee [facility] Respiratory rate 2023-02-28 00:00:00 18 /min [facility] Body height 2023-02-28 00:00:00 170.2 cm [facility] Body weight 2023-02-28 00:00:00 127 kg [facility] BMI 2023-02-28 00:00:00 43.84 kg/m2 [facility] [place] Systolic blood pressure 2023-02-27 15:10:00 140 mm[Hg] [facility] Diastolic blood pressure 2023-02-27 15:10:00 82 mm[Hg] [facility] Heart rate 2023-02-27 15:05:00 91 /min [facility] Body temperature 2023-02-27 15:05:00 36.72 Hay[place] [facility] Respiratory rate 2023-02-27 15:05:00 20 /min [facility] Body height 2023-02-27 15:05:00 170.2 cm [facility] [place] Body weight 2023-02-27 15:05:00 127.574 kg [facility] [place] BMI 2023-02-27 15:05:00 44.05 kg/m2 [facility] [place] Systolic blood pressure 2023-02-24 19:02:00 134 mm[Hg] [facility] Diastolic blood pressure 2023-02-24 19:02:00 84 mm[Hg] [facility] Heart rate 2023-02-24 19:02:00 97 /min [facility] Body temperature 2023-02-24 19:02:00 36.5 Hay[place] [facility] Respiratory rate 2023-02-24 19:02:00 20 /min [facility] Body height 2023-02-24 19:02:00 170.2 cm [facility] [place] Body weight 2023-02-24 19:02:00 124.966 kg [facility] BMI 2023-02-24 19:02:00 43.15 kg/m2 [facility] [place] Systolic blood pressure 2023-02-20 14:30:00 133 mm[Hg] [facility] Diastolic blood pressure 2023-02-20 14:30:00 79 mm[Hg] [facility] Heart rate 2023-02-20 14:30:00 96 /min [facility] Body temperature 2023-02-20 14:30:00 36.28 [place] [facility] Respiratory rate 2023-02-20 14:30:00 20 /min [facility] Body height 2023-02-20 14:30:00 170.2 cm [facility] [place] Body weight 2023-02-20 14:30:00 126.213 kg [facility] [place] BMI 2023-02-20 14:30:00 43.58 kg/m2 [facility] [place] Systolic blood pressure 2023-02-17 15:00:00 138 mm[Hg] [facility] Diastolic blood pressure 2023-02-17 15:00:00 82 mm[Hg] [facility] Heart rate 2023-02-17 15:00:00 107 /min [facility] Body temperature 2023-02-17 15:00:00 36.44 Hay[place] [facility] Respiratory rate 2023-02-17 15:00:00 18 /min [facility] Body height 2023-02-17 15:00:00 170.2 cm [facility] [place] Body weight 2023-02-17 15:00:00 125.363 kg [facility] BMI 2023-02-17 15:00:00 43.29 kg/m2 [facility] [place] Systolic blood pressure 2023-02-13 13:23:00 122 mm[Hg] [facility] Diastolic blood pressure 2023-02-13 13:23:00 78 mm[Hg] [facility] Heart rate 2023-02-13 13:23:00 93 /min [facility] Body temperature 2023-02-13 13:23:00 36.17 Hay[place] [facility] Respiratory rate 2023-02-13 13:23:00 18 /min [facility] Body height 2023-02-13 13:23:00 170.2 cm [facility] Body weight 2023-02-13 13:23:00 124.853 kg [facility] BMI 2023-02-13 13:23:00 43.11 kg/m2 [facility] Systolic blood pressure 2023-02-10 15:56:00 129 mm[Hg] [facility] Diastolic blood pressure 2023-02-10 15:56:00 75 mm[Hg] [facility] Heart rate 2023-02-10 15:56:00 86 /min [facility] Body temperature 2023-02-10 15:56:00 36.33 Hay[place] [facility] Respiratory rate 2023-02-10 15:56:00 18 /min [facility] Body height 2023-02-10 15:56:00 170.2 cm [facility] [place] Body weight 2023-02-10 15:56:00 124.739 kg [facility] [place] BMI 2023-02-10 15:56:00 43.07 kg/m2 [facility] [place] Systolic blood pressure 2023-02-06 14:37:00 131 mm[Hg] [facility] Diastolic blood pressure 2023-02-06 14:37:00 79 mm[Hg] [facility] Heart rate 2023-02-06 14:37:00 106 /min [facility] Body temperature 2023-02-06 14:37:00 36.11 Hay[place] [facility] Respiratory rate 2023-02-06 14:37:00 18 /min [facility] Body height 2023-02-06 14:37:00 170.2 cm [facility] [place] Body weight 2023-02-06 14:37:00 123.56 kg [facility] [place] BMI 2023-02-06 14:37:00 42.66 kg/m2 [facility] [place] Systolic blood pressure 2023-02-03 18:43:00 126 mm[Hg] [facility] Diastolic blood pressure 2023-02-03 18:43:00 68 mm[Hg] [facility] Heart rate 2023-02-03 18:43:00 92 /min [facility] Body temperature 2023-02-03 18:43:00 36.39 [place] [facility] Respiratory rate 2023-02-03 18:43:00 17 /min [facility] Body height 2023-02-03 18:43:00 170.2 cm [facility] [place] Body weight 2023-02-03 18:43:00 126.809 kg [facility] [place] BMI 2023-02-03 18:43:00 43.79 kg/m2 [facility] [place] Systolic blood pressure 2023-01-31 03:30:00 132 mm[Hg] [facility] Diastolic blood pressure 2023-01-31 03:30:00 86 mm[Hg] [facility] Heart rate 2023-01-31 03:30:00 83 /min [facility] Oxygen saturation in Arterial blood by Pulse oximetry 2023-01-31 03:30:00 98 /min [facility] Body temperature 2023-01-30 22:30:00 36.72 [place] [facility] Respiratory rate 2023-01-30 22:30:00 18 /min [facility] Body height 2023-01-30 22:30:00 170.2 cm [facility] Body weight 2023-01-30 22:30:00 125.193 kg [facility] BMI 2023-01-30 22:30:00 43.23 kg/m2 [facility] Systolic blood pressure 2023-01-30 18:12:00 124 mm[Hg] [facility] Diastolic blood pressure 2023-01-30 18:12:00 78 mm[Hg] [facility] Heart rate 2023-01-30 18:12:00 101 /min [facility] Body temperature 2023-01-30 18:12:00 36.89 [place] [facility] Respiratory rate 2023-01-30 18:12:00 18 /min [facility] Body height 2023-01-30 18:12:00 170.2 cm [facility] Body weight 2023-01-30 18:12:00 124.087 kg [facility] BMI 2023-01-30 18:12:00 42.85 kg/m2 [facility] Systolic blood pressure 2023-01-27 19:34:00 129 mm[Hg] [facility] Diastolic blood pressure 2023-01-27 19:34:00 75 mm[Hg] [facility] Heart rate 2023-01-27 19:34:00 99 /min [facility] Body temperature 2023-01-27 19:34:00 36.17 [place] [facility] Respiratory rate 2023-01-27 19:34:00 18 /min [facility] Body height 2023-01-27 19:34:00 170.2 cm [facility] Body weight 2023-01-27 19:34:00 122.335 kg [facility] BMI 2023-01-27 19:34:00 42.24 kg/m2 [facility] Systolic blood pressure 2023-01-23 15:06:00 117 mm[Hg] [facility] Diastolic blood pressure 2023-01-23 15:06:00 75 mm[Hg] [facility] Heart rate 2023-01-23 15:06:00 100 /min [facility] Body temperature 2023-01-23 15:06:00 36.78 [place] [facility] Respiratory rate 2023-01-23 15:06:00 18 /min [facility] Body height 2023-01-23 15:06:00 170.2 cm [facility] Body weight 2023-01-23 15:06:00 121.281 kg [facility] BMI 2023-01-23 15:06:00 41.88 kg/m2 [facility] Systolic blood pressure 2023-01-21 14:53:00 119 mm[Hg] [facility] Diastolic blood pressure 2023-01-21 14:53:00 73 mm[Hg] [facility] Heart rate 2023-01-21 14:53:00 98 /min [facility] Body temperature 2023-01-21 14:53:00 36.83 [place] [facility] Respiratory rate 2023-01-21 14:53:00 17 /min [facility] Body height 2023-01-21 14:53:00 170.2 cm [facility] Body weight 2023-01-21 14:53:00 121.428 kg [facility] BMI 2023-01-21 14:53:00 41.93 kg/m2 [facility] Heart rate 2023-01-15 17:21:00 76 /min [facility] Oxygen saturation in Arterial blood by Pulse oximetry 2023-01-15 17:21:00 98 /min [facility] Systolic blood pressure 2023-01-15 16:45:00 119 mm[Hg] [facility] Diastolic blood pressure 2023-01-15 16:45:00 73 mm[Hg] [facility] Body temperature 2023-01-15 16:45:00 36.44 [place] [facility] Respiratory rate 2023-01-15 16:45:00 18 /min [facility] Body height 2023-01-13 02:14:00 170.2 cm [facility] Body weight 2023-01-13 02:14:00 118.389 kg [facility] [place] BMI 2023-01-13 02:14:00 40.88 kg/m2 [facility] [place] Systolic blood pressure 2023-01-08 16:04:00 122 mm[Hg] [facility] Diastolic blood pressure 2023-01-08 16:04:00 72 mm[Hg] [facility] Heart rate 2023-01-08 16:04:00 85 /min [facility] Body temperature 2023-01-08 16:04:00 36.61 [place] [facility] Respiratory rate 2023-01-08 16:04:00 17 /min [facility] Body height 2023-01-08 16:04:00 170.2 cm [facility] [place] Body weight 2023-01-08 16:04:00 118.434 kg [facility] [place] BMI 2023-01-08 16:04:00 40.89 kg/m2 [facility] [place] Systolic blood pressure 2023-01-01 16:18:00 133 mm[Hg] [facility] Diastolic blood pressure 2023-01-01 16:18:00 79 mm[Hg] [facility] Heart rate 2023-01-01 16:06:00 108 /min [facility] Body temperature 2023-01-01 16:06:00 36.28 [place] [facility] Respiratory rate 2023-01-01 16:06:00 17 /min [facility] Body height 2023-01-01 16:06:00 170.2 cm [facility] [place] Body weight 2023-01-01 16:06:00 119.432 kg [facility] BMI 2023-01-01 16:06:00 41.24 kg/m2 [facility] [place] Systolic blood pressure 2022-12-25 19:08:00 127 mm[Hg] [facility] Diastolic blood pressure 2022-12-25 19:08:00 80 mm[Hg] [facility] Heart rate 2022-12-25 19:08:00 99 /min [facility] Body temperature 2022-12-25 19:08:00 36.67 [place] [facility] Respiratory rate 2022-12-25 19:08:00 17 /min [facility] Body height 2022-12-25 19:08:00 170.2 cm [facility] Body weight 2022-12-25 19:08:00 120.022 kg [facility] [place] BMI 2022-12-25 19:08:00 41.44 kg/m2 [facility] [place] Systolic blood pressure 2022-11-17 21:57:00 133 mm[Hg] [facility] Diastolic blood pressure 2022-11-17 21:57:00 78 mm[Hg] [facility] Heart rate 2022-11-17 21:57:00 82 /min [facility] Body temperature 2022-11-17 21:57:00 36.22 [place] [facility] Respiratory rate 2022-11-17 21:57:00 16 /min [facility] Body height 2022-11-17 21:57:00 170.2 cm [facility] Body weight 2022-11-17 21:57:00 117.663 kg 259.6 [facility] [place] BMI 2022-11-17 21:57:00 40.62 kg/m2 [facility] Oxygen saturation in Arterial blood by Pulse oximetry 2022-11-17 21:57:00 98 /min [facility] Systolic blood pressure 2022-11-05 17:46:00 124 mm[Hg] [facility] Diastolic blood pressure 2022-11-05 17:46:00 84 mm[Hg] [facility] Body height 2022-11-05 17:46:00 170.2 cm [facility] Body weight 2022-11-05 17:46:00 118.389 kg [facility] BMI 2022-11-05 17:46:00 40.88 kg/m2 [facility] Systolic blood pressure 2022-10-18 05:00:00 141 mm[Hg] [facility] Diastolic blood pressure 2022-10-18 05:00:00 90 mm[Hg] [facility] Heart rate 2022-10-18 05:00:00 111 /min [facility] Respiratory rate 2022-10-18 05:00:00 18 /min [facility] Oxygen saturation in Arterial blood by Pulse oximetry 2022-10-18 05:00:00 97 /min [facility] Body temperature 2022-10-18 03:59:00 37.83 [place] [facility] Body height 2022-10-18 02:42:00 170.2 cm [facility] Body weight 2022-10-18 02:42:00 117.164 kg [facility] BMI 2022-10-18 02:42:00 40.46 kg/m2 [facility] Systolic blood pressure 2022-10-14 16:15:00 125 mm[Hg] [facility] Diastolic blood pressure 2022-10-14 16:15:00 79 mm[Hg] [facility] Heart rate 2022-10-14 16:15:00 95 /min [facility] 2022-10-14 16:15:00 37 [place] [facility] Respiratory rate 2022-10-14 16:15:00 18 /min [facility] Body height 2022-10-14 16:15:00 170.2 cm [facility] [place] Body weight 2022-10-14 16:15:00 119.041 kg [facility] BMI 2022-10-14 16:15:00 41.10 kg/m2 [facility] Systolic blood pressure 2022-10-08 13:12:00 127 mm[Hg] [facility] Diastolic blood pressure 2022-10-08 13:12:00 78 mm[Hg] [facility] Heart rate 2022-10-08 13:12:00 88 /min [facility] Body temperature 2022-10-08 13:12:00 36.89 [place] [facility] Respiratory rate 2022-10-08 13:12:00 18 /min [facility] Body height 2022-10-08 13:12:00 170.2 cm [facility] Body weight 2022-10-08 13:12:00 119.098 kg [facility] BMI 2022-10-08 13:12:00 41.12 kg/m2 [facility] [place] Systolic blood pressure 2021-04-16 19:53:00 145 mm[Hg] [facility] Diastolic blood pressure 2021-04-16 19:53:00 87 mm[Hg] [facility] Heart rate 2021-04-16 19:53:00 88 /min [facility] Body temperature 2021-04-16 19:53:00 37.17 [facility] Respiratory rate 2021-04-16 19:53:00 18 /min [facility] Body height 2021-04-16 19:53:00 170.2 cm [facility] Body weight 2021-04-16 19:53:00 121.11 kg [facility] BMI 2021-04-16 19:53:00 41.82 kg/m2 [facility] Oxygen saturation in Arterial blood by Pulse oximetry 2021-04-16 19:53:00 97 /min [facility] Systolic blood pressure 2021-04-01 21:39:00 134 mm[Hg] [facility] Diastolic blood pressure 2021-04-01 21:39:00 76 mm[Hg] [facility] Heart rate 2021-04-01 21:39:00 95 /min [facility]ive [facility] Body temperature 2021-04-01 21:39:00 37.17 [facility] Respiratory rate 2021-04-01 21:39:00 18 /min [facility] Oxygen saturation in Arterial blood by Pulse oximetry 2021-04-01 21:39:00 98 /min [facility] Body weight 2021-03-31 11:47:00 122.471 kg [facility] BMI 2021-03-31 11:47:00 41.05 kg/m2 [facility] Body height 2021-03-30 20:53:00 172.7 cm [facility] Oxygen saturation in Arterial blood by Pulse oximetry 2020-06-06 01:23:00 99 /min [facility] Systolic blood pressure 2020-06-06 01:23:00 121 mm[Hg] [facility] Diastolic blood pressure 2020-06-06 01:23:00 81 mm[Hg] [facility] Heart rate 2020-06-06 01:23:00 75 /min [facility] Respiratory rate 2020-06-06 01:23:00 13 /min [facility] Body temperature 2020-06-05 22:49:00 37.17 [place] [facility] Body height 2020-06-05 22:49:00 170.2 cm [facility] [place] Body weight 2020-06-05 22:49:00 113.399 kg [facility] BMI 2020-06-05 22:49:00 39.16 kg/m2 [facility] Oxygen saturation in Arterial blood by Pulse oximetry 2020-06-06 01:23:00 99 /min [facility] Systolic blood pressure 2020-06-06 01:23:00 121 mm[Hg] [facility] Diastolic blood pressure 2020-06-06 01:23:00 81 mm[Hg] [facility] Heart rate 2020-06-06 01:23:00 75 /min [facility] Respiratory rate 2020-06-06 01:23:00 13 /min [facility] Body temperature 2020-06-05 22:49:00 37.17 [place] [facility] Body height 2020-06-05 22:49:00 170.2 cm [facility] Body weight 2020-06-05 22:49:00 113.399 kg [facility] BMI 2020-06-05 22:49:00 39.16 kg/m2 [facility] Respiratory rate 2019-12-20 08:00:00 18 /min [facility] Oxygen saturation in Arterial blood by Pulse oximetry 2019-12-20 08:00:00 100 /min [facility] Systolic blood pressure 2019-12-20 07:36:00 157 mm[Hg] [facility] Diastolic blood pressure 2019-12-20 07:36:00 86 mm[Hg] [facility] Heart rate 2019-12-20 07:36:00 97 /min [facility]ive [facility] Body temperature 2019-12-20 02:48:00 38.11 [facility] Body weight 2019-12-20 02:48:00 121.11 kg [facility] BMI 2019-12-20 02:48:00 41.82 kg/m2 [facility] Respiratory rate 2019-12-20 08:00:00 18 /min [facility] Oxygen saturation in Arterial blood by Pulse oximetry 2019-12-20 08:00:00 100 /min [facility] Systolic blood pressure 2019-12-20 07:36:00 157 mm[Hg] [facility] Diastolic blood pressure 2019-12-20 07:36:00 86 mm[Hg] [facility] Heart rate 2019-12-20 07:36:00 97 /min [facility] Body temperature 2019-12-20 02:48:00 38.11 [facility] Body weight 2019-12-20 02:48:00 121.11 kg [facility] BMI 2019-12-20 02:48:00 41.82 kg/m2 [facility] BP Systolic 2024-03-22 11:17:00 136 mm[Hg] Aamir Daniels BP Diastolic 2024-03-22 11:17:00 85 mm[Hg] Julio Cesar Daniels Weight Measured 2024-03-22 11:17:00 251.40 pounds Luis Daniels Height Measured 2024-03-22 11:17:00 67.25 inches Luis F Jeremiah Body Temperature 2024-03-22 11:17:00 97.90 degrees Luis F Jeremiah Heart Rate 2024-03-22 11:17:00 90.00 /min Yaneth en F Jeremiah Respiratory Rate 2024-03-22 11:17:00 18.00 /min Luis F Jeremiah BP Systolic 2024-03-19 14:20:00 Step hen F Jeremiah BP Diastolic 2024-03-19 14:20:00 Julio Cesar phen F Jeremiah Weight Measured 2024-03-19 14:20:00 Luis F Jeremiah Height Measured 2024-03-19 14:20:00 Luis F Jeremiah Body Temperature 2024-03-19 14:20:00 Luis F Jeremiah Heart Rate 2024-03-19 14:20:00 Yaneth en F Jeremiah Respiratory Rate 2024-03-19 14:20:00 Luis F Jeremiah BP Systolic 2024-01-05 10:29:00 134 mm[Hg] Step hen F Jeremiah BP Diastolic 2024-01-05 10:29:00 83 mm[Hg] Julio Cesar phen F Jeremiah Weight Measured 2024-01-05 10:29:00 243.60 pounds Luis F Jeremiah Height Measured 2024-01-05 10:29:00 67.25 inches Luis F Jeremiah Body Temperature 2024-01-05 10:29:00 98.30 degrees Luis F Jeremiah Heart Rate 2024-01-05 10:29:00 75.00 /min Yaneth en F Jeremiah Respiratory Rate 2024-01-05 10:29:00 18.00 /min Luis F Jeremiah BP Systolic 2022-09-30 09:34:00 119 mm[Hg] Step hen F Jeremiah BP Diastolic 2022-09-30 09:34:00 74 mm[Hg] Julio Cesar phen F Jeremiah Weight Measured 2022-09-30 09:34:00 262.40 pounds Luis F Jeremiah Height Measured 2022-09-30 09:34:00 67.25 inches Luis F Jeremiah Body Temperature 2022-09-30 09:34:00 98.20 degrees Luis F Jeremiah Heart Rate 2022-09-30 09:34:00 91.00 /min Yaneth en F Jeremiah Respiratory Rate 2022-09-30 09:34:00 Luis F Jeremiah BP Systolic 2022-09-19 14:57:00 118 mm[Hg] Step hen F Jeremiah BP Diastolic 2022-09-19 14:57:00 80 mm[Hg] Julio Cesar phen F Jeremiah Weight Measured 2022-09-19 14:57:00 261.60 pounds Luis F Jeremiah Height Measured 2022-09-19 14:57:00 67.25 inches Luis F Jeremiah Body Temperature 2022-09-19 14:57:00 97.10 degrees Luis F Jeremiah Heart Rate 2022-09-19 14:57:00 104.00 /min Step hen F Jeremiah Respiratory Rate 2022-09-19 14:57:00 Luis F Jeremiah BP Systolic 2022-08-27 09:21:00 129 mm[Hg] Step hen F Jeremiah BP Diastolic 2022-08-27 09:21:00 85 mm[Hg] Julio Cesar phen F Jeremiah Weight Measured 2022-08-27 09:21:00 254.40 pounds Luis F Jeremiah Height Measured 2022-08-27 09:21:00 67.25 inches Luis F Jeremiah Body Temperature 2022-08-27 09:21:00 98.30 degrees Luis F Jeremiah Heart Rate 2022-08-27 09:21:00 95.00 /min Yaneth en F Jeremiah Respiratory Rate 2022-08-27 09:21:00 Luis F Jeremiah BP Systolic 2022-08-26 09:30:00 121 mm[Hg] Step hen F Jeremiah BP Diastolic 2022-08-26 09:30:00 81 mm[Hg] Julio Cesar phen F Jeremiah Weight Measured 2022-08-26 09:30:00 257.60 pounds Luis F Jermeiah Height Measured 2022-08-26 09:30:00 67.25 inches Luis F Jeremiah Body Temperature 2022-08-26 09:30:00 98.40 degrees Luis F Jeremiah Heart Rate 2022-08-26 09:30:00 97.00 /min Yaneth en F Jeremiah Respiratory Rate 2022-08-26 09:30:00 Luis F Jeremiah BP Systolic 2022-08-20 13:32:00 119 mm[Hg] Step hen F Jeremiah BP Diastolic 2022-08-20 13:32:00 83 mm[Hg] Julio Cesar phen F Jeremiah Weight Measured 2022-08-20 13:32:00 257.20 pounds Luis F Jeremiah Height Measured 2022-08-20 13:32:00 67.25 inches Luis F Jeremiah Body Temperature 2022-08-20 13:32:00 98.60 degrees Luis F Jeremiah Heart Rate 2022-08-20 13:32:00 91.00 /min Yaneth en F Jeremiah Respiratory Rate 2022-08-20 13:32:00 Luis F Jeremiah BP Systolic 2022-07-30 17:08:00 135 mm[Hg] Step hen F Jeremiah BP Diastolic 2022-07-30 17:08:00 85 mm[Hg] Julio Cesar phen F Jeremiah Weight Measured 2022-07-30 17:08:00 260.00 pounds Luis F Jeremiah Height Measured 2022-07-30 17:08:00 67.25 inches Luis F Jeremiah Body Temperature 2022-07-30 17:08:00 98.10 degrees Luis F Jeremiah Heart Rate 2022-07-30 17:08:00 86.00 /min Yaneth en F Jeremiah Respiratory Rate 2022-07-30 17:08:00 Luis F Jeremiah BP Systolic 2022-07-30 16:55:00 135 mm[Hg] Step hen F Jeremiah BP Diastolic 2022-07-30 16:55:00 85 mm[Hg] Julio Cesar phen F Jeremiah Weight Measured 2022-07-30 16:55:00 260.00 pounds Luis F Jeremiah Height Measured 2022-07-30 16:55:00 67.25 inches Luis F Jeremiah Body Temperature 2022-07-30 16:55:00 98.10 degrees Luis F Jeremiah Heart Rate 2022-07-30 16:55:00 86.00 /min Yaneth en F Jeremiah Respiratory Rate 2022-07-30 16:55:00 Luis F Jeremiah BP Systolic 2022-06-16 16:02:00 119 mm[Hg] Step hen F Jeremiah BP Diastolic 2022-06-16 16:02:00 76 mm[Hg] Julio Cesar phen F Jeremiah Weight Measured 2022-06-16 16:02:00 255.60 pounds Luis F Jeremiah Height Measured 2022-06-16 16:02:00 67.25 inches Luis F Jeremiah Body Temperature 2022-06-16 16:02:00 97.20 degrees Luis F Jeremiah Heart Rate 2022-06-16 16:02:00 87.00 /min Yaneth Daniels Respiratory Rate 2022-06-16 16:02:00 Luis Mejias Jeremiah Procedures Procedure Date / Time Performed Performing Clinician Source GARDASIL 9 (HPV 9V) VACCINE 2023-12-10 15:10:59 Sal Newton [facility] GARDASIL 9 (HPV 9V) VACCINE 2023-07-02 15:48:28 Sal Newton [facility] GARDASIL 9 (HPV 9V) VACCINE 2023-05-28 21:18:54 Sal Newton [facility] DISABILITY/FMLA 2023-03-18 05:01:00 Doctor Unass igned, [place] [facility] POCT URINALYSIS 2023-03-16 18:56:00 Mel Barbosa [facility] CT HEAD WO CONTRAST 2023-03-11 00:58:07 Adelita Christian [facility] COMP. METABOLIC PANEL (16487) 2023-03-09 22:48:00 HoffmannGolden Concepcion [facility] CBC WITH DIFF 2023-03-09 22:48:00 [facility] PROTEIN CREAT RATIO URINE RANDOM 2023-03-09 22:48:00 [facility] CONSENT/REFUSAL FOR DIAGNOSIS AND TREATMENT 2023-03-09 21:15:34 Doctor Unassigned, [place] [facility] POCT GLUCOSE (AUTOMATED) 2023-03-01 16:28:00 Cat Ruiz [facility] POCT GLUCOSE (AUTOMATED) 2023-03-01 16:28:00 Cat Ruiz [facility] POCT GLUCOSE (AUTOMATED) 2023-03-01 13:39:00 Cat Ruiz [facility] POCT GLUCOSE (AUTOMATED) 2023-03-01 13:39:00 Cat Ruiz [facility] POCT GLUCOSE (AUTOMATED) 2023-02-28 21:33:00 Cat Ruiz [facility] POCT GLUCOSE (AUTOMATED) 2023-02-28 21:33:00 Cat Ruiz [facility] POCT GLUCOSE (AUTOMATED) 2023-02-28 16:51:00 Cat Ruiz [facility] POCT GLUCOSE (AUTOMATED) 2023-02-28 16:51:00 Cat Ruiz [facility] POCT GLUCOSE (AUTOMATED) 2023-02-28 12:59:00 Cat Ruiz [facility] POCT GLUCOSE (AUTOMATED) 2023-02-28 12:59:00 Cat Ruiz [facility] CBC WITH DIFF 2023-02-28 09:23:00 [facility] 2023-02-28 09:23:00 Kinjal Washington Un [facility] POCT GLUCOSE (AUTOMATED) 2023-02-28 09:08:00 Cat Ruiz [facility] POCT GLUCOSE (AUTOMATED) 2023-02-28 09:08:00 Cat Ruiz [facility] VENOUS CORD GAS 2023-02-28 04:53:00 Lasha Vasquez [facility] VENOUS CORD GAS 2023-02-28 04:53:00 Lasha Vasquez [facility] CENTRAL NEURAXIAL BLOCK 2023-02-28 04:18:00 Alton Sharp [facility] SECTION 2023-02-28 03:12:00 Lexus Ruiz [facility] TUBAL LIGATION 2023-02-28 03:12:00 Lexus Ruiz [facility] POCT GLUCOSE (AUTOMATED) 2023-02-28 02:58:00 Cat Ruiz [facility] POCT GLUCOSE (AUTOMATED) 2023-02-28 02:58:00 Cat Ruiz [facility] HB ECG ROUTINE & RHYTHM STRIP 2023-02-27 23:05:28 Eva Vasquez [facility] HB ECG ROUTINE & RHYTHM STRIP 2023-02-27 23:05:28 Eva Vasquez [facility] POCT GLUCOSE (AUTOMATED) 2023-02-27 22:42:00 Cristian Nicole [facility] POCT GLUCOSE (AUTOMATED) 2023-02-27 22:42:00 Cristian Nicole [facility] SGOT (ASPARTATE AMINO TRANSFER) 2023-02-27 22:06:00 Verónica [facility] CREATININE 2023-02-27 22:06:00 Verónica [facility] ALANINE AMINO TRANSFERASE(SGPT 2023-02-27 22:06:00 Verónica [facility] LACTATE DEHYDROGENASE 2023-02-27 22:06:00 Ra suresh Sanches [facility] URIC ACID 2023-02-27 22:06:00 Verónica [facility] CBC WITH DIFF 2023-02-27 22:06:00 Chelsea Sanches [facility] URINALYSIS 2023-02-27 22:06:00 Verónica [facility] HEPATITIS B SURFACE ANTIGEN 2023-02-27 22:06:00 Eva Vasquez [facility] HB ABO GROUPING 2023-02-27 22:06:00 Chelsea Sanches [facility] RHO (D) IMMUNE GLOBULIN 2023-02-27 22:06:00 Kinjal Washington [facility] PROTEIN CREAT RATIO URINE RANDOM 2023-02-27 22:06:00 Verónica [facility] SYPHILIS IGG/IGM 2023-02-27 22:06:00 Nolan Vasquez [facility] SGOT (ASPARTATE AMINO TRANSFER) 2023-02-27 22:06:00 Verónica [facility] CREATININE 2023-02-27 22:06:00 Verónica [facility] ALANINE AMINO TRANSFERASE(SGPT 2023-02-27 22:06:00 Verónica [facility] LACTATE DEHYDROGENASE 2023-02-27 22:06:00 Ra suresh Sanches [facility] URIC ACID 2023-02-27 22:06:00 Verónica [facility] CBC WITH DIFF 2023-02-27 22:06:00 [facility] 2023-02-27 22:06:00 Chelsea Sanches [facility] HEPATITIS B SURFACE ANTIGEN 2023-02-27 22:06:00 Eva Vasquez [facility] HB ABO GROUPING 2023-02-27 22:06:[address] [facility] RHO (D) IMMUNE GLOBULIN 2023-02-27 22:06:00 Kinjal Washington [facility] PROTEIN CREAT RATIO URINE RANDOM 2023-02-27 22:06:00 Chelsea Sanches [facility] SYPHILIS IGG/IGM 2023-02-27 22:06:00 Nolan Vasquez [facility] NON-STRESS TEST 2023-02-27 16:32:08 Jose Rafael Barbosa [facility] POCT URINALYSIS 2023-02-27 15:09:00 Mel Barbosa [facility] DIABETES TESTING REPORTS 2023-02-27 05:01:00 Doc tor Unassigned, [place] [facility] NON-STRESS TEST 2023-02-25 00:41:52 Jose Rafael Barbosa [facility] SGOT (ASPARTATE AMINO TRANSFER) 2023-02-24 19:48:00 Mel Barbosa [facility] CREATININE 2023-02-24 19:48:[address] [facility] ALANINE AMINO TRANSFERASE(SGPT 2023-02-24 19:48:00 Mel Barbosa [facility] CBC WITH DIFF 2023-02-24 19:48:00 Mel Barbosa [facility] POCT URINALYSIS 2023-02-24 19:03:00 Mel Barbosa [facility] SECOND AND THIRD TRIMESTER ULTRASOUND 2023-02-24 18:36:00 Mel Barbosa [facility] NON-STRESS TEST 2023-02-20 15:06:07 Jose Rafael Barbosa [facility] FLU VACC ([id number]), 6 MO-64 YRS, .5ML, IM, QUAD (FLUCELVAX) 2023-02-20 14:46:13 Mel Barbosa [facility] POCT URINALYSIS 2023-02-20 14:35:00 Mel Barbosa [facility] POCT MOLECULAR STREP 2023-02-20 14:25:00 Benito Barbosa [facility] DIABETES TESTING REPORTS 2023-02-18 05:01:00 Doc tor Unassigned, [place] [facility] SECOND AND THIRD TRIMESTER ULTRASOUND 2023-02-17 18:54:00 Mel Barbosa [facility] NON-STRESS TEST 2023-02-17 17:19:12 Jose Rafael Barbosa [facility] POCT URINALYSIS 2023-02-17 15:01:00 Mel Barbosa [facility] NON-STRESS TEST 2023-02-13 17:14:48 Jose Rafael Barbosa [facility] POCT URINALYSIS 2023-02-13 13:23:00 Mel Barbosa [facility] NON-STRESS TEST 2023-02-10 19:52:47 Jose Rafael Barbosa [facility] SECOND AND THIRD TRIMESTER ULTRASOUND 2023-02-10 19:29:00 Mel Barbosa [facility] POCT URINALYSIS 2023-02-10 15:57:00 Mel Barbosa [facility] DIABETES TESTING REPORTS 2023-02-10 05:01:00 Doc tor Unassigned, [place] [facility] NON-STRESS TEST 2023-02-06 21:05:51 Jose Rafael Barbosa [facility] POCT MOLECULAR FLU 2023-02-06 15:33:00 Jordyn Barbosa [facility] POCT MOLECULAR STREP 2023-02-06 15:31:00 Benito Barbosa [facility] POCT URINALYSIS 2023-02-06 14:30:00 Mel Barbosa [facility] NON-STRESS TEST 2023-02-03 23:44:35 Azeb Noriega sa [facility] SECOND AND THIRD TRIMESTER ULTRASOUND 2023-02-03 19:10:00 Mel Barbosa [facility] POCT URINALYSIS W/O SPECIFIC GRAVITY 2023-02-03 18:31:00 Joi Noriega [facility] LACTATE DEHYDROGENASE 2023-01-31 03:10:00 ObrienRadha tracy Mai [facility] URINALYSIS 2023-01-31 03:10:00 Barbara Obrien Mai [facility] PROTEIN CREAT RATIO URINE RANDOM 2023-01-31 03:10:00 Radha Obrien Mai [facility] SGOT (ASPARTATE AMINO TRANSFER) 2023-01-31 00:31:00 Radha Obrien Mai [facility] CREATININE 2023-01-31 00:31:00 Barbara Obrein Mai [facility] ALANINE AMINO TRANSFERASE(SGPT 2023-01-31 00:31:00 Radha Obrien Mai [facility] URIC ACID 2023-01-31 00:31:00 ObrienBarbara tracy Mai [facility] TROPONIN I 2023-01-31 00:31:00 Barbara Obrien Mai [facility] BASIC METABOLIC PANEL (NA, K, CL, CO2, GLUCOSE, BUN, CREATININE, CA) 2023-01-31 00:31:00 Radha Obrien Mai [facility] CBC WITH DIFF 2023-01-31 00:31:00 Barbara Obrien Mai [facility] POCT GLUCOSE (AUTOMATED) 2023-01-30 22:27:00 Elias Paige [facility] NON-STRESS TEST 2023-01-30 19:30:47 David Newton [facility] POCT URINALYSIS 2023-01-30 18:20:00 Mel Barbosa [facility] SECOND AND THIRD TRIMESTER ULTRASOUND 2023-01-28 14:54:00 Mel Barbosa [facility] NON-STRESS TEST 2023-01-27 21:35:48 David Newton [facility] POCT URINALYSIS 2023-01-27 19:36:00 Mel Barbosa [facility] NON-STRESS TEST 2023-01-23 18:44:12 Jose Rafael Barbosa [facility] POCT URINALYSIS 2023-01-23 15:07:00 Mel Barbosa [facility] NON-STRESS TEST 2023-01-21 18:03:47 Jose Rafael Barbosa [facility] SGOT (ASPARTATE AMINO TRANSFER) 2023-01-21 16:08:00 Mel Barbosa [facility] ALANINE AMINO TRANSFERASE(SGPT 2023-01-21 16:08:00 Mel Barbosa [facility] CBC WITH DIFF 2023-01-21 16:08:00 Mel Barbosa [facility] DIABETES TESTING REPORTS 2023-01-21 05:01:00 Doc tor Unassigned, [place] [facility] POCT URINALYSIS 2023-01-21 00:00:00 Mel Barbosa [facility] POCT GLUCOSE (AUTOMATED) 2023-01-15 17:26:00 Stanley Elias [facility] POCT GLUCOSE (AUTOMATED) 2023-01-15 12:58:00 Stanley, [facility] POCT GLUCOSE (AUTOMATED) 2023-01-15 02:59:00 Stanley, [facility] POCT GLUCOSE (AUTOMATED) 2023-01-15 00:15:00 Stanley, [facility] POCT GLUCOSE (AUTOMATED) 2023-01-14 21:42:00 Stanley [facility] POCT GLUCOSE (AUTOMATED) 2023-01-14 19:15:00 Stanley [facility] POCT GLUCOSE (AUTOMATED) 2023-01-14 16:07:00 Stanley [facility] POCT GLUCOSE (AUTOMATED) 2023-01-14 13:34:00 Stanley [facility] POCT GLUCOSE (AUTOMATED) 2023-01-14 02:01:00 Stanley [facility] POCT GLUCOSE (AUTOMATED) 2023-01-13 23:38:00 Stanley [facility] HB ECG ROUTINE & RHYTHM STRIP 2023-01-13 22:23:49 May Wilson [facility] POCT GLUCOSE (AUTOMATED) 2023-01-13 21:16:00 Stanley [facility] POCT GLUCOSE (AUTOMATED) 2023-01-13 18:22:00 Stanley [facility] SECOND AND THIRD TRIMESTER ULTRASOUND 2023-01-13 18:02:00 Mel Barbosa [facility] POCT GLUCOSE (AUTOMATED) 2023-01-13 14:47:00 Stanley [facility] POCT GLUCOSE (AUTOMATED) 2023-01-13 04:01:00 Stanley [facility] HB ABO GROUPING 2023-01-13 00:55:00 Fahad Hernandez in [facility] COVID-19 (ID NOW RAPID TESTING) 2023-01-12 23:31:00 Luis Enrique [facility] LAB ONLY COVID INTERPRETATION 2023-01-12 23:31:00 Luis Enrique [place] [facility] AC PANEL 20 + LACTIC ACID 2023-01-12 23:28:00 LyRolanda ng [facility] SGOT (ASPARTATE AMINO TRANSFER) 2023-01-12 23:00:00 Javier [facility] CREATININE 2023-01-12 23:00:00 [facility]avier [facility] ALANINE AMINO TRANSFERASE(SGPT 2023-01-12 23:00:00 Javier [facility] LACTATE DEHYDROGENASE 2023-01-12 23:00:00 Javier [facility] URIC ACID 2023-01-12 23:00:00 Javier [facility] OSMOLALITY, SERUM OR PLASMA 2023-01-12 23:00:00 Ly [facility] BETA HYDROXY-BUTYRATE 2023-01-12 23:00:00 Taylor [facility] COMP. METABOLIC PANEL ([id number]) 2023-01-12 23:00:00 Taylor [facility] CBC WITH DIFF 2023-01-12 [facility]-12 23:00:00 Javier [facility] URINE CULTURE 2023-01-12 23:00:[address] [facility] PROTEIN CREAT RATIO URINE RANDOM 2023-01-12 23:00:00 Javier [facility] POCT GLUCOSE (AUTOMATED) 2023-01-12 21:38:00 Korina Diop [facility] TDAP VACCINE, >11 YRS, IM 2023-01-08 17:06:56 Mel Heard [facility] STERILIZATION CONSENT FORM 2023-01-08 05:01:00 Doctor Unassigned, [place] [facility] POCT URINALYSIS 2023-01-08 00:00:00 Mel Barbosa [facility] POCT URINALYSIS 2023-01-01 00:00:00 Mel Barbosa [facility] CBC WITH DIFF 2022-12-25 20:06:00 [facility] 2022-12-25 05:01:00 Doc tor Unassigned, [place] [facility] POCT URINALYSIS 2022-12-25 00:00:00 Mel Barbosa [facility] SECOND AND THIRD TRIMESTER ULTRASOUND 2022-12-17 19:19:00 Mel Barbosa [facility] SECOND AND THIRD TRIMESTER ULTRASOUND 2022-12-17 19:12:00 Mel Barbosa [facility] URINALYSIS 2022-11-17 22:05:00 Leigh Gagnon [facility] ADC ONLY - FERN TEST 2022-11-17 22:05:00 Leigh Gagnon [facility] CONSENT/REFUSAL FOR DIAGNOSIS AND TREATMENT 2022-11-17 21:27:52 Doctor Unassigned, [place] [facility] POCT URINALYSIS 2022-11-05 16:57:00 Mel Barbosa [facility] RAPID STREP SCREEN FOR GROUP A 2022-10-18 03:04:00 Seamus Bustillos [facility] RAPID INFLUENZA A/B 2022-10-18 03:04:00 Aryan Bustillos [facility] RAPID RSV 2022-10-18 03:04:00 Seamus Bustillos [facility] COVID-19 (ID NOW RAPID TESTING) 2022-10-18 03:04:00 Seamus Bustillos [facility] COMP. METABOLIC PANEL ([id number]) 2022-10-18 03:01:00 Seamus Bustillos [facility] CBC WITH DIFF 2022-10-18 03:01:00 Seamus Bustillos [facility] CONSENT/REFUSAL FOR DIAGNOSIS AND TREATMENT 2022-10-18 02:33:33 Doctor Unassigned, [place] [facility] POCT MOLECULAR STREP 2022-10-14 16:24:00 Benito Barbosa [facility] POCT MOLECULAR FLU 2022-10-14 16:23:00 Jordyn Barbosa [facility] POCT URINALYSIS 2022-10-14 16:20:00 Mel Barbosa [facility] EXTERNAL PROVIDER RECORDS 2022-10-14 05:01:00 Do ctor Unassigned, [place] [facility] POCT URINALYSIS W/O SPECIFIC GRAVITY 2022-10-08 13:08:00 Mel Barbosa [facility] POCT TEST 2022-10-08 13:07:00 Isabelle Barbosa [facility] AUTHORIZATION TO RELEASE PHI TO [facility] 2022-10-08 05:01:00 Doctor Unassigned, [place] [facility] AUTHORIZATION FOR RELEASE OF PHI 2021-04-25 06:01:00 Doctor Unassigned, [place] [facility] HB ABO GROUPING 2021-04-16 21:17:00 [facility]. METABOLIC PANEL ([id number]) 2021-04-16 21:16:00 Bhavin Lozano [facility] TOTAL BETA HCG ASSAY 2021-04-16 21:16:00 Bay Lozano [facility] CBC WITH DIFF 2021-04-16 21:16:00 Bhavin Lozano [facility] URINALYSIS 2021-04-16 21:12:00 Bhavin Lozano [facility] US FIRST TRIMESTER LESS THAN 14 WEEKS WITH TRANSVAGINAL 2021-04-16 21:04:[address] [facility] CONSENT/REFUSAL FOR DIAGNOSIS AND TREATMENT 2021-04-16 19:43:33 Doctor Unassigned, [place] [facility] POCT GLUCOSE (AUTOMATED) 2021-04-01 17:52:00 [facility]AUTOMATED) 2021-04-01 13:42:00 [facility] POCT GLUCOSE (AUTOMATED) 2021-03-31 23:16:00 [facility] POCT GLUCOSE (AUTOMATED) 2021-03-31 22:18:00 [facility] POCT GLUCOSE (AUTOMATED) 2021-03-31 17:48:00 [facility] POCT GLUCOSE (AUTOMATED) 2021-03-31 13:43:00 Traci Anderson [facility] PHOSPHORUS 2021-03-31 11:45:00 [facility] MAGNESIUM 2021-03-31 11:45:00 Tr[facility] BASIC METABOLIC PANEL (NA, K, CL, CO2, GLUCOSE, BUN, CREATININE, CA) 2021-03-31 11:45:00 Traci Anderson [facility] LIPID PANEL ([id number])(TOTAL CHOLESTEROL, TRIGLYCERIDES, HDL) 2021-03-31 11:45:00 Celio Montoya [facility] CBC WITH DIFF 2021-03-31 11:45:00 Traci Anderson [facility] POCT GLUCOSE (AUTOMATED) 2021-03-31 02:21:00 Traci Anderson [facility] POCT GLUCOSE (AUTOMATED) 2021-03-30 22:20:00 Traci Anderson [facility] URINE CULTURE 2021-03-30 16:12:00 Seamus Bustillos [facility] CT HEAD WO CONTRAST 2021-03-30 15:39:00 Aryna Bustillos [facility] POCT TEST 2021-03-30 15:11:00 Aryan Bustillos [facility] URINALYSIS 2021-03-30 15:07:00 Seamus [facility]ustillos [facility] MAGNESIUM 2021-03-30 15:05:00 Seamus Bustillos [facility] TROPONIN I 2021-03-30 15:05:00 Seamus Bustillos [facility] COMP. METABOLIC PANEL ([id number]) 2021-03-30 15:05:00 Seamus Bustillos [facility] TOTAL BETA HCG ASSAY 2021-03-30 15:05:00 Gabriele Bustillos [facility] CBC WITH DIFF 2021-03-30 15:05:00 Seamus Bustillos [facility] GLYCOSYLATED HEMOGLOBIN (A1C) 2021-03-30 15:05:00 Seamus Bustillos [facility] PROTHROMBIN TIME / INR 2021-03-30 15:05:00 Nick Bustillos [facility] ACTIVATED PARTIAL THRMPLAS JUWAN 2021-03-30 15:05:00 Seamus Bustillos [facility] N-TERMINAL PRO-BNP 2021-03-30 15:05:00 Seamus Bustillos [facility] COVID-19 (ID NOW RAPID TESTING) 2021-03-30 15:05:00 Seamus Bustillos [facility] LAB ONLY COVID INTERPRETATION 2021-03-30 15:05:00 Seamus Bustillos [facility] HB ECG ROUTINE & RHYTHM STRIP 2021-03-30 15:01:14 Seamus Bustillos [facility] NOTICE OF PRIVACY PRACTICES 2021-03-30 14:52:58 Doctor Unassigned, [place] [facility] CONSENT/REFUSAL FOR DIAGNOSIS AND TREATMENT 2021-03-30 14:52:37 Doctor Unassigned, [place] [facility] CT HEAD WO CONTRAST 2020-06-06 00:27:52 Sanjeev Cifuentes [facility] POCT TEST 2020-06-06 00:00:00 Sanjeev Cifuentes [facility] COVID-19 (ID NOW RAPID TESTING) 2020-06-06 00:00:00 Sanjeev Cifuentes [facility] COMP. METABOLIC PANEL (17047) 2020-06-05 23:59:00 Sanjeev Cifuentes [facility] CBC WITH DIFF 2020-06-05 23:59:00 Vane Sanjeev B [facility] URINALYSIS 2020-06-05 23:59:00 Vane Sanjeev [facility] POCT GLUCOSE (AUTOMATED) 2020-06-05 22:53:00 Doc tor Unassigned, [place] [facility] CONSENT/REFUSAL FOR DIAGNOSIS AND TREATMENT 2020-06-05 22:37:42 Doctor Unassigned, [place] [facility] EKG-12 LEAD 2019-12-20 07:36:16 Glendy Hogan [facility] URINALYSIS 2019-12-20 06:25:00 Reagan Sheikh [facility] TEST, SERUM 2019-12-20 03:47:00 Claudio Sheikh [facility] COVID-19 (ID NOW RAPID TESTING) 2019-12-20 03:46:00 Glendy Hogan [facility] LIPASE 2019-12-20 03:00:00 Reagan Sheikh [facility] COMP. METABOLIC PANEL (13220) 2019-12-20 03:00:00 Reagan Sheikh [facility] CBC WITH DIFF 2019-12-20 03:00:00 Reagan Sheikh [facility] NOTICE OF PRIVACY PRACTICES 2019-12-20 02:35:01 Doctor Unassigned, [place] [facility] CONSENT/REFUSAL FOR DIAGNOSIS AND TREATMENT 2019-12-20 02:34:45 Doctor Unassigned, [place] [facility] Encounters Start Date/Time End Date/Time Encounter Type Admission Type Attending [facility] Facility Care Department Encounter ID Source 2021-03-23 16:53:[address] [facility] [id number] [facility] 2021-03-22 09:09:[address] [facility] [id number] [facility] 2024-03-22 11:40:35 2024-03-22 11:40:35 Outpatient [facility] [id number] Luis Daniels 2024-03-22 00:00:00 2024-03-22 00:00:00 Outpatient Visit [facility] [id number] Luis Daniels 2024-03-19 00:00:00 2024-03-19 00:00:00 Outpatient Visit [facility] [id number] Luis Daniels 2024-01-08 09:52:43 2024-01-08 09:52:43 Outpatient SFA [facility] [id number] Luis Daniels 2024-01-05 10:09:35 2024-01-05 10:09:35 Outpatient [facility] [id number] Luis Daniels 2023-12-31 13:24:13 2023-12-31 13:24:13 Outpatient [facility] [id number] Luis Daniels 2023-12-10 10:15:00 2023-12-10 10:30:00 Nurse Visit Nurse, Martínez Rmchp Rgv Cprit ObMel Chamberlain [facility] [employer] [facility] MATERNAL & CHILD HEALTH [facility] 1.2.840.114 350.1.13.10 4.2.7.2.686 [id number] [facility] 2023-12-10 10:15:00 2023-12-10 10:23:03 Outpatient R MEL BARBOSA [facility] [id number] [facility] 2023-12-03 10:00:00 2023-12-03 10:00:[address] [facility] [id number] [facility] 2023-07-02 10:00:00 2023-07-02 10:15:00 Nurse Visit Nurse, Martínez Bedoya CprSal Medina [facility] [employer]ENT [facility] & CHILD [facility] 1..840.114 350.1.13.10 4.2.7.2.686 [id number] [facility] 2023-07-02 10:00:00 2023-07-02 09:51:[address] [facility] [id number] [facility] 2023-05-28 15:30:00 2023-05-28 15:45:00 Nurse Visit Nurse, Martínez Bedoya Cprit Sal White [facility] [employer]ENT [facility] & CHILD [facility] 1..840.114 350.1.13.10 4.2.7.2.686 [id number] [facility] 2023-05-28 15:00:00 2023-05-28 15:31:44 Outpatient R MEL [facility]BOSA [facility] [id number] [facility] 2023-05-28 15:00:00 2023-05-28 15:31:44 Office Visit Mel Barbosa [facility] [employer]ENT [facility] & CHILD [facility] 1..840.114 350.1.13.10 4.2.7.2.686 [id number] [facility] 2023-05-28 15:30:00 2023-05-28 15:30:00 Outpatient R SAL [facility] [id number] [facility] 2023-05-28 00:00:00 2023-05-28 00:00:00 Telephone Mel Barbosa [facility] [employer] [facility] & CHILD [facility] 1.2.840.114 350.1.13.10 4.2.7.2.686 [id number] [facility] 2023-04-21 09:30:00 2023-04-21 09:30:00 Outpatient R SAL [facility] [id number] [facility] 2023-03-24 10:00:00 2023-03-24 10:31:16 Outpatient R MEL [facility]OSA [facility] [id number] [facility] 2023-03-24 10:00:00 2023-03-24 10:31:16 Routine Visit Mel Barbosa [facility] [employer]ENT [facility] & CHILD [facility] 1.2.840.114 350.1.13.10 4.2.7.2.686 [id number] [facility] 2023-03-18 00:00:00 2023-03-18 00:00:00 Orders Only Doctor Unassigned, [place] [facility] 1.2.840.114 350.1.13.10 4.2.7.2.686 [id number] [facility] 2023-03-16 13:45:00 2023-03-16 14:00:00 Routine Visit Sal Newton [facility] [employer]ENT [facility] & CHILD [facility] 1.2.840.114 350.1.13.10 4.2.7.2.686 [id number] [facility] 2023-03-16 13:45:00 2023-03-16 13:45:00 Outpatient R SLA [facility] [id number] [facility] 2023-03-09 16:30:00 2023-03-11 10:00:00 Inpatient X ANALI-XOCHITL S, CONCEPCION ANALI-XOCHITL S, CONCEPCION [facility] [id number] [facility] 2023-03-09 16:30:00 2023-03-11 10:00:00 Hospital Encounter Hiren Almontel [facility] 1.2.840.114 350.1.13.10 4.2.7.2.686 [id number] [facility] 2023-03-06 00:00:00 2023-03-06 00:00:00 Encounter 1.2.840.1 [id number] [id number] 1.2.840.114 350.1.13.10 4.2.7.2.696 [id number] [facility] 2023-03-05 08:00:00 2023-03-05 08:36:[address] [facility] [id number] [facility] 2023-03-05 08:00:00 2023-03-05 08:36:36 Nurse Visit Visit, Ang-Rmchp Mel Mcintyre [facility] [employer]ENT [facility] MATERNAL & CHILD HEALTH [facility] 1.2.840.114 350.1.13.10 4.2.7.2.686 [id number] [facility] 2023-03-03 13:30:00 2023-03-03 13:30:[address] [facility] [id number] [facility] 2023-02-27 08:30:00 2023-03-02 15:20:[address] [facility] [id number] [facility] 2023-02-27 16:26:00 2023-03-02 14:26:00 Inpatient P LEXUS RUIZ [facility] [id number] [facility] 2023-02-27 16:26:00 2023-03-02 14:26:00 Hospital Encounter Lary Nicole [facility] 1.2.840.114 350.1.13.10 4.2.7.2.686 [id number] [facility] 2023-02-27 22:27:00 2023-02-28 00:44:00 Anesthesia Event Henny Quezada Humberto-Noman surjit [facility] 1.2.840.114 350.1.13.10 4.2.7.2.686 [id number] [facility] 2023-02-27 20:25:00 2023-02-27 22:15:00 [facility] 1.2.840.114 350.1.13.10 4.2.7.2.686 [id number] [facility] 2023-02-27 09:00:00 2023-02-27 10:42:24 Routine Visit Mel Barbosa [facility] [employer] SERV[employer]ENT [facility] MATERNAL & CHILD [facility] 1.2.840.114 350.1.13.10 4.2.7.2.686 [id number] [facility] 2023-02-27 00:00:00 2023-02-27 00:00:00 Orders Only Doctor Unassigned, [place] [facility] 1.2.840.114 350.1.13.10 4.2.7.2.686 [id number] [facility] 2023-02-25 00:00:00 2023-02-25 00:00:00 Case Management Mel Barbosa [facility] [employer] SERV[employer]ENT [facility] & CHILD [facility] 1.2.840.114 350.1.13.10 4.2.7.2.686 [id number] [facility] 2023-02-24 15:30:00 2023-02-24 15:30:00 Routine Visit Mel Barbosa [facility] [employer] SERVICE AGENT [facility] MATERNAL & CHILD [facility] 1.2.840.114 350.1.13.10 4.2.7.2.686 [id number] [facility] 2023-02-24 13:30:00 2023-02-24 13:55:47 Outpatient P TIAGO MONTILLA [facility] [id number] [facility] 2023-02-24 13:30:00 2023-02-24 13:55:47 Regulatory Manager Visit Ultrasound, Tiago Naik [facility] [employer] SERV[employer]ENT [facility] & CHILD [facility] 1.2.840.114 350.1.13.10 4.2.7.2.686 [id number] [facility] 2023-02-20 08:45:00 2023-02-20 10:10:11 Outpatient [address] MEL BAR[address]OSA [facility] [id number] [facility] 2023-02-20 08:45:00 2023-02-20 10:10:11 Routine Visit 1, JoseRmchp Nst Ultrasound [facility] & CHILD [facility] 1.2.840.114 350.1.13.10 4.2.7.2.686 [id number] [facility] 2023-02-20 08:30:00 2023-02-20 10:10:01 Routine Visit Mel Barbosa [facility] [employer] SERV[employer] AGENT [facility] & CHILD [facility] 1.2.840.114 350.1.13.10 4.2.7.2.686 [id number] [facility] 2023-02-18 09:00:00 2023-02-18 09:00:00 Outpatient P MELIDA REYNOSO [facility] [id number] [facility] 2023-02-18 00:00:00 2023-02-18 00:00:00 Orders Only Doctor Unassigned, [place] [facility] 1.2.840.114 350.1.13.10 4.2.7.2.686 [id number] [facility] 2023-02-17 13:30:00 2023-02-17 13:54:30 Outpatient P MEL BARBOSA [facility] [id number] [facility] 2023-02-17 13:30:00 2023-02-17 13:54:30 Regulatory Manager Visit Ultrasound, [facility] [employer] SERVICE AGENT [facility] & CHILD [facility] 1.2.840.114 350.1.13.10 4.2.7.2.686 [id number] [facility] 2023-02-17 09:45:00 2023-02-17 11:07:29 Routine Visit Mel Barbosa [facility] [employer] SERV[employer] AGENT [facility] & CHILD [facility] 1.2840.114 350.1.13.10 4.2.7.2.686 [id number] 107 [id number] [facility] 2023-02-13 08:30:00 2023-02-13 09:03:49 Out[address] R MEL [address] [facility] [id number] [facility] 2023-02-13 08:30:00 2023-02-13 09:03:49 Routine Visit Mel Barbosa [facility] [employer] SERVICE AGENT [facility] & CHILD [facility] 1.2840.114 350.1.13.10 4.2.7.2.686 [id number] [facility] 2023-02-11 00:00:00 2023-02-11 00:00:00 Case Management Mel Barbosa [facility] [employer] SERV[employer] AGENT [facility] & CHILD [facility] 1.2840.114 350.1.13.10 4.2.7.2.686 [id number] [facility] 2023-02-10 13:30:00 2023-02-10 13:36:15 Outpatient P TIAGO MONTILLA [facility] [id number] [facility] 2023-02-10 13:30:00 2023-02-10 13:36:15 Regulatory Manager Visit Ultrasound, [facility] Mel Barbosa Gay [facility] [employer] SERVICE AGENT [facility] MATERNAL & CHILD [facility] 1.0.114 350.1.13.10 4.2.7.2.686 [id number] [facility] 2023-02-10 10:30:00 2023-02-10 11:52:52 Routine Visit Mel Barbosa [facility] 1.0.114 350.1.13.10 4.2.7.2.686 [id number] [facility] 2023-02-10 00:00:00 2023-02-10 00:00:00 Orders Only Doctor Unassigned, [place] [facility] 1.0.114 350.1.13.10 4.2.7.2.686 [id number] [facility] 2023-02-09 09:00:00 2023-02-09 09:00:00 Outpatient R CHAD ZHU [facility] [id number] [facility] 2023-02-06 09:45:00 2023-02-06 10:34:34 Outpatient R MEL BAR[address]OSA [facility] [id number] [facility] 2023-02-06 09:45:00 2023-02-06 10:34:34 Routine Visit Mel Barbosa [facility] 1.0.114 350.1.13.10 4.2.7.2.686 [id number] [facility] 2023-02-05 00:00:00 2023-02-05 00:00:00 Case Management Mel Barbosa [facility] [employer] SERVICE AGENT [facility] MATERNAL & CHILD HEALTH [facility] 1..840.114 350.1.13.10 4.2.7.2.686 [id number] [facility] 2023-02-03 14:00:00 2023-02-03 14:14:03 Outpatient P TIAGO MONTILLA [facility] [id number] [facility] 2023-02-03 14:00:00 2023-02-03 14:14:03 Regulatory Manager Visit 2, [facility] Room Tiago Montilla [facility] [employer] SERV[employer]ENT [facility] MATERNAL & CHILD HEALTH [facility] 1..840.114 350.1.13.10 4.2.7.2.686 [id number] [facility] 2023-02-03 13:30:00 2023-02-03 14:13:45 Routine Visit Risk, Pea-Rmp Provider/Hi Joi Noriega [facility] [employer] SERV[employer] AGENT [facility] MATERNAL & CHILD HE[facility] 1..840.114 350.1.13.10 4.2.7.2.686 [id number] [facility] 2023-02-03 09:30:00 2023-02-03 09:30:[address] [facility] [id number] [facility] 2023-02-03 08:00:00 2023-02-03 08:00:[address] [facility] [id number] [facility] 2023-01-30 17:09:00 2023-01-31 00:01:00 Outpatient P ELIAS PAIGE COREY [facility] [id number] [facility] 2023-01-30 17:09:00 2023-01-31 00:01:00 Hospital Encounter Elias Paige [facility] 1.2.840.114 350.1.13.10 4.2.7.2.686 [id number] [facility] 2023-01-30 12:45:00 2023-01-30 14:31:35 Outpatient R SAL [facility] [id number] [facility] 2023-01-30 12:45:00 2023-01-30 14:31:35 Routine Visit Sal Newton [facility] [employer] SERVICE AGENT [facility] MATERNAL & CHILD HEALTH [facility] 1.2.840.114 350.1.13.10 4.2.7.2.686 [id number] [facility] 2023-01-29 00:00:00 2023-01-29 00:00:00 Case Management Mel Barbosa [facility] [employer] SERVICE AGENT [facility] MATERNAL & CHILD [facility] 1.2.840.114 350.1.13.10 4.2.7.2.686 [id number] 107 [id number] [facility] 2023-01-28 09:30:00 2023-01-28 10:07:22 Outpatient P TIAGO MONTILLA [facility] [id number] [facility] 2023-01-28 09:30:00 2023-01-28 10:07:22 Regulatory Manager Visit 2, [facility] Room Tiago Montilla [facility] [employer] SERVICE AGENT [facility] MATERNAL & CHILD [facility] 1.2.840.114 350.1.13.10 4.2.7.2.686 [id number] [facility] 2023-01-27 13:45:00 2023-01-27 16:30:08 Routine Visit Sal Newton [facility] [employer] SERVICE AGENT [facility] & CHILD [facility] 1.2.840.114 350.1.13.10 4.2.7.2.686 [id number] [facility] 2023-01-27 14:00:00 2023-01-27 16:29:56 Outpatient R SAL [facility] [id number] [facility] 2023-01-24 00:00:00 2023-01-24 00:00:00 Patient Secure Msg Doctor Unassigned, [place] [facility] 1..840.114 350.1.13.10 4.2.7.2.686 [id number] [facility] 2023-01-23 10:30:00 2023-01-23 11:09:22 Out[address] [facility] [id number] [facility] 2023-01-23 10:30:00 2023-01-23 11:09:22 Routine Visit Mel Barbosa [facility] [employer] SERVICE AGENT [facility] & CHILD [facility] 1..840.114 350.1.13.10 4.2.7.2.686 [id number] 107 [id number] [facility] 2023-01-21 14:00:00 2023-01-21 14:00:[address] [facility] [id number] [facility] 2023-01-21 09:45:00 2023-01-21 11:08:57 Outpatient R MEL BARBOSA [facility] [id number] [facility] 2023-01-21 09:45:00 2023-01-21 11:08:57 Routine Visit Mel Barbosa [facility] [employer] SERVICE AGENT [facility] & CHILD [facility] 1..840.114 350.1.13.10 4.2.7.2.686 [id number] [facility] 2023-01-12 16:10:00 2023-01-15 14:20:00 Outpatient P ELIAS PAIGE [facility] [id number] [facility] 2023-01-12 16:10:00 2023-01-15 14:20:00 Hospital Encounter Jadon Tomeka Blanco Stanley, [facility] 1..114 350.1.13.10 4.2.7.2.686 [id number] [facility] 2023-01-13 11:00:00 2023-01-13 12:03:49 Regulatory Manager Visit 1, [facility] Room [facility] 1..114 350.1.13.10 4.2.7.2.686 [id number] [facility] 2023-01-08 10:45:00 2023-01-08 12:06:50 Outpatient R MEL BAR[facility]OSA [facility] [id number] [facility] 2023-01-08 10:45:00 2023-01-08 12:06:50 Routine Visit Mel Barbosa [facility] [employer] SERVICE AGENT [facility] MATERNAL & CHILD HEALTH [facility] 1.0.114 350.1.13.10 4.2.7.2.686 [id number] [facility] 2023-01-08 10:00:00 2023-01-08 10:00:[address] [facility] [id number] [facility] 2023-01-08 00:00:00 2023-01-08 00:00:00 Orders Only Doctor Unassigned, [place] [facility] 1..114 350.1.13.10 4.2.7.2.686 [id number] [facility] 2023-01-03 00:00:00 2023-01-03 00:00:00 Case Management Mel Barbosa [facility] [employer] SERVICE AGENT [facility] MATERNAL & CHILD [facility] 1.840.114 350.1.13.10 4.2.7.2.686 [id number] [facility] 2023-01-02 00:00:00 2023-01-02 00:00:00 Telephone Mel Barbosa [facility] [employer] SERVICE AGENT [facility] CHILD [facility] 1..114 350.1.13.10 4.2.7.2.686 [id number] 107 [id number] [facility] 2023-01-01 11:00:00 2023-01-01 11:47:06 Outpatient [address]EL [address] [facility] [id number] [facility] 2023-01-01 11:00:00 2023-01-01 11:47:06 Routine Visit Mel Barbosa [facility] 1..114 350.1.13.10 4.2.7.2.686 [id number] [facility] 2022-12-25 13:45:00 2022-12-25 15:39:34 Outpatient [address]I NORIEGA [facility] [id number] [facility] 2022-12-25 13:45:00 2022-12-25 15:39:34 Routine Visit Risk, Ang-Rmchp-N p/High Joi Noriega [facility] [employer] SERV[employer] AGENT [facility] CHILD [facility] 1..114 350.1.13.10 4.2.7.2.686 [id number] 107 [id number] [facility] 2022-12-25 00:00:00 2022-12-25 00:00:00 Orders Only Doctor Unassigned, [place] [facility] 1..114 350.1.13.10 4.2.7.2.686 [id number] [facility] 2022-12-18 00:00:00 2022-12-18 00:00:00 Case Management Mel Barbosa [facility] 1..114 350.1.13.10 4.2.7.2.686 [id number] [facility] 2022-12-17 13:00:00 2022-12-17 14:08:47 Outpatient P MELIDA REYNOSO [facility] [id number] [facility] 2022-12-17 13:00:00 2022-12-17 14:08:47 Regulatory Manager Visit Ultrasound, Michelle Melida Reynoso Agnes [facility] [employer] SERV[employer]ENT [facility] MATERNAL & CHILD HEALTH [facility] 1..114 350.1.13.10 4.2.7.2.686 [id number] [facility] 2022-11-20 00:00:00 2022-11-20 00:00:00 Case Management Leigh Gagnon [facility] 1.114 350.1.13.10 4.2.7.2.686 [id number] [facility] 2022-11-17 16:45:00 2022-11-17 18:15:00 Outpatient P LEIGH [facility] [id number] [facility] 2022-11-17 16:45:00 2022-11-17 18:15:00 Hospital Encounter Glendy Hogan Vien Cam [facility] 1.114 350.1.13.10 4.2.7.2.686 [id number] [facility] 2022-11-05 10:45:00 2022-11-05 12:38:16 Outpatient P JOI NORIEGA [facility] [id number] [facility] 2022-11-05 10:45:00 2022-11-05 12:38:16 Routine Visit Risk, Benigno-Rmchp Physician/H Joi Werner [facility] [employer] [facility] MATERNAL & CHILD HEALTH [facility] 1.114 350.1.13.10 4.2.7.2.686 [id number] [facility] 2022-10-29 10:30:00 2022-10-29 10:30:[address] [facility] [id number] [facility] 2022-10-24 09:00:00 2022-10-24 09:42:31 Outpatient R JAYDON BERMUDEZ [facility] [id number] [facility] 2022-10-24 09:00:00 2022-10-24 09:42:31 Telemedici ne Visit Mary Cox Joseph W [facility] [employer] [facility] MATERNAL & CHILD [facility] 1.2.840.114 350.1.13.10 4.2.7.2.686 [id number] [facility] 2022-10-23 08:15:00 2022-10-23 08:15:[address] [facility] [id number] [facility] 2022-10-17 21:47:00 2022-10-18 00:22:00 Emergency X SEAMUS BUSTILLOS [facility] ERT [id number] [facility] 2022-10-17 21:47:00 2022-10-18 00:22:00 Emergency Seamus Bustillos [facility] 1.2.840.114 350.1.13.10 4.2.7.2.686 [id number] [facility] 2022-10-15 10:45:00 2022-10-15 10:45:00 Outpatient R GABBI HARDIN [facility] [id number] [facility] 2022-10-14 11:00:00 2022-10-14 11:54:47 Outpatient R MEL BARBOSA [facility] [id number] [facility] 2022-10-14 11:00:00 2022-10-14 11:54:47 Routine Visit Mel Barbosa [facility] [employer] [facility] & CHILD [facility] 1.2.840.114 350.1.13.10 4.2.7.2.686 [id number] [facility] 2022-10-14 00:00:00 2022-10-14 00:00:00 Case Management Mel Barbosa [facility] [employer] [facility] CHILD [facility] 1.2.840.114 350.1.13.10 4.2.7.2.686 [id number] [facility] 2022-10-14 00:00:00 2022-10-14 00:00:00 Telephone Mel Barbosa [facility] [employer] [facility] 1.2.840.114 350.1.13.10 4.2.7.2.686 [id number] [facility] 2022-10-14 00:00:00 2022-10-14 00:00:00 Orders Only Doctor Unassigned, [place] [facility] 1.2.840.114 350.1.13.10 4.2.7.2.686 [id number] [facility] 2022-10-10 14:15:00 2022-10-10 15:00:25 Regulatory Manager Visit Lab, Ang-Rmchp Mel Barbosa [facility] 1.2.840.114 350.1.13.10 4.2.7.2.686 [id number] [facility] 2022-10-10 14:15:00 2022-10-10 14:15:[address] [facility] [id number] [facility] 2022-10-10 10:00:00 2022-10-10 10:00:[address] [facility] [id number] [facility] 2022-10-08 08:15:00 2022-10-08 09:44:25 Outpatient R MEL BARBOSA [facility] [id number] [facility] 2022-10-08 08:15:00 2022-10-08 09:44:25 Initial Visit Mel Barbosa [facility] [employer]ENT [facility] MATERNAL & [facility]ILD HEALTH [facility] 1.2.840.114 350.1.13.10 4.2.7.2.686 [id number] [facility] 2022-10-08 00:00:00 2022-10-08 00:00:00 Orders Only Doctor Unassigned, [place] [facility] 1..840.114 350.1.13.10 4.2.7.2.686 [id number] 009 [id number] [facility] 2022-09-30 09:15:01 2022-09-30 09:15:01 Outpatient SFA SFA [id number] Luis Mejias Heath 2022-09-19 14:47:35 2022-09-19 14:47:35 Outpatient SFA SFA [id number] 0428 Luis Magalie Heath 2022-08-27 09:15:20 2022-08-27 09:15:20 Outpatient SFA SFA [id number] 0405 Luis Mejias Heath 2022-08-26 09:30:30 2022-08-26 09:30:30 Outpatient SFA SFA [id number] Luis Mejias Heath 2022-08-20 13:00:45 2022-08-20 13:00:45 Outpatient SFA SFA [id number] 0329 Luis Mejias Heath 2022-08-18 11:01:29 2022-08-18 11:01:29 Outpatient SFA SFA [id number] 0327 Luis Mejias Jeremiah 2022-07-31 10:38:29 2022-07-31 10:38:29 Outpatient SFA SFA [id number] 0309 Luis Mejias Heath 2022-07-30 16:30:26 2022-07-30 16:30:26 Outpatient SFA SFA [id number] 0308 Luis Magalie Jeremiah 2022-06-16 15:40:20 2022-06-16 15:40:20 Outpatient SFA SFA [id number] Luis Daniels 2022-05-09 09:35:30 2022-05-09 09:35:30 Outpatient [facility] [id number] Luis Daniels 2022-05-02 09:50:44 2022-05-02 09:50:44 Outpatient [facility] [id number] Luis Daniels 2022-05-01 08:49:53 2022-05-01 08:49:53 Outpatient [facility] 1208 Luis Mejias Jeremiah 2022-04-30 13:28:36 2022-04-30 13:28:36 Outpatient [facility] [id number] Luis Mejias Heath 2021-04-25 00:00:00 2021-04-25 00:00:00 Orders Only Doctor Unassigned, [place] [facility] 1.2.840.114 350.1.13.10 4.2.7.2.686 [id number] [facility] 2021-04-16 13:56:00 2021-04-16 16:58:00 Emergency BHAVIN DUNCAN [facility] ERT [id number] [facility] 2021-04-16 13:56:00 2021-04-16 16:58:00 Emergency Bhavin Lozano [facility] 1.2.840.114 350.1.13.10 4.2.7.2.686 [id number] [facility] 2021-04-02 00:00:00 2021-04-02 00:00:00 Patient Outreach Annie Huitron FAIZAN BARAHONA PLAMORRIS 1.840.114 350.1.13.10 4.2.7.2.686 [id number] [facility] 2021-03-30 09:55:00 2021-04-01 16:43:00 Outpatient X TRACI ANDERSON [facility] JEAN [id number] [facility] 2021-03-30 09:55:00 2021-04-01 16:43:00 Emergency Seamus Bustillos Yaman [facility] 1.2.840.114 350.1.13.10 4.2.7.2.686 [id number] [facility] 2021-03-30 00:00:00 2021-03-30 00:00:00 Orders Only Doctor Unassigned, [place] [facility] 1.2.840.114 350.1.13.10 4.2.7.2.686 [id number] [facility] 2020-06-05 16:50:00 2020-06-05 19:31:00 [facility] 1.2.840.114 350.1.13.10 4.2.7.2.686 [id number] 2020-06-05 16:50:00 2020-06-05 19:31:00 Emergency Sanjeev Cifuentes [facility] 1.2.840.114 350.1.13.10 4.2.7.2.686 [id number] [facility] 2019-12-19 21:39:31 2019-12-20 03:45:00 Emergency Glendy Hogan [facility] 1.2.840.114 350.1.13.10 4.2.7.2.686 [id number] 2019-12-19 21:39:31 2019-12-20 03:45:00 Emergency Glendy Hogan [facility] 1.2.840.114 350.1.13.10 4.2.7.2.686 [id number] [id number] [facility] Results Test Description Test Time Test Comments Results Result Co mments Source Luis DanielsHEMOGLOBIN [id number] 00:00:00* Test Item Value Reference Range Interpretation Comme nts HEMOGLOBIN A1c (test code = 21870) 13.1 % Luis F AustinALBUMIN/CREATININE RATIO, RANDOM [id number] 00:00:00* Test Item Value Reference Range Interpretation Comme nts CREATININE, URINE, CONC. (te st code = 207) 40.1 MG/DL ALBUMIN, URINE, RANDOM (test code = 24081) 5.8 MG/DL CALC ALBUMIN/CREAT, RND (silvestre t code = 41989) 145 MG/G Luis DanielsCOMPREHENSIVE METABOLIC [id number] 00:00:00* Test Item Value Reference Range Interpretation Comme nts GLUCOSE (test code = 2217) 404 MG/DL BUN (test code = 2208) 11 MG/DL CREATININE (test code = 2214) 0.52 MG/DL eGFR (2020 CKD-EPI) (test code = 84949) 125 ML/MIN/1.73 CALC BUN/CREAT (test code = 2235) 21 RATIO SODIUM (test code = 2231) 134 MEQ/L POTASSIUM (test code = 2228) 4.2 MEQ/L CHLORIDE (test code = 2215) 98 MEQ/L CARBON DIOXIDE (test code = 2206) 24 MEQ/L CALCIUM (test code = 2209) 9.5 MG/DL PROTEIN, TOTAL (test code = 2229) 7.3 G/DL ALBUMIN (test code = 2201) 4.3 G/DL CALC GLOBULIN (test code = 2240) 3.0 G/DL CALC A/G RATIO (test code = 2234) 1.4 RATIO BILIRUBIN, TOTAL (test code = 2207) 0.4 MG/DL ALKALINE PHOSPHATASE (test code = 2204) 131 U/L AST (test code = 2218) 16 U/L ALT (test code = 2219) 19 U/L Luis DanielsLIPID [id number] 00:00:00* Test Item Value Reference Range Interpretation Comme nts CHOLESTEROL (test code = 2210) 216 MG/DL TRIGLYCERIDES (test code = 2232) 277 MG/DL HDL CHOLESTEROL (test code = 2220) 47 MG/DL CALC LDL CHOL (test code = 2237) 126 MG/DL RISK RATIO LDL/HDL (test cod e = 2238) 2.68 RATIO Luis DanielsHEMOGLOBIN [id number] 00:00:00* Test Item Value Reference Range Interpretation Comme nts HEMOGLOBIN A1c (test code = 14910) 13.1 % Luis Mejias AustinALBUMIN/CREATININE RATIO, RANDOM [id number] 00:00:00* Test Item Value Reference Range Interpretation Comme benjamin CREATININE, URINE, CONC. (te st code = 2072) 40.1 MG/DL ALBUMIN, URINE, RANDOM (test code = 70555) 5.8 MG/DL CALC ALBUMIN/CREAT, RND (silvestre t code = 11159) 145 MG/G Luis DanielsCOMPREHENSIVE METABOLIC [id number] 00:00:00* Test Item Value Reference Range Interpretation Comme nts GLUCOSE (test code = 2217) 404 MG/DL BUN (test code = 2208) 11 MG/DL CREATININE (test code = 2214) 0.52 MG/DL eGFR (2020 CKD-EPI) (test code = 77149) 125 ML/MIN/1.73 CALC BUN/CREAT (test code = 2235) 21 RATIO SODIUM (test code = 2231) 134 MEQ/L POTASSIUM (test code = 2228) 4.2 MEQ/L CHLORIDE (test code = 2215) 98 MEQ/L CARBON DIOXIDE (test code = 2206) 24 MEQ/L CALCIUM (test code = 2209) 9.5 MG/DL PROTEIN, TOTAL (test code = 2229) 7.3 G/DL ALBUMIN (test code = 2201) 4.3 G/DL CALC GLOBULIN (test code = 2240) 3.0 G/DL CALC A/G RATIO (test code = 2234) 1.4 RATIO BILIRUBIN, TOTAL (test code = 2207) 0.4 MG/DL ALKALINE PHOSPHATASE (test code = 2204) 131 U/L AST (test code = 2218) 16 U/L ALT (test code = 2219) 19 U/L Luis DanielsPOCT URINALYSIS W SPECIFIC [id number] 18:56:00* Test Item Value Reference Range Interpretation Comme nts POCT U SP GRAV (test code = 3255) . 1.005-1.025 POCT PH U (test code = 3254) . 5-8 POCT U LEUK EST (test code = 3263) . Negative - N egative POCT U NIT (test code = 3262) . Negative - Negati ve POCT U PROT (test code = 3259) trace Negative - Negat nay POCT U GLU (test code = 3256) neg Negative - Negati ve POCT U KETONE (test code = 3258) . Negative - Neg ative POCT U UROBILI (test code = 3260) . 0.2-1 POCT U BILI (test code = 3261) . Negative - Negat nay POCT U BLD (test code = 3257) . Negative - Negati ve POCT U COLOR (test code = 3266) . POCT U APPEAR (test code = 3267) . [facility]. METABOLIC PANEL (07875)2023-03-09 23:27:25* Test Item Value Reference Range Interpretation Comme nts NA (test code = 6701880086) 138 mmol/L 135-145 K (test code = 2101003089) 3.6 mmol/L 3.5-5.0 CL (test code = 3513640370) 101 mmol/L 98-108 CO2 TOTAL (test code = 1727294771) 25 mmol/L 23-31 AGAP (test code = 4885031972) 12 2-16 BUN (test code = 1546568990) 15 mg/dL 7-23 GLUCOSE (test code = 0603057503) 121 mg/dL 70-110 H CREATININE (test code = 5123759000) 0.58 mg/dL 0.50-1.04 TOTAL BILI (test code = 6858309651) 0.6 mg/dL 0.1-1.1 CALCIUM (test code = 5897265056) 8.9 mg/dL 8.6-10.6 T PROTEIN (test code = 5567741092) 7.8 g/dL 6.3-8.2 ALBUMIN (test code = 6280964159) 3.9 g/dL 3.5-5.0 ALK PHOS (test code = 6035078255) 102 U/L 34-122 ALTv (test code = 1742-6) 53 U/L 5-35 H AST(SGOT) (test code = 5581529817) 40 U/L 13-40 eGFR (test code = 2008270126) 119.7 mL/min/1.73m2 LUC (test code = LUC) Association of [...] or abnormalities in imaging tests). Lab Interpretation (test code = 25397-9) Abnormal [facility] WITH [id number] 23:10:27* Test Item Value Reference Range Interpretation Comme nts WBC (test code = 6690-2) 9.39 See_Comment [Automated [employer]] The system which generated this result transmitted reference range: 4.30 - 11.10 10*3/?L. The reference range was not used to interpret this result as normal/abnormal. RBC (test code = 789-8) 3.92 See_Comment L [Automated [employer]] The system which generated this result transmitted reference range: 3.93 - 5.25 10*6/?L. The reference range was not used to interpret this result as normal/abnormal. HGB (test code = 718-7) 10.9 g/dL 11.6-15.0 L HCT (test code = 4544-3) 33.3 % 35.7-45.2 L MCV (test code = 787-2) 84.9 fL 80.6-95.5 MCH (test code = 785-6) 27.8 pg 25.9-32.8 MCHC (test code = 786-4) 32.7 g/dL 31.6-35.1 RDW-SD (test code = 10490-9) 42.2 fL 39.0-49.9 RDW-CV (test code = 788-0) 13.8 % 12.0-15.5 PLT (test code = 777-3) 293 See_Comment [Automated messa ge] The system which generated this result transmitted reference range: 166 - 358 10*3/?L. The reference range was not used to interpret this result as normal/abnormal. MPV (test code = 01085-4) 10.6 fL 9.5-12.9 NRBC/100 WBC (test code = 3139760809) 0.0 See_Comment [Automated [employer] ssage] The system which generated this result transmitted reference range: 0.0 - 10.0 /100 WBCs. The reference range was not used to interpret this result as normal/abnormal. NRBC x10^3 (test code = 9770899359) See_Comment [Automated messa ge] The system which generated this result transmitted reference range: 10*3/?L. The reference range was not used to interpret this result as normal/abnormal. GRAN MAT (NEUT) % (test code = 770-8) 68.0 % IMM GRAN % (test code = 5716041062) 0.50 % LYMPH % (test code = 736-9) 20.6 % MONO % (test code = 5905-5) 5.6 % EOS % (test code = 713-8) 4.7 % BASO % (test code = 706-2) 0.6 % GRAN MAT x10^3(ANC) (test code = 1507548963) 6.38 10*3/uL 1.88-7.09 IMM GRAN x10^3 (test code = 9783929523) 0.05 10*3/uL 0.00-0.06 LYMPH x10^3 (test code = 731-0) 1.93 10*3/uL 1.32-3.29 MONO x10^3 (test code = 742-7) 0.53 10*3/uL 0.33-0.92 EOS x10^3 (test code = 711-2) 0.44 10*3/uL 0.03-0.39 H BASO x10^3 (test code = 704-7) 0.06 10*3/uL 0.01-0.07 Lab Interpretation (test code = 98327-4) Abnormal [facility] GLUCOSE (AUTOMATED)2023-03-01 16:29:29* Test Item Value Reference Range Interpretation Comme nts POCT GLU (test code = 1939025606) 144 mg/dL 70-110 H Lab Interpretation (test cod e = 80944-5) Abnormal [facility] GLUCOSE (AUTOMATED)2023-03-01 16:29:29* Test Item Value Reference Range Interpretation Comme nts POCT GLU (test code = 9856565713) 144 mg/dL 70-110 H Lab Interpretation (test cod e = 06874-2) Abnormal [facility] GLUCOSE (AUTOMATED)2023-03-01 13:40:15* Test Item Value Reference Range Interpretation Comme nts POCT GLU (test code = 0677346889) 132 mg/dL 70-110 H Lab Interpretation (test cod e = 08877-4) Abnormal [facility] GLUCOSE (AUTOMATED)2023-03-01 13:40:15* Test Item Value Reference Range Interpretation Comme nts POCT GLU (test code = 3618070216) 132 mg/dL 70-110 H Lab Interpretation (test cod e = 10584-5) Abnormal [facility] GLUCOSE (AUTOMATED)2023-02-28 21:34:00* Test Item Value Reference Range Interpretation Comme nts POCT GLU (test code = 2370008695) 159 mg/dL 70-110 H Lab Interpretation (test cod e = 50607-1) Abnormal [facility] GLUCOSE (AUTOMATED)2023-02-28 21:34:00* Test Item Value Reference Range Interpretation Comme nts POCT GLU (test code = 9570540588) 159 mg/dL 70-110 H Lab Interpretation (test cod e = 01649-5) Abnormal [facility] ONLY - SYPHILIS [id number] 17:17:13* Test Item Value Reference Range Interpretation Comme nts Syphilis IgG/IgM (test code = 01054-6) Non-reactive Non-reactive LUC (test code = LUC) Non-reactive - No serologic evidence of T. pallidum infection. Cannot exclude incubating or early syphilis. Submit a second specimen in 2-4 weeks if syphilis is clinically suspected. Equivocal - Further testing to follow. Reactive - Further testing to follow. Lab Interpretation (test code = 38458-0) Normal [facility] ONLY - SYPHILIS IGG/[id number] 17:17:13* Test Item Value Reference Range Interpretation Comme nts Syphilis IgG/IgM (test code = 62057-5) Non-reactive Non-reactive LUC (test code = LUC) Non-reactive - No serologic evidence of T. pallidum infection. Cannot exclude incubating or early syphilis. Submit a second specimen in 2-4 weeks if syphilis is clinically suspected. Equivocal - Further testing to follow. Reactive - Further testing to follow. Lab Interpretation (test code = 44235-3) Normal [facility] GLUCOSE (AUTOMATED)2023-02-28 16:52:13* Test Item Value Reference Range Interpretation Comme nts POCT GLU (test code = 2969839785) 104 mg/dL 70-110 Lab Interpretation (test cod e = 63696-4) Normal [facility] GLUCOSE (AUTOMATED)2023-02-28 16:52:13* Test Item Value Reference Range Interpretation Comme nts POCT GLU (test code = 0059304898) 104 mg/dL 70-110 Lab Interpretation (test cod e = 85795-8) Normal [facility] GLUCOSE (AUTOMATED)2023-02-28 13:02:55* Test Item Value Reference Range Interpretation Comme nts POCT GLU (test code = 9974385040) 104 mg/dL 70-110 Lab Interpretation (test cod e = 11628-9) Normal [facility] GLUCOSE (AUTOMATED)2023-02-28 13:02:55* Test Item Value Reference Range Interpretation Comme nts POCT GLU (test code = 8024071752) 104 mg/dL 70-110 Lab Interpretation (test cod e = 02666-2) Normal [facility] GLUCOSE (AUTOMATED)2023-02-28 09:10:09* Test Item Value Reference Range Interpretation Comme nts POCT GLU (test code = 5779537293) 114 mg/dL 70-110 H Lab Interpretation (test cod e = 73470-3) Abnormal [facility] GLUCOSE (AUTOMATED)2023-02-28 09:10:09* Test Item Value Reference Range Interpretation Comme nts POCT GLU (test code = 9908219229) 114 mg/dL 70-110 H Lab Interpretation (test cod e = 52897-5) Abnormal [facility] (D) IMMUNE [id number] 08:35:40* Test Item Value Reference Range Interpretation Comme nts RHIG CANDIDATE? (test code = 5188) No- see comment Patient is not a candidate for RhIg- Patient is Rh Positive.Performed at [facility] Laboratory Services [facility] Blood [address] Free: [phone] No. [id number] [facility] (D) IMMUNE [id number] 08:35:40* Test Item Value Reference Range Interpretation Comme nts RHIG CANDIDATE? (test code = 5188) No- see comment Patient is not a candidate for RhIg- Patient is Rh Positive.Performed at [facility] Laboratory Services [facility] Blood [address] Free: [phone] No. [id number] [facility] [id number] 05:08:57* Test Item Value Reference Range Interpretation Comme nts BASE EXCESS, CORD (test code = 5004307846) -3.8 mEq/L AC PH, CORD (BEAKER) (test code = 9319939275) 7.17 7.18-7.38 L PC02, CORD (test code = 0576573773) 75 See_Comment H [Automated messa ge] The system which generated this result transmitted reference range: 32 - 66 mmHg. The reference range was not used to interpret this result as normal/abnormal. PO2, CORD (test code = 3590336655) N.a. BICARBONATE, CORD (test code = 0089416207) 27 See_Comment [Automated me ssage] The system which generated this result transmitted reference range: 17 - 27 mEq/L. The reference range was not used to interpret this result as normal/abnormal. Lab Interpretation (test code = 19164-3) Abnormal [facility] Cord [id number] 05:08:57* Test Item Value Reference Range Interpretation Comme nts BASE EXCESS, CORD (test code = 3307446849) -3.8 mEq/L AC PH, CORD (BEAKER) (test code = 3911274935) 7.17 7.18-7.38 L PC02, CORD (test code = 4734662875) 75 See_Comment H [Automated messa ge] The system which generated this result transmitted reference range: 32 - 66 mmHg. The reference range was not used to interpret this result as normal/abnormal. PO2, CORD (test code = 2995764198) N.a. BICARBONATE, CORD (test code = 2341707413) 27 See_Comment [Automated me ssage] The system which generated this result transmitted reference range: 17 - 27 mEq/L. The reference range was not used to interpret this result as normal/abnormal. Lab Interpretation (test code = 18591-8) Abnormal [facility] Cord [id number] 05:08:11* Test Item Value Reference Range Interpretation Comme nts VENOUS BASE EXCESS, CORD (test code = 4173639477) -4.7 mEq/L VENOUS PH, CORD (test code = 2567434755) 7.21 7.25-7.45 L VENOUS PC02, CORD (test code = 3679416047) 62 See_Comment H [Automated me ssage] The system which generated this result transmitted reference range: 27 - 49 mmHg. The reference range was not used to interpret this result as normal/abnormal. VENOUS PO2, CORD (test code = 4844039889) 14 See_Comment L [Automated me ssage] The system which generated this result transmitted reference range: 17 - 41 mmHg. The reference range was not used to interpret this result as normal/abnormal. VENOUS BICARBONATE, CORD (test code = 1778061099) 24 See_Comment [Automa chris message] The system which generated this result transmitted reference range: 12 - 29 mEq/L. The reference range was not used to interpret this result as normal/abnormal. Lab Interpretation (test code = 76982-8) Abnormal [facility] Cord [id number] 05:08:11* Test Item Value Reference Range Interpretation Comme nts VENOUS BASE EXCESS, CORD (test code = 1308558364) -4.7 mEq/L VENOUS PH, CORD (test code = 5117727791) 7.21 7.25-7.45 L VENOUS PC02, CORD (test code = 2274677013) 62 See_Comment H [Automated me ssage] The system which generated this result transmitted reference range: 27 - 49 mmHg. The reference range was not used to interpret this result as normal/abnormal. VENOUS PO2, CORD (test code = 6854346243) 14 See_Comment L [Automated me ssage] The system which generated this result transmitted reference range: 17 - 41 mmHg. The reference range was not used to interpret this result as normal/abnormal. VENOUS BICARBONATE, CORD (test code = 7584146998) 24 See_Comment [Automa chris message] The system which generated this result transmitted reference range: 12 - 29 mEq/L. The reference range was not used to interpret this result as normal/abnormal. Lab Interpretation (test code = 85575-7) [facility]normal [facility] B Surface [id number] 04:37:37 * Test Item Value Reference Range Interpretation Comme nts HBsAg Semi-Quantitative (silvestre t code = 5195-3) 0.16 Negative [facility] B Surface [id number] 04:37:37 * Test Item Value Reference Range Interpretation Comme nts HBsAg Semi-Quantitative (silvestre t code = 5195-3) 0.[address] [facility] GLUCOSE (AUTOMATED)2023-02-28 02:59:52* Test Item Value Reference Range Interpretation Comme nts POCT GLU (test code = 6297426043) 95 mg/dL 70-110 Lab Interpretation (test cod e = 32792-9) Normal [facility] GLUCOSE (AUTOMATED)2023-02-28 02:59:52* Test Item Value Reference Range Interpretation Comme nts POCT GLU (test code = 9455691170) 95 mg/dL 70-110 Lab Interpretation (test cod e = 22029-7) Normal [facility] Texas[facility] ACID [id number] 22:49:40* Test Item Value Reference Range Interpretation Comme nts URIC ACID (test code = 2116937344) 5.2 mg/dL 2.9-6.0 Lab Interpretation (test cod e = 86743-7) Normal [facility] [id number] 22:49:40* Test Item Value Reference Range Interpretation Comme [facility] CREAT[facility]INE (test code = 2749828047) 0.46 mg/dL 0.50-1.04 L eGFR (test code = 9363935465) 156.4 mL/min/1.73m2 LUC (test code = LUC) Association of [...] or abnormalities in imaging tests). Lab Interpretation (test code = 91626-2) [facility]normal [facility] (ASPARTATE AMINO TRANSFER)2023-02-27 22:49:40* Test Item Value Reference Range Interpretation Comme nts AST(SGOT) (test code = 6573478092) 29 U/L 13-40 Lab Interpretation (test cod e = 69710-9) Normal [facility] TexasALANINE AMINO TRANSFERASE([id number] 22:49:40* Test Item Value Reference Range Interpretation Comme nts ALTv (test code = 1742-6) 35 U/L 5-35 Lab Interpretation (test cod e = 90066-9) Normal [facility] TexasLACTATE [id number] 22:49:40* Test Item Value Reference Range Interpretation Comme nts LDH (test code = 8610318319) 112 U/L 120-246 L Lab Interpretation (test cod e = 98636-7) Abnormal [facility] [id number] 22:49:40* Test Item Value Reference Range Interpretation Comme [facility] URIC ACID (test code = 4732305680) 5.2 mg/dL 2.9-6.0 Lab Interpretation (test cod e = 01365-3) Normal [facility] TexasCREATININE [id number] 22:49:40* Test Item Value Reference Range Interpretation Comme [facility] CREATININE (test code = 0291547185) 0.46 mg/dL 0.50-1.04 L eGFR (test code = 2803005769) 156.4 mL/min/1.73m2 LUC (test code = LUC) Association of [...] or abnormalities in imaging tests). Lab Interpretation (test code = 63167-2) Abnormal [facility] Texas[facility] (ASPARTATE AMINO TRANSFER)2023-02-27 22:49:40* Test Item Value Reference Range Interpretation Comme nts AST(SGOT) (test code = 7609223098) 29 U/L 13-40 Lab Interpretation (test cod e = 74416-7) Normal [facility] TexasAL[facility] AMINO TRANSFERASE([id number] 22:49:40* Test Item Value Reference Range Interpretation Comme nts ALTv (test code = 1742-6) 35 U/L 5-35 Lab Interpretation (test cod e = 77038-5) Normal [facility] TexasLA[facility] [id number] 22:49:40* Test Item Value Reference Range Interpretation Comme nts LDH (test code = 5778345239) 112 U/L 120-246 L Lab Interpretation (test cod e = 41823-5) Abnormal [facility] GLUCOSE (AUTOMATED)2023-02-27 22:43:24* Test Item Value Reference Range Interpretation Comme nts POCT GLU (test code = 8242517057) 129 mg/dL 70-110 H Lab Interpretation (test cod e = 37862-9) Abnormal [facility] GLUCOSE (AUTOMATED)2023-02-27 22:43:24* Test Item Value Reference Range Interpretation Comme nts POCT GLU (test code = 2251644301) 129 mg/dL 70-110 H Lab Interpretation (test cod e = 16058-9) [facility] [place] - ONCE [id number] 22:36:00* Test Item Value Reference Range Interpretation Comme nts ABO & RH (test code = 20) O POSITIVE IAT (test code = 1185) Negative [facility] [id number] 22:36:00* Test Item Value Reference Range Interpretation Comme nts ABO & RH (test code = 20) O POSITIVE IAT (test code = 1185) [facility] WITH [id number] 22:25:51* Test Item Value Reference Range Interpretation Comme nts WBC (test code = 6690-2) 8.93 See_Comment [Automated messa ge] The system which generated this result transmitted reference range: 4.30 - 11.10 10*3/?L. The reference range was not used to interpret this result as normal/abnormal. RBC (test code = 789-8) 3.81 See_Comment L [Automated messa ge] The system which generated this result transmitted reference range: 3.93 - 5.25 10*6/?L. The reference range was not used to interpret this result as normal/abnormal. HGB (test code = 718-7) 10.5 g/dL 11.6-15.0 L HCT (test code = 4544-3) 32.2 % 35.7-45.2 L MCV (test code = 787-2) 84.5 fL 80.6-95.5 MCH (test code = 785-6) 27.6 pg 25.9-32.8 MCHC (test code = 786-4) 32.6 g/dL 31.6-35.1 RDW-SD (test code = 04824-5) 42.2 fL 39.0-49.9 RDW-CV (test code = 788-0) 13.8 % 12.0-15.5 PLT (test code = 777-3) 198 See_Comment [Automated messa ge] The system which generated this result transmitted reference range: 166 - 358 10*3/?L. The reference range was not used to interpret this result as normal/abnormal. MPV (test code = 72772-1) 12.0 fL 9.5-12.9 NRBC/100 WBC (test code = 5649144399) 0.0 See_Comment [Automated me ssage] The system which generated this result transmitted reference range: 0.0 - 10.0 /100 WBCs. The reference range was not used to interpret this result as normal/abnormal. NRBC x10^3 (test code = 5257414830) See_Comment [Automated messa ge] The system which generated this result transmitted reference range: 10*3/?L. The reference range was not used to interpret this result as normal/abnormal. GRAN MAT (NEUT) % (test code = 770-8) 68.9 % IMM GRAN % (test code = 3495264287) 0.30 % LYMPH % (test code = 736-9) 22.6 % MONO % (test code = 5905-5) 7.1 % EOS % (test code = 713-8) 0.8 % BASO % (test code = 706-2) 0.3 % GRAN MAT x10^3(ANC) (test code = 8844718832) 6.15 10*3/uL 1.88-7.09 IMM GRAN x10^3 (test code = 9698331029) 0.03 10*3/uL 0.00-0.06 LYMPH x10^3 (test code = 731-0) 2.02 10*3/uL 1.32-3.29 MONO x10^3 (test code = 742-7) 0.63 10*3/uL 0.33-0.92 EOS x10^3 (test code = 711-2) 0.07 10*3/uL 0.03-0.39 BASO x10^3 (test code = 704-7) 0.03 10*3/uL 0.01-0.07 Lab Interpretation (test code = 52150-1) Abnormal [facility] WITH [id number] 22:25:51* Test Item Value Reference Range Interpretation Comme nts WBC (test code = 6690-2) 8.93 See_Comment [Automated messa ge] The system which generated this result transmitted reference range: 4.30 - 11.10 10*3/?L. The reference range was not used to interpret this result as normal/abnormal. RBC (test code = 789-8) 3.81 See_Comment L [Automated messa ge] The system which generated this result transmitted reference range: 3.93 - 5.25 10*6/?L. The reference range was not used to interpret this result as normal/abnormal. HGB (test code = 718-7) 10.5 g/dL 11.6-15.0 L HCT (test code = 4544-3) 32.2 % 35.7-45.2 L MCV (test code = 787-2) 84.5 fL 80.6-95.5 MCH (test code = 785-6) 27.6 pg 25.9-32.8 MCHC (test code = 786-4) 32.6 g/dL 31.6-35.1 RDW-SD (test code = 00024-7) 42.2 fL 39.0-49.9 RDW-CV (test code = 788-0) 13.8 % 12.0-15.5 PLT (test code = 777-3) 198 See_Comment [Automated Sococoa ge] The system which generated this result transmitted reference range: 166 - 358 10*3/?L. The reference range was not used to interpret this result as normal/abnormal. MPV (test code = 65941-9) 12.0 fL 9.5-12.9 NRBC/100 WBC (test code = 5558899615) 0.0 See_Comment [Automated iZotope ssage] The system which generated this result transmitted reference range: 0.0 - 10.0 /100 WBCs. The reference range was not used to interpret this result as normal/abnormal. NRBC x10^3 (test code = 5096159349) See_Comment [Automated Sococoa ge] The system which generated this result transmitted reference range: 10*3/?L. The reference range was not used to interpret this result as normal/abnormal. GRAN MAT (NEUT) % (test code = 770-8) 68.9 % IMM GRAN % (test code = 9507110838) 0.30 % LYMPH % (test code = 736-9) 22.6 % MONO % (test code = 5905-5) 7.1 % EOS % (test code = 713-8) 0.8 % BASO % (test code = 706-2) 0.3 % GRAN MAT x10^3(ANC) (test code = 3594782959) 6.15 10*3/uL 1.88-7.09 IMM GRAN x10^3 (test code = 1923615924) 0.03 10*3/uL 0.00-0.06 LYMPH x10^3 (test code = 731-0) 2.02 10*3/uL 1.32-3.29 MONO x10^3 (test code = 742-7) 0.63 10*3/uL 0.33-0.92 EOS x10^3 (test code = 711-2) 0.07 10*3/uL 0.03-0.39 BASO x10^3 (test code = 704-7) 0.03 10*3/uL 0.01-0.07 Lab Interpretation (test code = 82292-4) Abnormal [facility] URINALYSIS W SPECIFIC [id number] 15:09:00* Test Item Value Reference Range Interpretation Comme nts POCT U SP GRAV (test code = 3255) . 1.005-1.025 POCT PH U (test code = 3254) 5 mg/dl 5-8 POCT U LEUK EST (test code = 3263) Trace Negative - Negative POCT U NIT (test code = 3262) Pos Negative - Negati ve POCT U PROT (test code = 3259) 1+ Negative - Negat nay POCT U GLU (test code = 3256) Trace Negative - Negati ve POCT U KETONE (test code = 3258) None Negative - Neg ative POCT U UROBILI (test code = 3260) . 0.2-1 POCT U BILI (test code = 3261) . Negative - Negat nay POCT U BLD (test code = 3257) Trace Negative - Negati ve POCT U COLOR (test code = 3266) . POCT U APPEAR (test code = 3267) .. [facility] URINALYSIS W SPECIFIC [id number] 19:03:00* Test Item Value Reference Range Interpretation Comme nts POCT U SP GRAV (test code = 3255) . 1.005-1.025 POCT PH U (test code = 3254) 5 mg/dl 5-8 POCT U LEUK EST (test code = 3263) Trace Negative - Negative POCT U NIT (test code = 3262) Neg Negative - Negati ve POCT U PROT (test code = 3259) 1+ Negative - Negat nay POCT U GLU (test code = 3256) Neg Negative - Negati ve POCT U KETONE (test code = 3258) None Negative - Neg ative POCT U UROBILI (test code = 3260) . 0.2-1 POCT U BILI (test code = 3261) . Negative - Negat nay POCT U BLD (test code = 3257) Trace Negative - Negati ve POCT U COLOR (test code = 3266) POCT U APPEAR (test code = 3267) [facility] URINALYSIS W SPECIFIC [id number] 19:03:00* Test Item Value Reference Range Interpretation Comme nts POCT U SP GRAV (test code = 3255) . 1.005-1.025 POCT PH U (test code = 3254) 5 mg/dl 5-8 POCT U LEUK EST (test code = 3263) Trace Negative - Negative POCT U NIT (test code = 3262) Neg Negative - Negati ve POCT U PROT (test code = 3259) 1+ Negative - Negat nay POCT U GLU (test code = 3256) Neg Negative - Negati ve POCT U KETONE (test code = 3258) None Negative - Neg ative POCT U UROBILI (test code = 3260) . 0.2-1 POCT U BILI (test code = 3261) . Negative - Negat nay POCT U BLD (test code = 3257) Trace Negative - Negati ve POCT U COLOR (test code = 3266) POCT U APPEAR (test code = 3267) [facility] URINALYSIS W SPECIFIC [id number] 14:35:00* Test Item Value Reference Range Interpretation Comme nts POCT U SP GRAV (test code = 3255) n/a 1.005-1.025 A POCT PH U (test code = 3254) 5 mg/dl 5-8 POCT U LEUK EST (test code = 3263) trace Negative - Negative POCT U NIT (test code = 3262) negative Negative - Negati ve POCT U PROT (test code = 3259) trace Negative - Negat nay POCT U GLU (test code = 3256) negative Negative - Negati ve POCT U KETONE (test code = 3258) negative Negative - Neg ative POCT U UROBILI (test code = 3260) n/a 0.2-1 POCT U BILI (test code = 3261) n/a Negative - Negat nay POCT U BLD (test code = 3257) trace Negative - Negati ve POCT U COLOR (test code = 3266) yellow POCT U APPEAR (test code = 3267) Lab Interpretation (test cod e = 07319-0) Abnormal [facility] URINALYSIS W SPECIFIC [id number] 14:35:00* Test Item Value Reference Range Interpretation Comme nts POCT U SP GRAV (test code = 3255) n/a 1.005-1.025 A POCT PH U (test code = 3254) 5 mg/dl 5-8 POCT U LEUK EST (test code = 3263) trace Negative - Negative POCT U NIT (test code = 3262) negative Negative - Negati ve POCT U PROT (test code = 3259) trace Negative - Negat nay POCT U GLU (test code = 3256) negative Negative - Negati ve POCT U KETONE (test code = 3258) negative Negative - Neg ative POCT U UROBILI (test code = 3260) n/a 0.2-1 POCT U BILI (test code = 3261) n/a Negative - Negat nay POCT U BLD (test code = 3257) trace Negative - Negati ve POCT U COLOR (test code = 3266) yellow POCT U APPEAR (test code = 3267) Lab Interpretation (test cod e = 48950-6) Abnormal [facility] URINALYSIS W SPECIFIC [id number] 14:35:00* Test Item Value Reference Range Interpretation Comme nts POCT U SP GRAV (test code = 3255) n/a 1.005-1.025 A POCT PH U (test code = 3254) 5 mg/dl 5-8 POCT U LEUK EST (test code = 3263) trace Negative - Negative POCT U NIT (test code = 3262) negative Negative - Negati ve POCT U PROT (test code = 3259) trace Negative - Negat nay POCT U GLU (test code = 3256) negative Negative - Negati ve POCT U KETONE (test code = 3258) negative Negative - Neg ative POCT U UROBILI (test code = 3260) n/a 0.2-1 POCT U BILI (test code = 3261) n/a Negative - Negat nay POCT U BLD (test code = 3257) trace Negative - Negati ve POCT U COLOR (test code = 3266) yellow POCT U APPEAR (test code = 3267) Lab Interpretation (test cod e = 74643-0) Abnormal [facility] MOLECULAR [id number] 14:32:32* Test Item Value Reference Range Interpretation Comme nts POCT Molecular Strep (test c ode = 78933-1) Negative Negative Lab Interpretation (test cod e = 30822-7) Normal [facility] URINALYSIS W SPECIFIC [id number] 15:01:00* Test Item Value Reference Range Interpretation Comme nts POCT U SP GRAV (test code = 3255) . 1.005-1.025 POCT PH U (test code = 3254) 5 mg/dl 5-8 POCT U LEUK EST (test code = 3263) Trace Negative - Negative POCT U NIT (test code = 3262) Pos Negative - Negati ve POCT U PROT (test code = 3259) 1+ Negative - Negat nay POCT U GLU (test code = 3256) Neg Negative - Negati ve POCT U KETONE (test code = 3258) Small Negative - Neg ative POCT U UROBILI (test code = 3260) . 0.2-1 POCT U BILI (test code = 3261) . Negative - Negat nay POCT U BLD (test code = 3257) Trace Negative - Negati ve POCT U COLOR (test code = 3266) . POCT U APPEAR (test code = 3267) . [facility] URINALYSIS W SPECIFIC [id number] 13:24:00* Test Item Value Reference Range Interpretation Comme nts POCT U SP GRAV (test code = 3255) . 1.005-1.025 POCT PH U (test code = 3254) 6 mg/dl 5-8 POCT U LEUK EST (test code = 3263) Trace Negative - Negative POCT U NIT (test code = 3262) Neg Negative - Negati ve POCT U PROT (test code = 3259) Trace Negative - Negat nay POCT U GLU (test code = 3256) Neg Negative - Negati ve POCT U KETONE (test code = 3258) None Negative - Neg ative POCT U UROBILI (test code = 3260) . 0.2-1 POCT U BILI (test code = 3261) . Negative - Negat nay POCT U BLD (test code = 3257) Trace Negative - Negati ve POCT U COLOR (test code = 3266) POCT U APPEAR (test code = 3267) [facility] URINALYSIS W SPECIFIC [id number] 15:57:00* Test Item Value Reference Range Interpretation Comme nts POCT U SP GRAV (test code = 3255) . 1.005-1.025 A POCT PH U (test code = 3254) 6 mg/dl 5-8 POCT U LEUK EST (test code = 3263) Neg Negative - Negative POCT U NIT (test code = 3262) Neg Negative - Negati ve POCT U PROT (test code = 3259) 1+ Negative - Negat nay POCT U GLU (test code = 3256) 1+ Negative - Negati ve POCT U KETONE (test code = 3258) Small Negative - Neg ative POCT U UROBILI (test code = 3260) . 0.2-1 POCT U BILI (test code = 3261) . Negative - Negat nay POCT U BLD (test code = 3257) Trace Negative - Negati ve POCT U COLOR (test code = 3266) POCT U APPEAR (test code = 3267) Lab Interpretation (test cod e = 47013-3) Abnormal [facility] MOLECULAR [id number] 15:45:21* Test Item Value Reference Range Interpretation Comme nts POCT Molecular FluA (test co de = 65282-4) Negative Negative POCT Molecular FluB (test co de = 39178-6) Negative Negative Lab Interpretation (test cod e = 01050-1) Normal [facility] MOLECULAR [id number] 15:38:42* Test Item Value Reference Range Interpretation Comme nts POCT Molecular Strep (test c ode = 18234-4) Negative Negative Lab Interpretation (test cod e = 71603-1) Normal [facility] URINALYSIS W SPECIFIC [id number] 14:31:00* Test Item Value Reference Range Interpretation Comme nts POCT U SP GRAV (test code = 3255) . 1.005-1.025 POCT PH U (test code = 3254) 5 mg/dl 5-8 POCT U LEUK EST (test code = 3263) trace Negative - Negative POCT U NIT (test code = 3262) neg Negative - Negati ve POCT U PROT (test code = 3259) trace Negative - Negat nay POCT U GLU (test code = 3256) neg Negative - Negati ve POCT U KETONE (test code = 3258) neg Negative - Neg ative POCT U UROBILI (test code = 3260) . 0.2-1 POCT U BILI (test code = 3261) . Negative - Negat nay POCT U BLD (test code = 3257) trace Negative - Negati ve POCT U COLOR (test code = 3266) . POCT U APPEAR (test code = 3267) . [facility] URINALYSIS W/O SPECIFIC [id number] 18:31:00* Test Item Value Reference Range Interpretation Comme nts POCT PH U (test code = 3254) 5 mg/dl 5-8 POCT U LEUK EST (test code = 3263) negative Negative - Negative POCT U NIT (test code = 3262) negative Negative - Negati ve POCT U PROT (test code = 3259) trace Negative - Negat nay POCT U GLU (test code = 3256) negative Negative - Negati ve POCT U KETONE (test code = 3258) small Negative - Neg ative POCT U BLD (test code = 3257) negative Negative - Negati ve Lab Interpretation (test cod e = 98644-3) Abnormal [facility] URINALYSIS W/O SPECIFIC [id number] 18:31:00* Test Item Value Reference Range Interpretation Comme nts POCT PH U (test code = 3254) 5 mg/dl 5-8 POCT U LEUK EST (test code = 3263) negative Negative - Negative POCT U NIT (test code = 3262) negative Negative - Negati ve POCT U PROT (test code = 3259) trace Negative - Negat nay POCT U GLU (test code = 3256) negative Negative - Negati ve POCT U KETONE (test code = 3258) small Negative - Neg ative POCT U BLD (test code = 3257) negative Negative - Negati ve Lab Interpretation (test cod e = 11141-2) [facility] [id number] 02:55:24* Test Item Value Reference Range Interpretation Comme nts URIC ACID (test code = 9557020169) 4.0 mg/dL 2.9-6.0 Lab Interpretation (test cod e = 99064-1) [facility] [id number] 02:55:24* Test Item Value Reference Range Interpretation Comme nts CREATININE (test code = 9235294449) 0.40 mg/dL 0.50-1.04 L eGFR (test code = 4588533691) 183.8 mL/min/1.73m2 LUC (test code = LUC) Association of [...] or abnormalities in imaging tests). Lab Interpretation (test code = 79864-1) [facility] AMINO TRANSFER[facility]2023-01-31 02:55:24* Test Item Value Reference Range Interpretation Comme nts AST(SGOT) (test code = 5087053606) 29 U/L 13-40 Lab Interpretation (test cod e = 33672-1) Normal [facility] AMINO TRANSFERASE([id number] 02:55:24* Test Item Value Reference Range Interpretation Comme nts ALTv (test code = 1742-6) 30 U/L 5-35 Lab Interpretation (test cod e = 94223-5) Normal [facility] [id number] 01:49:56* Test Item Value Reference Range Interpretation Comme nts TROPONIN I (test code = 6930143285) 0.002 ng/mL <=0.034 LUC (test code = LUC) Reference (Normal) Range (defined by the 99th percentile reference [...] to patient's use of biotin. Lab Interpretation (test code = 08414-2) Normal [facility] (NA, K, CL, CO2, GLUCOSE, BUN, CREATININE, CA)2023-01-31 01:37:54* Test Item Value Reference Range Interpretation Comme nts NA (test code = 4200622539) 133 mmol/L 135-145 L K (test code = 8630404227) 4.1 mmol/L 3.5-5.0 CL (test code = 9352210297) 105 mmol/L 98-108 CO2 TOTAL (test code = 2137766164) 19 mmol/L 23-31 L AGAP (test code = 3173362438) 9 2-16 BUN (test code = 5635824442) 11 mg/dL 7-23 GLUCOSE (test code = 2679072486) 117 mg/dL 70-110 H CREATININE (test code = 8295323505) 0.40 mg/dL 0.50-1.04 L CALCIUM (test code = 4768392175) 8.8 mg/dL 8.6-10.6 eGFR (test code = 8883060845) 183.8 mL/min/1.73m2 LUC (test code = LUC) Association of [...] or abnormalities in imaging tests). Lab Interpretation (test code = 65537-3) Abnormal [facility] WITH [id number] 00:50:08* Test Item Value Reference Range Interpretation Comme nts WBC (test code = 6690-2) 9.52 See_Comment [Automated messa ge] The system which generated this result transmitted reference range: 4.30 - 11.10 10*3/?L. The reference range was not used to interpret this result as normal/abnormal. RBC (test code = 789-8) 3.73 See_Comment L [Automated Sococoa ge] The system which generated this result transmitted reference range: 3.93 - 5.25 10*6/?L. The reference range was not used to interpret this result as normal/abnormal. HGB (test code = 718-7) 10.5 g/dL 11.6-15.0 L HCT (test code = 4544-3) 31.1 % 35.7-45.2 L MCV (test code = 787-2) 83.4 fL 80.6-95.5 MCH (test code = 785-6) 28.2 pg 25.9-32.8 MCHC (test code = 786-4) 33.8 g/dL 31.6-35.1 RDW-SD (test code = 23883-9) 40.8 fL 39.0-49.9 RDW-CV (test code = 788-0) 13.6 % 12.0-15.5 PLT (test code = 777-3) 230 See_Comment [Automated Sococoa ge] The system which generated this result transmitted reference range: 166 - 358 10*3/?L. The reference range was not used to interpret this result as normal/abnormal. MPV (test code = 58463-1) 11.4 fL 9.5-12.9 NRBC/100 WBC (test code = 4967610783) 0.0 See_Comment [Automated iZotope ssage] The system which generated this result transmitted reference range: 0.0 - 10.0 /100 WBCs. The reference range was not used to interpret this result as normal/abnormal. NRBC x10^3 (test code = 3174247664) See_Comment [Automated Sococoa ge] The system which generated this result transmitted reference range: 10*3/?L. The reference range was not used to interpret this result as normal/abnormal. GRAN MAT (NEUT) % (test code = 770-8) 67.4 % IMM GRAN % (test code = 8379087967) 0.30 % LYMPH % (test code = 736-9) 23.6 % MONO % (test code = 5905-5) 7.5 % EOS % (test code = 713-8) 0.9 % BASO % (test code = 706-2) 0.3 % GRAN MAT x10^3(ANC) (test code = 8969477642) 6.41 10*3/uL 1.88-7.09 IMM GRAN x10^3 (test code = 6142162467) 0.03 10*3/uL 0.00-0.06 LYMPH x10^3 (test code = 731-0) 2.25 10*3/uL 1.32-3.29 MONO x10^3 (test code = 742-7) 0.71 10*3/uL 0.33-0.92 EOS x10^3 (test code = 711-2) 0.09 10*3/uL 0.03-0.39 BASO x10^3 (test code = 704-7) 0.03 10*3/uL 0.01-0.07 Lab Interpretation (test code = 24228-4) Abnormal [facility] GLUCOSE (AUTOMATED)2023-01-30 22:29:12* Test Item Value Reference Range Interpretation Comme nts POCT GLU (test code = 2585677735) 147 mg/dL 70-110 H Lab Interpretation (test cod e = 55398-9) Abnormal [facility] URINALYSIS W SPECIFIC [id number] 18:21:00* Test Item Value Reference Range Interpretation Comme nts POCT U SP GRAV (test code = 3255) . 1.005-1.025 POCT PH U (test code = 3254) . 5-8 POCT U LEUK EST (test code = 3263) . Negative - N egative POCT U NIT (test code = 3262) . Negative - Negati ve POCT U PROT (test code = 3259) Trace Negative - Negat nay POCT U GLU (test code = 3256) Neg Negative - Negati ve POCT U KETONE (test code = 3258) . Negative - Neg ative POCT U UROBILI (test code = 3260) . 0.2-1 POCT U BILI (test code = 3261) . Negative - Negat nay POCT U BLD (test code = 3257) . Negative - Negati ve POCT U COLOR (test code = 3266) . POCT U APPEAR (test code = 3267) [facility] URINALYSIS W SPECIFIC [id number] 19:36:00* Test Item Value Reference Range Interpretation Comme nts POCT U SP GRAV (test code = 3255) . 1.005-1.025 POCT PH U (test code = 3254) . 5-8 POCT U LEUK EST (test code = 3263) . Negative - N egative POCT U NIT (test code = 3262) . Negative - Negati ve POCT U PROT (test code = 3259) trace Negative - Negat nay POCT U GLU (test code = 3256) 50 Negative - Negati ve POCT U KETONE (test code = 3258) . Negative - Neg ative POCT U UROBILI (test code = 3260) . 0.2-1 POCT U BILI (test code = 3261) . Negative - Negat nay POCT U BLD (test code = 3257) . Negative - Negati ve POCT U COLOR (test code = 3266) . POCT U APPEAR (test code = 3267) . [facility] URINALYSIS W SPECIFIC [id number] 15:07:00* Test Item Value Reference Range Interpretation Comme nts POCT U SP GRAV (test code = 3255) . 1.005-1.025 POCT PH U (test code = 3254) 5 mg/dl 5-8 POCT U LEUK EST (test code = 3263) Trace Negative - Negative POCT U NIT (test code = 3262) Neg Negative - Negati ve POCT U PROT (test code = 3259) Trace Negative - Negat nay POCT U GLU (test code = 3256) Neg Negative - Negati ve POCT U KETONE (test code = 3258) None Negative - Neg ative POCT U UROBILI (test code = 3260) . 0.2-1 POCT U BILI (test code = 3261) . Negative - Negat nay POCT U BLD (test code = 3257) Trace Negative - Negati ve POCT U COLOR (test code = 3266) POCT U APPEAR (test code = 3267) [facility] URINALYSIS W SPECIFIC [id number] 15:06:00* Test Item Value Reference Range Interpretation Comme nts POCT U SP GRAV (test code = 3255) . 1.005-1.025 POCT PH U (test code = 3254) 6 mg/dl 5-8 POCT U LEUK EST (test code = 3263) negative Negative - Negative POCT U NIT (test code = 3262) negative Negative - Negati ve POCT U PROT (test code = 3259) trace Negative - Negat nay POCT U GLU (test code = 3256) 250 Negative - Negati ve POCT U KETONE (test code = 3258) small + Negative - Neg ative POCT U UROBILI (test code = 3260) . 0.2-1 POCT U BILI (test code = 3261) . Negative - Negat nay POCT U BLD (test code = 3257) negative Negative - Negati ve POCT U COLOR (test code = 3266) . POCT U APPEAR (test code = 3267) . [facility] URINALYSIS W SPECIFIC [id number] 15:06:00* Test Item Value Reference Range Interpretation Comme nts POCT U SP GRAV (test code = 3255) . 1.005-1.025 POCT PH U (test code = 3254) 6 mg/dl 5-8 POCT U LEUK EST (test code = 3263) negative Negative - Negative POCT U NIT (test code = 3262) negative Negative - Negati ve POCT U PROT (test code = 3259) trace Negative - Negat nay POCT U GLU (test code = 3256) 250 Negative - Negati ve POCT U KETONE (test code = 3258) small + Negative - Neg ative POCT U UROBILI (test code = 3260) . 0.2-1 POCT U BILI (test code = 3261) . Negative - Negat nay POCT U BLD (test code = 3257) negative Negative - Negati ve POCT U COLOR (test code = 3266) . POCT U APPEAR (test code = 3267) . [facility] GLUCOSE (AUTOMATED)2023-01-15 17:28:12* Test Item Value Reference Range Interpretation Comme nts POCT GLU (test code = 3145409190) 143 mg/dL 70-110 H Lab Interpretation (test cod e = 88889-2) Abnormal [facility] GLUCOSE (AUTOMATED)2023-01-15 12:59:57* Test Item Value Reference Range Interpretation Comme nts POCT GLU (test code = 6801693529) 144 mg/dL 70-110 H Lab Interpretation (test cod e = 51588-0) Abnormal [facility] GLUCOSE (AUTOMATED)2023-01-15 03:05:02* Test Item Value Reference Range Interpretation Comme nts POCT GLU (test code = 5467752071) 132 mg/dL 70-110 H Lab Interpretation (test cod e = 32027-6) Abnormal [facility] GLUCOSE (AUTOMATED)2023-01-15 00:23:05* Test Item Value Reference Range Interpretation Comme nts POCT GLU (test code = [id number]) 114 mg/dL 70-110 H Lab Interpretation (test cod e = 78633-9) Abnormal [facility] GLUCOSE (AUTOMATED)2023-01-14 21:44:08* Test Item Value Reference Range Interpretation Comme nts POCT GLU (test code = [id number]) 96 mg/dL 70-110 Lab Interpretation (test cod e = 80445-7) Normal [facility] GLUCOSE (AUTOMATED)2023-01-14 19:19:27* Test Item Value Reference Range Interpretation Comme nts POCT GLU (test code = [id number]) 115 mg/dL 70-110 H Lab Interpretation (test cod e = 43284-4) Abnormal [facility] GLUCOSE (AUTOMATED)2023-01-14 16:13:44* Test Item Value Reference Range Interpretation Comme nts POCT GLU (test code = [id number]) 154 mg/dL 70-110 H Lab Interpretation (test cod e = 65786-1) Abnormal [facility] GLUCOSE (AUTOMATED)2023-01-14 13:45:40* Test Item Value Reference Range Interpretation Comme nts POCT GLU (test code = 2912418545) 115 mg/dL 70-110 H Lab Interpretation (test cod e = 04794-7) Abnormal [facility] GLUCOSE (AUTOMATED)2023-01-14 02:01:59* Test Item Value Reference Range Interpretation Comme nts POCT GLU (test code = 5201952009) 124 mg/dL 70-110 H Lab Interpretation (test cod e = 44079-0) Abnormal [facility] GLUCOSE (AUTOMATED)2023-01-13 23:41:42* Test Item Value Reference Range Interpretation Comme nts POCT GLU (test code = 8359129554) 84 mg/dL 70-110 Lab Interpretation (test cod e = 55076-3) Normal [facility] GLUCOSE (AUTOMATED)2023-01-13 21:18:23* Test Item Value Reference Range Interpretation Comme nts POCT GLU (test code = 5612081883) 106 mg/dL 70-110 Lab Interpretation (test cod e = 28148-7) Normal [facility] GLUCOSE (AUTOMATED)2023-01-13 18:24:49* Test Item Value Reference Range Interpretation Comme nts POCT GLU (test code = 8644835870) 141 mg/dL 70-110 H Lab Interpretation (test cod e = 61368-6) Abnormal [facility] GLUCOSE (AUTOMATED)2023-01-13 14:49:13* Test Item Value Reference Range Interpretation Comme nts POCT GLU (test code = 2477154681) 133 mg/dL 70-110 H Lab Interpretation (test cod e = 90730-1) Abnormal [facility] GLUCOSE (AUTOMATED)2023-01-13 04:02:26* Test Item Value Reference Range Interpretation Comme nts POCT GLU (test code = 9445833109) 196 mg/dL 70-110 H Lab Interpretation (test cod e = 67658-6) [facility] [id number] 00:27:18 * Test Item Value Reference Range Interpretation Comme nts OSMOLALITY (test code = 2692-2) 286 See_Comment [Automated messa ge] The system which generated this result transmitted reference range: 278 - 305 mOsm/kg. The reference range was not used to interpret this result as normal/abnormal. Lab Interpretation (test code = 43775-1) Normal [facility]BETA [id number] 00:10:47* Test Item Value Reference Range Interpretation Comme [facility] BOH (test code = 2762998762) 0.2 mmol/L LUC (test code = LUC) Normal Ranges: ? ? Nonfasting ? Less than 0.1 mmol/L ? ? Overnight Fast ? ? ? Less than 0.4 mmol/L ? ? Fasting (1-2 weeks) ?6-8 mmol/L Test developed and characteristics determined by [facility] Laboratory Services. [facility]act[facility] Mqvjpleeacydj6347-10-17 00:04:07* Test Item Value Reference Range Interpretation Comme [facility] LDH (test code = 7496156453) 80 U/L 120-246 L Lab Interpretation (test cod e = 06720-4) [facility]normal [facility] [place] Ngcrl9687-50-07 00:01:27* Test Item Value Reference Range Interpretation Comme [facility] URIC ACID (test code = 1902815544) 3.6 mg/dL 2.9-6.0 Lab Interpretation (test cod e = 05390-5) Normal [facility]um Jxlbhbvpen5158-38-32 00:01:27* Test Item Value Reference Range Interpretation Comme [facility] CREATININE (test code = 0824773402) 0.41 mg/dL 0.50-1.04 L eGFR (test code = 0357221973) 178.7 mL/min/1.73m2 LUC (test code = LUC) Association of [...] or abnormalities in imaging tests). Lab Interpretation (test code = 66159-5) [facility]normal [facility] (Asparate Amino Transfer)2023-01-13 00:01:27* Test Item Value Reference Range Interpretation Comme nts AST(SGOT) (test code = 9195694885) 21 U/L 13-40 Lab Interpretation (test cod e = 04417-8) Normal [facility] Texas[facility]anine Amino Transferase (SGPT)2023-01-13 00:01:27* Test Item Value Reference Range Interpretation Comme nts ALTv (test code = 1742-6) 19 U/L 5-35 Lab Interpretation (test cod e = 79727-1) Normal [facility] [place]COMP. METABOLIC PANEL (17962)2023-01-13 00:01:27* Test Item Value Reference Range Interpretation Comme nts NA (test code = 9474562588) 133 mmol/L 135-145 L K (test code = 6963212119) 4.1 mmol/L 3.5-5.0 CL (test code = 4912989688) 103 mmol/L 98-108 CO2 TOTAL (test code = 5199596986) 19 mmol/L 23-31 L AGAP (test code = 0801172448) 11 2-16 BUN (test code = 4964707911) 9 mg/dL 7-23 GLUCOSE (test code = 7575330318) 191 mg/dL 70-110 H CREATININE (test code = 5237739843) 0.41 mg/dL 0.50-1.04 L TOTAL BILI (test code = 7225195418) 0.2 mg/dL 0.1-1.1 CALCIUM (test code = 2111556380) 8.8 mg/dL 8.6-10.6 T PROTEIN (test code = 1837144016) 6.5 g/dL 6.3-8.2 ALBUMIN (test code = 7740253298) 3.3 g/dL 3.5-5.0 L ALK PHOS (test code = 9759256371) 93 U/L 34-122 ALTv (test code = 1742-6) 19 U/L 5-35 AST(SGOT) (test code = 1851769433) 21 U/L 13-40 eGFR (test code = 5550440969) 178.7 mL/min/1.73m2 LUC (test code = LUC) Association of [...] or abnormalities in imaging tests). Lab Interpretation (test code = 19400-0) [facility]normal [facility] 20 + Lactic [id number] 23:39:08* Test Item Value Reference Range Interpretation Comme nts PH (test code = 2) 7.43 7.35-7.45 PCO2 (test code = 3848861381) 33 See_Comment L [Automated messa ge] The system which generated this result transmitted reference range: 35 - 45 mmHg. The reference range was not used to interpret this result as normal/abnormal. PO2 (test code = 6992346352) 86 See_Comment [Automated messa ge] The system which generated this result transmitted reference range: 80 - 100 mmHg. The reference range was not used to interpret this result as normal/abnormal. HCO3 (test code = 1188857145) 21 See_Comment L [Automated messa ge] The system which generated this result transmitted reference range: 22 - 26 mEq/L. The reference range was not used to interpret this result as normal/abnormal. BE (test code = 0004939228) -2.4 See_Comment [Automated messa ge] The system which generated this result transmitted reference range: -3.0 - 3.0 mEq/L. The reference range was not used to interpret this result as normal/abnormal. THB (test code = 9400973222) 11.4 g/dL 12.0-16.0 L %O2HB (test code = 0153618056) 96.1 % 94.0-99.0 %COHB ART (test code = 1779704682) 0.1 % 0.0-1.5 %METHB ART (test code = 7283148907) 0.0 % 0.4-1.5 L VOL%O2 ART (test code = 6476602564) 15.5 % 15.0-23.0 NA (test code = 2815707093) 135 mmol/L 135-145 K+ (test code = 8025831318) 3.8 mmol/L 3.5-5.0 AC CA IONZ (test code = 4331568557) 4.60 mg/dL 4.50-5.30 GLUCOSE (test code = 9943054428) 175 mg/dL 70-110 H LACTIC ACID (test code = 1808865619) 1.53 mmol/L 0.50-2.20 QUES Lab Interpretation (test code = 44240-2) Abnormal [facility] with Istqrmfqrryo1137-00-70 23:17:23* Test Item Value Reference Range Interpretation Comme nts WBC (test code = 6690-2) 10.48 See_Comment [Automated messa ge] The system which generated this result transmitted reference range: 4.30 - 11.10 10*3/?L. The reference range was not used to interpret this result as normal/abnormal. RBC (test code = 789-8) 3.69 See_Comment L [Automated messa ge] The system which generated this result transmitted reference range: 3.93 - 5.25 10*6/?L. The reference range was not used to interpret this result as normal/abnormal. HGB (test code = 718-7) 10.6 g/dL 11.6-15.0 L HCT (test code = 4544-3) 30.9 % 35.7-45.2 L MCV (test code = 787-2) 83.7 fL 80.6-95.5 MCH (test code = 785-6) 28.7 pg 25.9-32.8 MCHC (test code = 786-4) 34.3 g/dL 31.6-35.1 RDW-SD (test code = 47668-0) 39.8 fL 39.0-49.9 RDW-CV (test code = 788-0) 13.2 % 12.0-15.5 PLT (test code = 777-3) 184 See_Comment [Automated messa ge] The system which generated this result transmitted reference range: 166 - 358 10*3/?L. The reference range was not used to interpret this result as normal/abnormal. MPV (test code = 46532-2) 11.2 fL 9.5-12.9 NRBC/100 WBC (test code = 7594198063) 0.0 See_Comment [Automated i[employer] ssage] The system which generated this result transmitted reference range: 0.0 - 10.0 /100 WBCs. The reference range was not used to interpret this result as normal/abnormal. NRBC x10^3 (test code = 1825698522) See_Comment [Automated messa ge] The system which generated this result transmitted reference range: 10*3/?L. The reference range was not used to interpret this result as normal/abnormal. GRAN MAT (NEUT) % (test code = 770-8) 74.3 % IMM GRAN % (test code = 3388836739) 0.70 % LYMPH % (test code = 736-9) 17.6 % MONO % (test code = 5905-5) 6.4 % EOS % (test code = 713-8) 0.7 % BASO % (test code = 706-2) 0.3 % GRAN MAT x10^3(ANC) (test code = 5080754268) 7.80 10*3/uL 1.88-7.09 H IMM GRAN x10^3 (test code = 6968830488) 0.07 10*3/uL 0.00-0.06 H LYMPH x10^3 (test code = 731-0) 1.84 10*3/uL 1.32-3.29 MONO x10^3 (test code = 742-7) 0.67 10*3/uL 0.33-0.92 EOS x10^3 (test code = 711-2) 0.07 10*3/uL 0.03-0.39 BASO x10^3 (test code = 704-7) 0.03 10*3/uL 0.01-0.07 Lab Interpretation (test code = 55980-2) Abnormal [facility] GLUCOSE (AUTOMATED)2023-01-12 21:40:29* Test Item Value Reference Range Interpretation Comme nts POCT GLU (test code = 9803027490) 239 mg/dL 70-110 H Lab Interpretation (test cod e = 37137-8) Abnormal [facility] URINALYSIS W SPECIFIC [id number] 16:06:00* Test Item Value Reference Range Interpretation Comme nts POCT U SP GRAV (test code = 3255) . 1.005-1.025 POCT PH U (test code = 3254) 6 mg/dl 5-8 POCT U LEUK EST (test code = 3263) negative Negative - Negative POCT U NIT (test code = 3262) negative Negative - Negati ve POCT U PROT (test code = 3259) trace Negative - Negat nay POCT U GLU (test code = 3256) 1000 Negative - Negati ve POCT U KETONE (test code = 3258) 1+ Negative - Neg ative POCT U UROBILI (test code = 3260) . 0.2-1 POCT U BILI (test code = 3261) . Negative - Negat nay POCT U BLD (test code = 3257) negative Negative - Negati ve POCT U COLOR (test code = 3266) . POCT U APPEAR (test code = 3267) . [facility] URINALYSIS W SPECIFIC [id number] 16:06:00* Test Item Value Reference Range Interpretation Comme nts POCT U SP GRAV (test code = 3255) . 1.005-1.025 POCT PH U (test code = 3254) 6 mg/dl 5-8 POCT U LEUK EST (test code = 3263) negative Negative - Negative POCT U NIT (test code = 3262) negative Negative - Negati ve POCT U PROT (test code = 3259) trace Negative - Negat nay POCT U GLU (test code = 3256) 1000 Negative - Negati ve POCT U KETONE (test code = 3258) 1+ Negative - Neg ative POCT U UROBILI (test code = 3260) . 0.2-1 POCT U BILI (test code = 3261) . Negative - Negat nay POCT U BLD (test code = 3257) negative Negative - Negati ve POCT U COLOR (test code = 3266) . POCT U APPEAR (test code = 3267) . [facility] URINALYSIS W SPECIFIC [id number] 16:18:00* Test Item Value Reference Range Interpretation Comme nts POCT U SP GRAV (test code = 3255) . 1.005-1.025 POCT PH U (test code = 3254) 6 mg/dl 5-8 POCT U LEUK EST (test code = 3263) 1+ Negative - Negative POCT U NIT (test code = 3262) negative Negative - Negati ve POCT U PROT (test code = 3259) 1+ Negative - Negat nay POCT U GLU (test code = 3256) 50 Negative - Negati ve POCT U KETONE (test code = 3258) small + Negative - Neg ative POCT U UROBILI (test code = 3260) . 0.2-1 POCT U BILI (test code = 3261) . Negative - Negat nay POCT U BLD (test code = 3257) negative Negative - Negati ve POCT U COLOR (test code = 3266) . POCT U APPEAR (test code = 3267) . [facility] URINALYSIS W SPECIFIC [id number] 16:18:00* Test Item Value Reference Range Interpretation Comme nts POCT U SP GRAV (test code = 3255) . 1.005-1.025 POCT PH U (test code = 3254) 6 mg/dl 5-8 POCT U LEUK EST (test code = 3263) 1+ Negative - Negative POCT U NIT (test code = 3262) negative Negative - Negati ve POCT U PROT (test code = 3259) 1+ Negative - Negat nay POCT U GLU (test code = 3256) 50 Negative - Negati ve POCT U KETONE (test code = 3258) small + Negative - Neg ative POCT U UROBILI (test code = 3260) . 0.2-1 POCT U BILI (test code = 3261) . Negative - Negat nay POCT U BLD (test code = 3257) negative Negative - Negati ve POCT U COLOR (test code = 3266) . POCT U APPEAR (test code = 3267) . [facility] URINALYSIS W SPECIFIC [id number] 19:12:00* Test Item Value Reference Range Interpretation Comme nts POCT U SP GRAV (test code = 3255) . 1.005-1.025 POCT PH U (test code = 3254) 6 mg/dl 5-8 POCT U LEUK EST (test code = 3263) negative Negative - Negative POCT U NIT (test code = 3262) negative Negative - Negati ve POCT U PROT (test code = 3259) trace Negative - Negat nay POCT U GLU (test code = 3256) 1000 Negative - Negati ve POCT U KETONE (test code = 3258) + Negative - Neg ative POCT U UROBILI (test code = 3260) . 0.2-1 POCT U BILI (test code = 3261) . Negative - Negat nay POCT U BLD (test code = 3257) negative Negative - Negati ve POCT U COLOR (test code = 3266) . POCT U APPEAR (test code = 3267) . [facility] URINALYSIS W SPECIFIC [id number] 19:12:00* Test Item Value Reference Range Interpretation Comme nts POCT U SP GRAV (test code = 3255) . 1.005-1.025 POCT PH U (test code = 3254) 6 mg/dl 5-8 POCT U LEUK EST (test code = 3263) negative Negative - Negative POCT U NIT (test code = 3262) negative Negative - Negati ve POCT U PROT (test code = 3259) trace Negative - Negat nay POCT U GLU (test code = 3256) 1000 Negative - Negati ve POCT U KETONE (test code = 3258) + Negative - Neg ative POCT U UROBILI (test code = 3260) . 0.2-1 POCT U BILI (test code = 3261) . Negative - Negat nay POCT U BLD (test code = 3257) negative Negative - Negati ve POCT U COLOR (test code = 3266) . [facility] (test code = 3267) . [facility] [id number] 16:57:00* Test Item Value Reference Range Interpretation Comme nts POCT U SP GRAV (test code = 3255) 1.020 mg/dl 1.005-1.025 POCT PH U (test code = 3254) 5 mg/dl 5-8 POCT U LEUK EST (test code = 3263) neg Negative - Negative POCT U NIT (test code = 3262) neg Negative - Negati ve POCT U PROT (test code = 3259) neg Negative - Negative POCT U GLU (test code = 3256) neg Negative - Negati ve POCT U KETONE (test code = 3258) 2+ Negative - Negative POCT U UROBILI (test code = 3260) neg 0.2-1 POCT U BILI (test code = 3261) neg Negative - Negative POCT U BLD (test code = 3257) neg Negative - Negati ve POCT U COLOR (test code = 3266) POCT U APPEAR (test code = 3267) [facility]. METABOLIC PANEL (40656)2022-10-18 03:37:13* Test Item Value Reference Range Interpretation Comme nts NA (test code = 6167850992) 133 mmol/L 135-145 L K (test code = 5555163187) 3.6 mmol/L 3.5-5.0 CL (test code = 1706779031) 100 mmol/L 98-108 CO2 TOTAL (test code = 3156602460) 22 mmol/L 23-31 L AGAP (test code = 2437200879) 11 2-16 BUN (test code = 7200513323) 6 mg/dL 7-23 L GLUCOSE (test code = 5843654413) 147 mg/dL 70-110 H CREATININE (test code = 6817499776) 0.41 mg/dL 0.50-1.04 L TOTAL BILI (test code = 5693019931) 1.0 mg/dL 0.1-1.1 CALCIUM (test code = 7940098798) 9.2 mg/dL 8.6-10.6 T PROTEIN (test code = 5131175756) 7.2 g/dL 6.3-8.2 ALBUMIN (test code = 4771768965) 3.9 g/dL 3.5-5.0 ALK PHOS (test code = 4185267773) 69 U/L 34-122 ALTv (test code = 1742-6) 25 U/L 5-35 AST(SGOT) (test code = 8700957841) 25 U/L 13-40 eGFR (test code = 4548012041) 178.7 mL/min/1.73m2 LUC (test code = LUC) Association of [...] or abnormalities in imaging tests). Lab Interpretation (test code = 63198-0) Abnormal [facility] WITH [id number] 03:25:09* Test Item Value Reference Range Interpretation Comme nts WBC (test code = 6690-2) 13.53 See_Comment H [Automated message] The system which generated this result transmitted reference range: 4.30 - 11.10 10*3/?L. The reference range was not used to interpret this result as normal/abnormal. RBC (test code = 789-8) 4.34 See_Comment [Automated message] The system which generated this result transmitted reference range: 3.93 - 5.25 10*6/?L. The reference range was not used to interpret this result as normal/abnormal. HGB (test code = 718-7) 12.8 g/dL 11.6-15.0 HCT (test code = 4544-3) 36.0 % 35.7-45.2 MCV (test code = 787-2) 82.9 fL 80.6-95.5 MCH (test code = 785-6) 29.5 pg 25.9-32.8 MCHC (test code = 786-4) 35.6 g/dL 31.6-35.1 H RDW-SD (test code = 98439-9) 39.6 fL 39.0-49.9 RDW-CV (test code = 788-0) 13.2 % 12.0-15.5 PLT (test code = 777-3) 177 See_Comment [Automated message] The system which generated this result transmitted reference range: 166 - 358 10*3/?L. The reference range was not used to interpret this result as normal/abnormal. MPV (test code = 49299-7) 11.0 fL 9.5-12.9 NRBC/100 WBC (test code = 8792273509) 0.0 See_Comment [Automated message] The system which generated this result transmitted reference range: 0.0 - 10.0 /100 WBCs. The reference range was not used to interpret this result as normal/abnormal. NRBC x10^3 (test code = 0938341293) See_Comment [Automated message] The system which generated this result transmitted reference range: 10*3/?L. The reference range was not used to interpret this result as normal/abnormal. GRAN MAT (NEUT) % (test code = 770-8) 87.1 % IMM GRAN % (test code = 5364698338) 0.40 % LYMPH % (test code = 736-9) 7.4 % MONO % (test code = 5905-5) 4.7 % EOS % (test code = 713-8) 0.2 % BASO % (test code = 706-2) 0.2 % GRAN MAT x10^3(ANC) (test code = 1399747772) 11.77 10*3/uL 1.88-7.09 H IMM GRAN x10^3 (test code = 0288280927) 0.06 10*3/uL 0.00-0.06 LYMPH x10^3 (test code = 731-0) 1.00 10*3/uL 1.32-3.29 L MONO x10^3 (test code = 742-7) 0.64 10*3/uL 0.33-0.92 EOS x10^3 (test code = 711-2) 0.03 10*3/uL 0.03-0.39 BASO x10^3 (test code = 704-7) 0.03 10*3/uL 0.01-0.07 Lab Interpretation (test code = 45975-6) Abnormal [facility] MOLECULAR [id number] 16:35:01* Test Item Value Reference Range Interpretation Comme nts POCT Molecular FluA (test co de = 45851-7) Negative Negative POCT Molecular FluB (test co de = 21667-8) Negative Negative Lab Interpretation (test cod e = 73889-8) Normal [facility] MOLECULAR [id number] 16:31:47* Test Item Value Reference Range Interpretation Comme nts POCT Molecular Strep (test c ode = 73729-9) Negative Negative Lab Interpretation (test cod e = 59614-0) Normal [facility] URINALYSIS W SPECIFIC [id number] 16:20:00* Test Item Value Reference Range Interpretation Comme nts POCT U SP GRAV (test code = 3255) . 1.005-1.025 POCT PH U (test code = 3254) 7 mg/dl 5-8 POCT U LEUK EST (test code = 3263) 1+ Negative - Negative POCT U NIT (test code = 3262) Neg Negative - Negati ve POCT U PROT (test code = 3259) 1+ Negative - Negat nay POCT U GLU (test code = 3256) 3+ Negative - Negati ve POCT U KETONE (test code = 3258) Small Negative - Neg ative POCT U UROBILI (test code = 3260) . 0.2-1 POCT U BILI (test code = 3261) . Negative - Negat nay POCT U BLD (test code = 3257) Trace Negative - Negati ve POCT U COLOR (test code = 3266) POCT U APPEAR (test code = 3267) [facility] URINALYSIS W/O SPECIFIC [id number] 13:08:00* Test Item Value Reference Range Interpretation Comme nts POCT PH U (test code = 3254) 5 mg/dl 5-8 POCT U LEUK EST (test code = 3263) Neg Negative - Negative POCT U NIT (test code = 3262) Neg Negative - Negati ve POCT U PROT (test code = 3259) Trace Negative - Negat nay POCT U GLU (test code = 3256) Neg Negative - Negati ve POCT U KETONE (test code = 3258) None Negative - Neg ative POCT U BLD (test code = 3257) Trace Negative - Negati ve [facility] [id number] 13:07:00* Test Item Value Reference Range Interpretation Comme nts POCT PREG (test code = 1605) Positive On board controls acceptable with C Line (test code = 3574) Yes POCT PREG LOT # (test code = 3575) POCT PREG TEST DATE ( test code = 3576) [facility] 14 ([employer]ANDARD) [ADDED] 2022-10-08 00:00:00* Test Item Value Reference Range Interpretation Comme nts Report Summary (test code = REPORT_SUMMARY) Negative Alpha-Thalassemia (test code = 73968) Negative Beta-Hemoglobinopathies (silvestre t code = 04917) Negative Adonay Disease (test code = 00013) Negative Cystic Fibrosis (test code = 22897) Negative Duchenne/Grove Muscular Dys trophy (test code = 05450) Negative Familial Dysautonomia (test code = 49518) Negative Fragile X Syndrome (test cod e = 89781) Negative Galactosemia (test code = 81058) Negative Gaucher Disease (test code = 87072) Negative Medium Chain Acyl-CoA Dehydr ogenase Deficiency (test code = 48503) Negative Polycystic Kidney Disease, Autosomal Recessive (test code = 22121) Negative Pwhbm-Djkoi-Jwgja Syndrome ( test code = 62813) Negative Spinal Muscular Atrophy (silvestre t code = 65733) Negative Alton-Sachs Disease (test code = 60357) Negative Panel Notes (test code = CS_PANEL_NOTES) See Notes Report Note (test code = REPORT_NOTE) See Notes Footnotes (test code = FOOTNOTES) See Notes PDF Report (test code = EMBEDDED_PDF) PDF Luis Mejias [facility] 14 ([employer] STANDARD) [ADDED]2022-10-08 00:00:00* Test Item Value Reference Range Interpretation Comme nts Report Summary (test code = REPORT_SUMMARY) Negative Alpha-Thalassemia (test code = 52535) Negative Beta-Hemoglobinopathies (silvestre t code = 65162) Negative Adonay Disease (test code = 65158) Negative Cystic Fibrosis (test code = 83073) Negative Duchenne/Grove Muscular Dys trophy (test code = 30659) Negative Familial Dysautonomia (test code = 82357) Negative Fragile X Syndrome (test cod e = 45504) Negative Galactosemia (test code = 33762) Negative Gaucher Disease (test code = 83590) Negative Medium Chain Acyl-CoA Dehydr ogenase Deficiency (test code = 74630) Negative Polycystic Kidney Disease, Autosomal Recessive (test code = 92266) Negative Umtpm-Jhkra-Wvynt Syndrome ( test code = 26108) Negative Spinal Muscular Atrophy (silvestre t code = 25037) Negative Alton-Sachs Disease (test code = 14765) Negative Panel Notes (test code = CS_PANEL_NOTES) See Notes Report Note (test code = REPORT_NOTE) See Notes Footnotes (test code = FOOTNOTES) See Notes PDF Report (test code = EMBEDDED_PDF) PDF Luis Ortizorashannan Test [ADDED]2022-10-06 00:00:00* Test Item Value Reference Range Interpretation Comme nts Report Summary (test code = REPORT_SUMMARY) LOW RISK Report Note (test code = REPORT_NOTE) See Notes Trisomy 13 Age-Based Risk Text (test code = NPT_T13_AGE_BASED_RISK_TEX T) 1/3,366 (0.03%) Trisomy 13 Risk Score Text (test code = NPT_T13_RISK_SCORE_TEXT) <1/10,000 (<0.01%) Trisomy 13 Result Text (test code = NPT_T13_RESULT_TEXT) Low Risk Trisomy 18 Age-Based Risk Text (test code = NPT_T18_AGE_BASED_RISK_TEX T) 1/1,081 (0.09%) Trisomy 18 Risk Score Text (test code = NPT_T18_RISK_SCORE_TEXT) <1/10,000 (<0.01%) Trisomy 18 Result Text (test code = NPT_T18_RESULT_TEXT) Low Risk Trisomy 21 Age-Based Risk Text (test code = NPT_T21_AGE_BASED_RISK_TEX T) 1/409 (0.24%) Trisomy 21 Risk Score Text (test code = NPT_T21_RISK_SCORE_TEXT) <1/10,000 (<0.01%) Trisomy 21 Result Text (test code = NPT_T21_RESULT_TEXT) Low Risk Monosomy X Age-Based Risk Text (test code = NPT_X_AGE_BASED_RISK_TEXT) 1/568 (0.18%) Monosomy X Risk Score Text (test code = NPT_X_RISK_SCORE_TEXT) <1/10,000 (<0.01%) Monosomy X Result Text (test code = NPT_X_RESULT_TEXT) Low Risk 22q11.2 Deletion Syndrome Population-Based Risk Text (test code = NPT_22Q_POP_BASED_RISK_TEX T) 1/2,000 22q11.2 Deletion Syndrome Risk Score Text (test code = NPT_22Q_RISK_SCORE_TEXT) 13,100 22q11.2 Deletion Syndrome Result Text (test code = NPT_22Q_RESULT_TEXT) Low Risk Triploidy Result Text (test code = NPT_TRI_RESULT_TEXT) Low Risk Gender of Fetus (test code = GENDER_OF_FETUS) Female Fraction (test code = FETAL_FRACTION_STRING) 3.4% Footnotes (test code = FOOTNOTES) See Notes PDF Report (test code = EMBEDDED_PDF) PDF [facility] Test [ADDED]2022-10-06 00:00:00* Test Item Value Reference Range Interpretation Comme nts Report Summary (test code = REPORT_SUMMARY) LOW RISK Report Note (test code = REPORT_NOTE) See Notes Trisomy 13 Age-Based Risk Text (test code = NPT_T13_AGE_BASED_RISK_TEX T) 13,366 (0.03%) Trisomy 13 Risk Score Text (test code = NPT_T13_RISK_SCORE_TEXT) <1/10,000 (<0.01%) Trisomy 13 Result Text (test code = NPT_T13_RESULT_TEXT) Low Risk Trisomy 18 Age-Based Risk Text (test code = NPT_T18_AGE_BASED_RISK_TEX T) 11,081 (0.09%) Trisomy 18 Risk Score Text (test code = NPT_T18_RISK_SCORE_TEXT) <1/10,000 (<0.01%) Trisomy 18 Result Text (test code = NPT_T18_RESULT_TEXT) Low Risk Trisomy 21 Age-Based Risk Text (test code = NPT_T21_AGE_BASED_RISK_TEX T) 1/409 (0.24%) Trisomy 21 Risk Score Text (test code = NPT_T21_RISK_SCORE_TEXT) <1/10,000 (<0.01%) Trisomy 21 Result Text (test code = NPT_T21_RESULT_TEXT) Low Risk Monosomy X Age-Based Risk Text (test code = NPT_X_AGE_BASED_RISK_TEXT) 1/568 (0.18%) Monosomy X Risk Score Text (test code = NPT_X_RISK_SCORE_TEXT) <1/10,000 (<0.01%) Monosomy X Result Text (test code = NPT_X_RESULT_TEXT) Low Risk 22q11.2 Deletion Syndrome Population-Based Risk Text (test code = NPT_22Q_POP_BASED_RISK_TEX T) 1/2,000 22q11.2 Deletion Syndrome Risk Score Text (test code = NPT_22Q_RISK_SCORE_TEXT) 13,100 22q11.2 Deletion Syndrome Result Text (test code = NPT_22Q_RESULT_TEXT) Low Risk Triploidy Result Text (test code = NPT_TRI_RESULT_TEXT) Low Risk Gender of Fetus (test code = GENDER_OF_FETUS) Female Fraction (test code = FETAL_FRACTION_STRING) 3.4% Footnotes (test code = FOOTNOTES) See Notes PDF Report (test code = EMBEDDED_PDF) PDF Luis Zabala, [id number] 00:00:00* Test Item Value Reference Range Interpretation Comme nts CULTURE, URINE (test code = 66813) SPECIMEN NUMBER: [id number] Luis Zbaala, [id number] 00:00:00* Test Item Value Reference Range Interpretation Comme nts CULTURE, URINE (test code = 44077) SPECIMEN NUMBER: [id number] Luis Mejias AustinVAGINAL PATHOGENS DNA [id number] 00:00:00* Test Item Value Reference Range Interpretation Comme nts KRYSTLE SPECIES (test code = ) NEGATIVE G. VAGINALIS (test code = ) NEGATIVE T. VAGINALIS (test code = ) NEGATIVE Luis Mejias AustinVAGINAL PATHOGENS DNA [id number] 00:00:00* Test Item Value Reference Range Interpretation Comme nts KRYSTLE SPECIES (test code = ) NEGATIVE G. VAGINALIS (test code = 20644) NEGATIVE T. VAGINALIS (test code = 45760) NEGATIVE Luis Mejias AustinVAGINAL PATHOGENS DNA [id number] 00:00:00* Test Item Value Reference Range Interpretation Comme nts KRYSTLE SPECIES (test code = ) TEST NOT PERFORMED G. VAGINALIS (test code = ) TEST NOT PERFORMED T. VAGINALIS (test code = ) TEST NOT PERFORMED Luis Mejias AustinVAGINAL PATHOGENS DNA [id number] 00:00:00* Test Item Value Reference Range Interpretation Comme nts KRYSTLE SPECIES (test code = ) TEST NOT PERFORMED G. VAGINALIS (test code = 01187) TEST NOT PERFORMED T. VAGINALIS (test code = ) TEST NOT PERFORMED Luis DanielsCULTURE, [id number] 00:00:00* Test Item Value Reference Range Interpretation Comme nts CULTURE, URINE (test code = 83642) SPECIMEN NUMBER: [id number] Luis DanielsCULTURE, [id number] 00:00:00* Test Item Value Reference Range Interpretation Comme nts CULTURE, URINE (test code = 41732) SPECIMEN NUMBER: [id number] Luis Mejias AustinVARICELLA ZOSTER [id number] 00:00:00* Test Item Value Reference Range Interpretation Comme nts VARICELLA ZOSTER IgG (test code = 81531) TEST NOT PERFORMED INDEX Luis DanielsHEPATITIS C REFLEX [id number] 00:00:00* Test Item Value Reference Range Interpretation Comme nts HEPATITIS C ANTIBODY (test code = 4675) TEST NOT PERFORMED Luis DanielsDRUG ABUSE SCREEN 10 REFLEX [id number] 00:00:00* Test Item Value Reference Range Interpretation Comme nts COMMENTS (test code = 3222) TEST NOT PERFORMED AMPHETAMINES (test code = 3201) TEST NOT PERFORMED BARBITURATES (test code = 3202) TEST NOT PERFORMED BENZODIAZEPINES (test code = 3203) TEST NOT PERFORMED CANNABINOIDS (test code = 3204) TEST NOT PERFORMED COCAINE METABOLITE (test code = 3205) TEST NOT PERFORMED OPIATES (test code = 3209) TEST NOT PERFORMED OXYCODONE (test code = 01367) TEST NOT PERFORMED PHENCYCLIDINE (test code = 3210) TEST NOT PERFORMED METHADONE (test code = 3207) TEST NOT PERFORMED BUPRENORPHINE (test code = 51116) TEST NOT PERFORMED SOURCE (test code = 812795) TEST NOT PERFORMED Luis F AustinHEMOGLOBIN [id number] 00:00:00* Test Item Value Reference Range Interpretation Comme nts HEMOGLOBIN A1 (test code = 2575) TEST NOT PERFORMED % HEMOGLOBIN A2 (test code = 2576) TEST NOT PERFORMED % HEMOGLOBIN F () (test code = 2722) TEST NOT PERFORMED % HEMOGLOBIN S (test code = 2724) TEST NOT PERFORMED % HEMOGLOBIN C (test code = 2726) TEST NOT PERFORMED % OTHER HEMOGLOBIN VARIANT (test code = 16594) TEST NOT PERFORMED % PATHOLOGIST'S INTERPRETATION (test code = 2577) TEST NOT PERFORMED Luis F AustinOBSTETRIC PANEL + [id number] 00:00:00* Test Item Value Reference Range Interpretation Comme nts WBC (test code = 1001) TEST NOT PERFORME D K/UL RBC (test code = 1002) TEST NOT PERFORME D M/UL HEMOGLOBIN (test code = 1003) TEST NOT PERFORMED G/DL HEMATOCRIT (test code = 1004) TEST NOT PERFORMED % MCV (test code = 1005) TEST NOT PERFORME D fL MCH (test code = 1006) TEST NOT PERFORME D PG MCHC (test code = 1007) TEST NOT PERFORM ED G/DL RDW (test code = 1038) TEST NOT PERFORMED % NEUTROPHILS (test code = 1008) TEST NOT PERFORMED % BANDS (test code = 1009) TEST NOT PERFORMED % LYMPHOCYTES (test code = 1010) TEST NOT PERFORMED % MONOCYTES (test code = 1011) TEST NOT PERFORMED % EOSINOPHILS (test code = 1012) TEST NOT PERFORMED % BASOPHILS (test code = 1013) TEST NOT PERFORMED % IMMATURE GRANULOCYTES (test code = 1036) TEST NOT PERFORMED % METAMYELOCYTES (test code = 1061) TEST NOT PERFORMED % MYELOCYTES (test code = 1062) TEST NOT PERFORMED % PROMYELOCYTES (test code = 1063) TEST NOT PERFORMED % BLASTS (test code = 1064) TEST NOT PERFORMED % NUCLEATED RBCS (test code = 1065) TEST NOT PERFORMED /100WBC'S PLATELET COUNT (test code = 1015) TEST NOT PERFORMED K/UL ABSOLUTE NEUTROPHILS (test code = 1066) TEST NOT PERFORMED K/UL ABSOLUTE LYMPHOCYTES (test code = 1067) TEST NOT PERFORMED K/UL ABSOLUTE MONOCYTES (test code = 1068) TEST NOT PERFORMED K/UL ABSOLUTE EOSINOPHILS (test code = 1040) TEST NOT PERFORMED K/UL ABSOLUTE BASOPHILS (test code = 1069) TEST NOT PERFORMED K/UL ABS IMMATURE GRANULOCYTES (test code = 1020) TEST NOT PERFORMED K/UL ABS NUCLEATED RBCS (test code = 82620) TEST NOT PERFORMED K/UL COMMENTS (test code = 1016) TEST NOT PERFORMED BLOOD TYPE AND RH (test code = 3901) TEST NOT PERFORMED ANTIBODY SCREEN (test code = 3902) TEST NOT PERFORMED RUBELLA ANTIBODY SCREEN (test code = 4600) TEST NOT PERFORMED IU/ML RUBELLA IgG INTERP (test code = 85984) TEST NOT PERFORMED HEPATITIS B SURF AG (test code = 2739) TEST NOT PERFORMED HBSAG CONFIRMATION TEST (test code = 2741) TEST NOT PERFORMED RPR (test code = 83707) TEST NOT PERFORMED RPR TITER (test code = 3500) TEST NOT PERFORMED TITER HIV 1/2 4TH GEN, RFLX CONF (test code = 3514) TEST NOT PERFORMED Luis F AustinVARICELLA ZOSTER [id number] 00:00:00* Test Item Value Reference Range Interpretation Comme nts VARICELLA ZOSTER IgG (test code = 53164) TEST NOT PERFORMED INDEX Luis F AustinHEPATITIS C REFLEX [id number] 00:00:00* Test Item Value Reference Range Interpretation Comme nts HEPATITIS C ANTIBODY (test code = 4675) TEST NOT PERFORMED Luis F AustinDRUG ABUSE SCREEN 10 REFLEX [id number] 00:00:00* Test Item Value Reference Range Interpretation Comme nts COMMENTS (test code = 3222) TEST NOT PERFORMED AMPHETAMINES (test code = 3201) TEST NOT PERFORMED BARBITURATES (test code = 3202) TEST NOT PERFORMED BENZODIAZEPINES (test code = 3203) TEST NOT PERFORMED CANNABINOIDS (test code = 3204) TEST NOT PERFORMED COCAINE METABOLITE (test code = 3205) TEST NOT PERFORMED OPIATES (test code = 3209) TEST NOT PERFORMED OXYCODONE (test code = 60496) TEST NOT PERFORMED PHENCYCLIDINE (test code = 3210) TEST NOT PERFORMED METHADONE (test code = 3207) TEST NOT PERFORMED BUPRENORPHINE (test code = 04277) TEST NOT PERFORMED SOURCE (test code = 364402) TEST NOT PERFORMED Luis F AustinHEMOGLOBIN [id number] 00:00:00* Test Item Value Reference Range Interpretation Comme nts HEMOGLOBIN A1 (test code = 2575) TEST NOT PERFORMED % HEMOGLOBIN A2 (test code = 2576) TEST NOT PERFORMED % HEMOGLOBIN F () (test code = 2722) TEST NOT PERFORMED % HEMOGLOBIN S (test code = 2724) TEST NOT PERFORMED % HEMOGLOBIN C (test code = 2726) TEST NOT PERFORMED % OTHER HEMOGLOBIN VARIANT (test code = 10554) TEST NOT PERFORMED % PATHOLOGIST'S INTERPRETATION (test code = 2577) TEST NOT PERFORMED Luis F AustinOBSTETRIC PANEL + [id number] 00:00:00* Test Item Value Reference Range Interpretation Comme nts WBC (test code = 1001) TEST NOT PERFORME D K/UL RBC (test code = 1002) TEST NOT PERFORME D M/UL HEMOGLOBIN (test code = 1003) TEST NOT PERFORMED G/DL HEMATOCRIT (test code = 1004) TEST NOT PERFORMED % MCV (test code = 1005) TEST NOT PERFORME D fL MCH (test code = 1006) TEST NOT PERFORME D PG MCHC (test code = 1007) TEST NOT PERFORM ED G/DL RDW (test code = 1038) TEST NOT PERFORMED % NEUTROPHILS (test code = 1008) TEST NOT PERFORMED % BANDS (test code = 1009) TEST NOT PERFORMED % LYMPHOCYTES (test code = 1010) TEST NOT PERFORMED % MONOCYTES (test code = 1011) TEST NOT PERFORMED % EOSINOPHILS (test code = 1012) TEST NOT PERFORMED % BASOPHILS (test code = 1013) TEST NOT PERFORMED % IMMATURE GRANULOCYTES (test code = 1036) TEST NOT PERFORMED % METAMYELOCYTES (test code = 1061) TEST NOT PERFORMED % MYELOCYTES (test code = 1062) TEST NOT PERFORMED % PROMYELOCYTES (test code = 1063) TEST NOT PERFORMED % BLASTS (test code = 1064) TEST NOT PERFORMED % NUCLEATED RBCS (test code = 1065) TEST NOT PERFORMED /100WBC'S PLATELET COUNT (test code = 1015) TEST NOT PERFORMED K/UL ABSOLUTE NEUTROPHILS (test code = 1066) TEST NOT PERFORMED K/UL ABSOLUTE LYMPHOCYTES (test code = 1067) TEST NOT PERFORMED K/UL ABSOLUTE MONOCYTES (test code = 1068) TEST NOT PERFORMED K/UL ABSOLUTE EOSINOPHILS (test code = 1040) TEST NOT PERFORMED K/UL ABSOLUTE BASOPHILS (test code = 1069) TEST NOT PERFORMED K/UL ABS IMMATURE GRANULOCYTES (test code = 1020) TEST NOT PERFORMED K/UL ABS NUCLEATED RBCS (test code = 67267) TEST NOT PERFORMED K/UL COMMENTS (test code = 1016) TEST NOT PERFORMED BLOOD TYPE AND RH (test code = 3901) TEST NOT PERFORMED ANTIBODY SCREEN (test code = 3902) TEST NOT PERFORMED RUBELLA ANTIBODY SCREEN (test code = 4600) TEST NOT PERFORMED IU/ML RUBELLA IgG INTERP (test code = 88516) TEST NOT PERFORMED HEPATITIS B SURF AG (test code = 2739) TEST NOT PERFORMED HBSAG CONFIRMATION TEST (test code = 2741) TEST NOT PERFORMED RPR (test code = 53749) TEST NOT PERFORMED RPR TITER (test code = 3500) TEST NOT PERFORMED TITER HIV 1/2 4TH GEN, RFLX CONF (test code = 3514) TEST NOT PERFORMED Luis Mejias AustinHEMOGLOBIN [id number] 00:00:00* Test Item Value Reference Range Interpretation Comme nts HEMOGLOBIN A1c (test code = 58441) 9.1 % Luis Mejias AustinHEMOGLOBIN [id number] 00:00:00* Test Item Value Reference Range Interpretation Comme nts HEMOGLOBIN A1c (test code = 78093) 9.1 % Luis Mejias AustinVAGINAL PATHOGENS DNA [id number] 00:00:00* Test Item Value Reference Range Interpretation Comme nts KRYSTLE SPECIES (test code = 12355) NEGATIVE G. VAGINALIS (test code = 66842) NEGATIVE T. VAGINALIS (test code = 97938) NEGATIVE Luis Mejias AustinVAGINAL PATHOGENS DNA [id number] 00:00:00* Test Item Value Reference Range Interpretation Comme nts KRYSTLE SPECIES (test code = 09809) NEGATIVE G. VAGINALIS (test code = 08969) NEGATIVE T. VAGINALIS (test code = 71645) NEGATIVE Luis Mejias AustinLIPID [id number] 00:00:00* Test Item Value Reference Range Interpretation Comme nts CHOLESTEROL (test code = 2210) 230 MG/DL TRIGLYCERIDES (test code = 2232) 234 MG/DL HDL CHOLESTEROL (test code = 2220) 43 MG/DL CALC LDL CHOL (test code = 2237) 149 MG/DL RISK RATIO LDL/HDL (test cod e = 2238) 3.47 RATIO Luis Mejias AustinHEMOGLOBIN [id number] 00:00:00* Test Item Value Reference Range Interpretation Comme nts HEMOGLOBIN A1c (test code = 49582) 12.7 % Luis Mejias AustinCOMPREHENSIVE METABOLIC [id number] 00:00:00* Test Item Value Reference Range Interpretation Comme nts GLUCOSE (test code = 2217) 349 MG/DL BUN (test code = 2208) 11 MG/DL CREATININE (test code = 2214) 0.54 MG/DL eGFR (2020 CKD-EPI) (test code = 35627) 125 ML/MIN/1.73 CALC BUN/CREAT (test code = 2235) 20 RATIO SODIUM (test code = 2231) 134 MEQ/L POTASSIUM (test code = 2228) 4.2 MEQ/L CHLORIDE (test code = 2215) 97 MEQ/L CARBON DIOXIDE (test code = 2206) 24 MEQ/L CALCIUM (test code = 2209) 9.6 MG/DL PROTEIN, TOTAL (test code = 2229) 7.6 G/DL ALBUMIN (test code = 2201) 4.5 G/DL CALC GLOBULIN (test code = 2240) 3.1 G/DL CALC A/G RATIO (test code = 2234) 1.5 RATIO BILIRUBIN, TOTAL (test code = 2207) 0.5 MG/DL ALKALINE PHOSPHATASE (test code = 2204) 125 U/L AST (test code = 2218) 23 U/L ALT (test code = 2219) 25 U/L Luis DanielsLIPID [id number] 00:00:00* Test Item Value Reference Range Interpretation Comme nts CHOLESTEROL (test code = 2210) 230 MG/DL TRIGLYCERIDES (test code = 2232) 234 MG/DL HDL CHOLESTEROL (test code = 2220) 43 MG/DL CALC LDL CHOL (test code = 2237) 149 MG/DL RISK RATIO LDL/HDL (test cod e = 2238) 3.47 RATIO Luis DanielsHEMOGLOBIN [id number] 00:00:00* Test Item Value Reference Range Interpretation Comme nts HEMOGLOBIN A1c (test code = 29933) 12.7 % Luis DanielsCOMPREHENSIVE METABOLIC [id number] 00:00:00* Test Item Value Reference Range Interpretation Comme nts GLUCOSE (test code = 2217) 349 MG/DL BUN (test code = 2208) 11 MG/DL CREATININE (test code = 2214) 0.54 MG/DL eGFR (2020 CKD-EPI) (test code = 67884) 125 ML/MIN/1.73 CALC BUN/CREAT (test code = 2235) 20 RATIO SODIUM (test code = 2231) 134 MEQ/L POTASSIUM (test code = 2228) 4.2 MEQ/L CHLORIDE (test code = 2215) 97 MEQ/L CARBON DIOXIDE (test code = 2206) 24 MEQ/L CALCIUM (test code = 2209) 9.6 MG/DL PROTEIN, TOTAL (test code = 2229) 7.6 G/DL ALBUMIN (test code = 2201) 4.5 G/DL CALC GLOBULIN (test code = 2240) 3.1 G/DL CALC A/G RATIO (test code = 2234) 1.5 RATIO BILIRUBIN, TOTAL (test code = 2207) 0.5 MG/DL ALKALINE PHOSPHATASE (test code = 2204) 125 U/L AST (test code = 2218) 23 U/L ALT (test code = 2219) 25 U/L Luis Mejias AustinVAGINAL PATHOGENS DNA [id number] 00:00:00* Test Item Value Reference Range Interpretation Comme nts KRYSTLE SPECIES (test code = ) POSITIVE G. VAGINALIS (test code = 39070) POSITIVE T. VAGINALIS (test code = 87618) NEGATIVE Luis Mejias AustinVAGINAL PATHOGENS DNA [id number] 00:00:00* Test Item Value Reference Range Interpretation Comme nts KRYSTLE SPECIES (test code = 86451) POSITIVE G. VAGINALIS (test code = 76611) POSITIVE T. VAGINALIS (test code = 94035) NEGATIVE Luis Mejias AustinHCG, [id number] 00:00:00* Test Item Value Reference Range Interpretation Comme nts HCG, QUANTITATIVE (test code = 2506) 54072 MIU/ML Luis DanielsHCG, [id number] 00:00:00* Test Item Value Reference Range Interpretation Comme nts HCG, QUANTITATIVE (test code = 2506) 70169 MIU/ML Luis DanielsTOTAL BETA HCG [id number] 22:12:50* Test Item Value Reference Range Interpretation Comme nts BETA HCG (test code = 4277887338) See_Comment [Automated messa ge] The system which generated this result transmitted reference range: Non- female and male patients: <5 mIU/mL. The reference range was not used to interpret this result as normal/abnormal. LUC (test code = LUC) Gestational Age ?Range (mIU/mL) 1-10 ?Weeks ?[id number] Weeks ?[id number] Weeks ?9399-20279568-81 Weeks ?9924-704295 Biotin has been reported to cause a negative bias, interpret results relative to patient's use of biotin. [facility]Type and Screen - ONCE [id number] 21:58:37* Test Item Value Reference Range Interpretation Comme nts ABO & RH (test code = 20) O Positive Performed at [facility] Blood [address] [place] [address] Free: [phone] No. [id number] IAT (test code = 1185) Negative Performed at [facility] Blood [address] Free: [phone] No. [id number] [facility] TexasCBC WITH [id number] 21:41:39* Test Item Value Reference Range Interpretation Comme nts WBC (test code = 6690-2) See_Comment [Automated [place] ge] The system which generated this result transmitted reference range: 4.30 - 11.10 10*3/?L. The reference range was not used to interpret this result as normal/abnormal. RBC (test code = 789-8) See_Comment [Automated [place]ococ[place] ge] The system which generated this result transmitted reference range: 3.93 - 5.25 10*6/?L. The reference range was not used to interpret this result as normal/abnormal. HGB (test code = 718-7) 12.9 g/dL 11.6-15.0 HCT (test code = 4544-3) 39.0 % 35.7-45.2 MCV (test code = 787-2) 87.6 fL 80.6-95.5 MCH (test code = 785-6) 29.0 pg 25.9-32.8 MCHC (test code = 786-4) 33.1 g/dL 31.6-35.1 RDW-SD (test code = 24551-4) 43.0 fL 39.0-49.9 RDW-CV (test code = 788-0) 13.4 % 12.0-15.5 PLT (test code = 777-3) See_Comment [Automated messa ge] The system which generated this result transmitted reference range: 166 - 358 10*3/?L. The reference range was not used to interpret this result as normal/abnormal. MPV (test code = 39217-4) 10.7 fL 9.5-12.9 NRBC/100 WBC (test code = 0972666153) See_Comment [Automated me ssage] The system which generated this result transmitted reference range: 0.0 - 10.0 /100 WBCs. The reference range was not used to interpret this result as normal/abnormal. NRBC x10^3 (test code = 2951407502) <0.01 See_Comment [Automated me ssage] The system which generated this result transmitted reference range: 10*3/?L. The reference range was not used to interpret this result as normal/abnormal. GRAN MAT (NEUT) % (test code = 770-8) 66.7 % IMM GRAN % (test code = 1673082083) 0.20 % LYMPH % (test code = 736-9) 24.9 % MONO % (test code = 5905-5) 5.8 % EOS % (test code = 713-8) 2.0 % BASO % (test code = 706-2) 0.4 % GRAN MAT x10^3(ANC) (test code = 2018680684) 5.95 10*3/uL 1.88-7.09 IMM GRAN x10^3 (test code = 7494735653) <0.03 0.00-0.06 LYMPH x10^3 (test code = 731-0) 2.23 10*3/uL 1.32-3.29 MONO x10^3 (test code = 742-7) 0.52 10*3/uL 0.33-0.92 EOS x10^3 (test code = 711-2) 0.18 10*3/uL 0.03-0.39 BASO x10^3 (test code = 704-7) 0.04 10*3/uL 0.01-0.07 [facility] TexasCOMP. METABOLIC PANEL ([id number] 21:38:39* Test Item Value Reference Range Interpretation Comme nts NA (test code = 0971201692) 134 mmol/L 135-145 L K (test code = 2679912626) 3.9 mmol/L 3.5-5.0 CL (test code = 0924415390) 101 mmol/L 98-108 CO2 TOTAL (test code = 7099402824) 27 mmol/L 23-31 AGAP (test code = 9649288239) 2-16 BUN (test code = 0562513213) 12 mg/dL 7-23 GLUCOSE (test code = 3972342768) 95 mg/dL 70-110 CREATININE (test code = 1873895412) 0.54 mg/dL 0.50-1.04 TOTAL BILI (test code = 1490884588) 0.6 mg/dL 0.1-1.1 CALCIUM (test code = 5929891580) 9.8 mg/dL 8.6-10.6 T PROTEIN (test code = 5447427189) 7.5 g/dL 6.3-8.2 ALBUMIN (test code = 1176622590) 4.2 g/dL 3.5-5.0 ALK PHOS (test code = 9757635060) 98 U/L 34-122 ALTv (test code = 1742-6) 46 U/L 5-35 H AST(SGOT) (test code = 7911486099) 48 U/L 13-40 H eGFR (test code = 7231548746) mL/min/1.73m2 LUC (test code = LUC) Association of [...] or abnormalities in imaging tests). Lab Interpretation (test code = 25641-7) Abnormal [facility] TexasHPV HIGH RISK WITH GENOTYPE, [id number] 00:00:00* Test Item Value Reference Range Interpretation Comme nts HPV HIGH RISK INTERP (test c ode = 83933) NEGATIVE HPV 16 (test code = 66603) NEGATIVE HPV 18 (test code = 03832) NEGATIVE HPV, HR, OTHER GENOTYPES (te st code = 42121) NEGATIVE Luis DanielsGC AND CHLAMYDIA, AMPLIFIED, [id number] 00:00:00* Test Item Value Reference Range Interpretation Comme nts GONORRHEA, NAAT (test code = 08814) NEGATIVE CHLAMYDIA, NAAT (test code = 51031) NEGATIVE Luis DanielsVAGINAL PATHOGENS DNA [id number] 00:00:00* Test Item Value Reference Range Interpretation Comme nts KRYSTLE SPECIES (test code = 46085) POSITIVE G. VAGINALIS (test code = 96026) NEGATIVE T. VAGINALIS (test code = 25682) NEGATIVE Luis DanielsDRUG ABUSE PANEL 10 WITH [id number] 00:00:00* Test Item Value Reference Range Interpretation Comme nts AMPHETAMINES (test code = 3201) NEGATIVE BARBITURATES (test code = 3202) NEGATIVE BENZODIAZEPINES (test code = 3203) NEGATIVE CANNABINOIDS (test code = 3204) NEGATIVE COCAINE METABOLITE (test cod e = 3205) NEGATIVE OPIATES (test code = 3209) NEGATIVE OXYCODONE (test code = 55010) NEGATIVE PHENCYCLIDINE (test code = 3210) NEGATIVE METHADONE (test code = 3207) NEGATIVE BUPRENORPHINE (test code = 37826) NEGATIVE SOURCE (test code = 722814) URINE Luis DanielsPAP TEST, THINPREP, [id number] 00:00:00* Test Item Value Reference Range Interpretation Comme nts SOURCE: (test code = 8001) Cervical/Endocervical SLIDES: (test code = 8011) 1 LMP: (test code = 8021) 02/13/2021 SPECIMEN ADEQUACY: (test code = 41299) (NOTE) INTERPRETATION: (test code = 39427) NILM/NO EPITH. ABNORMALITY;SEE BELOW PASSENGER TRAIN BRAKER: (test code = 8101) BABS Kaye (ASCP) LOCATION: (test code = 71802) (NOTE) CPT: (test code = 8140) (NOTE) Luis DanielsHPV HIGH RISK WITH GENOTYPE, [id number] 00:00:00* Test Item Value Reference Range Interpretation Comme nts HPV HIGH RISK INTERP (test c ode = 69031) NEGATIVE HPV 16 (test code = 04087) NEGATIVE HPV 18 (test code = 69915) NEGATIVE HPV, HR, OTHER GENOTYPES (te st code = 54066) NEGATIVE Luis DanielsGC AND CHLAMYDIA, AMPLIFIED, [id number] 00:00:00* Test Item Value Reference Range Interpretation Comme nts GONORRHEA, NAAT (test code = 12777) NEGATIVE CHLAMYDIA, NAAT (test code = 35090) NEGATIVE Luis Mejias AustinVAGINAL PATHOGENS DNA [id number] 00:00:00* Test Item Value Reference Range Interpretation Comme nts KRYSTLE SPECIES (test code = 70882) POSITIVE G. VAGINALIS (test code = 50982) NEGATIVE T. VAGINALIS (test code = 08415) NEGATIVE Luis Mejias AustinDRUG ABUSE PANEL 10 WITH [id number] 00:00:00* Test Item Value Reference Range Interpretation Comme nts AMPHETAMINES (test code = 3201) NEGATIVE BARBITURATES (test code = 3202) NEGATIVE BENZODIAZEPINES (test code = 3203) NEGATIVE CANNABINOIDS (test code = 3204) NEGATIVE COCAINE METABOLITE (test cod e = 3205) NEGATIVE OPIATES (test code = 3209) NEGATIVE OXYCODONE (test code = 83684) NEGATIVE PHENCYCLIDINE (test code = 3210) NEGATIVE METHADONE (test code = 3207) NEGATIVE BUPRENORPHINE (test code = 68464) NEGATIVE SOURCE (test code = 753443) URINE Luis DanielsPAP TEST, THINPREP, [id number] 00:00:00* Test Item Value Reference Range Interpretation Comme nts SOURCE: (test code = 8001) Cervical/Endocervical SLIDES: (test code = 8011) 1 LMP: (test code = 8021) 02/13/2021 SPECIMEN ADEQUACY: (test code = 58458) (NOTE) INTERPRETATION: (test code = 64892) NILM/NO EPITH. ABNORMALITY;SEE BELOW PASSENGER TRAIN BRAKER: (test code = 8101) BABS Kaye (ASCP) LOCATION: (test code = 12646) (NOTE) CPT: (test code = 8140) (NOTE) Luis DanielsCULTURE, [id number] 00:00:00* Test Item Value Reference Range Interpretation Comme nts CULTURE, URINE (test code = 85967) SPECIMEN NUMBER: [id number] Luis DanielsVARICELLA ZOSTER [id number] 00:00:00* Test Item Value Reference Range Interpretation Comme nts VARICELLA ZOSTER IgG (test c ode = 79145) 850 INDEX Luis Mejias AustinHEPATITIS C REFLEX [id number] 00:00:00* Test Item Value Reference Range Interpretation Comme nts HEPATITIS C ANTIBODY (test c ode = 4675) NON-REACTIVE Luis Mejias AustinCULTURE, [id number] 00:00:00* Test Item Value Reference Range Interpretation Comme nts CULTURE, URINE (test code = 21170) SPECIMEN NUMBER: [id number] Luis Mejias AustinVARICELLA ZOSTER [id number] 00:00:00* Test Item Value Reference Range Interpretation Comme nts VARICELLA ZOSTER IgG (test c ode = 13036) 850 INDEX Luis Mejias AustinHEPATITIS C REFLEX [id number] 00:00:00* Test Item Value Reference Range Interpretation Comme nts HEPATITIS C ANTIBODY (test c ode = 4675) NON-REACTIVE Luis DanielsOBSTETRIC PANEL + [id number] 00:00:00* Test Item Value Reference Range Interpretation Comme nts WBC (test code = 1001) 8.6 K/UL RBC (test code = 1002) 4.50 M/UL HEMOGLOBIN (test code = 1003) 12.8 G/DL HEMATOCRIT (test code = 1004) 38.4 % MCV (test code = 1005) 85.3 fL MCH (test code = 1006) 28.4 PG MCHC (test code = 1007) 33.3 G/DL RDW (test code = 1038) 13.6 % NEUTROPHILS (test code = 1008) 65.2 % LYMPHOCYTES (test code = 1010) 25.1 % MONOCYTES (test code = 1011) 7.0 % EOSINOPHILS (test code = 1012) 1.9 % BASOPHILS (test code = 1013) 0.6 % IMMATURE GRANYLOCYTES (test code = 1036) 0.2 % NUCLEATED RBCS (test code = 1065) 0.0 /100WBC'S PLATELET COUNT (test code = 1015) 199 K/UL ABSOLUTE NEUTROPHILS (test code = 1066) 5.60 K/UL ABSOLUTE LYMPHOCYTES (test code = 1067) 2.16 K/UL ABSOLUTE MONOCYTES (test code = 1068) 0.60 K/UL ABSOLUTE EOSINOPHILS (test code = 1040) 0.16 K/UL ABSOLUTE BASOPHILS (test code = 1069) 0.05 K/UL ABS IMMATURE GRANULOCYTES (test code = 1020) 0.02 K/UL ABS NUCLEATED RBCS (test code = 52418) 0.00 K/UL BLOOD TYPE AND RH (test code = 3901) O POSITIVE ANTIBODY SCREEN (test code = 3902) NEGATIVE RUBELLA ANTIBODY SCREEN (test code = 4600) 42 IU/ML RUBELLA IgG INTERP (test code = 20291) REACTIVE HEPATITIS B SURF AG (test code = 2739) NON-REACTIVE RPR (test code = 69301) NON-REACTIVE RPR TITER (test code = 3500) NOT INDIC. TITER HIV 1/2 4TH GEN, RFLX CONF (test code = 3514) NON-REACTIVE Luis DanielsHEMOGLOBIN [id number] 00:00:00* Test Item Value Reference Range Interpretation Comme nts HEMOGLOBIN A1c (test code = 49578) 9.1 % Luis DanielsOBSTETRIC PANEL + [id number] 00:00:00* Test Item Value Reference Range Interpretation Comme nts WBC (test code = 1001) 8.6 K/UL RBC (test code = 1002) 4.50 M/UL HEMOGLOBIN (test code = 1003) 12.8 G/DL HEMATOCRIT (test code = 1004) 38.4 % MCV (test code = 1005) 85.3 fL MCH (test code = 1006) 28.4 PG MCHC (test code = 1007) 33.3 G/DL RDW (test code = 1038) 13.6 % NEUTROPHILS (test code = 1008) 65.2 % LYMPHOCYTES (test code = 1010) 25.1 % MONOCYTES (test code = 1011) 7.0 % EOSINOPHILS (test code = 1012) 1.9 % BASOPHILS (test code = 1013) 0.6 % IMMATURE GRANYLOCYTES (test code = 1036) 0.2 % NUCLEATED RBCS (test code = 1065) 0.0 /100WBC'S PLATELET COUNT (test code = 1015) 199 K/UL ABSOLUTE NEUTROPHILS (test code = 1066) 5.60 K/UL ABSOLUTE LYMPHOCYTES (test code = 1067) 2.16 K/UL ABSOLUTE MONOCYTES (test code = 1068) 0.60 K/UL ABSOLUTE EOSINOPHILS (test code = 1040) 0.16 K/UL ABSOLUTE BASOPHILS (test code = 1069) 0.05 K/UL ABS IMMATURE GRANULOCYTES (test code = 1020) 0.02 K/UL ABS NUCLEATED RBCS (test code = 06211) 0.00 K/UL BLOOD TYPE AND RH (test code = 3901) O POSITIVE ANTIBODY SCREEN (test code = 3902) NEGATIVE RUBELLA ANTIBODY SCREEN (test code = 4600) 42 IU/ML RUBELLA IgG INTERP (test code = 92568) REACTIVE HEPATITIS B SURF AG (test code = 2739) NON-REACTIVE RPR (test code = 09842) NON-REACTIVE RPR TITER (test code = 3500) NOT INDIC. TITER HIV 1/2 4TH GEN, RFLX CONF (test code = 3514) NON-REACTIVE Luis DanielsHEMOGLOBIN [id number] 00:00:00* Test Item Value Reference Range Interpretation Comme nts HEMOGLOBIN A1c (test code = 23375) 9.1 % Luis [facility] GLUCOSE (AUTOMATED)2021-04-01 17:58:14* Test Item Value Reference Range Interpretation Comme nts POCT GLU (test code = 7032700996) 175 mg/dL 70-110 H Lab Interpretation (test cod e = 26923-2) Abnormal [facility] GLUCOSE (AUTOMATED)2021-04-01 13:49:38* Test Item Value Reference Range Interpretation Comme nts POCT GLU (test code = 7186383162) 209 mg/dL 70-110 H Lab Interpretation (test cod e = 66522-7) Abnormal [facility] GLUCOSE (AUTOMATED)2021-03-31 23:20:21* Test Item Value Reference Range Interpretation Comme nts POCT GLU (test code = 5849576813) 233 mg/dL 70-110 H Lab Interpretation (test cod e = 47192-6) Abnormal [facility] GLUCOSE (AUTOMATED)2021-03-31 22:33:33* Test Item Value Reference Range Interpretation Comme nts POCT GLU (test code = 8244729810) 219 mg/dL 70-110 H Lab Interpretation (test cod e = 15388-3) Abnormal [facility] GLUCOSE (AUTOMATED)2021-03-31 18:02:26* Test Item Value Reference Range Interpretation Comme nts POCT GLU (test code = 9865875264) 185 mg/dL 70-110 H Lab Interpretation (test cod e = 03556-6) Abnormal [facility] GLUCOSE (AUTOMATED)2021-03-31 13:47:03* Test Item Value Reference Range Interpretation Comme nts POCT GLU (test code = 1173313359) 244 mg/dL 70-110 H Lab Interpretation (test cod e = 47223-7) [facility] [id number] 12:43:47* Test Item Value Reference Range Interpretation Comme nts MAGNESIUM (test code = 0768669252) 1.7 mg/dL 1.7-2.4 Lab Interpretation (test cod e = 93051-1) [facility] (Total Cholesterol, Triglycerides, HDL) - [id number] 12:43:47* Test Item Value Reference Range Interpretation Comme nts CHOL (test code = 4043638503) 139 mg/dL 120-200 HDL (test code = 2355232458) 39 mg/dL >50 L HDLC RATIO (test code = 0459292538) See_Comment [Automated [employer]] The system which generated this result transmitted reference range: <=4.5. The reference range was not used to interpret this result as normal/abnormal. TRIG (test code = 3346732755) 193 mg/dL 30-170 H LDL CHOL (test code = 65915-6) 61 mg/dL See_Comment [Automated [employer]] The system which generated this result transmitted reference range: <=160. The reference range was not used to interpret this result as normal/abnormal. VLDL (test code = 0399341725) 39 mg/dL 5-60 Lab Interpretation (test code = 38381-2) Abnormal [facility] Metabolic Panel (NA, K, CL, CO2, GLUCOSE, BUN, CREATININE, CA)2021-03-31 12:43:26* Test Item Value Reference Range Interpretation Comme nts NA (test code = 6089614944) 132 mmol/L 135-145 L K (test code = 1394189135) 4.0 mmol/L 3.5-5.0 CL (test code = 7013834903) 106 mmol/L 98-108 CO2 TOTAL (test code = 2246440018) 21 mmol/L 23-31 L AGAP (test code = 6582967048) 2-16 BUN (test code = 8602055086) 11 mg/dL 7-23 GLUCOSE (test code = 7737419424) 240 mg/dL 70-110 H CREATININE (test code = 6529110601) 0.51 mg/dL 0.50-1.04 CALCIUM (test code = 4703988740) 8.1 mg/dL 8.6-10.6 L eGFR (test code = 7612369225) mL/min/1.73m2 LUC (test code = LUC) Association of [...] or abnormalities in imaging tests). Lab Interpretation (test code = 83533-0) Abnormal [facility] TexasPhosph[facility] [id number] 12:43:26* Test Item Value Reference Range Interpretation Comme nts PHOSPHORUS (test code = 2327313070) 2.9 mg/dL 2.5-5.0 Lab Interpretation (test cod e = 02160-9) Normal [facility] with Ccejuqgeumjv8019-28-10 12:26:41* Test Item Value Reference Range Interpretation Comme nts WBC (test code = 6690-2) See_Comment [Automated [employer]] The system which generated this result transmitted reference range: 4.30 - 11.10 10*3/?L. The reference range was not used to interpret this result as normal/abnormal. RBC (test code = 789-8) See_Comment [Automated [employer]] The system which generated this result transmitted reference range: 3.93 - 5.25 10*6/?L. The reference range was not used to interpret this result as normal/abnormal. HGB (test code = 718-7) 11.9 g/dL 11.6-15.0 HCT (test code = 4544-3) 35.7 % 35.7-45.2 MCV (test code = 787-2) 86.0 fL 80.6-95.5 MCH (test code = 785-6) 28.7 pg 25.9-32.8 MCHC (test code = 786-4) 33.3 g/dL 31.6-35.1 RDW-SD (test code = 42867-3) 40.4 fL 39.0-49.9 RDW-CV (test code = 788-0) 13.0 % 12.0-15.5 PLT (test code = 777-3) See_Comment [Automated messa ge] The system which generated this result transmitted reference range: 166 - 358 10*3/?L. The reference range was not used to interpret this result as normal/abnormal. MPV (test code = 80663-2) 11.2 fL 9.5-12.9 NRBC/100 WBC (test code = 0507095682) See_Comment [Automated me ssage] The system which generated this result transmitted reference range: 0.0 - 10.0 /100 WBCs. The reference range was not used to interpret this result as normal/abnormal. NRBC x10^3 (test code = 4775513043) <0.01 See_Comment [Automated me ssage] The system which generated this result transmitted reference range: 10*3/?L. The reference range was not used to interpret this result as normal/abnormal. GRAN MAT (NEUT) % (test code = 770-8) 64.2 % IMM GRAN % (test code = 1741193271) 0.50 % LYMPH % (test code = 736-9) 26.4 % MONO % (test code = 5905-5) 6.3 % EOS % (test code = 713-8) 2.1 % BASO % (test code = 706-2) 0.5 % GRAN MAT x10^3(ANC) (test code = 1667470371) 4.95 10*3/uL 1.88-7.09 IMM GRAN x10^3 (test code = 5543020924) 0.04 10*3/uL 0.00-0.06 LYMPH x10^3 (test code = 731-0) 2.04 10*3/uL 1.32-3.29 MONO x10^3 (test code = 742-7) 0.49 10*3/uL 0.33-0.92 EOS x10^3 (test code = 711-2) 0.16 10*3/uL 0.03-0.39 BASO x10^3 (test code = 704-7) 0.04 10*3/uL 0.01-0.07 [facility] GLUCOSE (AUTOMATED)2021-03-31 04:15:32* Test Item Value Reference Range Interpretation Comme [facility] PO[facility]U (test code = 6736382900) 214 mg/dL 70-110 H Lab Interpretation (test cod e = 00335-1) Abnormal [facility] GLUCOSE (AUTOMATED)2021-03-30 22:57:31* Test Item Value Reference Range Interpretation Comme [facility] POCT GLU (test code = 1720730947) 168 mg/dL 70-110 H Lab Interpretation (test cod e = 32474-5) [facility]normal [facility] 16:11:19* Test Item Value Reference Range Interpretation Comme [facility] APTT Patient (test code = 3173-2) See_Comment [Automated message] The system which generated this result transmitted reference range: 23 - 38 Seconds. The reference range was not used to interpret this result as normal/abnormal. LUC (test code = LUC) The [facility] patient population mean normal value for aPTT is 30 seconds. Lab Interpretation (test code = 81831-6) Normal [facility] TexasPROTHROMBIN TIME / [id number] 16:09:22* Test Item Value Reference Range Interpretation Comme [facility] PROTIME PATIENT (test code = 5964-2) See_Comment [Automated messa ge] The system which generated this result transmitted reference range: 12.0 - 14.7 Seconds. The reference range was not used to interpret this result as normal/abnormal. INR (test code = 6301-6) Normal INR <1.1; Warfarin Therapeutic range 2.0 to 3.0 or 2.5 to 3.5, depending upon the indications. Lab Interpretation (test code = 48821-9) Normal [facility] BHCG (QUANTITATIVE)2021-03-30 15:50:40* Test Item Value Reference Range Interpretation Comme nts BETA HCG (test code = 5765657056) See_Comment [Automated messa ge] The system which generated this result transmitted reference range: Non- female and male patients: <5 mIU/mL. The reference range was not used to interpret this result as normal/abnormal. LUC (test code = LUC) Gestational Age ?Range (mIU/mL) 1-10 ?Weeks ?[id number] Weeks ?79622-71249233-11 Weeks ?4155-87855118-08 Weeks ?8410-130922 Biotin has been reported to cause a negative bias, interpret results relative to patient's use of biotin. [facility]OSYL[facility] HEMOGLOBIN (A1C)2021-03-30 15:50:34* Test Item Value Reference Range Interpretation Comme nts HGB A1C (test code = 4548-4) 9.7 % 4.0-5.7 H LUC (test code = LUC) Reference RangesNormal: <5.7%Prediabetes: 5.7 - 6.4%Diabetes: > 6.5% Lab Interpretation (test code = 63792-9) Abnormal [facility] TexasTROPONIN [id number] 15:44:00* Test Item Value Reference Range Interpretation Comments TROPONIN I (test code = 3949243423) 0.006 ng/mL See_Comment [Automated message] The system which generated this result transmitted reference range: <=0.034. The reference range was not used to interpret this result as normal/abnormal. LUC (test code = LUC) Reference (Normal) Range (defined by the 99th percentile reference [...] to patient's use of biotin. Lab Interpretation (test code = 97824-4) Normal [facility] TexasN-TERMINAL [id number]-[id number] 15:40:59* Test Item Value Reference Range Interpretation Comme nts NT-proBNP (test code = 8220072650) 29 pg/mL See_Comment [Automated message] The system which generated this result transmitted reference range: <=125. The reference range was not used to interpret this result as normal/abnormal. LUC (test code = LUC) Biotin has been reported to cause a negative bias, interpret results relative to patient's use of biotin. Lab Interpretation (test code = 90277-9) Normal [facility] TexasCOMP. METABOLIC PANEL (79094)2021-03-30 15:32:19* Test Item Value Reference Range Interpretation Comme nts NA (test code = 6547048643) 132 mmol/L 135-145 L K (test code = 6913226731) 3.9 mmol/L 3.5-5.0 CL (test code = 3903719944) 98 mmol/L 98-108 CO2 TOTAL (test code = 8141863527) 23 mmol/L 23-31 AGAP (test code = 3416483698) 2-16 BUN (test code = 9567913252) 12 mg/dL 7-23 GLUCOSE (test code = 8890193502) 269 mg/dL 70-110 H CREATININE (test code = 4962564065) 0.54 mg/dL 0.50-1.04 TOTAL BILI (test code = 3748168597) 0.7 mg/dL 0.1-1.1 CALCIUM (test code = 2468849285) 9.3 mg/dL 8.6-10.6 T PROTEIN (test code = 0870318831) 7.7 g/dL 6.3-8.2 ALBUMIN (test code = 7492806731) 4.2 g/dL 3.5-5.0 ALK PHOS (test code = 3040910731) 142 U/L 34-122 H ALTv (test code = 1742-6) 28 U/L 5-35 AST(SGOT) (test code = 5671450765) 26 U/L 13-40 eGFR (test code = 0249912519) mL/min/1.73m2 LUC (test code = LUC) Association of [...] or abnormalities in imaging tests). Lab Interpretation (test code = 84647-2) Abnormal [facility] TexasMAGNESIUM2021-11-06 15:32:19* Test Item Value Reference Range Interpretation Comme nts MAGNESIUM (test code = 3841940632) 1.4 mg/dL 1.7-2.4 L Lab Interpretation (test cod e = 79561-2) Abnormal [facility] WITH [id number] 15:18:18* Test Item Value Reference Range Interpretation Comme nts WBC (test code = 6690-2) See_Comment [Automated [employer]] The system which generated this result transmitted reference range: 4.30 - 11.10 10*3/?L. The reference range was not used to interpret this result as normal/abnormal. RBC (test code = 789-8) See_Comment [Automated [employer]] The system which generated this result transmitted reference range: 3.93 - 5.25 10*6/?L. The reference range was not used to interpret this result as normal/abnormal. HGB (test code = 718-7) 13.8 g/dL 11.6-15.0 HCT (test code = 4544-3) 41.7 % 35.7-45.2 MCV (test code = 787-2) 86.0 fL 80.6-95.5 MCH (test code = 785-6) 28.5 pg 25.9-32.8 MCHC (test code = 786-4) 33.1 g/dL 31.6-35.1 RDW-SD (test code = 97531-7) 39.5 fL 39.0-49.9 RDW-CV (test code = 788-0) 12.9 % 12.0-15.5 PLT (test code = 777-3) See_Comment [Automated [employer]] The system which generated this result transmitted reference range: 166 - 358 10*3/?L. The reference range was not used to interpret this result as normal/abnormal. MPV (test code = 23985-0) 10.8 fL 9.5-12.9 NRBC/100 WBC (test code = 3663556014) See_Comment [Automated [employer]] The system which generated this result transmitted reference range: 0.0 - 10.0 /100 WBCs. The reference range was not used to interpret this result as normal/abnormal. NRBC x10^3 (test code = 7640871404) <0.01 See_Comment [Automated [employer]] The system which generated this result transmitted reference range: 10*3/?L. The reference range was not used to interpret this result as normal/abnormal. GRAN MAT (NEUT) % (test code = 770-8) 66.6 % IMM GRAN % (test code = 0231610315) 0.50 % LYMPH % (test code = 736-9) 25.2 % MONO % (test code = 5905-5) 5.3 % EOS % (test code = 713-8) 1.9 % BASO % (test code = 706-2) 0.5 % GRAN MAT x10^3(ANC) (test code = 3858430063) 6.21 10*3/uL 1.88-7.09 IMM GRAN x10^3 (test code = 0182493044) 0.05 10*3/uL 0.00-0.06 LYMPH x10^3 (test code = 731-0) 2.36 10*3/uL 1.32-3.29 MONO x10^3 (test code = 742-7) 0.50 10*3/uL 0.33-0.92 EOS x10^3 (test code = 711-2) 0.18 10*3/uL 0.03-0.39 BASO x10^3 (test code = 704-7) 0.05 10*3/uL 0.01-0.07 [facility] TexasPOMS [id number] 15:11:00* Test Item Value Reference Range Interpretation Comme nts POCT PREG (test code = 1605) positive On board controls acceptable with C Line (test code = 3574) present POCT PREG LOT # (test code = 3575) [id number] POCT PREG TEST DATE ( test code = 3576) 05/24/2022 Lab Interpretation (test cod e = 54023-6) Normal [facility]OVID[facility] (ID NOW RAPID TESTING)2020-06-06 00:41:00* Test Item Value Reference Range Interpretation Comme nts SARS-CoV-2 Rapid ID NOW (test code = 12531-3) Not Detected Not Detected LUC (test code = LUC) ID NOW COVID-19 As say is an isothermal nucleic acid amplification test intended for the qualitative detection of nucleic acid from SARS-CoV-2 viral RNA in nasopharyngeal ([employer]) specimens. It is used under Emergency Use [...] patient testing if clinically indicated. Lab Interpretation (test code = 32374-2) Normal [facility] TexasCT HEAD WO [id number] 00:35:38No acute intracranial abnormality.EXAM: CT HEAD WO CONTRAST [...] head was performed without intravenous contrast.Sagittal and coronalreformats were generated.COMPARISON: None.FINDINGS: The ventricles and sulci [...] skull base are unremarkable.IMPRESSIONNo acute intracranial abnormality. [facility]. METABOLIC PANEL (95786)2020-06-06 00:24:00* Test Item Value Reference Range Interpretation Comme nts NA (test code = 4010654966) 139 mmol/L 135-145 K (test code = 7384328660) 3.9 mmol/L 3.5-5 CL (test code = 2835367326) 104 mmol/L 98-108 CO2 TOTAL (test code = 8363973636) 26 mmol/L 23-31 AGAP (test code = 8657223010) 2-16 BUN (test code = 5779521619) 12 mg/dL 7-23 GLUCOSE (test code = 7990843352) 105 mg/dL 70-110 CREATININE (test code = 4798620419) 0.56 mg/dL 0.5-1.04 TOTAL BILI (test code = 3914401270) 0.5 mg/dL 0.1-1.1 CALCIUM (test code = 4464815443) 8.6 mg/dL 8.6-10.6 T PROTEIN (test code = 3328317963) 7.5 g/dL 6.3-8.2 ALBUMIN (test code = 1304256748) 4.2 g/dL 3.5-5 ALK PHOS (test code = 0464118304) 100 U/L 34-122 ALTv (test code = 1742-6) 40 U/L 5-35 H AST(SGOT) (test code = 3897969078) 29 U/L 13-40 eGFR Calculation (Non-) (test code = 0679974927) mL/min/1.73m2 eGFR Calculation () (test code = 1389509944) mL/min/1.73m2 LUC (test code = LUC) Association of [...] or abnormalities in imaging tests). Lab Interpretation (test code = 45435-2) Abnormal [facility] TexasUrinalysis2021-01-13 00:23:00* Test Item Value Reference Range Interpretation Comme nts APPEARANCE (test code = 2189585892) Cloudy Clear A COLOR (test code = 4661943416) Yellow Yellow PH (test code = 6516405726) 4.8-8.0 SP GRAVITY (test code = 0103452741) 1.003-1.030 GLU U QUAL (test code = 0710096652) Normal Normal BLOOD (test code = 7850439481) 2+ Negative A KETONES (test code = 3046715707) Negative Negative PROTEIN (test code = 2887-8) Negative Negative UROBILIN (test code = 8169005398) 2.0 mg/dL Normal A BILIRUBIN (test code = 7391958648) Negative Negative NITRITE (test code = 9968332446) Negative Negative LEUK SHAKILA (test code = 9013478500) Negative Negative RBC/HPF (test code = 9924938450) See_Comment H [Automated messa ge] The system which generated this result transmitted reference range: 0 - 3 HPF. The reference range was not used to interpret this result as normal/abnormal. WBC/HPF (test code = 9509118326) See_Comment H [Automated messa ge] The system which generated this result transmitted reference range: 0 - 5 HPF. The reference range was not used to interpret this result as normal/abnormal. BACTERIA (test code = 9395447480) Few Negative A MUCOUS (test code = 3899745623) Slight Negative LPF A AMORPHOUS (test code = 0005350544) Few Rare HPF A SQ EPITH (test code = 7724986709) HPF Lab Interpretation (test code = 20516-5) Abnormal [facility] TexasCBC with Gnmovhoswyhs4552-17-98 00:08:00* Test Item Value Reference Range Interpretation Comme nts WBC (test code = 6690-2) See_Comment [Automated messa ge] The system which generated this result transmitted reference range: 4.30 - 11.10 10*3/?L. The reference range was not used to interpret this result as normal/abnormal. RBC (test code = 789-8) See_Comment [Automated messa ge] The system which generated this result transmitted reference range: 3.93 - 5.25 10*6/?L. The reference range was not used to interpret this result as normal/abnormal. HGB (test code = 718-7) 13.1 g/dL 11.6-15 HCT (test code = 4544-3) 37.3 % 35.7-45.2 MCV (test code = 787-2) 85.0 fL 80.6-95.5 MCH (test code = 785-6) 29.8 pg 25.9-32.8 MCHC (test code = 786-4) 35.1 g/dL 31.6-35.1 RDW-SD (test code = 17804-4) 37.6 fL 39-49.9 L RDW-CV (test code = 788-0) 12.3 % 12-15.5 PLT (test code = 777-3) See_Comment [Automated [employer]] The system which generated this result transmitted reference range: 166 - 358 10*3/?L. The reference range was not used to interpret this result as normal/abnormal. MPV (test code = 44649-2) 10.7 fL 9.5-12.9 NRBC/100 WBC (test code = 8151580551) See_Comment [Automated [employer] ssage] The system which generated this result transmitted reference range: 0.0 - 10.0 /100 WBCs. The reference range was not used to interpret this result as normal/abnormal. NRBC x10^3 (test code = 2998955315) <0.01 See_Comment [Automated [employer]] The system which generated this result transmitted reference range: 10*3/?L. The reference range was not used to interpret this result as normal/abnormal. GRAN MAT (NEUT) % (test code = 770-8) 64.7 % IMM GRAN % (test code = 4459119031) 0.20 % LYMPH % (test code = 736-9) 27.2 % MONO % (test code = 5905-5) 5.6 % EOS % (test code = 713-8) 1.9 % BASO % (test code = 706-2) 0.4 % GRAN MAT x10^3(ANC) (test code = 9662409956) 5.94 10*3/uL 1.88-7.09 IMM GRAN x10^3 (test code = 4870326525) <0.03 0-0.06 LYMPH x10^3 (test code = 731-0) 2.50 10*3/uL 1.32-3.29 MONO x10^3 (test code = 742-7) 0.51 10*3/uL 0.33-0.92 EOS x10^3 (test code = 711-2) 0.17 10*3/uL 0.03-0.39 BASO x10^3 (test code = 704-7) 0.04 10*3/uL 0.01-0.07 Lab Interpretation (test code = 75713-6) Abnormal [facility] Vbjf6481-36-39 00:00:00* Test Item Value Reference Range Interpretation Comme nts POCT PREG (test code = 1605) negative On board controls acceptable with C Line (test code = 3574) present POCT PREG LOT # (test code = 3575) [id number] POCT PREG TEST DATE ( test code = 3576) 01/22/2022 Lab Interpretation (test cod e = 29389-0) Normal [facility] GLUCOSE (AUTOMATED)2020-06-05 22:57:00* Test Item Value Reference Range Interpretation Comme nts POCT GLU (test code = 0691638841) 105 mg/dL 70-110 Lab Interpretation (test cod e = 49423-9) Normal [facility] TexasUrinalysis2020-07-28 06:39:00* Test Item Value Reference Range Interpretation Comme nts APPEARANCE (test code = 5590405216) Clear Clear COLOR (test code = 6138298894) Yellow Yellow PH (test code = 1261040069) 4.8-8.0 SP GRAVITY (test code = 9584236081) 1.003-1.030 H GLU U QUAL (test code = 2663177856) Normal Normal BLOOD (test code = 5578202242) 2+ Negative A KETONES (test code = 5601379505) Negative Negative PROTEIN (test code = 2887-8) Negative Negative UROBILIN (test code = 1399101787) Normal Normal BILIRUBIN (test code = 1366189018) Negative Negative NITRITE (test code = 1341138556) Negative Negative LEUK SHAKILA (test code = 4137707931) 75/uL Negative A RBC/HPF (test code = 4079358343) See_Comment [Automated messa ge] The system which generated this result transmitted reference range: 0 - 3 HPF. The reference range was not used to interpret this result as normal/abnormal. WBC/HPF (test code = 5611086497) See_Comment H [Automated messa ge] The system which generated this result transmitted reference range: 0 - 5 HPF. The reference range was not used to interpret this result as normal/abnormal. BACTERIA (test code = 9937620016) Few Negative A SQ EPITH (test code = 4613313303) HPF Lab Interpretation (test code = 27111-3) Abnormal [facility]PREG[facility], [id number] 04:36:00* Test Item Value Reference Range Interpretation Comme nts PREG SERUM (test code = 1357126324) Negative LUC (test code = LUC) Less than 10 IU/L. ?If low titer or ectopic is suspected, resubmit specimen in 48-72 hours. [facility]ID NOW RAPID TESTING)2019-12-20 04:33:00* Test Item Value Reference Range Interpretation Comme nts SARS-CoV-2 Rapid ID NOW (test code = 80611-5) Not Detected Not Detected LUC (test code = LUC) ID NOW COVID-19 As say is an isothermal nucleic acid amplification test intended for the qualitative detection of nucleic acid from SARS-CoV-2 viral RNA in nasopharyngeal ([employer]) specimens. It is used under Emergency Use [...] patient testing if clinically indicated. Lab Interpretation (test code = 80301-3) [facility] Met[facility] [id number] 04:17:00* Test Item Value Reference Range Interpretation Comme nts NA (test code = 2084661624) 137 mmol/L 135-145 K (test code = 3288052818) 3.8 mmol/L 3.5-5 CL (test code = 0854237664) 103 mmol/L 98-108 CO2 TOTAL (test code = 8435006761) 25 mmol/L 23-31 AGAP (test code = 3684014566) 2-16 BUN (test code = 3454637133) 12 mg/dL 7-23 GLUCOSE (test code = 8903441346) 175 mg/dL 70-110 H CREATININE (test code = 8212208637) 0.58 mg/dL 0.5-1.04 TOTAL BILI (test code = 6442026875) 0.6 mg/dL 0.1-1.1 CALCIUM (test code = 0706695657) 9.2 mg/dL 8.6-10.6 T PROTEIN (test code = 7598123809) 8.1 g/dL 6.3-8.2 ALBUMIN (test code = 4843889595) 4.3 g/dL 3.5-5 ALK PHOS (test code = 9810401820) 93 U/L 34-122 ALTv (test code = 1742-6) 29 U/L 5-35 AST(SGOT) (test code = 9972064509) 29 U/L 13-40 eGFR Calculation (Non-) (test code = 5081705085) mL/min/1.73m2 eGFR Calculation () (test code = 8958083469) mL/min/1.73m2 LUC (test code = LUC) Association of [...] or abnormalities in imaging tests). Lab Interpretation (test code = 37020-3) Abnormal [facility], [id number] 04:17:00* Test Item Value Reference Range Interpretation Comme nts LIPASE (test code = 6577727231) 88 U/L 0-220 Lab Interpretation (test cod e = 93196-1) Normal [facility] with [id number] 04:03:00* Test Item Value Reference Range Interpretation Comme nts WBC (test code = 6690-2) See_Comment H [Automated [employer]] The system which generated this result transmitted reference range: 4.30 - 11.10 10*3/?L. The reference range was not used to interpret this result as normal/abnormal. RBC (test code = 789-8) See_Comment [Automated [employer]] The system which generated this result transmitted reference range: 3.93 - 5.25 10*6/?L. The reference range was not used to interpret this result as normal/abnormal. HGB (test code = 718-7) 12.8 g/dL 11.6-15 HCT (test code = 4544-3) 38.2 % 35.7-45.2 MCV (test code = 787-2) 86.4 fL 80.6-95.5 MCH (test code = 785-6) 29.0 pg 25.9-32.8 MCHC (test code = 786-4) 33.5 g/dL 31.6-35.1 RDW-SD (test code = 65672-4) 39.4 fL 39-49.9 RDW-CV (test code = 788-0) 12.4 % 12-15.5 PLT (test code = 777-3) See_Comment [Automated messa ge] The system which generated this result transmitted reference range: 166 - 358 10*3/?L. The reference range was not used to interpret this result as normal/abnormal. MPV (test code = 15207-9) 11.2 fL 9.5-12.9 NRBC/100 WBC (test code = 3441332000) See_Comment [Automated [employer] ssage] The system which generated this result transmitted reference range: 0.0 - 10.0 /100 WBCs. The reference range was not used to interpret this result as normal/abnormal. NRBC x10^3 (test code = 3471483967) <0.01 See_Comment [Automated messa ge] The system which generated this result transmitted reference range: 10*3/?L. The reference range was not used to interpret this result as normal/abnormal. GRAN MAT (NEUT) % (test code = 770-8) 75.2 % IMM GRAN % (test code = 5275961171) 0.60 % LYMPH % (test code = 736-9) 18.2 % MONO % (test code = 5905-5) 4.7 % EOS % (test code = 713-8) 1.0 % BASO % (test code = 706-2) 0.3 % GRAN MAT x10^3(ANC) (test code = 6792860921) 9.05 10*3/uL 1.88-7.09 H IMM GRAN x10^3 (test code = 5495421392) 0.07 10*3/uL 0-0.06 H LYMPH x10^3 (test code = 731-0) 2.19 10*3/uL 1.32-3.29 MONO x10^3 (test code = 742-7) 0.57 10*3/uL 0.33-0.92 EOS x10^3 (test code = 711-2) 0.12 10*3/uL 0.03-0.39 BASO x10^3 (test code = 704-7) 0.04 10*3/uL 0.01-0.07 Lab Interpretation (test code = 87538-6) Abnormal [facility] History and Physical Notes Date/Time Note Provider Source 2023-01-12 16:14:54 Formatting of this n ote is different from the original. TRIAGE/L&D HISTORY & PHYSICAL IDENTIFYING DATA Nita Carter is 32 year old, /White, 29w1d, female with PRICE 03/29/2023, by Last Menstrual Period. : 1990 Primary Care Physician: PATIENT DOES NOT HAVE A PCP CHIEF COMPLAINT DFM, ROSARIO HISTORY OF PRESENT ILLNESS Nita Carter is a 32 year old at 29w1d who presents for DFM and ROSARIO. Patient reports DFM x1, states baby isn't moving as much. Patient is also reporting of a headache with vision changes x1 day that did not improve with tylenol. She describes the pain as throbbing, constant, non-radiating, worse with movement and did not improve with tylenol, currently rates it 02/01. Patient denies Ctx, VB, LOF. PAST OBSTETRIC HISTORY OB History Para Term AB Living 5 2 2 2 2 SAB IAB Ectopic Multiple Live Births 2 0 2 # Outcome Date GA Lbr Delvin/2nd Weight Sex Delivery Anes PTL Lv 5 Current 4 SAB 03/2022 3 01/15/17 33w6d 3295 g F , V Other (com), Spinal VENKATA Complications: Gestational diabetes, Pre-eclampsia 2 2014 1 10/05/12 35w0d 24:00 3515 g F CS-LTranv EPIDURAL Y VENKATA Comments: GDM with insulin and mild PIH Complications: Preeclampsia, Gestational diabetes, premature rupture of membranes (PPROM) delivered, current hospitalization PAST MEDICAL HISTORY Problem list: Patient Active Problem List Diagnosis Date Noted 29 weeks gestation of 01/12/2023 Tubal ligation status 01/09/2023 Leg cramps in 01/01/2023 Depression affecting in third trimester, antepartum 01/01/2023 Diabetes mellitus complicating , antepartum 10/08/2022 Pain of round ligament affecting , antepartum 10/08/2022 Previous delivery affecting , antepartum 10/21/2016 Obesity in 10/21/2016 History of pre-eclampsia in prior , currently 01/12/2015 History of delivery, currently 01/12/2015 GBS (group B streptococcus) UTI complicating 09/12/2012 Operations: Past Surgical History: Procedure Laterality Date APPENDECTOMY 08/2013 SECTION 10/05/2012 Surgeon: Roman Lovelace MD; Location: [facility] DEL[facility] SECTION N/A 01/15/2017 Surgeon: Mariano Paniagua MD; Location: Labor and Delivery - [place] Past Medical History: Diagnosis Date Depression affecting in second trimester, antepartum 01/01/2023 Diabetes mellitus 2019 ongoing, on medication see MAR Diabetes mellitus complicating , antepartum 10/08/2022 Gestational diabetes Hypertension only during pregnancies CURRENT HEALTH STATUS Medications: No current facility-administered medications for this encounter. Allergies and drug reactions: Latex, Ampicillin, Macrobid [nitrofurantoin monohyd/m-cryst], Morphine, and Sulfa (sulfonamide antibiotics) HOME MEDICATIONS Medications Prior to Admission Medication Sig Dispense Refill Last Dose Blood Pressure Kit Med & Lrg Kit Take blood pressure twice a day 1 Kit 0 insulin NPH (HUMULIN N NPH U-100 INSULIN) 100 unit/mL injection inject 48 Units under the skin daily with breakfast AND 18 Units before evening meal. Do all this for 90 days. 19.8 mL 2 insulin regular human (HUMULIN R REGULAR U-100 INSULN) 100 unit/mL injection inject 24 Units under the skin daily with breakfast AND 18 Units before evening meal. Do all this for 90 days. 12.6 mL 2 Insulin Syringe-Needle U-100 1 mL 31 gauge x 5/16 Syrg Use as directed 200 Each 2 SERTraline 25 mg tablet Take 1 tablet by mouth in the morning for 90 days. 30 tablet 2 diphenhydrAMINE 25 mg capsule Take 1 capsule by mouth every 6 (six) hours as needed for Allergies or Itching. 10 capsule 0 aspirin 81 mg EC tablet Take 1 tablet by mouth in the morning. 30 tablet 8 vit 96-dnru-btzmt-dha (SELECT-OB + DHA) 29 mg iron-1 mg -250 mg combo pack Take 1 Packet by mouth in the morning. 60 Each 6 SOCIAL HISTORY Tobacco History: Social History Tobacco Use Smoking Status Never Smokeless Tobacco Never Drug History: Social History Substance and Sexual Activity Drug Use No Alcohol History: Social History Substance and Sexual Activity Alcohol Use Not Currently Comment: socially FAMILY HISTORY Family History Problem Relation Age of Onset Hypertension Mother Diabetes Father Hypertension Father Asthma Sister Asthma Brother Arthritis NoFHx defects NoFHx Breast Cancer NoFHx Colon Cancer NoFHx Ovarian Cancer NoFHx Uterine Cancer NoFHx Cancer NoFHx Depression NoFHx Genetic NoFHx Heart NoFHx High cholesterol NoFHx Mental retardation NoFHx Neurological NoFHx Osteoporosis NoFHx Psychiatry NoFHx Other - see comments NoFHx REVIEW OF SYSTEMS General: negative Skin: negative HEENT: negative Neck: negative HEME: negative Resp: negative Cardio: negative GI: negative : negative Endo: negative Neuro: +ROSARIO +vision changes Back: negative ABELARDO: negative Psych: negative VITAL SIGNS BP: (133)/(68) Temp: [36.7 ?C (98.1 ?F)] Temp source: Oral (01/12 1630) Pulse: [97] Resp: [18] SpO2: [97 %] Height: -- Weight: -- BMI (calculated): -- PHYSICAL EXAMINATIONS General: patient alert and in no acute distress HEENT: symmetric, negative for masses Lungs: unlabored breathing Cardiology: peripheral pulses intact and regular Abdomen: soft, non-tender, non-distended, and Gravid Extremities: no clubbing, cyanosis, or edema Neuro: patient moving all extremities, no facial droop : deferred REVIEW OF LABORATORY, PATHOLOGY, AND RADIOLOGY DATA Lab results: Type & Screen Lab Results Component Value Date/Time IABORH O POSITIVE 10/08/2022 09:40 AM IAT Negative 10/08/2022 09:40 AM Serologies Lab Results Component Value Date/Time VZVIGG Positive 10/08/2022 09:40 AM HIVMULTIPLEX Non-reactive 12/22/2016 09:18 AM RUBG Positive 10/08/2022 09:40 AM RUBG POSITIVE 03/19/2012 02:27 PM SYPIGG Non-reactive 10/08/2022 09:40 AM SYPIGG Nonreactive 01/15/2017 11:08 AM HBSAG Negative 10/08/2022 09:40 AM HBSAG 0.06 10/08/2022 09:40 AM Chlamydia Lab Results Component Value Date/Time VCAA Negative 11/17/2022 05:05 PM VCAA NEGATIVE 09/10/2012 09:45 PM Group B Strep Lab Results Component Value Date/Time CGB Positive (A) 01/15/2017 11:44 AM GTT Lab Results Component Value Date/Time GLUF 131 (H) 12/22/2016 08:00 AM GOQX8MA 247 (H) 12/22/2016 09:03 AM WEUC7ZR 291 (H) 08/19/2012 09:25 AM GLU3H 149 (H) 12/22/2016 11:03 AM GLU3H 205 (H) 08/19/2012 11:25 AM CBC Lab Results Component Value Date/Time HGB 10.9 (L) 12/25/2022 03:06 PM HGB 11.1 (L) 10/12/2012 05:30 PM HCT 32.1 (L) 12/25/2022 03:06 PM HCT 33.3 (L) 10/12/2012 05:30 PM PLT 212 12/25/2022 03:06 PM PLT 316 10/12/2012 05:30 PM Active Hospital Problems Diagnosis Date Noted 29 weeks gestation of 01/12/2023 Tubal ligation status 01/09/2023 Leg cramps in 01/01/2023 Depression affecting in third trimester, antepartum 01/01/2023 Diabetes mellitus complicating , antepartum 10/08/2022 Pain of round ligament affecting , antepartum 10/08/2022 Previous delivery affecting , antepartum 10/21/2016 LTCS per OP report Obesity in 10/21/2016 History of pre-eclampsia in prior , currently 01/12/2015 History of delivery, currently 01/12/2015 x2 due to severe Pre-E GBS (group B streptococcus) UTI complicating 09/12/2012 Resolved Hospital Problems No resolved problems to display. Present on Admission: GBS (group B streptococcus) UTI complicating History of pre-eclampsia in prior , currently History of delivery, currently Previous delivery affecting , antepartum Obesity in Diabetes mellitus complicating , antepartum Pain of round ligament affecting , antepartum Leg cramps in Depression affecting in third trimester, antepartum Tubal ligation status Placenta Accreta Screening Prior ? : Yes Prior Uterine Surgery?: No Placenta low lying/previa in current ? : No Ultrasound suspicion of PASD in current ?: (not specifically mentioned) Screening outcome: D/w with faculty, low suspicion given posterior placenta ASSESSMENT AND PLAN Nita Carter is a 32 year old at 29w1d by d/u(15) who presents for DFM. DFM - reports DMF x~1 day - denies LOF, VB, contractions - active movements seen on US and showed to mother, patient reassured - CHANDRAKANT 13cm - BPP 03/03 Headache Vision changes Hx of PreEwSF in prior - reports ROSARIO x 1 day not improved with tylenol and vision changes for approximately 1 week including floaters and flashing spots - currently on ASA - BP throughout 120s-140/70s-80s - BP on admission 133/68 Plan: Will give Tylenol 1g PO and continue to monitor BP. Previous x2 - LTCS in 2013 at 35w0d for PPROM & failure to progress in the setting of PreEwSF - RCS in 2017, documented LTCS at 33w6d for PreEwSF (based on persistent ROSARIO), no adhesions noted. MPDPS - consents signed on 01/08/23 - will need counseling at time of delivery Class BDM - Hx of GDM in 1st that resolved, diagnosed with DM in 2019 - previously on metformin 1000 and levemir 8U QAM and PM - was started on split dose insulin on 12/25, however did not pick it up until 01/01 - Current split dose insulin regimen AM- R26/N52 PM- R22/N22 (last increased on 01/08) - 24 hour urine: 49 (10/10/22) - HgA1c 6.7 (12/2022) - Glucose log at home: 169 fasting this AM, 200s-300 postprandial - FSBG on admission 239 Plan: Will order SSI and order DKA labs. GBS - Ucx with <10,000 CFU/mL on 11/17/2022 - YEN negative on 01/01/23 Depression - currently on zoloft 25mg daily Plan: c/w zoloft Antepartum course reviewed - 1 h no results, sero negative, Rimmune, VZVimmune, HPV not immune, O positive/IAT negative, GBS positive (Ucx 11/17/22), Pap NILM 09/2022 - H/H, plt: 10.9 / 32.1, 212 on 12/25/22 - PP control plan: BTL - [facility] Fetus - Presentation on admission: cephalic - posterior placenta - EFW: 1461 g, 62%tile - CHANDRAKANT 13cm - FHT reactive and reassuring - Normal anatomy scan Dispo: Will check out to night team. D/w Dr. Robertson, Dr. Taylor Lemon MD PhD Associated attestation - Elias Paige DO - 01/13/2023 5:21 AM CDT Attending addendum: I was L&D faculty on 01/12/2023 and agree with H&P below. I discussed the plan of care with the residents. Elias Paige DO [facility]"
[2024-06-05 11:16] LABS: Absolute Lymphocytes (CBC) 1.3 K/uL (0.7-4.9); Absolute Monocytes 0.2 K/uL (0.1-1.3); Basophils % 0.5 % (0-1.3); Eosinophils % 0.3 % (0-4.4); Hematocrit 40.8 % (36.0-45.0); Hemoglobin 13.6 g/dL (12.0-15.0); Lymphocytes % 13.3 % (15.3-44.8); MCH 27.6 pg (27.0-35.0); MCHC 33.3 g/dL (32.0-36.0); MCV 82.7 fL (80-100); MPV 9.2 fL (7.6-11.3); Monocytes % 2.5 % (3.3-12.3); Neutrophils % 83.4 % (41.7-73.7); Nucleated Red Blood Cells % 0.1 % (0-0); Platelets 223 thou/uL (152-406); RBC Red Blood Cell Count 4.94 M/uL (3.86-4.86); Red Cell Distribution Width 13.6 % (12.1-15.2)
[2024-06-05 11:19] LABS: PT Prothrombin Time 11.6 SECONDS (9.4-12.5); Protime INR 1.04
[2024-06-05 11:25] LABS: Specific Gravity > 1.030 (1.005-1.030)
[2024-06-05 11:28] LABS: Specific Gravity > 1.030 (1.005-1.030); Sqamous Epithelial <5 /HPF (None Seen); Urine Bacteria <20 /HPF (<20); Urine Bilirubin NEGATIVE (Negative); Urine Blood Negative (Negative); Urine Clarity Clear (Clear); Urine Color Light-Yellow (Yellow); Urine Culture Reflex Order NOT NEEDED; Urine Glucose 4+ (Over) (Negative); Urine Ketones 3+ (Negative); Urine Microscopic Reflex YN ORDER UMIC; Urine Nitrite NEGATIVE (Negative); Urine Protein 2+ (Negative); Urine RBC <5 /HPF (None Seen); Urine Urobilinogen Normal (Normal); Urine WBC <5 /HPF (<5)
[2024-06-05 11:33] LABS: Albumin 3.3 g/dL (3.4-5.0); Albumin/Globulin Ratio 0.8 (1.1-1.8); Anion Gap 12.7 mEq/L (5.0-15.0); Bilirubin Direct 0.2 mg/dL (0-0.2); Bilirubin Indirect, Calculated 0.6 mg/dL (0.2-0.8); Bilirubin Total 0.8 mg/dL (0.2-1.0); Globulin 4.3 g/dL (2.3-3.5); Potassium 3.7 mEq/L (3.5-5.1); Protein, Total 7.6 g/dL (6.4-8.2); Troponin High Sensitivity 3.5 pg/mL (<58.9)
--- NOTE | 2024-06-05 11:59 | RAD REPORT ---
EXAMINATION: UPPER EXTREMITY VENOUS UNILATE CLINICAL INDICATION: Female, 33 years old. [facility] MAIN ecchymosis;Pain Bed Name: 14 TECHNIQUE: Complete venous duplex sonography of the left upper extremity was performed. The examinati on included compression for vein patency, color Doppler imaging and flow augmentation in response to distal compression of the internal jugular, brachiocephalic, subclavian, axillary, brachial, radia l, ulnar, cephalic and basilic veins. COMPARISON: No prior exam. FINDINGS: Duplex sonography testing of the veins of the left upper extremity is completed. Color flow imaging s hows all veins to be compressible with appropriate color filling. Pulsatile and phasic flow is present within the upper extremity deep and superficial veins examined. IMPRESSION: There is no deep vein or superficial vein thrombosis.
--- NOTE | 2024-06-05 12:10 | RAD REPORT ---
EXAMINATION: ONE VIEW CHEST XR CLINICAL INDICATION: Female, 33 years old.,CHEST PAIN TECHNIQUE: Frontal chest projection is submitted. Examination is limited by patient positioning and t echnique. COMPARISON: 05/28/2022 FINDINGS: The lungs are well inflated and clear of new opacities. Stable pattern of mid to basal mild interstit ial prominence. No pneumothorax or sizable effusion. The heart is normal in size. Mediastinal contours are unremarkable. IMPRESSION: No acute intrathoracic abnormalities.
--- NOTE | 2024-06-05 12:49 | RAD REPORT ---
EXAM: CT Chest For Pe Angio TECHNIQUE: CT angiogram of the chest was performed following intravenous contrast administration, inc luding sagittal and coronal as well as maximum intensity projection reformats. One or more of the following dose reduction techniques were used: Automated exposure control, adjustment of the mA and k V according to patient size, and iterative reconstruction. Unless otherwise specified, incidental findings do not require dedicated imaging follow-up. INDICATION: [facility] MAIN CHEST PAIN Bed Name: 14 Y COMPARISON: 11/29/2021. FINDINGS: LINES/TUBES: None. PULMONARY ARTERIES: Main pulmonary arteries are normal in caliber. No filling defects within the pul monary arteries to suggest pulmonary embolus. LUNGS AND AIRWAYS: The lungs and central airways are normal without focal abnormality. PLEURA: No effusion or pneumothorax. HEART AND MEDIASTINUM: The visualized thyroid gland is normal. No mediastinal, hilar, or axillary lym phadenopathy. Heart is unremarkable. No pericardial effusion. SOFT TISSUES AND BONES: No acute osseous abnormality. No significant soft tissue finding. UPPER ABDOMEN: Unremarkable. IMPRESSION: No evidence of acute central pulmonary emboli. No suspicious intrathoracic findings.. Given the findings of pulmonary emphysematous changes mentioned above, please correlate clinically fo r a formal diagnosis of pulmonary emphysema. Pulmonary emphysema is considered an independent risk factor for lung cancer, consider evaluating the patient for a low dose CT lung cancer screening progr am.
--- NOTE | 2024-06-05 13:27 | EDPHYS ---
Physician Documentation [facility] Name: Nita Zelaya Age: 33 yrs Sex: Female : 1990 Arrival Date: 06/05/2024 Time: 10:39 Bed 14 Private MD: ED Physician Dexter Pandey HPI: 06/05 13:21 This 33 yrs old Female presents to ER via Ambulatory with complaints of Chest rn Pain, Arm Pain, Urinary Problem. 13:21 The patient or guardian reports chest pain that is located primarily in the anterior rn chest wall. The pain radiates to the left arm. Associated signs and symptoms: Pertinent positives: dizziness, Pertinent negatives: shortness of breath. The chest pain is described as aching. Severity of pain: At its worst the pain was mild in the emergency department the pain is unchanged. The patient has not experienced similar symptoms in the past. 13:23 Patient reports intermittent left-sided chest pain that radiates to the left shoulder, rn associated with dizziness. No abdominal pain or nausea/vomiting. No shortness of breath. Denies trauma.. Historical: - Allergies: 10:53 Ampicillin; iw 10:53 Latex; iw 10:53 Macrobid; iw 10:53 PENICILLINS; iw 10:53 Sulfa (Sulfonamide Antibiotics); iw - PMHx: 10:53 Diabetes - NIDDM; iw - PSHx: 10:53 Appendectomy; section; iw - Immunization history:: Adult Immunizations not up to date. - Infectious Disease History:: Denies. - Social history:: Smoking status: Patient denies any tobacco usage or history of. - Family history:: not pertinent. - Hospitalizations: : No recent hospitalization is reported. ROS: 13:23 Constitutional: Negative for fever, chills, and weight loss, Neck: Negative for injury, rn pain, and swelling, Cardiovascular: Negative for palpitations, and edema, Respiratory: Negative for shortness of breath, cough, wheezing, and pleuritic chest pain, Abdomen/GI: Negative for abdominal pain, nausea, vomiting, diarrhea, and constipation, MS/Extremity: Negative for injury and deformity, Skin: Negative for injury, rash, and discoloration, Neuro: Negative for headache, weakness, numbness, tingling, and seizure, Exam: 13:23 Constitutional: This is a well developed, well nourished patient who is awake, alert, rn and in no acute distress. Neck: No Meningismus. Chest/axilla: Normal chest wall appearance and motion. Nontender with no deformity. No lesions are appreciated. Cardiovascular: Tachycardic, regular. No pulse deficits. Respiratory: No increased work of breathing, no retractions or nasal flaring. Abdomen/GI: Soft, non-tender Skin: Warm, dry with normal turgor. Normal color with no rashes, no lesions, and no evidence of cellulitis. MS/ Extremity: Pulses equal, no cyanosis. Neurovascular intact. Full, normal range of motion. Equal circumference. Neuro: Awake and alert, GCS 15, oriented to person, place, time, and situation. Cranial nerves II-XII grossly intact. Motor strength 5/5 in all extremities. Sensory grossly intact. Cerebellar exam normal. Normal gait. 13:27 ECG was reviewed by the Attending Physician. rn Vital Signs: 10:51 BP 141 / 106; Pulse 111; Resp 19; Pulse Ox 95% on R/A; Weight 120.2 kg; Height 5 ft. 7 iw in. ; Pain 9/10; 13:50 BP 137 / 88; Pulse 88; Resp 17; Pulse Ox 99% on R/A; rs5 10:51 Body Mass Index 41.50 (120.20 kg, 170.18 cm) iw 10:51 Pain Scale: Adult iw MDM: 10:42 Medical Screening Exam initiated rn 13:23 Differential diagnosis: abnormal EKG, acute pericarditis, anxiety, costochondritis, rn gastroesophageal reflux disease (GERD), pleurisy, pneumothorax, pulmonary embolus, thoracic aortic disection. HEART Score: History: Slightly Suspicious (0), ECG: Normal (0), Age: < or = 45 years (0), Risk Factors: No Risk Factors Known (0), Troponin: < or = 1 x Normal Limit (0), Total Score = 0. Data reviewed: vital signs, nurses notes, lab test result(s), EKG, radiologic studies, CT scan, plain films, and as a result, I will discharge patient. Independent interpretation of the following test(s) in the Emergency Department EKG: See my EKG interpretation above X-Ray: My interpretation is Chest x-ray images negative for pneumonia or pneumothorax per my interpretation. Care significantly affected by the following chronic conditions: Diabetes. Counseling: I had a detailed discussion with the patient and/or guardian regarding the historical points, exam findings, and any diagnostic results supporting the discharge/admit diagnosis, lab results, radiology results, the need for outpatient follow up, to return to the emergency department if symptoms worsen or persist or if there are any questions or concerns that arise at home. Special discussion: I discussed with the patient/guardian in detail that at this point there is no indication for admission to the hospital. It is understood, however, that if the symptoms persist or worsen the patient needs to return immediately for re-evaluation. Based on the history and exam findings, there is no indication for further emergent testing or inpatient evaluation. I discussed with the patient/guardian the need to see the regulatory affairs assistant for further evaluation of the symptoms. I discussed with the patient/guardian the need to see the primary care provider for further evaluation of the symptoms. ED course: I have personally reviewed all of the results, including but not limited to blood tests and imaging deemed necessary to safely discharge this patient at this time. All results given to and printed out for patient. I personally went over all the results with the patient and answered all questions. Patient will follow-up with PCP and or specialist as discussed. Return precautions given and understood.. 13:28 ED course: CT PE protocol negative. Troponin negative. No acute ischemic changes on rn ECG.. 06/05 10:57 Order name: Basic Metabolic Panel; Complete Time: 11:35 06/05 10:57 Order name: CBC with Diff; Complete Time: :06/05 10:57 Order name: LFT's; Complete Time: :06/05 10:57 Order name: NT PRO-BNP; Complete Time: 11:06/05 10:57 Order name: PT-INR; Complete Time: 11:35 06/05 10:57 Order name: Troponin HS; Complete Time: 11:35 06/05 10:57 Order name: Urinalysis w/ reflexes; Complete Time: 11:35 06/05 10:57 Order name: Test, Urine; Complete Time: 11:35 06/05 10:57 Order name: Lipase; Complete Time: 11:06/05 10:57 Order name: XRAY Chest (1 view); Complete Time: 13:14 rn 06/05 10:57 Order name: CT Chest For PE Angio; Complete Time: 13:14 rn 06/05 11:01 Order name: UPPER EXTREMITY VENOUS UNILATE; Complete Time: 13:14 EDMS 06/05 10:57 Order name: EKG; Complete Time: 10:57 rn 06/05 10:57 Order name: Cardiac monitoring; Complete Time: 11:59 rn 06/05 10:57 Order name: EKG - Nurse/Tech; Complete Time: 11:59 rn 06/05 10:57 Order name: IV Saline Lock; Complete Time: :59 rn 06/05 10:57 Order name: Labs collected and sent; Complete Time: :59 rn 06/05 10:57 Order name: O2 Per Protocol; Complete Time: 59 rn 06/05 10:57 Order name: O2 Sat Monitoring; Complete Time: 12:31 rn EC:27 Rate is 98 beats/min. Rhythm is regular. QRS [place] is Normal. [place] interval is normal. QRS rn interval is normal. QT interval is normal. No Q waves. T waves are Inverted in lead III. No ST changes noted. Clinical impression: NSR w/ Non-specific ST/T Changes. Interpreted by me. Reviewed by me. Administered Medications: No medications were administered Disposition Summary: 06/05/24 13:27 Discharge Ordered Notes: Location: Home rn Problem: new rn Symptoms: have improved rn Condition: Stable rn Diagnosis - Chest pain, unspecified rn - Hyperglycemia, unspecified rn Followup: rn - With: Private Physician - When: As needed - Reason: Recheck today's complaints, Re-evaluation by your physician Discharge Instructions: - Discharge Summary Sheet rn - Nonspecific Chest Pain, Adult rn - Hyperglycemia rn - Blood Glucose Monitoring, Adult rn Forms: - Medication Reconciliation Form rn - Antibiotic overnight cashier - Prescription Opioid Use rn - Patient Portal Instructions rn - Leadership Thank You Letter rn Signatures: Dispatcher [employer] Yuliya Arreola RN Dexter Santamaria MD MD metal patternmaker: (The following items were deleted from the chart) 11:00 10:57 Extremity Venous [email or web address] ordered. EDMS EDMS
--- NOTE | 2024-06-05 13:27 | ER ---
Nurse's Notes [facility] Name: Nita Zelaya Age: 33 yrs Sex: Female : 1990 Arrival Date: 06/05/2024 Time: 10:39 Bed 14 Private MD: Diagnosis: Chest pain, unspecified;Hyperglycemia, unspecified Presentation: 06/05 10:51 Chief complaint: Patient states: left sided chest pain radiating to left shoulder iw started last night, also having difficulty urinating since yesterday, has to push to urinate. Coronavirus screen: At this time, the client does not indicate any symptoms associated with coronavirus-19. Ebola Screen: No symptoms or risks identified at this time. Initial Sepsis Screen: Does the patient meet any 2 criteria? No. Patient's initial sepsis screen is negative. Does the patient have a suspected source of infection? No. Patient's initial sepsis screen is negative. Risk Assessment: Do you want to hurt yourself or someone else? Patient reports no desire to harm self or others. Onset of symptoms was June 04, 2024. 10:51 Method Of Arrival: Ambulatory iw 10:51 Acuity: SOREN 3 iw Triage Assessment: 10:47 General: Appears in no apparent distress. uncomfortable, Behavior is calm, cooperative. rs5 Historical: - Allergies: 10:53 Ampicillin; iw 10:53 Latex; iw 10:53 Macrobid; iw 10:53 PENICILLINS; iw 10:53 Sulfa (Sulfonamide Antibiotics); iw - PMHx: 10:53 Diabetes - NIDDM; iw - PSHx: 10:53 Appendectomy; section; iw - Immunization history:: Adult Immunizations not up to date. - Infectious Disease History:: Denies. - Social history:: Smoking status: Patient denies any tobacco usage or history of. - Family history:: not pertinent. - Hospitalizations: : No recent hospitalization is reported. Screenin:[facility] ED Fall Risk Assessment (Adult) History of falling in the last 3 months, rs5 including since admission No falls in past 3 months (0 pts) Confusion or Disorientation No (0 pts) Intoxicated or Sedated No (0 pts) Impaired Gait No (0 pts) Mobility Assist Device Used No (0 pt) Altered Elimination No (0 pt) Score/Fall Risk Level 0 - 2 = Low Risk Oriented to surroundings, Maintained a safe environment. Abuse screen: Denies threats or abuse. Nutritional screening: No deficits noted. Tuberculosis screening: No symptoms or risk factors identified. Assessment: 10:45 General: Appears in no apparent distress. uncomfortable, Behavior is calm, cooperative. rs5 Pain: Complains of pain in chest Pain currently is 3 out of 10 on a pain scale. Quality of pain is described as aching, Is continuous. Neuro: Level of Consciousness is awake, alert, obeys commands, Oriented to person, place, time, situation. Cardiovascular: Patient's skin is warm and dry. Respiratory: Airway is patent Respiratory effort is even, unlabored, Respiratory pattern is regular, symmetrical. GI: Abdomen is round non-distended, Abd is soft and non tender X 4 quads. : Reports difficulty urinating. EENT: No signs and/or symptoms were reported regarding the EENT system. Derm: Skin is intact, Skin is pink, warm \T\ dry. 12:01 Reassessment: Patient and/or family updated on plan of care and expected duration. Pain rs5 level reassessed. Patient is alert, oriented x 3, equal unlabored respirations, skin warm/dry/pink. 13:10 Reassessment: Patient and/or family updated on plan of care and expected duration. Pain rs5 level reassessed. Patient is alert, oriented x 3, equal unlabored respirations, skin warm/dry/pink. 13:38 Reassessment: Patient and/or family updated on plan of care and expected duration. Pain rs5 level reassessed. Patient is alert, oriented x 3, equal unlabored respirations, skin warm/dry/pink. Vital Signs: 10:51 BP 141 / 106; Pulse 111; Resp 19; Pulse Ox 95% on R/A; Weight 120.2 kg; Height 5 ft. 7 iw in. ; Pain 9/10; 13:50 BP 137 / 88; Pulse 88; Resp 17; Pulse Ox 99% on R/A; rs5 10:51 Body Mass Index 41.50 (120.20 kg, 170.18 cm) iw 10:51 Pain Scale: Adult iw ED Course: 10:42 Patient arrived in ED. mr 10:42 Dexter Pandey MD is Attending Physician. rn 10:45 Patient has correct armband on for positive identification. Client placed on continuous rs5 cardiac and pulse oximetry monitoring. NIBP monitoring applied. monitoring manager on. 10:48 Maxwell Baltazar, RN is Primary Nurse. rs5 10:48 Inserted saline lock: 20 gauge in right antecubital area, using aseptic technique. rs5 10:53 Triage completed. iw 10:53 Arm band placed on. iw 11:01 No provider procedures requiring assistance completed. rs5 11:39 XRAY Chest (1 view) In Process Unspecified. EDMS 11:41 UPPER EXTREMITY VENOUS UNILATE In Process Unspecified. EDMS 12:11 CT Chest For PE Angio In Process Unspecified. EDMS 14:00 IV discontinued, intact, bleeding controlled, No redness/swelling at site. Pressure rs5 dressing applied. Administered Medications: No medications were administered Medication: 13:35 VIS not applicable for this client. rs5 Outcome: 13:27 Discharge ordered by . rn 14:00 Discharged to home ambulatory, rs5 14:00 Condition: stable rs5 14:00 Discharge instructions given to patient, family, Instructed on discharge instructions, follow up and referral plans. Demonstrated understanding of instructions, follow-up care, 14:02 Patient left the ED. rs5 Signatures: Dispatcher [employer] EDAK Annie Valentin, Reg Reg mr Yuliya Reyes RN RN Dexter Pandey MD MD rn Sotelo, Ricky, JANE RN rs5 Corrections: (The following items were deleted from the chart) 15:02 15:02 BP 137 / 88; Pulse 88bpm; Resp 17bpm; Pulse Ox 99% RA; rs5 rs5 15:04 14:55 BP 137 / 88; Pulse 88bpm; Resp 17bpm; Pulse Ox 99% RA; rs5 rs5
--- NOTE | 2024-06-09 12:12 | EKG ---
Test Date: 2024-06-05 Test Time: 10:57:55 Technical Sales Support Specialist: AMADOU MEASUREMENT RESULTS: Intervals: Rate: 98 WV: 150 QRSD: 84 QT: 348 QTc: 444 [place]: P: 31 WV: 150 QRS: 0 T: 4 INTERPRETIVE STATEMENTS: Normal sinus rhythm Possible Anterolateral infarct, age undetermined Abnormal ECG No previous ECG available for comparison Electronically Signed On 06-09-24 12:08:50 PANEL FITTER by Oscar Ann
== END 2024-06-05 14:02 | disposition home or self-care (01) ==
LOC: ER 10:39
DX: R07.9 Chest pain, unspecified (principal); E11.65 Type 2 diabetes mellitus with hyperglycemia; Z88.0 Allergy status to penicillin; Z88.2 Allergy status to sulfonamides; Z91.040 Latex allergy status; Z88.8 Allergy status to other drugs, medicaments and biological substances
CPT/HCPCS: 36415; 71045; 71275; 80048; 80076; 81001; 81025; 83690; 83880; 84484; 85025; 85610; 93005; 93971; 99284; Q9967